=== PATIENT | male | born 1940 | race Caucasian/White ===

== ENCOUNTER → 2016-11-27 | Outpatient (CLI) | payer BC ==
[~2016-11-27] MED LIST: ALBU1AER9 INH; BECL0.3A INH; BRVIN INH; BUPR200T2 PO; CLON1TAB3 PO; DUTA0.5C PO; FINA5TAB4 PO; GATI0.5S OPL; KETO0.5S33 OPL; LOVA20TA63 PO; OMEP40CA41 PO; PRED1SUS3 OPL; PRVIN525X INH; ROFL1TAB5 PO; TAMS0.4C38 PO; TIOT1AER INH; TRAZ-119 PO
== END | disposition home or self-care (01) ==
LOC: C.LABMFLN 08:25
PROVIDERS: ATTEND Urology
DX: N40.1 Benign prostatic hyperplasia with lower urinary tract symptoms (principal)

== ENCOUNTER → 2016-12-07 | Outpatient (CLI) | payer BC | END | disposition home or self-care (01) | LOC: C.PATHSPEC 17:01 | PROVIDERS: ATTEND Urology | DX: C67.9 Malignant neoplasm of bladder, unspecified (principal); N30.21 Other chronic cystitis with hematuria; R82.8 Abnormal findings on cytological and histological examination of urine ==

== ENCOUNTER → 2017-01-02 | Outpatient (CLI) | payer BC ==
[2017-01-01 14:00] LABS: ESTIMATED AVERAGE GLUCOSE 166 mg/dl; HA1C FLAG Normal (Normal)
[2017-01-01 15:39] LABS: ALB/GLOB RATIO 1.2 (0.9-2); ALKALINE PHOSPHATASE 81 U/L (45-117); ALT/SGPT 19 U/L (12-78); AST/SGOT 8 U/L (15-37); BLOOD UREA NITROGEN 11 mg/dl (7-18); BUN/CREATININE RATIO 11.3 (10-20); CALCIUM 9.1 mg/dl (8.5-10.1); CARBON DIOXIDE 31 mmol/L (21-32); CHLORIDE 106 mmol/L (98-107); CHOLESTEROL 181 mg/dl (0-200); CHOLESTEROL/HDL RATIO 3.1; CREATININE 0.94 mg/dl (0.60-1.40); GLUCOSE 133 mg/dl (70-99); HDL CHOLESTEROL 59 mg/dl; POTASSIUM 4.3 mmol/L (3.5-5.1); SODIUM 142 mmol/L (136-145)
[2017-01-01 15:48] LABS: LDL CHOLESTEROL CALCULATED 102 mg/dl; TRIGLYCERIDES 101 mg/dl (0-150); VERY LOW DENSITY LIPOPROT CALC 20 mg/dl
== END | disposition home or self-care (01) ==
LOC: C.LABMFLN 10:49
PROVIDERS: ATTEND Family Medicine
DX: E11.9 Type 2 diabetes mellitus without complications (principal); I10 Essential (primary) hypertension; E78.00 Pure hypercholesterolemia, unspecified; E05.90 Thyrotoxicosis, unspecified without thyrotoxic crisis or storm; J44.1 Chronic obstructive pulmonary disease with (acute) exacerbation

== ENCOUNTER → 2017-03-02 | Outpatient (CLI) | payer BC ==
[~2017-03-02] MED LIST changes: -TRAZ-119 PO; +TRAZ1TAB16 PO
--- NOTE | 2017-03-02 12:36 | DIAGNOSTIC IMAGING REPORT ---
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 COMPARISON STUDY: 08/17/2015 CT DOSE: 91.58 mGy.cm TECHNIQUE: Low-dose helical CT was acquired without intravenous contrast from lung apices to bases and reconstructed at 2.5 mm every 2 mm. CAD was utilized for this study. FINDINGS: Thyroid: Imaged portions of the thyroid gland are normal in appearance. Thoracic aorta: The thoracic aorta is normal in course and caliber, noting standard 3 vessel arch anatomy. Heart: There are mild coronary artery calcifications Lungs and pleural spaces: There are no pleural effusions. There is dependent atelectasis. There is a 12 mm right middle lobe pulmonary nodule containing dense central calcification. This is consistent with a postinflammatory granuloma. There is pulmonary emphysema. There is lower lobe bronchial wall thickening with areas of mucous plugging. Mediastinum: There is no mediastinal lymphadenopathy. Garima: There is no evidence of pathologic hilar adenopathy given the limitations of a noncontrast study Axilla: Clear. Upper abdomen: Partially visualized upper abdominal viscera is within normal limits. Skeletal structures: There are no lytic or blastic osseous lesions. IMPRESSION: 1. Benign 12 mm right middle lobe pulmonary nodule 2. Moderate emphysema 3. Lower lobe bronchial wall thickening with areas of mucous plugging CAD FINDINGS: Overall Lung RADS Category: 2 Lung RADS Management Recommendation: Lung-RADS 2: Continue annual screening in 12 months. Lung RADS Follow Up Date: 2018-03-02 Lung RADS Nodule ID: Electronically signed by: Zaid Edge M.D. 03/02/2017 12:36 PM Dictated Date/Time: 03/02/2017 12:29 PM
== END | disposition home or self-care (01) ==
LOC: C.CTS 10:41
PROVIDERS: ATTEND Family Medicine
DX: F17.210 Nicotine dependence, cigarettes, uncomplicated (principal); R91.1 Solitary pulmonary nodule; J43.9 Emphysema, unspecified

== ENCOUNTER → 2017-04-12 | Outpatient (CLI) | payer BC | END | disposition home or self-care (01) | LOC: C.PATHSPEC 10:53 | PROVIDERS: ATTEND Urology | DX: C67.9 Malignant neoplasm of bladder, unspecified (principal) ==

== ENCOUNTER → 2017-05-01 | Outpatient (CLI) | payer BC ==
[2017-05-01 13:25] LABS: ESTIMATED AVERAGE GLUCOSE 166 mg/dl; HA1C FLAG Normal (Normal)
[2017-05-01 14:06] LABS: ALT/SGPT 22 U/L (12-78); BLOOD UREA NITROGEN 12 mg/dl (7-18); BUN/CREATININE RATIO 13.5 (10-20); CALCIUM 8.6 mg/dl (8.5-10.1); CARBON DIOXIDE 31 mmol/L (21-32); CHLORIDE 103 mmol/L (98-107); CHOLESTEROL 164 mg/dl (0-200); CREATININE 0.86 mg/dl (0.60-1.40); GLUCOSE 112 mg/dl (70-99); SODIUM 139 mmol/L (136-145); TRIGLYCERIDES 111 mg/dl (0-150); VERY LOW DENSITY LIPOPROT CALC 22 mg/dl
[2017-05-01 14:15] LABS: ALB/GLOB RATIO 1.2 (0.9-2); ALKALINE PHOSPHATASE 77 U/L (45-117); AST/SGOT 11 U/L (15-37); CHOLESTEROL/HDL RATIO 2.6; HDL CHOLESTEROL 62 mg/dl; LDL CHOLESTEROL CALCULATED 80 mg/dl
[2017-05-01 14:55] LABS: RATIO 9.9 mcg/mg (0-30.0)
== END | disposition home or self-care (01) ==
LOC: C.LABMFLN 09:05
PROVIDERS: ATTEND Family Medicine
DX: E11.9 Type 2 diabetes mellitus without complications (principal); I10 Essential (primary) hypertension; E78.00 Pure hypercholesterolemia, unspecified; E05.90 Thyrotoxicosis, unspecified without thyrotoxic crisis or storm

== ENCOUNTER → 2017-05-18 | Outpatient (CLI) | payer BC ==
[2017-05-18 13:20] LABS: BASO % 0.2 %; BASO ABS # 0.05 K/uL (0-0.2); COMPLETE YES; EOS % 0.5 %; HEMATOCRIT 40.8 % (42-52); IG% 2.2 %; LYMPH % 13.7 %; LYMPH ABS # 3.24 K/uL (1.2-3.4); MEAN CELL VOLUME 90.3 fL (80-100); MEAN CORPUSCULAR HEMOGLOBIN 29.9 pg (25-34); MEAN CORPUSCULAR HGB CONC 33.1 g/dl (32-36); MONO % 8.2 %; NEUT % 75.2 %; PLATELET COUNT 354 K/uL (130-400); RED BLOOD COUNT 4.52 M/uL (4.7-6.1); WHITE BLOOD COUNT 23.68 K/uL (4.8-10.8)
== END | disposition home or self-care (01) ==
LOC: C.LABMFLN 11:04
PROVIDERS: ATTEND Family Medicine
DX: R06.00 Dyspnea, unspecified (principal)

== ENCOUNTER → 2017-07-05 | Outpatient (CLI) | payer BC ==
[~2017-07-05] MED LIST changes: +TRAZ-119 PO; -TRAZ1TAB16 PO
== END | disposition home or self-care (01) ==
LOC: C.PATHSPEC 17:12
PROVIDERS: ATTEND Urology
DX: C67.9 Malignant neoplasm of bladder, unspecified (principal)

== ENCOUNTER → 2017-08-03 | Outpatient (CLI) | payer BC | END | disposition home or self-care (01) | LOC: C.LABMFLN 08:16 | PROVIDERS: ATTEND Family Medicine | DX: M25.572 Pain in left ankle and joints of left foot (principal) ==

== ENCOUNTER 2017-08-23 10:51 | Inpatient (IN) | payer BC, OTHER ==
[~2017-08-23] VITALS: Ht 172.7 cm; Wt 80.9 kg
[2017-08-23] MEDS ORDERED: SODIUM CHLORIDE 0.9% 1000ML 1,000 ML IV STA ×2 (11:07→12:16)
[2017-08-23] MEDS ORDERED: MAGNESIUM SULFATE 1GM / D5W 1 GM BAG IV STA (11:07)
[2017-08-23] MEDS ORDERED: METHYLPREDNISOLONE 125 MG VIAL IV STA (11:07)
--- NOTE | 2017-08-23 11:12 | EMERGENCY ROOM VISIT NOTE ---
History Report prepared by Kelly: Eduardo Stubbs Under the Supervision of: Dr. Yonathan Uribe M.D. First contact with patient: 11:05 Chief Complaint: RESPIRATORY PROBLEMS Stated Complaint: WEAKNESS,NOT EATING Nursing Triage Summary: pt to the ED with c/o SOB for a wk and a cough pt states "i think I have pneumonia History of Present Illness The patient is a 77 year old male who presents to the Emergency Room with complaints of a nonproductive cough that began 1 week ago. The patient reports congestion, diarrhea, nausea, vomiting, shortness of breath, and body aches. The patient denies any chest pain or dysuria. He denies the use of any blood thinners. The patient does report sick contacts. The patient has a history of COPD and uses a CPAP machine at night. Pt denies LOC, headache, fevers, chills, diaphoresis, visual changes, neck pain , chest pain, abdominal pain, back pain, diarrhea, urinary symptoms, numbness, weakness, rash, or other complaints. Source of History: patient Onset: 1 week ago Position: other (global) Timing: constant Associated Symptoms: + cough, + SOB, + nausea, + vomiting, + diarrhea, No chest pain, No urinary symptoms Note: Pt reports body aches Review of Systems See HPI for pertinent positives and negatives. A total of ten systems were reviewed and were otherwise negative. Past Medical & Surgical Medical Problems: (1) Bladder cancer (2) COPD (chronic obstructive pulmonary disease) (3) GI bleed Family History Kidney disease Social History Smoking Status: Current Every Day Smoker Marital Status: Housing Status: lives alone Occupation Status: retired Current/Historical Medications Scheduled Atorvastatin (Lipitor), 10 MG PO PM Budesonide/Formoterol Fumarate (Symbicort 160/4.5 Inhaler ), 2 PUFFS INH BID Clonazepam (Klonopin), 1 MG PO HS Finasteride (Proscar), 5 MG PO QAM Metformin HCl (Metformin HCl), 500 MG PO DAILY Omeprazole (Prilosec), 40 MG PO QAM Ranitidine HCl (Ranitidine HCl), 150 MG PO DAILY Tamsulosin Hcl (Flomax), 0.4 MG PO AFTERNOON Scheduled PRN Albuterol Sulf (Albuterol Sulfate), 1 DOSE INH QID PRN for Shortness of Breath Albuterol Sulfate (Proair Hfa), 2 PUFFS INH Q4 PRN for Shortness of Breath Tiotropium Dexter-Olodaterol (Stiolto Respimat 2.5-2.5 Mcg/Act), 1 PUFF INH BID PRN for Shortness of Breath Trazodone Hcl (Desyrel), 1-2 TAB PO HS PRN for Sleep Allergies Coded Allergies: Levofloxacin (Verified Allergy, Unknown, pt doesnt remember, 08/23/17) Pravastatin (Verified Adverse Reaction, Unknown, muscle aches, 08/23/17) Physical Exam Vital Signs Date Time Temp Pulse Resp B/P (MAP) Pulse Ox O2 Delivery O2 Flow Rate FiO2 08/23/17 13:37 117 08/23/17 12:47 121 20 142/97 98 Nebulizer 08/23/17 11:42 115 18 93 Room Air 08/23/17 11:23 Room Air 95 08/23/17 11:10 94 Room Air 08/23/17 11:10 94 Room Air 08/23/17 11:07 114 08/23/17 10:54 36.8 127 36 163/82 92 Room Air Physical Exam GENERAL: Awake, alert, dyspneic appearing, in no distress HENT: Normocephalic, atraumatic. dry cracked mucous membranes. EYES: Normal conjunctiva. Sclera non-icteric. NECK: Supple. No nuchal rigidity. FROM. No JVD. RESPIRATORY: Diffuse wheezes throughout, diminished lung sounds at bases. CARDIAC: Regular rate, normal rhythm. Extremities warm and well perfused. Pulses equal. ABDOMEN: Soft, non-distended. No tenderness to palpation. No rebound or guarding. No masses. RECTAL: Deferred. MUSCULOSKELETAL: Chest examination reveals no tenderness. The back is symmetrical on inspection without obvious abnormality. There is no CVA tenderness to palpation. No joint edema. LOWER EXTREMITIES: Calves are equal size bilaterally and non-tender. No edema. No discoloration. NEURO: Normal sensorium. No sensory or motor deficits noted. SKIN: No rash or jaundice noted. Medical Decision & Procedures ER Provider Diagnostic Interpretation: Radiology results as stated below per my review and radiologist interpretation: CHEST ONE VIEW PORTABLE CLINICAL HISTORY: CHEST PAIN dyspnea COMPARISON STUDY: 08/17/2015 FINDINGS: Slight basilar interstitial prominence which is chronic. No well-defined focal infiltrative change. Mid and upper lungs are clear. No significant cardiac enlargement. IMPRESSION: Mild basilar bronchitis. The above report was generated using voice recognition software. It may contain grammatical, syntax or spelling errors. Electronically signed by: Sam Sexton M.D. 08/23/2017 11:35 AM Dictated Date/Time: 08/23/2017 11:34 AM Laboratory Results 08/23/17 11:30 Red Blood Count 4.20, Mean Corpuscular Volume 91.0, Mean Corpuscular Hemoglobin 31.0, Mean Corpuscular Hemoglobin Concent 34.0, Mean Platelet Volume 10.7, Neutrophils (%) (Auto) 91.0, Lymphocytes (%) (Auto) 3.4, Monocytes (%) (Auto) 5.0, Eosinophils (%) (Auto) 0.0, Basophils (%) (Auto) 0.1, Neutrophils # (Auto) 32.41, Lymphocytes # (Auto) 1.22, Monocytes # (Auto) 1.77, Eosinophils # (Auto) 0.00, Basophils # (Auto) 0.03 08/23/17 11:30 Test 08/23/17 11:30 08/23/17 11:50 08/23/17 12:00 White Blood Count 35.60 K/uL (4.8-10.8) Red Blood Count 4.20 M/uL (4.7-6.1) Hemoglobin 13.0 g/dL (14.0-18.0) Hematocrit 38.2 % (42-52) Mean Corpuscular Volume 91.0 fL (80-100) Mean Corpuscular Hemoglobin 31.0 pg (25-34) Mean Corpuscular Hemoglobin Concent 34.0 g/dl (32-36) Platelet Count 364 K/uL (130-400) Mean Platelet Volume 10.7 fL (7.4-10.4) Neutrophils (%) (Auto) 91.0 % Lymphocytes (%) (Auto) 3.4 % Monocytes (%) (Auto) 5.0 % Eosinophils (%) (Auto) 0.0 % Basophils (%) (Auto) 0.1 % Neutrophils # (Auto) 32.41 K/uL (1.4-6.5) Lymphocytes # (Auto) 1.22 K/uL (1.2-3.4) Monocytes # (Auto) 1.77 K/uL (0.11-0.59) Eosinophils # (Auto) 0.00 K/uL (0-0.5) Basophils # (Auto) 0.03 K/uL (0-0.2) RDW Standard Deviation 45.6 fL (36.4-46.3) RDW Coefficient of Variation 13.8 % (11.5-14.5) Immature Granulocyte % (Auto) 0.5 % Immature Granulocyte # (Auto) 0.17 K/uL (0.00-0.02) Giant Platelets 1+ Prothrombin Time 10.5 SECONDS (9.0-12.0) Prothromb Time International Ratio 1.0 (0.9-1.1) Anion Gap 6.0 mmol/L (3-11) Est Creatinine Clear Calc Drug Dose 71.8 ml/min Estimated GFR () 98.3 Estimated GFR (Non- 84.8 BUN/Creatinine Ratio 23.9 (10-20) Lactic Acid Level 2.0 mmol/L (0.4-2.0) Calcium Level 8.4 mg/dl (8.5-10.1) Total Bilirubin 0.7 mg/dl (0.2-1) Direct Bilirubin 0.2 mg/dl (0-0.2) Aspartate Amino Transf (AST/SGOT) 16 U/L (15-37) Alanine Aminotransferase (ALT/SGPT) 31 U/L (12-78) Alkaline Phosphatase 93 U/L (45-117) Troponin I < 0.015 ng/ml (0-0.045) Total Protein 7.1 gm/dl (6.4-8.2) Albumin 2.8 gm/dl (3.4-5.0) Lipase 59 U/L (73-393) Venous Blood pH 7.42 (7.36-7.41) Venous Blood Partial Pressure CO2 40 mmHg (38.0-50.0) Venous Blood Partial Pressure O2 42 mmHg Venous Blood HCO3 26 mmol/L Venous Blood Oxygen Saturation 75.6 % Venous Blood Base Excess 1.2 mEq/L Influenza Type A (RT-PCR) Neg for Influ A (NEG) Influenza Type A Antigen Neg for Influ A (NEG) Influenza Type B Antigen Neg for Influ B (NEG) Influenza Type B (RT-PCR) Neg for Influ B (NEG) Laboratory results reviewed by me Medications Administered Medications (Trade) Dose Ordered Sig/Khurram Route Start Time Stop Time Status Last Admin Dose Admin Albuterol/ Ipratropium (Duoneb) 12 ml ONE ONCE INH 08/23/17 11:15 08/23/17 11:16 DC 08/23/17 11:40 12 ML Methylprednisolone Sodium Succinate (Solu-Medrol IV) 125 mg NOW STAT IV 08/23/17 11:07 08/23/17 11:11 DC 08/23/17 11:57 125 MG Magnesium Sulfate (Magnesium Sulfate) 2 gm NOW STAT IV 08/23/17 11:07 08/23/17 11:11 DC 08/23/17 11:57 2 GM Sodium Chloride 1,000 ml @ 999 mls/hr Q1H1M STAT IV 08/23/17 11:07 08/23/17 12:07 DC 08/23/17 11:57 999 MLS/HR Vancomycin HCl 1600 mg/Sodium Chloride 532 ml @ 200 mls/hr ONE STAT IV 08/23/17 12:13 08/23/17 14:52 DC 08/23/17 14:07 200 MLS/HR Cefepime HCl 1000 mg/Dextrose 111 ml @ 200 mls/hr NOW STAT IV 08/23/17 12:13 08/23/17 12:46 DC 08/23/17 12:38 200 MLS/HR Azithromycin 500 mg/Dextrose 255 ml @ 125 mls/hr ONE ONCE IV 08/23/17 12:15 08/23/17 14:17 DC 08/23/17 12:42 125 MLS/HR Sodium Chloride 1,000 ml @ 999 mls/hr Q1H1M STAT IV 08/23/17 12:16 08/23/17 13:16 DC 08/23/17 12:00 999 MLS/HR ECG Indication: weakness Rate (beats per minute): 126 Rhythm: sinus tachycardia (with frequent PVC) Findings: no acute ischemic change, other (normal axis) ED Course 1105: The patient was evaluated in room C3. A complete history and physical exam was performed. 1242: I discussed the patient with Dr. Dutch ROBBINS who will evaluate the patient for further treatment. 1330: Upon reexamination, the patient was doing well. I discussed the test results and treatment plan with the patient. The patient will be evaluated for further management. Medical Decision I reviewed the patient's past medical history, medications, and the nursing notes as described above. Differential Diagnoses: Pneumonia, bronchitis, UTI, ACS, flu, and electrolyte imbalance. The patient is 77 y/o gentlemen with a pmhx of COPD who presents to the emergency department with with cough, congestion, sob per HPI. On arrival the patient is dyspneic but in NAD. AF. Tachycardic to 110s. Otherwise, VSS. Labs notable for WBC 35. CXR read as bronchitis. Blood cx drawn and pending. UA pending. Given profound leukocytosis will treat empirically for sepsis with Vanc /Cefepime and will add azithro for atypical coverage. Additionally treated with nebs, steroids, and mag for COPD. Case d/w Dr. Judd, [facility] hospitalist, who will admit the patient for further management. Medication Reconcilliation Current Medication List: was personally reviewed by me Blood Pressure Screening Patient's blood pressure: Elevated blood pressure Blood pressure disposition: Elevated BP felt to be situational Consults Time Called: 1239 Consulting Physician: Dr. Dutch PIERRE Returned Call: 1242 I discussed the patient with Dr. Dutch PIERRE will evaluate the patient for further treatment. Impression Primary Impression: Sepsis Additional Impression: Bronchitis Critical Care I have personally spent greater than 35 minutes of critical care time in the direct management of this patient. This includes bedside care, interpretation of diagnostic studies, and testing, discussion with consultants, patient, and family members, and other required patient management activities. This 35 minutes is in excess of all separately billable procedures. Scribe Attestation The scribe's documentation has been prepared under my direction and personally reviewed by me in its entirety. I confirm that the note above accurately reflects all work, treatment, procedures, and medical decision making performed by me. Departure Information Dispostion Being Evaluated By Hospitalist Referrals Harrison Vicente M.D. (PCP) Patient Instructions My [facility] Problem Qualifiers
[2017-08-23] MEDS ORDERED: ALBUT/IPRATROP 3MG/0.5MG NEB 3 ML VIAL INH ONE (11:15)
--- NOTE | 2017-08-23 11:36 | DIAGNOSTIC IMAGING REPORT ---
CHEST ONE VIEW PORTABLE CLINICAL HISTORY: CHEST PAIN dyspnea COMPARISON STUDY: 08/17/2015 FINDINGS: Slight basilar interstitial prominence which is chronic. No well-defined focal infiltrative change. Mid and upper lungs are clear. No significant cardiac enlargement. IMPRESSION: Mild basilar bronchitis. The above report was generated using voice recognition software. It may contain grammatical, syntax or spelling errors. Electronically signed by: Sam Sexton M.D. 08/23/2017 11:35 AM Dictated Date/Time: 08/23/2017 11:34 AM
[2017-08-23 11:42] VITALS: PULSE 115; O2SAT 93
[2017-08-23 11:59] LABS: HEMATOCRIT 38.2 % (42-52); MEAN PLATELET VOLUME 10.7 fL (7.4-10.4); PLATELET COUNT 364 K/uL (130-400); RED CELL DISTRIBUTION WIDTH CV 13.8 % (11.5-14.5); RED CELL DISTRIBUTION WIDTH SD 45.6 fL (36.4-46.3)
[2017-08-23] MEDS ORDERED: GLC500 PO (12:06)
[2017-08-23] MEDS ORDERED: ATOR10TA82 PO (12:06)
[2017-08-23] MEDS ORDERED: RANI150T2 PO (12:06)
[2017-08-23] MEDS ORDERED: SYMIN160 INH (12:07)
[2017-08-23] MEDS ORDERED: VANCOMYCIN INJ 1,600 MG in SODIUM CHLORIDE 0.9% 500ML 500 ML IV STA (12:13)
[2017-08-23] MEDS ORDERED: CEFEPIME IV 1,000 MG in DEXTROSE 5% 100ML 100 ML IV STA (12:13)
[2017-08-23] MEDS ORDERED: AZITHROMYCIN IV 500 MG in DEXTROSE 5% 250ML 250 ML IV ONE (12:15)
[2017-08-23 12:16] LABS: ALBUMIN 2.8 gm/dl (3.4-5.0); ALT/SGPT 31 U/L (12-78); AST/SGOT 16 U/L (15-37); BLOOD UREA NITROGEN 20 mg/dl (7-18); CALCIUM 8.4 mg/dl (8.5-10.1); CARBON DIOXIDE 28 mmol/L (21-32); CREATININE 0.86 mg/dl (0.60-1.40); GLUCOSE 155 mg/dl (70-99); LIPASE 59 U/L (73-393); POTASSIUM 3.6 mmol/L (3.5-5.1); SODIUM 132 mmol/L (136-145)
[2017-08-23 12:21] LABS: ALKALINE PHOSPHATASE 93 U/L (45-117); BASO % 0.1 %; BASO ABS # 0.03 K/uL (0-0.2); IG# 0.17 K/uL (0.00-0.02); LYMPH % 3.4 %; LYMPH ABS # 1.22 K/uL (1.2-3.4); MONO ABS # 1.77 K/uL (0.11-0.59); NEUT ABS # 32.41 K/uL (1.4-6.5); TOTAL PROTEIN 7.1 gm/dl (6.4-8.2)
[2017-08-23 13:03] LABS: INFLUENZA B ANTIGEN Neg for Influ B (NEG)
[2017-08-23] MEDS ORDERED: ACETAMINOPHEN 325 MG TAB PO PRN (13:30)
[2017-08-23] MEDS ORDERED: ONDANSETRON INJ 2 MG/ML 2 ML VIAL IV PRN (13:30)
[2017-08-23] MEDS ORDERED: ALUMINUM/MAGNESIUM/SIMETH (MAALOX MAX) 30 ML UDC PO PRN (13:30)
[2017-08-23] MEDS ORDERED: POLYETHYLENE (MIRALAX) 17 GM PACK PO PRN (13:30)
[2017-08-23] MEDS ORDERED: MAGNESIUM HYDROXIDE SUSP 30 ML UDC PO PRN (13:30)
[2017-08-23 13:37] LABS: INFLUENZA A PCR Neg for Influ A (NEG); INFLUENZA B PCR Neg for Influ B (NEG)
[2017-08-23] MEDS ORDERED: TRAZODONE HCL 50 MG TAB PO PRN (14:15)
[2017-08-23] MEDS ORDERED: GLUCOSE 10 TABS/TUBE PO PRN (14:30)
[2017-08-23] MEDS ORDERED: DEXTROSE 50% 50 ML SYR IV PRN (14:30)
[2017-08-23] MEDS ORDERED: GLUCOSE 40% GEL 15 GM TUBE PO PRN (14:30)
[2017-08-23] MEDS ORDERED: GLUCAGON FOR INJ 1 MG VIAL SQ PRN (14:30)
--- NOTE | 2017-08-23 14:37 | History and Physical ---
History & Physical Date & Time of Service: Aug 23, 2017 at 14:20 Chief Complaint: Weakness,Not Eating Primary Care Physician: Harrison Vicente M.D. History of Present Illness Mr. Melendez is a 77 y/o male with PMHx of COPD, [place] on CPAP, HTN, H/O PE/DVT, Myeloproliferative D/O, T2DM, HLD, and Tobacco User who presents to the ED c/o generalized illness x 1 week. Patient reports prior to his illness, his grandchildren were visiting who are also sick with URI and GI symptoms. He states he started off with nausea/vomiting, congestion, diarrhea, and body aches. He reports the nausea/vomiting/diarrhea have completely resolved but continues to have a poor appetite. On Sunday he states he developed shortness of breath. He continues to have a nonproductive cough. He denies nasal congestion or sore throat. He states he has been utilizing his nebulizers and inhalers as prescribed and reports some relief. Earlier in July he was treated with steroids for mild COPD exacerbation but denies recent steroid use. He reports he did have his flu vaccine and pneumonia vaccine. He reports associated orthopnea but states there is an element of chronicity to this. Upon examination, patient is on room air with mild audible wheezing and is in tripod position but is able to hold a normal conversation. He denies fever/ chills, chest pain, nausea/vomiting, abdominal pain, constipation/diarrhea, melena/hematochezia. He is afebrile and with significant leukocytosis. Upon further review, patient is normally in a state a leukocytosis and in the past it was believed this was a myeloproliferative disorder. While in the ED, patient remained tachycardic which is likely due to steroids and nebulizer treatment. The majority of the time he is on room air but did have mild hypoxia at 87% and was placed on supplemental oxygen. 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 Past Medical/Surgical History 1. COPD 2. [place] on CPAP 3. HTN 4. BPH 5. Bladder CA 6. HLD 7. T2DM 8. Myeloproliferative D/O 9. AV Sclerosis/Mass/Vegetation? 10. Tobacco User Family History Brain Mass Kidney disease Lung Disease Stroke Social History Smoking Status: Current Every Day Smoker Alcohol Use: none Drug Use: none Marital Status: Housing status: lives alone Occupational Status: retired Allergies Coded Allergies: Levofloxacin (Verified Allergy, Unknown, pt doesnt remember, 08/23/17) Pravastatin (Verified Adverse Reaction, Unknown, muscle aches, 08/23/17) Home Medications Scheduled Atorvastatin (Lipitor), 10 MG PO PM Budesonide/Formoterol Fumarate (Symbicort 160/4.5 Inhaler ), 2 PUFFS INH BID Clonazepam (Klonopin), 1 MG PO HS Finasteride (Proscar), 5 MG PO QAM Metformin HCl (Metformin HCl), 500 MG PO DAILY Omeprazole (Prilosec), 40 MG PO QAM Ranitidine HCl (Ranitidine HCl), 150 MG PO DAILY Tamsulosin Hcl (Flomax), 0.4 MG PO AFTERNOON Scheduled PRN Albuterol Sulf (Albuterol Sulfate), 1 DOSE INH QID PRN for Shortness of Breath Albuterol Sulfate (Proair Hfa), 2 PUFFS INH Q4 PRN for Shortness of Breath Tiotropium [place]-Olodaterol (Stiolto Respimat 2.5-2.5 Mcg/Act), 1 PUFF INH BID PRN for Shortness of Breath Trazodone Hcl (Desyrel), 1-2 TAB PO HS PRN for Sleep Review of Systems Constitutional: No fever, No chills ENT: No nasal symptoms, No sore throat Respiratory: + cough, + shortness of breath, No sputum Cardiovascular: + orthopnea, No chest pain, No palpitations Abdomen: No pain, No nausea, No vomiting, No diarrhea, No GI bleeding Musculoskeletal: No swelling, No calf pain Genitourinary - Male: No dysuria, No urinary frequency Hematologic / Lymphatic: No abnormal bleeding/bruising Integumentary: No rash Physical Exam Vital Signs Date Time Temp Pulse Resp B/P (MAP) Pulse Ox O2 Delivery O2 Flow Rate FiO2 08/23/17 14:14 91 Nasal Cannula 3.0 08/23/17 14:11 120 20 140/76 89 Room Air 08/23/17 13:37 117 08/23/17 12:47 121 20 142/97 98 Nebulizer 08/23/17 11:42 115 18 93 Room Air 08/23/17 11:23 Room Air 95 08/23/17 11:10 94 Room Air 08/23/17 11:10 94 Room Air 08/23/17 11:07 114 08/23/17 10:54 36.8 127 36 163/82 92 Room Air General Appearance: WD/WN, + mild distress (tripod position) Head: normocephalic, atraumatic Eyes: sclerae normal ENT: hearing grossly normal Neck: supple, no JVD, trachea midline Respiratory/Chest: + wheezing (diffusely throughout; has a wet-wheeze sound) Cardiovascular: + tachycardia, + systolic murmur Abdomen/GI: normal bowel sounds, non tender, soft Extremities/Musculoskelatal: no calf tenderness, no pedal edema Neurologic/Psych: alert, oriented x 3 Skin: normal color, warm/dry Diagnostics Laboratory Results Results Past 24 Hours Test 08/23/17 11:30 08/23/17 11:50 08/23/17 12:00 Range/Units White Blood Count 35.60 4.8-10.8 K/uL Red Blood Count 4.20 4.7-6.1 M/uL Hemoglobin 13.0 14.0-18.0 g/dL Hematocrit 38.2 42-52 % Mean Corpuscular Volume 91.0 80-100 fL Mean Corpuscular Hemoglobin 31.0 25-34 pg Mean Corpuscular Hemoglobin Concent 34.0 32-36 g/dl Platelet Count 364 130-400 K/uL Mean Platelet Volume 10.7 7.4-10.4 fL Neutrophils (%) (Auto) 91.0 % Lymphocytes (%) (Auto) 3.4 % Monocytes (%) (Auto) 5.0 % Eosinophils (%) (Auto) 0.0 % Basophils (%) (Auto) 0.1 % Neutrophils # (Auto) 32.41 1.4-6.5 K/uL Lymphocytes # (Auto) 1.22 1.2-3.4 K/uL Monocytes # (Auto) 1.77 0.11-0.59 K/uL Eosinophils # (Auto) 0.00 0-0.5 K/uL Basophils # (Auto) 0.03 0-0.2 K/uL RDW Standard Deviation 45.6 36.4-46.3 fL RDW Coefficient of Variation 13.8 11.5-14.5 % Immature Granulocyte % (Auto) 0.5 % Immature Granulocyte # (Auto) 0.17 0.00-0.02 K/uL Giant Platelets 1+ Sodium Level 132 136-145 mmol/L Potassium Level 3.6 3.5-5.1 mmol/L Chloride Level 98 98-107 mmol/L Carbon Dioxide Level 28 21-32 mmol/L Anion Gap 6.0 3-11 mmol/L Blood Urea Nitrogen 20 7-18 mg/dl Creatinine 0.86 0.60-1.40 mg/dl Est Creatinine Clear Calc Drug Dose 71.8 ml/min Estimated GFR () 98.3 Estimated GFR (Non- 84.8 BUN/Creatinine Ratio 23.9 10-20 Random Glucose 155 70-99 mg/dl Lactic Acid Level 2.0 0.4-2.0 mmol/L Calcium Level 8.4 8.5-10.1 mg/dl Total Bilirubin 0.7 0.2-1 mg/dl Direct Bilirubin 0.2 0-0.2 mg/dl Aspartate Amino Transf (AST/SGOT) 16 15-37 U/L Alanine Aminotransferase (ALT/SGPT) 31 12-78 U/L Alkaline Phosphatase 93 45-117 U/L Troponin I < 0.015 0-0.045 ng/ml Total Protein 7.1 6.4-8.2 gm/dl Albumin 2.8 3.4-5.0 gm/dl Lipase 59 73-393 U/L Venous Blood pH 7.42 7.36-7.41 Venous Blood Partial Pressure CO2 40 38.0-50.0 mmHg Venous Blood Partial Pressure O2 42 mmHg Venous Blood HCO3 26 mmol/L Venous Blood Oxygen Saturation 75.6 % Venous Blood Base Excess 1.2 mEq/L Influenza Type A (RT-PCR) Neg for Influ A NEG Influenza Type A Antigen Neg for Influ A NEG Influenza Type B Antigen Neg for Influ B NEG Influenza Type B (RT-PCR) Neg for Influ B NEG Microbiology Results 08/23/17 Blood Culture, Received Pending 08/23/17 Blood Culture, Received Pending Diagnostic Radiology CHEST ONE VIEW PORTABLE CLINICAL HISTORY: CHEST PAIN dyspnea COMPARISON STUDY: 08/17/2015 FINDINGS: Slight basilar interstitial prominence which is chronic. No well-defined focal infiltrative change. Mid and upper lungs are clear. No significant cardiac enlargement. IMPRESSION: Mild basilar bronchitis. EKG Sinus tachycardia with frequent Premature ventricular complexes Left axis deviation Inferior infarct (cited on or before 17-AUG-2015) Abnormal ECG When compared with ECG of 17-AUG-2015 12:44, Premature ventricular complexes are now Present Impression Assessment and Plan Mr. Melendez is a 77 y/o male with PMHx of COPD, [place] on CPAP, HTN, H/O PE/DVT, Myeloproliferative D/O, T2DM, HLD, and Tobacco User who presents to the ED c/o generalized illness x 1 week. Acute Hypoxic Respiratory Failure 2/2 COPD Exacerbation vs PNA: - Initial CXR is unremarkable and will repeat tomorrow as he was hydrated in the ED; he does have a history of PE but clinically appears this is more from COPD but pending clinical course could consider CT to rule out PE (was previously on Coumadin for this but sustained a GI bleed) - Ceftriaxone 1 g IV daily and Zithromax 250 mg daily - Methylprednisolone 60 mg IV Q6H - Mucinex 600 mg BID - Symbicort 2 puffs BID - Obtain echo - further evaluate for diastolic/systolic dysfunction and to evaluate aortic valve mass; patient is complaining of orthopnea and does sound wet on exam - denies known CHF history - Will hold further fluids as the patient sounds wet but overall looks euvolemic T2DM: - Hold metformin and cover with SSI given lack of appetite and steroid administration [place] on CPAP at Night: - Set up CPAP while inpatient Myeloproliferative D/O: - Continue to trend WBC - will further rule out other sources of infection including UA and blood cultures HLD: - Atorvastatin 10 mg daily BPH: - Proscar 5 mg daily and Flomax 0.4 mg daily DVT Prophylaxis: Heparin 5000 units BID Code Status: FULL RESUSCITATION Disposition: Once heart rate improves can likely go to medical floor; anticipate length of stay 2-3 days I personally interviewed and examined the patient. I agree with history of present illness and physical exam mentioned above, I also performed my own history taking and examination. Past medical history and review of system has been obtained by myself I reviewed all pertinent labs and studies Reviewed current medications I discussed and formulated of the assessment and plan mentioned above. Please refer to the Summary mentioned below. 77 y/o male with myeloproliferative disorder with white blood cell count between 19 and 20 in the past, COPD, obstructive sleep apnea on CPAP, hypertension, diabetes, dyslipidemia, tobacco abuse, history of PE/DVT. Presented to the ED with severe shortness of breath/wheezing 1 week, also had diarrhea daily in the beginning of the week which spontaneously resolved Plan Admit patient to telemetry Oxygen supplement as per protocol Bronchodilators/steroids Blood culture/sputum culture Influenza virus screen and PCR were both negative Urine legionella antigen Group a strep screen Initiate broad-spectrum antibiotics covering typical and atypical microorganisms Start patient on lactobacillus to prevent C. difficile Continue home medications IV fluid hydration as needed Monitor labs in a.m. Monitor oxygen saturation DVT prophylaxis/heparin subcutaneous General Appearance: The [id number] acute distress Eyes: normal Sclerae, extraocular muscle intact ENT: hearing grossly normal Neck: supple Respiratory/Chest: Decreased air entry bilateral with scattered rhonchi/ wheezing, using accessory muscles of respiration, [id number] respiratory distress Cardiovascular: regular rate, rhythm, tachycardia with + systolic murmur Abdomen: non tender, soft, no masses Extremities: no edema Neurologic/Psychiatric: Awake alert oriented times place and person moves all extremities sensation intact cranial nerves II-12 appear to be intact Skin: normal color, warm/dry, no rash Pedrito Rothman MD, [facility] Level of Care Telemetry Resuscitation Status FULL RESUSCITATION VTE Prophylaxis VTE Risk Assessment Done? Y/N: Yes Risk Level: Moderate Given or contraindicated: Unfractionated heparin SQ
[2017-08-23 16:54] VITALS: BP 146/61; PULSE 114; TEMP 36.8; O2SAT 95; Ht 172.7 cm; Wt 80.9 kg
[2017-08-23] MEDS: INSULIN ASPART 100 UNITS/ML 3 ML PEN SC SCH ×2 (17:25→21:00)
--- NOTE | 2017-08-23 18:34 | DIAGNOSTIC IMAGING REPORT ---
CHEST 2 VIEWS ROUTINE CLINICAL HISTORY: 77 years-old Male presenting with PA/lateral - sob leukocytosis. TECHNIQUE: PA and lateral views of the chest were obtained. COMPARISON: 08/23/2017. FINDINGS: Atherosclerosis of aortic arch. Cardiac silhouette mildly enlarged. Heterogeneity of lung markings with relative lucency in the upper lobes. Mild hyperinflation. No focal infiltrate. No pleural effusion or pneumothorax. Osseous structures normal. Multiple external leads to grade evaluation of the lower thorax. IMPRESSION: 1. Emphysema. No focal infiltrate to suggest pneumonia. 2. Mild cardiomegaly. Electronically signed by: Nabeel Wright M.D. 08/23/2017 6:33 PM Dictated Date/Time: 08/23/2017 6:31 PM
[2017-08-23] MEDS: LEVALBUTEROL 0.63MG/3 ML NEB INH SCH (18:51)
[2017-08-23] MEDS: IPRATROPIUM BROMIDE NEB SOLN 0.02% 2.5 ML VIAL INH SCH (18:51)
[2017-08-23 18:55] VITALS: PULSE 85; O2SAT 96
[2017-08-23] MEDS: METHYLPREDNISOLONE IV 60 MG in SYRINGE 0 ML IV SCH ×2 (19:15→23:39)
[2017-08-23] MEDS: CEFTRIAXONE SOD INJ 1 GM in DEXTROSE 5% ADD-VANTAGE 50ML 50 ML IV SCH (19:15)
[2017-08-23] MEDS: GUAIFENESIN 600 MG TABCR PO SCH (19:16)
[2017-08-23] MEDS: LACTOBACILLUS ACIDOPHILUS (FLORANEX) TAB PO SCH (19:18)
[2017-08-23 19:49] VITALS: BP 154/70; PULSE 107; TEMP 36.6; O2SAT 92
[2017-08-23 20:00] VITALS: O2SAT 95
[2017-08-23] MEDS: BUDESONIDE/FORMOTEROL FUMARATE 160/4.5 60 PUFFS/INHALER INH SCH (20:48)
[2017-08-23] MEDS: TAMSULOSIN HCL 0.4 MG CAP PO SCH (20:49)
[2017-08-23] MEDS: ATORVASTATIN 10 MG TAB PO SCH (20:49)
[2017-08-23] MEDS: CLONAZEPAM 1 MG TAB PO SCH (20:55)
[2017-08-23] MEDS ORDERED: LEVALBUTEROL/IPRATROPIUM NEB INH SCH (21:00)
[2017-08-23] MEDS: HEPARIN SOD 5000 UNIT/0.5 ML CARP SQ SCH (21:01)
[2017-08-23 23:24] VITALS: BP 130/66; PULSE 107; TEMP 36.7; O2SAT 93
[2017-08-24] VITALS (16 sets, daily range): BP systolic 117–146; BP diastolic 62–77; PULSE 89–112; TEMP 36.3–36.6; O2SAT 91–97
[2017-08-24] MEDS: IPRATROPIUM BROMIDE NEB SOLN 0.02% 2.5 ML VIAL INH SCH ×4 (01:59→20:10)
[2017-08-24] MEDS: LEVALBUTEROL 0.63MG/3 ML NEB INH SCH ×4 (02:00→20:10)
[2017-08-24] MEDS: METHYLPREDNISOLONE IV 60 MG in SYRINGE 0 ML IV SCH ×3 (05:44→17:47)
[2017-08-24 07:41] LABS: HEMOGLOBIN 12.5 g/dL (14.0-18.0); MEAN CELL VOLUME 90.9 fL (80-100); MEAN CORPUSCULAR HEMOGLOBIN 30.7 pg (25-34); MEAN CORPUSCULAR HGB CONC 33.8 g/dl (32-36); MEAN PLATELET VOLUME 10.8 fL (7.4-10.4); PLATELET COUNT 419 K/uL (130-400); RED CELL DISTRIBUTION WIDTH CV 13.7 % (11.5-14.5); RED CELL DISTRIBUTION WIDTH SD 45.4 fL (36.4-46.3); WHITE BLOOD COUNT 24.27 K/uL (4.8-10.8)
[2017-08-24] MEDS: RANITIDINE HCL 150 MG TAB PO SCH (08:26)
[2017-08-24] MEDS: GUAIFENESIN 600 MG TABCR PO SCH ×2 (08:26→21:20)
[2017-08-24] MEDS: LACTOBACILLUS ACIDOPHILUS (FLORANEX) TAB PO SCH ×3 (08:26→17:46)
[2017-08-24] MEDS: FINASTERIDE 5 MG TAB PO SCH (08:26)
[2017-08-24] MEDS: AZITHROMYCIN 250 MG TAB PO SCH (08:27)
[2017-08-24] MEDS: PANTOprazole SOD 40 MG TAB PO SCH (08:27)
[2017-08-24] MEDS: BUDESONIDE/FORMOTEROL FUMARATE 160/4.5 60 PUFFS/INHALER INH SCH ×2 (08:28→21:20)
[2017-08-24] MEDS: INSULIN ASPART 100 UNITS/ML 3 ML PEN SC SCH ×4 (08:32→21:25)
--- NOTE | 2017-08-24 08:41 | Progress Note ---
Subjective Date of Service: Aug 24, 2017. Subjective pt feels much improved, his brother is at beside, he also confirms has improved , his exam however shows he still have significant wheezing and recommendation to stay another day Problem List Medical Problems: (1) Bronchitis Status: Acute (2) COPD exacerbation Status: Acute (3) Sepsis Status: Acute Review of Systems Constitutional: + weakness, + fatigue, No fever, No chills Respiratory: + cough, + shortness of breath, + dyspnea on exertion Cardiac: No chest pain, No edema Abdomen: No pain, No nausea, No vomiting, No diarrhea Musculoskeletal: No joint pain, No muscle pain Neurologic: No memory loss, No paralysis Psychiatric: No depression symptoms, No anhedonism Objective Vital Signs Date Time Temp Pulse Resp B/P (MAP) Pulse Ox O2 Delivery O2 Flow Rate FiO2 08/24/17 07:44 95 Nasal Cannula 3.0 08/24/17 07:44 36.4 103 16 117/62 (80) 93 2.0 08/24/17 07:38 112 20 96 Nasal Cannula 3.0 08/24/17 04:42 36.6 105 18 133/62 (85) 91 Nasal Cannula 3.0 08/24/17 04:00 95 Nasal Cannula 3.0 08/24/17 02:00 100 18 95 Nasal Cannula 3.0 08/24/17 00:00 95 Nasal Cannula 3.0 08/23/17 23:24 36.7 107 18 130/66 (87) 93 Nasal Cannula 3.0 08/23/17 20:00 95 Nasal Cannula 3.0 08/23/17 19:49 36.6 107 20 154/70 (98) 92 Nasal Cannula 2.0 08/23/17 18:55 85 18 96 Nasal Cannula 3.0 08/23/17 16:54 36.8 114 23 146/61 95 Nasal Cannula 3.0 08/23/17 16:08 36.8 120 20 140/76 91 08/23/17 14:14 91 Nasal Cannula 3.0 08/23/17 14:11 120 20 140/76 89 Room Air 08/23/17 13:37 117 08/23/17 12:47 121 20 142/97 98 Nebulizer 08/23/17 11:42 115 18 93 Room Air 08/23/17 11:23 Room Air 95 08/23/17 11:10 94 Room Air 08/23/17 11:10 94 Room Air 08/23/17 11:07 114 08/23/17 10:54 36.8 127 36 163/82 92 Room Air Physical Exam General Appearance: WD/WN, + mild distress Eyes: normal inspection, sclerae normal Respiratory/Chest: chest non-tender, + decreased breath sounds, + accessory muscle use, + wheezing Cardiovascular: regular rate, rhythm, + systolic murmur Abdomen: normal bowel sounds, non tender, soft Extremities: no pedal edema, no calf tenderness Neurologic/Psychiatric: alert, oriented x 3 Laboratory Results Last 24 Hours Test 08/23/17 11:30 08/23/17 11:50 08/23/17 12:00 08/23/17 19:27 White Blood Count 35.60 K/uL Red Blood Count 4.20 M/uL Hemoglobin 13.0 g/dL Hematocrit 38.2 % Mean Corpuscular Volume 91.0 fL Mean Corpuscular Hemoglobin 31.0 pg Mean Corpuscular Hemoglobin Concent 34.0 g/dl Platelet Count 364 K/uL Mean Platelet Volume 10.7 fL Neutrophils (%) (Auto) 91.0 % Lymphocytes (%) (Auto) 3.4 % Monocytes (%) (Auto) 5.0 % Eosinophils (%) (Auto) 0.0 % Basophils (%) (Auto) 0.1 % Neutrophils # (Auto) 32.41 K/uL Lymphocytes # (Auto) 1.22 K/uL Monocytes # (Auto) 1.77 K/uL Eosinophils # (Auto) 0.00 K/uL Basophils # (Auto) 0.03 K/uL RDW Standard Deviation 45.6 fL RDW Coefficient of Variation 13.8 % Immature Granulocyte % (Auto) 0.5 % Immature Granulocyte # (Auto) 0.17 K/uL Giant Platelets 1+ Prothrombin Time 10.5 SECONDS Prothromb Time International Ratio 1.0 Sodium Level 132 mmol/L Potassium Level 3.6 mmol/L Chloride Level 98 mmol/L Carbon Dioxide Level 28 mmol/L Anion Gap 6.0 mmol/L Blood Urea Nitrogen 20 mg/dl Creatinine 0.86 mg/dl Est Creatinine Clear Calc Drug Dose 71.8 ml/min Estimated GFR () 98.3 Estimated GFR (Non- 84.8 BUN/Creatinine Ratio 23.9 Random Glucose 155 mg/dl Lactic Acid Level 2.0 mmol/L Calcium Level 8.4 mg/dl Total Bilirubin 0.7 mg/dl Direct Bilirubin 0.2 mg/dl Aspartate Amino Transf (AST/SGOT) 16 U/L Alanine Aminotransferase (ALT/SGPT) 31 U/L Alkaline Phosphatase 93 U/L Troponin I < 0.015 ng/ml Total Protein 7.1 gm/dl Albumin 2.8 gm/dl Lipase 59 U/L Venous Blood pH 7.42 Venous Blood Partial Pressure CO2 40 mmHg Venous Blood Partial Pressure O2 42 mmHg Venous Blood HCO3 26 mmol/L Venous Blood Oxygen Saturation 75.6 % Venous Blood Base Excess 1.2 mEq/L Influenza Type A (RT-PCR) Neg for Influ A Influenza Type A Antigen Neg for Influ A Influenza Type B Antigen Neg for Influ B Influenza Type B (RT-PCR) Neg for Influ B Bedside Glucose 224 mg/dl Test 08/24/17 00:40 08/24/17 07:22 08/24/17 07:36 Urine Color YELLOW Urine Appearance CLEAR Urine pH 6.0 Urine Specific [place] 1.026 Urine Protein TRACE Urine Glucose (UA) 3+ Urine Ketones NEG Urine Occult Blood NEG Urine Nitrite NEG Urine Bilirubin NEG Urine Urobilinogen NEG Urine Leukocyte Esterase NEG Urine WBC (Auto) 1-5 /hpf Urine RBC (Auto) 0-4 /hpf Urine Hyaline Casts (Auto) 1-5 /lpf Urine Epithelial Cells (Auto) 20-30 /lpf Urine Bacteria (Auto) NEG White Blood Count 24.27 K/uL Red Blood Count 4.07 M/uL Hemoglobin 12.5 g/dL Hematocrit 37.0 % Mean Corpuscular Volume 90.9 fL Mean Corpuscular Hemoglobin 30.7 pg Mean Corpuscular Hemoglobin Concent 33.8 g/dl RDW Standard Deviation 45.4 fL RDW Coefficient of Variation 13.7 % Platelet Count 419 K/uL Mean Platelet Volume 10.8 fL Bedside Glucose 214 mg/dl Assessment and Plan 77 M presents with acute hypoxic respiratory failure with COPD exacerbation and bronchitis, with PMHx of COPD, [place] on CPAP, HTN, H/O PE/DVT, Myeloproliferative D/O, T2DM, HLD, BPH and h/o bladder ca, and current Tobacco User Acute Hypoxic Respiratory Failure 2/2 COPD Exacerbation plus bronchitis - Ceftriaxone 1 g IV daily and Zithromax 250 mg daily, Mucinex 600 mg BID - Methylprednisolone taper as able - Symbicort 2 puffs BID, consider nebs if clinically not improved Pending echo T2DM:- Hold metformin, SSI check a1c [place] on CPAP at Night: Myeloproliferative D/O:markedly elevated wbc HLD:- Atorvastatin 10 mg daily BPH:- Proscar 5 mg daily and Flomax 0.4 mg daily DVT Prophylaxis: Heparin 5000 units BID Code Status: FULL RESUSCITATION
[2017-08-24 09:03] LABS: CALCIUM 8.3 mg/dl (8.5-10.1); CREATININE 0.86 mg/dl (0.60-1.40); POTASSIUM 4.3 mmol/L (3.5-5.1)
--- NOTE | 2017-08-24 09:34 | DIAGNOSTIC IMAGING REPORT ---
CHEST 2 VIEWS ROUTINE CLINICAL HISTORY: F/U CXR for PNA - SOB and Congestion dyspnea COMPARISON STUDY: 08/23/2017 FINDINGS: Minimal parenchymal infiltrate left base. Slight interstitial prominence both lung bases possibly on the basis of mild basilar interstitial pneumonitis. Upper lungs are clear. No significant cardiac enlargement. IMPRESSION: Developing bibasilar interstitial infiltrates. No focal regions of consolidative change. The above report was generated using voice recognition software. It may contain grammatical, syntax or spelling errors. Electronically signed by: Sam Sexton M.D. 08/24/2017 9:32 AM Dictated Date/Time: 08/24/2017 9:31 AM
--- NOTE | 2017-08-24 10:48 | Clinical Documentation Query ---
CLINICAL DOCUMENTATION QUERY Daily progress note on 08/24/17 has acute sepsis documented in problem list, however it is not addressed in assessment and plan part of note. Because of the often erroneous nature of the problem list coders at [facility] do not use it for coding purposes. In your clinical opinion is this patient being managed for: ( ) Sepsis treated and resolved in setting of acute bronchitis & COPD evidenced by tachycardia, tachypnea, and leukocytosis ( ) Not Agree Please clarify and document your clinical opinion in the progress notes and discharge summary. Terms such as "probable", "suspected", "likely", "questionable", "possible", or "still to be ruled out" are acceptable. IF IN AGREEMENT, YOU MUST DOCUMENT ABOVE DIAGNOSTIC STATEMENT IN DAILY PROGRESS NOTES AND DISCHARGE SUMMARY. This document is not part of the patient's record. Thank You, Prashanth Conti, RN [phone]
[2017-08-24] MEDS: HEPARIN SOD 5000 UNIT/0.5 ML CARP SQ SCH ×2 (12:42→21:26)
--- NOTE | 2017-08-24 16:36 | ECHOCARDIOGRAM REPORT ---
*NOTICE TO RECEIVING [employer] This information is strictly Confidential and protected under [place] law. [place] law prohibits you from making any further disclosure of this information unless further disclosure is expressly permitted by the written consent of the person to whom it pertains or is authorized by law. A general authorization for the release of medical or other information is not sufficient for this purpose. Hospital accepts no responsibility if the information is made available to any other person, INCLUDING THE PATIENT. Interpretation Summary * Name: KEERTHI BOYD Study Date: 08/24/2017 08:40 AM BP: 117/62 mmHg * Patient Location: [facility]\S\N285\S\2 HR: 100 * : 1940 (M/d/yyyy) Gender: Male Height: 68 in * Age: 77 yrs Ethnicity: CA Weight: 174 lb * Ordering Physician: Ruth Conti * Referring Physician: Self, Referred * Performed By: Kajal See RCS * * Reason For Study: R/O CHF / EVIDENCE OF MASS VS VEG ON AORTIC VALVE 2014 * BSA: 1.9 m2 * -- Conclusions -- * There is mild concentric left ventricular hypertrophy. * Left ventricular systolic function is normal. * Grade I diastolic dysfunction, (abnormal relaxation pattern). * Borderline left atrial enlargement. * There is some thickening of the non coronary cusp. The mobile mass seen in 2014 is no longer present. * There is mild mitral regurgitation. Procedure Details * A complete two-dimensional transthoracic echocardiogram was performed (2D, M-mode, Doppler and color flow Doppler). Left Ventricle * The left ventricle is normal in size. * There is mild concentric left ventricular hypertrophy. * Left ventricular systolic function is normal. * Grade I diastolic dysfunction, (abnormal relaxation pattern). * Ejection Fraction = 55-60%. * The left ventricular wall motion is normal. Right Ventricle * The right ventricle is normal in size and function. Atria * Borderline left atrial enlargement. * Right atrial size is normal. Mitral Valve * The mitral valve leaflets appear normal. There is no evidence of stenosis, fluttering, or prolapse. * There is mild mitral regurgitation. Tricuspid Valve * The tricuspid valve is not well visualized, but is grossly normal. * Significant tricuspid regurgitation is absent. Aortic Valve * The aortic valve is trileaflet. * There is some thickening of the non coronary cusp. The mobile mass seen in 2015 is no longer present. * No hemodynamically significant valvular aortic stenosis. * There is no significant aortic regurgitation. Great Vessels * The aortic root is normal size. Pericardium/Pleural * There is no pericardial effusion. MMode 2D Measurements and Calculations IVSd 1.3 cm IVSs 1.6 cm LVIDd 4.8 cm LVIDs 3.7 cm LVPWd 1.3 cm LVPWs 1.5 cm IVS/LVPW 0.94 FS 22.2 % EDV(Teich) 106.3 ml ESV(Teich) 58.8 ml EF(Teich) 44.7 % EDV(cubed) 109.0 ml ESV(cubed) 51.4 ml EF(cubed) 52.8 % % IVS thick 25.6 % % LVPW thick 7.9 % LV mass(C)d 246.9 grams LV mass(C)dI 128.2 grams/m\S\2 LV mass(C)s 216.3 grams LV mass(C)sI 112.3 grams/m\S\2 SV(Teich) 47.5 ml SI(Teich) 24.6 ml/m\S\2 SV(cubed) 57.6 ml SI(cubed) 29.9 ml/m\S\2 Ao root diam 3.1 cm Ao root area 7.6 cm\S\2 LA dimension 4.0 cm LA/Ao 1.3 LVOT diam 2.0 cm LVOT area 3.3 cm\S\2 LVAd ap4 29.9 cm\S\2 LVLd ap4 7.0 cm EDV(MOD-sp4) 105.0 ml EDV(sp4-el) 108.3 ml LVAs ap4 17.7 cm\S\2 LVLs ap4 5.9 cm ESV(MOD-sp4) 43.8 ml ESV(sp4-el) 45.6 ml EF(MOD-sp4) 58.2 % EF(sp4-el) 57.9 % LVAd ap2 39.1 cm\S\2 LVLd ap2 8.5 cm EDV(MOD-sp2) 149.6 ml EDV(sp2-el) 152.0 ml LVAs ap2 23.8 cm\S\2 LVLs ap2 6.5 cm ESV(MOD-sp2) 72.1 ml ESV(sp2-el) 74.5 ml EF(MOD-sp2) 51.8 % EF(sp2-el) 51.0 % LVLd %diff 18.2 % EDV(MOD-bp) 135.6 ml LVLs %diff 9.5 % ESV(MOD-bp) 56.4 ml EF(MOD-bp) 58.4 % SV(MOD-sp4) 61.1 ml SI(MOD-sp4) 31.7 ml/m\S\2 SV(MOD-sp2) 77.5 ml SI(MOD-sp2) 40.2 ml/m\S\2 SV(MOD-bp) 79.2 ml SI(MOD-bp) 41.1 ml/m\S\2 SV(sp4-el) 62.7 ml SI(sp4-el) 32.6 ml/m\S\2 SV(sp2-el) 77.6 ml SI(sp2-el) 40.3 ml/m\S\2 Doppler Measurements and Calculations MV E max davy 94.9 cm/sec MV A max davy 145.6 cm/sec MV E/A 0.65 MV P1/2t max davy 113.0 cm/sec MV P1/2t 30.3 msec MVA(P1/2t) 7.3 cm\S\2 MV dec slope 1092.7 cm/sec\S\2 MV dec time 0.10 sec Ao V2 max 169.5 cm/sec Ao max PG 11.5 mmHg Ao max PG (full) 7.1 mmHg CARMELITA(V,A) 2.0 cm\S\2 CARMELITA(V,D) 2.0 cm\S\2 LV V1 max PG 4.4 mmHg LV V1 max 104.7 cm/sec MR max davy 474.8 cm/sec MR max PG 90.2 mmHg
[2017-08-24] MEDS: CEFTRIAXONE SOD INJ 1 GM in DEXTROSE 5% ADD-VANTAGE 50ML 50 ML IV SCH (17:47)
[2017-08-24] MEDS: ATORVASTATIN 10 MG TAB PO SCH (21:20)
[2017-08-24] MEDS: TAMSULOSIN HCL 0.4 MG CAP PO SCH (21:21)
[2017-08-24] MEDS: CLONAZEPAM 1 MG TAB PO SCH (21:26)
[2017-08-25] VITALS (10 sets, daily range): BP systolic 104–146; BP diastolic 57–73; PULSE 77–103; TEMP 36.4–36.8; O2SAT 89–98
[2017-08-25] MEDS: IPRATROPIUM BROMIDE NEB SOLN 0.02% 2.5 ML VIAL INH SCH ×4 (02:12→20:32)
[2017-08-25] MEDS: LEVALBUTEROL 0.63MG/3 ML NEB INH SCH ×4 (02:12→20:32)
[2017-08-25] MEDS: METHYLPREDNISOLONE IV 40 MG in SYRINGE 0 ML IV SCH ×2 (05:37→17:49)
[2017-08-25 07:15] LABS: HEMOGLOBIN 11.5 g/dL (14.0-18.0); MEAN CELL VOLUME 90.7 fL (80-100); MEAN CORPUSCULAR HEMOGLOBIN 30.7 pg (25-34); MEAN CORPUSCULAR HGB CONC 33.8 g/dl (32-36); MEAN PLATELET VOLUME 10.6 fL (7.4-10.4); PLATELET COUNT 427 K/uL (130-400); RED CELL DISTRIBUTION WIDTH CV 13.5 % (11.5-14.5); RED CELL DISTRIBUTION WIDTH SD 45.1 fL (36.4-46.3); WHITE BLOOD COUNT 26.81 K/uL (4.8-10.8)
[2017-08-25 07:48] LABS: CALCIUM 8.1 mg/dl (8.5-10.1); CREATININE 0.8 mg/dl (0.60-1.40); POTASSIUM 4.5 mmol/L (3.5-5.1)
[2017-08-25] MEDS: FINASTERIDE 5 MG TAB PO SCH (07:58)
[2017-08-25] MEDS: PANTOprazole SOD 40 MG TAB PO SCH (07:58)
[2017-08-25] MEDS: AZITHROMYCIN 250 MG TAB PO SCH (07:58)
[2017-08-25] MEDS: RANITIDINE HCL 150 MG TAB PO SCH (07:58)
[2017-08-25] MEDS: GUAIFENESIN 600 MG TABCR PO SCH ×2 (07:58→20:53)
[2017-08-25] MEDS: BUDESONIDE/FORMOTEROL FUMARATE 160/4.5 60 PUFFS/INHALER INH SCH ×2 (07:59→20:52)
[2017-08-25] MEDS: NICOTINE 14 MG/24 HR TDSY TD SCH (07:59)
[2017-08-25] MEDS: LACTOBACILLUS ACIDOPHILUS (FLORANEX) TAB PO SCH ×3 (07:59→17:49)
[2017-08-25] MEDS: INSULIN ASPART 100 UNITS/ML 3 ML PEN SC SCH ×4 (08:02→21:04)
[2017-08-25] MEDS: HEPARIN SOD 5000 UNIT/0.5 ML CARP SQ SCH ×2 (08:03→21:04)
--- NOTE | 2017-08-25 15:40 | Progress Note ---
Subjective Date of Service: Aug 25, 2017. Subjective this pt states his breathing is better but overall he does not feel well, overall weak and [place], no other acute complaints Problem List Medical Problems: (1) Bronchitis Status: Acute (2) COPD exacerbation Status: Acute (3) Sepsis Status: Acute Review of Systems Constitutional: + weakness, No fever, No chills Respiratory: + cough, + shortness of breath, + dyspnea on exertion Cardiac: No chest pain, No orthopnea, No PND Abdomen: No pain, No nausea, No vomiting Musculoskeletal: No joint pain, No muscle pain Neurologic: No memory loss, No paralysis, No weakness, No numbness/tingling Psychiatric: No depression symptoms, No anhedonism, No anxiety Objective Vital Signs Date Time Temp Pulse Resp B/P (MAP) Pulse Ox O2 Delivery O2 Flow Rate FiO2 08/25/17 15:17 36.4 103 16 129/69 (89) 91 Room Air 08/25/17 14:30 77 20 93 Room Air 08/25/17 12:15 Room Air 08/25/17 11:31 36.5 94 16 135/73 (93) 92 Room Air 08/25/17 08:10 Room Air 08/25/17 07:13 103 19 90 Room Air 08/25/17 07:05 90 16 104/69 (81) 89 Nasal Cannula 5.0 08/25/17 05:19 36.8 92 21 120/57 (78) 95 Nasal Cannula 5.0 08/25/17 04:00 Room Air 08/25/17 02:12 89 18 98 Nasal Cannula 2.0 08/25/17 00:00 Room Air 08/24/17 23:51 36.3 89 18 121/69 (86) 96 Nasal Cannula 5.0 08/24/17 20:10 103 20 97 Room Air 08/24/17 20:00 95 Room Air 08/24/17 19:54 36.4 97 22 118/77 (91) 96 Room Air 08/24/17 16:00 95 Room Air 08/24/17 15:35 36.4 98 20 133/74 (93) 92 Room Air Physical Exam General Appearance: WD/WN, + mild distress Eyes: PERRL, EOMI Neck: supple, no JVD Respiratory/Chest: chest non-tender, + respiratory distress, + decreased breath sounds, + accessory muscle use Cardiovascular: regular rate, rhythm, + systolic murmur Abdomen: normal bowel sounds, non tender, soft Extremities: no pedal edema, no calf tenderness Neurologic/Psychiatric: alert, oriented x 3 Laboratory Results Last 24 Hours Test 08/24/17 16:42 08/24/17 20:33 08/25/17 07:00 08/25/17 07:30 Bedside Glucose 213 mg/dl 196 mg/dl 208 mg/dl White Blood Count 26.81 K/uL Red Blood Count 3.75 M/uL Hemoglobin 11.5 g/dL Hematocrit 34.0 % Mean Corpuscular Volume 90.7 fL Mean Corpuscular Hemoglobin 30.7 pg Mean Corpuscular Hemoglobin Concent 33.8 g/dl RDW Standard Deviation 45.1 fL RDW Coefficient of Variation 13.5 % Platelet Count 427 K/uL Mean Platelet Volume 10.6 fL Sodium Level 133 mmol/L Potassium Level 4.5 mmol/L Chloride Level 100 mmol/L Carbon Dioxide Level 29 mmol/L Anion Gap 4.0 mmol/L Blood Urea Nitrogen 22 mg/dl Creatinine 0.80 mg/dl Est Creatinine Clear Calc Drug Dose 77.2 ml/min Estimated GFR () 101.3 Estimated GFR (Non- 87.4 BUN/Creatinine Ratio 27.7 Random Glucose 213 mg/dl Calcium Level 8.1 mg/dl Test 08/25/17 11:48 Bedside Glucose 253 mg/dl Assessment and Plan 77 M presents with acute hypoxic respiratory failure with COPD exacerbation and bronchitis, with PMHx of COPD, [place] on CPAP, HTN, H/O PE/DVT, Myeloproliferative D/O, T2DM, HLD, BPH and h/o bladder ca, and current Tobacco User Acute Hypoxic Respiratory Failure 2/2 COPD Exacerbation plus bronchitis - Ceftriaxone 1 g IV daily and Zithromax 250 mg daily, Mucinex 600 mg BID - Methylprednisolone taper to po prednisone - Symbicort 2 puffs BID, not markedly abnormal echo only mild Diastolic dysfunction T2DM:-continue to Hold metformin, SSI a1c 08/26 [place] on CPAP at Night: Myeloproliferative D/O:markedly elevated wbc HLD:- Atorvastatin 10 mg daily BPH:- Proscar 5 mg daily and Flomax 0.4 mg daily DVT Prophylaxis: Heparin 5000 units BID Code Status: FULL RESUSCITATION
[2017-08-25] MEDS: CEFTRIAXONE SOD INJ 1 GM in DEXTROSE 5% ADD-VANTAGE 50ML 50 ML IV SCH (17:49)
[2017-08-25] MEDS: ATORVASTATIN 10 MG TAB PO SCH (20:53)
[2017-08-25] MEDS: TAMSULOSIN HCL 0.4 MG CAP PO SCH (20:53)
[2017-08-25] MEDS: CLONAZEPAM 1 MG TAB PO SCH (20:56)
[2017-08-25] MEDS ORDERED: NURSING VERBAL MED ORDER ONE (21:00)
[2017-08-26] VITALS (8 sets, daily range): BP systolic 135–156; BP diastolic 71–80; PULSE 85–130; TEMP 36.4–36.7; O2SAT 90–97
[2017-08-26] MEDS: LEVALBUTEROL 0.63MG/3 ML NEB INH SCH ×2 (02:09→07:15)
[2017-08-26] MEDS: IPRATROPIUM BROMIDE NEB SOLN 0.02% 2.5 ML VIAL INH SCH ×2 (02:09→07:15)
[2017-08-26 06:17] LABS: HEMATOCRIT 35.9 % (42-52); HEMOGLOBIN 11.8 g/dL (14.0-18.0); MEAN CELL VOLUME 91.6 fL (80-100); MEAN CORPUSCULAR HEMOGLOBIN 30.1 pg (25-34); MEAN CORPUSCULAR HGB CONC 32.9 g/dl (32-36); MEAN PLATELET VOLUME 10.7 fL (7.4-10.4); PLATELET COUNT 462 K/uL (130-400); RED CELL DISTRIBUTION WIDTH CV 13.8 % (11.5-14.5); RED CELL DISTRIBUTION WIDTH SD 45.9 fL (36.4-46.3); WHITE BLOOD COUNT 24.49 K/uL (4.8-10.8)
[2017-08-26 06:55] LABS: CALCIUM 7.9 mg/dl (8.5-10.1); CREATININE 0.73 mg/dl (0.60-1.40); POTASSIUM 4.7 mmol/L (3.5-5.1)
[2017-08-26] MEDS: LACTOBACILLUS ACIDOPHILUS (FLORANEX) TAB PO SCH (07:59)
[2017-08-26] MEDS: BUDESONIDE/FORMOTEROL FUMARATE 160/4.5 60 PUFFS/INHALER INH SCH (07:59)
[2017-08-26] MEDS: AZITHROMYCIN 250 MG TAB PO SCH (07:59)
[2017-08-26] MEDS: NICOTINE 14 MG/24 HR TDSY TD SCH (08:00)
[2017-08-26] MEDS: RANITIDINE HCL 150 MG TAB PO SCH (08:00)
[2017-08-26] MEDS: FINASTERIDE 5 MG TAB PO SCH (08:01)
[2017-08-26] MEDS: GUAIFENESIN 600 MG TABCR PO SCH (08:01)
[2017-08-26] MEDS: INSULIN ASPART 100 UNITS/ML 3 ML PEN SC SCH (08:07)
[2017-08-26] MEDS: HEPARIN SOD 5000 UNIT/0.5 ML CARP SQ SCH (08:08)
[2017-08-26] MEDS: PANTOprazole SOD 40 MG TAB PO SCH (08:10)
[2017-08-26] MEDS ORDERED: PRVIN525X INH (10:53)
[2017-08-26] MEDS ORDERED: DXY100 PO (10:53)
[2017-08-26] MEDS ORDERED: IPRA1AER2 INH (10:53)
[2017-08-26] MEDS ORDERED: PRED10TA PO (10:53)
--- NOTE | 2017-08-26 10:54 | Discharge Instructions ---
Discharge Instructions Date of Service Aug 26, 2017. Admission Reason for Admission: Copd Exacerbation Discharge Discharge Diagnosis / Problem: copd exacerbation and pneumonitis Discharge Goals Goal(s): Diagnostic testing, Therapeutic intervention Activity Recommendations Activity Limitations: as noted below Lifting Limitations: gradually increase as tolerated . Current Hospital Diet Patient's current hospital diet: Diabetes Type 2 Diet Discharge Diet Recommended Diet: Regular Diet Pending Studies Studies pending at discharge: no Laboratory Results Hemoglobin A1c Test 08/26/17 05:57 Range/Units Medical Emergencies . Who to Call and When: Medical Emergencies: If at any time you feel your situation is an emergency, please call 911 immediately. . Non-Emergent Contact Non-Emergency issues call your: Primary Care Provider Call Non-Emergent contact if: temperature is above 101, your pain is unusual for you . . "Provider Documentation" section prepared by Gray Contreras. . VTE Core Measure Inpt VTE Proph given/why not?: Unfractionated heparin SQ
[2017-08-26] MEDS ORDERED: DOXYCYCLINE HYCLATE 100 MG CAP PO STA (10:55)
--- NOTE | 2017-08-26 14:59 | Progress Note ---
Subjective Date of Service: Aug 26, 2017. Subjective pt states he feels better than yesterday but still not 100%, is anxious to go home and I gave his brown warning about avoiding the cold and resting at home Problem List Medical Problems: (1) Bronchitis Status: Acute (2) COPD exacerbation Status: Acute (3) Sepsis Status: Acute Review of Systems Constitutional: No fever, No chills Respiratory: + cough, + shortness of breath, + dyspnea on exertion, No sputum Abdomen: No pain, No nausea, No vomiting, No diarrhea Musculoskeletal: No joint pain, No muscle pain Male : No dysuria, No urinary frequency, No incontinence Psychiatric: No depression symptoms, No anhedonism Objective Vital Signs Date Time Temp Pulse Resp B/P (MAP) Pulse Ox O2 Delivery O2 Flow Rate FiO2 08/26/17 12:00 91 Room Air 5.0 08/26/17 11:39 36.5 115 16 135/79 (97) 91 Room Air 08/26/17 11:13 36.4 130 16 95 Room Air 08/26/17 08:00 95 Room Air 5.0 08/26/17 07:16 36.4 130 16 156/80 (105) 90 Room Air 08/26/17 07:15 120 18 93 Room Air 08/26/17 04:54 36.7 92 18 143/71 (95) 90 Room Air 08/26/17 04:00 Nasal Cannula 5.0 08/26/17 02:09 85 18 97 Nasal Cannula 2.0 08/25/17 23:55 Nasal Cannula 5.0 08/25/17 23:45 36.4 84 20 116/64 (81) 97 Nasal Cannula 5.0 08/25/17 20:32 95 20 96 Room Air 08/25/17 20:00 Room Air 08/25/17 19:45 36.4 97 20 146/69 (94) 92 Room Air 08/25/17 16:00 Room Air 08/25/17 15:17 36.4 103 16 129/69 (89) 91 Room Air Physical Exam General Appearance: WD/WN, + mild distress Respiratory/Chest: chest non-tender, no respiratory distress, + decreased breath sounds, + rhonchi Cardiovascular: regular rate, rhythm, no murmur Abdomen: normal bowel sounds, non tender, soft Laboratory Results Last 24 Hours Test 08/25/17 16:43 08/25/17 19:04 08/26/17 05:57 08/26/17 07:30 Bedside Glucose 261 mg/dl 253 mg/dl 190 mg/dl White Blood Count 24.49 K/uL Red Blood Count 3.92 M/uL Hemoglobin 11.8 g/dL Hematocrit 35.9 % Mean Corpuscular Volume 91.6 fL Mean Corpuscular Hemoglobin 30.1 pg Mean Corpuscular Hemoglobin Concent 32.9 g/dl RDW Standard Deviation 45.9 fL RDW Coefficient of Variation 13.8 % Platelet Count 462 K/uL Mean Platelet Volume 10.7 fL Sodium Level 134 mmol/L Potassium Level 4.7 mmol/L Chloride Level 101 mmol/L Carbon Dioxide Level 29 mmol/L Anion Gap 4.0 mmol/L Blood Urea Nitrogen 23 mg/dl Creatinine 0.73 mg/dl Est Creatinine Clear Calc Drug Dose 84.6 ml/min Estimated GFR () 105.2 Estimated GFR (Non- 90.7 BUN/Creatinine Ratio 31.0 Random Glucose 190 mg/dl Calcium Level 7.9 mg/dl Test 08/26/17 11:28 Bedside Glucose 140 mg/dl Assessment and Plan 77 M presents with acute hypoxic respiratory failure with COPD exacerbation and bronchitis, with PMHx of COPD, [place] on CPAP, HTN, H/O PE/DVT, Myeloproliferative D/O, T2DM, HLD, BPH and h/o bladder ca, and current Tobacco User Acute Hypoxic Respiratory Failure 2/2 COPD Exacerbation plus bronchitis will be home on po prednisone taper, doxyxycline, and combivent still using home albuterol nebs and Symbicort 2 puffs BID, not markedly abnormal echo only mild Diastolic dysfunction T2DM:-resume metformin [place] on CPAP at Night: Myeloproliferative D/O:markedly elevated wbc recommend continued follow up HLD:- Atorvastatin 10 mg daily BPH:- Proscar 5 mg daily and Flomax 0.4 mg daily Code Status: FULL RESUSCITATION
[2017-08-27 08:27] LABS: HEMOGLOBIN A1C 7.3 % (4.5-5.6)
--- NOTE | 2017-09-03 14:10 | Discharge Summary ---
Discharge Summary Date of Service Sep 03, 2017. Discharge Summary Admission Date: Aug 23, 2017 at 14:03 Discharge Date: Aug 26, 2017 Discharge Disposition: Home Principal Diagnosis: copd exacerbation Medication Reconciliation New Medications: Doxycycline Hyclate (Doxycycline Hyclate) 100 Mg Cap 100 MG PO BID, #14 DOSE Ipratropium-Albuterol (Combivent Respimat) 1 Aer Aer 1 PUFFS INH QID, #1 INH Prednisone Tab (Prednisone) 10 Mg Tab 10 MG PO UD, #42 TAB 4 pills a day for 4 days then 3 pills a day for 4 days then 2 pills a day for 4 days then 1 pill a day Continued Medications: Albuterol Sulf (Albuterol Sulfate) 2.5 Mg/0.5 Ml Nebu 1 DOSE INH QID PRN for Shortness of Breath, #1 BOX (This prescription has been renewed) Atorvastatin (Lipitor) 10 Mg Tab 10 MG PO PM Budesonide/Formoterol Fumarate (Symbicort 160/4.5 Inhaler ) Aero 2 PUFFS INH BID, INHALER Clonazepam (Klonopin) 1 Mg Tab 1 MG PO HS, TAB Finasteride (Proscar) 5 Mg Tab 5 MG PO QAM, TAB Metformin HCl (Metformin HCl) 500 Mg Tab 500 MG PO DAILY Omeprazole (Prilosec) 40 Mg Cap 40 MG PO QAM, CAP Ranitidine HCl (Ranitidine HCl) 150 Mg Tab 150 MG PO DAILY Tamsulosin Hcl (Flomax) 0.4 Mg Cap 0.4 MG PO AFTERNOON, CAP Tiotropium [place]-Olodaterol (Stiolto Respimat 2.5-2.5 Mcg/Act) 1 Aer Aer 1 PUFF INH BID PRN for Shortness of Breath Trazodone Hcl (Desyrel) 50 Mg Tab 1-2 TAB PO HS PRN for Sleep, TAB Discontinued Medications: Albuterol Sulfate (Proair Hfa) 108 Mcg/ Aer 2 PUFFS INH Q4 PRN for Shortness of Breath Discharge Exam please see todays progress note Hospital Course 77 M presents with acute hypoxic respiratory failure with COPD exacerbation and bronchitis, with PMHx of COPD, [place] on CPAP, HTN, H/O PE/DVT, Myeloproliferative D/O, T2DM, HLD, BPH and h/o bladder ca, and current Tobacco User Acute Hypoxic Respiratory Failure 2/2 COPD Exacerbation plus bronchitis will be home on po prednisone taper, doxyxycline, and combivent still using home albuterol nebs and Symbicort 2 puffs BID, not markedly abnormal echo only mild Diastolic dysfunction T2DM:-resume metformin [place] on CPAP at Night: Myeloproliferative D/O:markedly elevated wbc recommend continued follow up HLD:- Atorvastatin 10 mg daily BPH:- Proscar 5 mg daily and Flomax 0.4 mg daily Code Status: FULL RESUSCITATION Total Time Spent: Greater than 30 minutes This includes examination of the patient, discharge planning, medication reconciliation, and communication with other providers. Discharge Instructions Please refer to the electronic Patient Visit Report (Discharge Instructions) for additional information.
--- NOTE | 2017-09-04 06:02 | EDITING REQUIRED CODING QUERY ---
SEPSIS To promote full compliance with coding requirements relating to patient care, physician participation is requested in all cases of blueprint reproducer uncertainty. Please assist us with the question(s) below: In responding to this query, please exercise your independent professional judgement. The fact that a question is asked does not imply that any particular answer is desired or expected. We appreciate your clarification on this issue. Throughout the medical record, you have clearly documented a localized infection and your patient has clinical evidence of a generalized sepsis or severe sepsis. The term urosepsis is a nonspecific entity and is coded as an UTI. If the patient has sepsis, severe sepsis, from an urinary source or some other source, please clarify in your response below. The medical record reflects the following clinical findings: patient admitted with acute respiratory failure in the setting of COPD exacerbation. *Progress notes document Sepsis. Please check below the diagnosis you were treating if applicable. Thanks for your help! JACQUELYN Jolley [facility] ( )Bacteremia (Nonspecific laboratory finding of bacteria in the blood) Specify Organism ( ) Present on Admission ( ) Not present on admission ( ) Unable to clinically determine ( ) Septicemia (Systemic disease associated with the presence of pathogenic microorganisms in the blood): Specify Organism ( ) Present on Admission ( ) Not present on admission ( ) Unable to clinically determine ( ) Sepsis Specify Organism Specify Associated Condition/Diagnosis ( ) Present on Admission ( ) Not present on admission ( ) Unable to clinically determine ( ) Severe Sepsis (Sepsis associated with acute organ dysfunction) Specify Organism Specify Associated Condition/Diagnosis ( ) Present on Admission ( ) Not present on admission ( ) Unable to clinically determine ( ) Septic Shock (Severe sepsis with acute circulatory failure, unexplained by other causes) ( ) Present on Admission ( ) Not present on admission ( ) Unable to clinically determine ( ) Other, patient has: This pt simply had copd exacerbation and bronchitis as stated in the record
== END 2017-08-26 12:30 | disposition home or self-care (01) | DRG 189 ==
LOC: C.EDB 10:52 → C.MED 14:03 → EDBEDREQ 14:31 → ENRESERV 15:20
PROVIDERS: ADMIT Internal Medicine; ATTEND Internal Medicine
DX: J96.01 Acute respiratory failure with hypoxia (principal); C94.6 Myelodysplastic disease, not elsewhere classified; J44.0 Chronic obstructive pulmonary disease with (acute) lower respiratory infection; J44.1 Chronic obstructive pulmonary disease with (acute) exacerbation; J20.9 Acute bronchitis, unspecified; E11.9 Type 2 diabetes mellitus without complications; F17.210 Nicotine dependence, cigarettes, uncomplicated; G47.33 Obstructive sleep apnea (adult) (pediatric); N40.0 Benign prostatic hyperplasia without lower urinary tract symptoms; I10 Essential (primary) hypertension; Z86.718 Personal history of other venous thrombosis and embolism; Z86.711 Personal history of pulmonary embolism; Z82.49 Family history of ischemic heart disease and other diseases of the circulatory system; Z85.51 Personal history of malignant neoplasm of bladder; Z79.84 Long term (current) use of oral hypoglycemic drugs; E78.5 Hyperlipidemia, unspecified

== ENCOUNTER 2017-09-28 12:17 | Inpatient (IN) | payer BC, OTHER ==
[~2017-09-28] VITALS: Ht 167.6 cm; Wt 82.6 kg
[~2017-09-28 12:17] MED LIST changes: -ALBU1AER9 INH; +ATOR10TA82 PO; -BECL0.3A INH; -BRVIN INH; -BUPR200T2 PO; -DUTA0.5C PO; +DXY100 PO; -GATI0.5S OPL; +GLC500 PO; +IPRA1AER2 INH; -KETO0.5S33 OPL; -LOVA20TA63 PO; +PRED10TA PO; -PRED1SUS3 OPL; +RANI150T2 PO; -ROFL1TAB5 PO; +SYMIN160 INH
[2017-09-28] MEDS ORDERED: ALBUT/IPRATROP 3MG/0.5MG NEB 3 ML VIAL INH ONE (12:30)
[2017-09-28 13:01] VITALS: PULSE 114; O2SAT 99
[2017-09-28 13:01] LABS: BASO % 0.2 %; BASO ABS # 0.03 K/uL (0-0.2); EOS % 0.1 %; EOS ABS # 0.01 K/uL (0-0.5); HEMATOCRIT 41.6 % (42-52); HEMOGLOBIN 13.5 g/dL (14.0-18.0); IG# 0.43 K/uL (0.00-0.02); LYMPH % 3.8 %; LYMPH ABS # 0.71 K/uL (1.2-3.4); MEAN CELL VOLUME 92.4 fL (80-100); MEAN CORPUSCULAR HGB CONC 32.5 g/dl (32-36); MEAN PLATELET VOLUME 10.6 fL (7.4-10.4); MONO % 2.8 %; MONO ABS # 0.52 K/uL (0.11-0.59); NEUT % 90.8 %; NEUT ABS # 16.94 K/uL (1.4-6.5); PLATELET COUNT 429 K/uL (130-400); RED CELL DISTRIBUTION WIDTH CV 15.1 % (11.5-14.5); RED CELL DISTRIBUTION WIDTH SD 51.3 fL (36.4-46.3); WHITE BLOOD COUNT 18.64 K/uL (4.8-10.8)
[2017-09-28 13:13] LABS: PTT PATIENT 25.9 SECONDS (21.0-31.0)
[2017-09-28 13:17] LABS: ALBUMIN 3.7 gm/dl (3.4-5.0); CALCIUM 8.6 mg/dl (8.5-10.1); CREATININE 0.85 mg/dl (0.60-1.40); POTASSIUM 4.4 mmol/L (3.5-5.1)
--- NOTE | 2017-09-28 13:21 | DIAGNOSTIC IMAGING REPORT ---
SINGLE VIEW CHEST CLINICAL HISTORY: Dyspnea. FINDINGS: An AP, portable, upright chest radiograph is compared to study dated 08/24/2017. Correlation is made with chest CT dated 06/17/2015. The examination is degraded by portable technique, apical lordotic positioning, and patient rotation. The heart is enlarged and there is atherosclerotic calcification of the thoracic aorta. The pulmonary vasculature is noncongested. Emphysema and chronic interstitial thickening are similar to previous. No airspace consolidation or pleural effusion is identified. A 1.4 cm calcification containing pulmonary nodule at the right lung base is unchanged from previous. No pneumothorax is seen. The skeletal structures are osteopenic. The bony thorax is grossly intact. IMPRESSION: Cardiomegaly and emphysema with no acute cardiopulmonary abnormality. Electronically signed by: Harrison Salazar M.D. 09/28/2017 1:20 PM Dictated Date/Time: 09/28/2017 1:18 PM
[2017-09-28 13:22] LABS: CKMB 5.4 ng/ml (0.5-3.6); TOTAL PROTEIN 7.2 gm/dl (6.4-8.2)
[2017-09-28] MEDS ORDERED: METHYLPREDNISOLONE 125 MG VIAL IV STA (13:30)
[2017-09-28] MEDS ORDERED: CEFTRIAXONE SOD INJ 1 GM ADDVIAL IV STA (13:32)
[2017-09-28] MEDS ORDERED: AZITHROMYCIN IV 500 MG in DEXTROSE 5% 250ML 250 ML IV ONE (13:45)
[2017-09-28 13:48] LABS: INFLUENZA B ANTIGEN Neg for Influ B (NEG)
[2017-09-28] MEDS ORDERED: IPRASOL4 INH (13:57)
[2017-09-28] MEDS ORDERED: TRAM-10 PO (13:57)
[2017-09-28] MEDS ORDERED: ALBINS/ INH (13:57)
[2017-09-28] MEDS ORDERED: TIOT1SPR INH (13:57)
[2017-09-28] MEDS ORDERED: PROAIR HFA INH (13:57)
[2017-09-28] MEDS ORDERED: PRED10TA PO (13:57)
[2017-09-28] MEDS ORDERED: POLYETHYLENE (MIRALAX) 17 GM PACK PO PRN (14:45)
[2017-09-28] MEDS ORDERED: DEXTROSE 50% 50 ML SYR IV PRN (14:45)
[2017-09-28] MEDS ORDERED: GLUCOSE 40% GEL 15 GM TUBE PO PRN (14:45)
[2017-09-28] MEDS ORDERED: TRAMADOL HCL 50 MG TAB PO PRN (14:45)
[2017-09-28] MEDS ORDERED: ACETAMINOPHEN 325 MG TAB PO PRN (14:45)
[2017-09-28] MEDS ORDERED: GLUCOSE 10 TABS/TUBE PO PRN (14:45)
[2017-09-28] MEDS ORDERED: MAGNESIUM HYDROXIDE SUSP 30 ML UDC PO PRN (14:45)
[2017-09-28] MEDS ORDERED: TRAZODONE HCL 50 MG TAB PO PRN (14:45)
[2017-09-28] MEDS ORDERED: ONDANSETRON INJ 2 MG/ML 2 ML VIAL IV PRN (14:45)
[2017-09-28] MEDS ORDERED: ALUMINUM/MAGNESIUM/SIMETH (MAALOX MAX) 30 ML UDC PO PRN (14:45)
[2017-09-28] MEDS ORDERED: GLUCAGON FOR INJ 1 MG VIAL SQ PRN (14:45)
--- NOTE | 2017-09-28 15:03 | EMERGENCY ROOM VISIT NOTE ---
History Report prepared by Kelly: Mae Mac Under the Supervision of: Dr. Kirby Bob D.O. First contact with patient: 12:24 Chief Complaint: SHORTNESS OF BREATH Stated Complaint: SOB History of Present Illness The patient is a 77 year old male who presents to the Emergency Room with complaints of persistent shortness of breath that worsened this morning. The patient was sent to this Emergency Department from [place] for COPD exacerbation secondary to some chest tightness he has been experiencing, noting that he was admitted here about 2 months ago for similar symptoms. The patient states that he used his nebulizer twice today. He reports that he only wears oxygen at night time. The patient denies any fevers, chills, nausea, vomiting, diarrhea, abdominal pain, swelling or pain in the legs, or taking any blood thinners. The patient states that he smokes about 6-7 cigarettes per day, noting it less than what he used to smoke. Source of History: patient Onset: this morning Position: chest Quality: other (chest pain) Timing: worsening Associated Symptoms: No fevers, No chills, No nausea, No vomiting, No abdominal pain, No diarrhea Note: Associated symptoms include: COPD exacerbation and some chest tightness. The patient denies any swelling or pain in the legs. Review of Systems See HPI for pertinent positives & negatives. A total of 10 systems reviewed and were otherwise negative. Past Medical & Surgical Medical Problems: (1) Bladder cancer (2) COPD (chronic obstructive pulmonary disease) (3) COPD Exacerbation (4) GI bleed Family History Brain Mass Kidney disease Lung Disease Stroke Social History Smoking Status: Current Every Day Smoker Drug Use: none Marital Status: Housing Status: lives alone Occupation Status: retired Current/Historical Medications Scheduled Albuterol Sulf (Proventil 0.083% 2.5MG/3ML), 2.5 MG INH QID Atorvastatin (Lipitor), 10 MG PO PM Budesonide/Formoterol Fumarate (Symbicort 160/4.5 Inhaler ), 2 PUFFS INH BID Clonazepam (Klonopin), 1 MG PO HS Finasteride (Proscar), 5 MG PO QAM Ipratropium-Albuterol (Duoneb), 1 TREATMENT INH QID Metformin HCl (Metformin HCl), 500 MG PO BID Omeprazole (Prilosec), 40 MG PO QAM Prednisone (Prednisone), 20 MG PO DAILY Ranitidine HCl (Ranitidine HCl), 150 MG PO DAILY Tamsulosin Hcl (Flomax), 0.4 MG PO AFTERNOON Tiotropium [place] (Spiriva Respimat), 2 PUFF INH DAILY Scheduled PRN Tramadol (Ultram), 50-100 MG PO QID PRN for Pain Trazodone Hcl (Desyrel), 50-100 MG PO HS PRN for Sleep [Proair Hfa], 2 PUFFS INH Q4H PRN for COPD EXACERBATION Allergies Coded Allergies: Levofloxacin (Verified Allergy, Unknown, pt doesnt remember, 08/23/17) Pravastatin (Verified Adverse Reaction, Unknown, muscle aches, 08/23/17) Physical Exam Vital Signs Date Time Temp Pulse Resp B/P (MAP) Pulse Ox O2 Delivery O2 Flow Rate FiO2 09/28/17 14:25 118 26 175/90 96 Room Air 09/28/17 13:31 117 30 149/85 97 Nasal Cannula 4.0 09/28/17 13:01 114 20 99 Nasal Cannula 2.0 09/28/17 12:57 96 Nasal Cannula 4.0 09/28/17 12:57 97 Nasal Cannula 4.0 09/28/17 12:37 119 09/28/17 12:35 96 Nasal Cannula 4.0 09/28/17 12:20 36.8 124 32 161/79 89 Room Air Physical Exam GENERAL: Patient is awake, alert, very anxious, and in moderate distress. Patient is resting comfortably EYES: The conjunctivae are clear. The pupils are round and reactive. EARS, NOSE, MOUTH AND THROAT: The nose is without any evidence of any deformity. Mucous membranes are moist tongue is midline NECK: The neck is nontender and supple. RESPIRATORY: Lung sounds diminished throughout, shallow respiratory noted, conversational dyspnea and expiatory wheezing in all denis. CARDIOVASCULAR: Tachycardic rate and regular rhythm noted there no murmurs rubs or gallops normal S1 normal S2 GASTROINTESTINAL: The abdomen is soft. Bowel sounds are present in all quadrants. Abdomen is nontender PELVIS: The Pelvis is stable. No tenderness to palpation is noted. BACK: No midline tenderness or or step-off noted range of motion in flexion extension as well as rotation no signs of muscle spasm noted MUSCULOSKELETAL/EXTREMITIES: There is no evidence of gross deformity full range of motion is noted in the hips and shoulders SKIN: There is no obvious evidence of any rash. There are no petechiae, pallor or cyanosis noted. NEUROLOGIC: Patient is awake alert and oriented x3 strength is symmetric patellar reflexes are 2+ bilaterally Medical Decision & Procedures ER Provider Diagnostic Interpretation: Chest x-ray results as stated below per interpretation by me and the radiologist. SINGLE VIEW CHEST CLINICAL HISTORY: Dyspnea. FINDINGS: An AP, portable, upright chest radiograph is compared to study dated 08/24/2017. Correlation is made with chest CT dated 06/17/2015. The examination is degraded by portable technique, apical lordotic positioning, and patient rotation. The heart is enlarged and there is atherosclerotic calcification of the thoracic aorta. The pulmonary vasculature is noncongested. Emphysema and chronic interstitial thickening are similar to previous. No airspace consolidation or pleural effusion is identified. A 1.4 cm calcification containing pulmonary nodule at the right lung base is unchanged from previous. No pneumothorax is seen. The skeletal structures are osteopenic. The bony thorax is grossly intact. IMPRESSION: Cardiomegaly and emphysema with no acute cardiopulmonary abnormality. Electronically signed by: Harrison Salazar M.D. 09/28/2017 1:20 PM Dictated Date/Time: 09/28/2017 1:18 PM Laboratory Results 09/28/17 12:40 Red Blood Count 4.50, Mean Corpuscular Volume 92.4, Mean Corpuscular Hemoglobin 30.0, Mean Corpuscular Hemoglobin Concent 32.5, Mean Platelet Volume 10.6, Neutrophils (%) (Auto) 90.8, Lymphocytes (%) (Auto) 3.8, Monocytes (%) (Auto) 2.8, Eosinophils (%) (Auto) 0.1, Basophils (%) (Auto) 0.2, Neutrophils # (Auto) 16.94, Lymphocytes # (Auto) 0.71, Monocytes # (Auto) 0.52, Eosinophils # (Auto) 0.01, Basophils # (Auto) 0.03 09/28/17 12:40 Test 09/28/17 12:40 09/28/17 13:08 09/28/17 14:30 White Blood Count 18.64 K/uL (4.8-10.8) Red Blood Count 4.50 M/uL (4.7-6.1) Hemoglobin 13.5 g/dL (14.0-18.0) Hematocrit 41.6 % (42-52) Mean Corpuscular Volume 92.4 fL (80-100) Mean Corpuscular Hemoglobin 30.0 pg (25-34) Mean Corpuscular Hemoglobin Concent 32.5 g/dl (32-36) Platelet Count 429 K/uL (130-400) Mean Platelet Volume 10.6 fL (7.4-10.4) Neutrophils (%) (Auto) 90.8 % Lymphocytes (%) (Auto) 3.8 % Monocytes (%) (Auto) 2.8 % Eosinophils (%) (Auto) 0.1 % Basophils (%) (Auto) 0.2 % Neutrophils # (Auto) 16.94 K/uL (1.4-6.5) Lymphocytes # (Auto) 0.71 K/uL (1.2-3.4) Monocytes # (Auto) 0.52 K/uL (0.11-0.59) Eosinophils # (Auto) 0.01 K/uL (0-0.5) Basophils # (Auto) 0.03 K/uL (0-0.2) RDW Standard Deviation 51.3 fL (36.4-46.3) RDW Coefficient of Variation 15.1 % (11.5-14.5) Immature Granulocyte % (Auto) 2.3 % Immature Granulocyte # (Auto) 0.43 K/uL (0.00-0.02) Prothrombin Time 10.3 SECONDS (9.0-12.0) Prothromb Time International Ratio 1.0 (0.9-1.1) Activated Partial Thromboplast Time 25.9 SECONDS (21.0-31.0) Partial Thromboplastin Ratio 1.0 Anion Gap 7.0 mmol/L (3-11) Est Creatinine Clear Calc Drug Dose 75.8 ml/min Estimated GFR () 98.8 Estimated GFR (Non- 85.2 BUN/Creatinine Ratio 20.8 (10-20) Calcium Level 8.6 mg/dl (8.5-10.1) Total Bilirubin 0.6 mg/dl (0.2-1) Aspartate Amino Transf (AST/SGOT) 13 U/L (15-37) Alanine Aminotransferase (ALT/SGPT) 27 U/L (12-78) Alkaline Phosphatase 74 U/L (45-117) Total Creatine Kinase 103 U/L (39-308) Creatine Kinase MB 5.4 ng/ml (0.5-3.6) Creatine Kinase MB Ratio 5.2 (0-3.0) Pro-B-Type Natriuretic Peptide 1058 pg/ml (0-900) Total Protein 7.2 gm/dl (6.4-8.2) Albumin 3.7 gm/dl (3.4-5.0) Globulin 3.5 gm/dl (2.5-4.0) Albumin/Globulin Ratio 1.1 (0.9-2) Influenza Type A Antigen Neg for Influ A (NEG) Influenza Type B Antigen Neg for Influ B (NEG) Urine Color YELLOW Urine Appearance CLEAR (CLEAR) Urine pH 5.0 (4.5-7.5) Urine Specific [place] 1.014 (1.000-1.030) Urine Protein NEG (NEG) Urine Glucose (UA) 2+ (NEG) Urine Ketones NEG (NEG) Urine Occult Blood TRACE (NEG) Urine Nitrite NEG (NEG) Urine Bilirubin NEG (NEG) Urine Urobilinogen NEG (NEG) Urine Leukocyte Esterase NEG (NEG) Urine WBC (Auto) 1-5 /hpf (0-5) Urine RBC (Auto) 0-4 /hpf (0-4) Urine Hyaline Casts (Auto) 1-5 /lpf (0-5) Urine Epithelial Cells (Auto) 5-10 /lpf (0-5) Urine Bacteria (Auto) NEG (NEG) Medications Administered Medications (Trade) Dose Ordered Sig/Khurram Route Start Time Stop Time Status Last Admin Dose Admin Albuterol/ Ipratropium (Duoneb) 12 ml ONE ONCE INH 09/28/17 12:30 09/28/17 12:31 DC 09/28/17 13:00 12 ML Methylprednisolone Sodium Succinate (Solu-Medrol IV) 125 mg NOW STAT IV 09/28/17 13:30 09/28/17 13:32 DC 09/28/17 13:44 125 MG Ceftriaxone Sodium (Rocephin Inj) 1 gm NOW STAT IV 09/28/17 13:32 09/28/17 13:33 DC 09/28/17 13:44 1 GM Azithromycin 500 mg/Dextrose 255 ml @ 125 mls/hr ONE ONCE IV 09/28/17 13:45 09/28/17 15:47 DC 09/28/17 14:23 125 MLS/HR ECG Indication: chest pain Rate (beats per minute): 116 Rhythm: sinus tachycardia Findings: no ectopy, other (no acute ST segments, poor baseline noted) Change: no significant change (08/25/17) ED Course 1229: The patient was evaluated in room C1. A complete history and physical examination were performed. 1230: Ordered Duoneb 12ml INH. 1330: Ordered Solu-Medrol IV 125mg IV. 1332: Ordered Rocephin Inj 1gm IV. 1345: Ordered Azithromycin 500 mg/Dextrose 255ml@ 125mls/hr IV. 1350: I discussed the patient's case with GABBY Juarez. The patient will be evaluated for further management. Medical Decision The patient's history was concerning for chest pain. Differential diagnosis: Etiologies such as cardiac ischemia, aortic dissection, pulmonary embolism, pneumonia, pneumothorax, musculoskeletal, infections, pericarditis, myocarditis , esophageal rupture, gastrointestinal, as well as others were entertained. The patient is a 77-year-old male who presented to the emergency department for evaluation of shortness of breath. The patient has a history of COPD and appears to have a very significant COPD exacerbation at this time. He was treated with bronchodilator therapy as well as IV antibiotics and IV steroids. He was reevaluated multiple times. I discussed this case with the on-call amount of the hospitalist group. They have agreed to evaluate the patient in the emergency department for further management and disposition. I discussed the patient's laboratory and radiographic studies with him. Medication Reconcilliation Current Medication List: was personally reviewed by me Blood Pressure Screening Patient's blood pressure: Elevated blood pressure Blood pressure disposition: Elevated BP felt to be situational Consults Time Called: 1350 Consulting Physician: GABBY Juarez Returned Call: 1350 I discussed the patient's case with GABBY Juarez. The patient will be evaluated for further management. Impression Primary Impression: COPD exacerbation Additional Impressions: Hypoxia Respiratory acidosis Scribe Attestation The scribe's documentation has been prepared under my direction and personally reviewed by me in its entirety. I confirm that the note above accurately reflects all work, treatment, procedures, and medical decision making performed by me. Departure Information Dispostion Being Evaluated By Hospitalist Referrals Harrison Vicente M.D. (PCP) Forms HOME CARE DOCUMENTATION FORM, IMPORTANT VISIT INFORMATION Patient Instructions [facility] Problem Qualifiers
--- NOTE | 2017-09-28 15:14 | History and Physical ---
History & Physical Date & Time of Service: Sep 28, 2017 at 15:01 Chief Complaint: SOB Primary Care Physician: Harrison Vicente M.D. History of Present Illness Source: patient, family Mr. Melendez is a 77 y/o male with PMHx of COPD, [place] on Night 2L, HTN, H/O PE/DVT , Myeloproliferative D/O, T2DM, HLD, and Tobacco User who presents to the ED c/ o progressive SOB that started on 09/24. He states that he has been utilizing his home nebs and inhalers but he continued to develop worsening SOB. He states last night it acutely worsened which caused him to see his PCP today. He states his O2 saturations were around 81-83% and was treated with Prednisone and Albuterol at the office. Per Dr. Brown note, he did not move the peak flow even after treatment and referred him to the ED. He reports a minimal cough and no sputum. Significant wheezing and SOB. He continues to smoke with 6-7 cigarettes a day. He states he has generalized chest pain that is achy in nature and rather constant since this started. He denies fever/chills, N/V, abdominal pain, diarrhea/constipation, melena/hematochezia. Past Medical/Surgical History 1. COPD 2. [place] on 2 L NC at Night 3. HTN 4. H/O PE/DVT 5. Myeloproliferative D/O 6. T2DM 7. HLD 8. Current Tobacco User Family History Brain Mass Kidney disease Lung Disease Stroke Social History Smoking Status: Current Every Day Smoker Alcohol Use: none Drug Use: none Marital Status: Housing status: lives alone Occupational Status: retired Allergies Coded Allergies: Levofloxacin (Verified Allergy, Unknown, pt doesnt remember, 08/23/17) Pravastatin (Verified Adverse Reaction, Unknown, muscle aches, 08/23/17) Home Medications Scheduled Albuterol Sulf (Proventil 0.083% 2.5MG/3ML), 2.5 MG INH QID Atorvastatin (Lipitor), 10 MG PO PM Budesonide/Formoterol Fumarate (Symbicort 160/4.5 Inhaler ), 2 PUFFS INH BID Clonazepam (Klonopin), 1 MG PO HS Finasteride (Proscar), 5 MG PO QAM Ipratropium-Albuterol (Duoneb), 1 TREATMENT INH QID Metformin HCl (Metformin HCl), 500 MG PO BID Omeprazole (Prilosec), 40 MG PO QAM Prednisone (Prednisone), 20 MG PO DAILY Ranitidine HCl (Ranitidine HCl), 150 MG PO DAILY Tamsulosin Hcl (Flomax), 0.4 MG PO AFTERNOON Tiotropium [place] (Spiriva Respimat), 2 PUFF INH DAILY Scheduled PRN Tramadol (Ultram), 50-100 MG PO QID PRN for Pain Trazodone Hcl (Desyrel), 50-100 MG PO HS PRN for Sleep [Proair Hfa], 2 PUFFS INH Q4H PRN for COPD EXACERBATION Review of Systems General/Constitutional: Denies fever/chills, fatigue, weakness ENT: Denies visual changes, nasal drainage, hearing loss, sore throat, trouble swallowing Cardiovascular: + diffuse constant CP; Denies palpitations, edema Respiratory: + minimal cough, + SOB, + wheezing; Denies sputum, orthopnea GI: Denies nausea, vomiting, abdominal pain, constipation, diarrhea, melena/ hematochezia : Denies dysuria Musculoskeletal: Denies joint/muscle aches, swelling Neurologic: Denies dizziness/lightheadedness Hematologic/Lymphatic: Denies bleeding/clotting abnormalities Skin: Denies rash Physical Exam Vital Signs Date Time Temp Pulse Resp B/P (MAP) Pulse Ox O2 Delivery O2 Flow Rate FiO2 09/28/17 13:31 117 30 149/85 97 Nasal Cannula 4.0 09/28/17 13:01 114 20 99 Nasal Cannula 2.0 09/28/17 12:57 96 Nasal Cannula 4.0 09/28/17 12:57 97 Nasal Cannula 4.0 09/28/17 12:37 119 09/28/17 12:35 96 Nasal Cannula 4.0 09/28/17 12:20 36.8 124 32 161/79 89 Room Air General Appearance: WDWN in mild distress who is A&O x 3 HEENT: Head is normocephalic/atraumatic; EOMI; PERRLA; Hearing grossly intact; Mucous membranes dry; Pharynx negative for exudate/lesions Neck: Supple; Trachea midline; Neg JVD; Neg lymphadenopathy Heart: Tachycardia with regular rhythm with no M/G/R Lungs: Diffusely poor airflow with expiratory wheeze; tripod position; abdominal breathing; can say several words before stopping for a breath Abdomen: Soft, non-tender, mildly distended; Positive BS x 4 quadrants Extremities: Neg cyanosis or edema Neurological: Speech clear; Neg focal neurologic deficits Psychiatric: Appropriate mood/affect Skin: Normal Color; Warm/Dry Diagnostics Laboratory Results Results Past 24 Hours Test 09/28/17 12:40 09/28/17 13:08 09/28/17 13:10 09/28/17 14:30 Range/Units White Blood Count 18.64 4.8-10.8 K/uL Red Blood Count 4.50 4.7-6.1 M/uL Hemoglobin 13.5 14.0-18.0 g/dL Hematocrit 41.6 42-52 % Mean Corpuscular Volume 92.4 80-100 fL Mean Corpuscular Hemoglobin 30.0 25-34 pg Mean Corpuscular Hemoglobin Concent 32.5 32-36 g/dl Platelet Count 429 130-400 K/uL Mean Platelet Volume 10.6 7.4-10.4 fL Neutrophils (%) (Auto) 90.8 % Lymphocytes (%) (Auto) 3.8 % Monocytes (%) (Auto) 2.8 % Eosinophils (%) (Auto) 0.1 % Basophils (%) (Auto) 0.2 % Neutrophils # (Auto) 16.94 1.4-6.5 K/uL Lymphocytes # (Auto) 0.71 1.2-3.4 K/uL Monocytes # (Auto) 0.52 0.11-0.59 K/uL Eosinophils # (Auto) 0.01 0-0.5 K/uL Basophils # (Auto) 0.03 0-0.2 K/uL RDW Standard Deviation 51.3 36.4-46.3 fL RDW Coefficient of Variation 15.1 11.5-14.5 % Immature Granulocyte % (Auto) 2.3 % Immature Granulocyte # (Auto) 0.43 0.00-0.02 K/uL Prothrombin Time 10.3 9.0-12.0 SECONDS Prothromb Time International Ratio 1.0 0.9-1.1 Activated Partial Thromboplast Time 25.9 21.0-31.0 SECONDS Partial Thromboplastin Ratio 1.0 Sodium Level 133 136-145 mmol/L Potassium Level 4.4 3.5-5.1 mmol/L Chloride Level 95 98-107 mmol/L Carbon Dioxide Level 31 21-32 mmol/L Anion Gap 7.0 3-11 mmol/L Blood Urea Nitrogen 18 7-18 mg/dl Creatinine 0.85 0.60-1.40 mg/dl Est Creatinine Clear Calc Drug Dose 75.8 ml/min Estimated GFR () 98.8 Estimated GFR (Non- 85.2 BUN/Creatinine Ratio 20.8 10-20 Random Glucose 214 70-99 mg/dl Calcium Level 8.6 8.5-10.1 mg/dl Total Bilirubin 0.6 0.2-1 mg/dl Aspartate Amino Transf (AST/SGOT) 13 15-37 U/L Alanine Aminotransferase (ALT/SGPT) 27 12-78 U/L Alkaline Phosphatase 74 45-117 U/L Total Creatine Kinase 103 39-308 U/L Creatine Kinase MB 5.4 0.5-3.6 ng/ml Creatine Kinase MB Ratio 5.2 0-3.0 Troponin I 0.023 0-0.045 ng/ml Pro-B-Type Natriuretic Peptide 1058 0-900 pg/ml Total Protein 7.2 6.4-8.2 gm/dl Albumin 3.7 3.4-5.0 gm/dl Globulin 3.5 2.5-4.0 gm/dl Albumin/Globulin Ratio 1.1 0.9-2 Influenza Type A Antigen Neg for Influ A NEG Influenza Type B Antigen Neg for Influ B NEG Venous Blood pH 7.29 7.36-7.41 Venous Blood Partial Pressure CO2 68 38.0-50.0 mmHg Venous Blood Partial Pressure O2 48 mmHg Venous Blood HCO3 32 mmol/L Venous Blood Oxygen Saturation 79.0 % Venous Blood Base Excess 3.8 mEq/L Urine Color YELLOW Urine Appearance CLEAR CLEAR Urine pH 5.0 4.5-7.5 Urine Specific [place] 1.014 1.000-1.030 Urine Protein NEG NEG Urine Glucose (UA) 2+ NEG Urine Ketones NEG NEG Urine Occult Blood TRACE NEG Urine Nitrite NEG NEG Urine Bilirubin NEG NEG Urine Urobilinogen NEG NEG Urine Leukocyte Esterase NEG NEG Urine WBC (Auto) 1-5 0-5 /hpf Urine RBC (Auto) 0-4 0-4 /hpf Urine Hyaline Casts (Auto) 1-5 0-5 /lpf Urine Epithelial Cells (Auto) 5-10 0-5 /lpf Urine Bacteria (Auto) NEG NEG Microbiology Results 09/28/17 Blood Culture, Received Pending 09/28/17 Blood Culture, Received Pending Diagnostic Radiology SINGLE VIEW CHEST CLINICAL HISTORY: Dyspnea. FINDINGS: An AP, portable, upright chest radiograph is compared to study dated 08/24/2017. Correlation is made with chest CT dated 06/17/2015. The examination is degraded by portable technique, apical lordotic positioning, and patient rotation. The heart is enlarged and there is atherosclerotic calcification of the thoracic aorta. The pulmonary vasculature is noncongested. Emphysema and chronic interstitial thickening are similar to previous. No airspace consolidation or pleural effusion is identified. A 1.4 cm calcification containing pulmonary nodule at the right lung base is unchanged from previous. No pneumothorax is seen. The skeletal structures are osteopenic. The bony thorax is grossly intact. IMPRESSION: Cardiomegaly and emphysema with no acute cardiopulmonary abnormality. EKG Poor data quality, interpretation may be adversely affected Sinus tachycardia with occasional Premature ventricular complexes Left axis deviation Inferior infarct , age undetermined Abnormal ECG When compared with ECG of 25-AUG-2017 09:19, Premature ventricular complexes are now Present Questionable change in QRS duration Inferior infarct is now Present Impression Assessment and Plan Mr. Melendez is a 77 y/o male with PMHx of COPD, [place] on 2L Night O2, HTN, H/O PE/ DVT, Myeloproliferative D/O, T2DM, HLD, and Tobacco User who presents to the ED c/o progressive SOB that started on 09/24 and is here for COPD exacerbation. Acute Hypoxic Respiratory Failure 2/2 COPD Exacerbation: - Found to be in 81-83% at PCP office - did not move peak flow after Prednisone 60 mg and neb treatment - Zithromax 250 mg po daily x 4 more days - Methylprednisolone 60 mg IV TID - Mucinex 1200 mg BID - Xopenex/Atrovent nebs; Symbicort 2 puffs BID - Initial VBG with mild respiratory acidosis - patient reports having intolerance to BiPAP/CPAP. Will repeat VBG to assess for improvement and continue NC at this time; Is holding is own airway but may need to consider NIPPV T2DM: - Hold metformin and cover with SSI given steroid administration [place] on Night O2 of 2L: - O2 protocol Myeloproliferative D/O: - Continue to trend WBC HLD: - Atorvastatin 10 mg daily BPH: - Proscar 5 mg daily and Flomax 0.4 mg daily DVT Prophylaxis: Heparin 5000 units BID Code Status: FULL RESUSCITATION Disposition: Once heart rate improves can likely go to medical floor Resident Physician Supervision Note: Pt evaluated independently. I discussed the case with the P and agree with the findings and plan as documented in the note. Any exceptions or clarifications are listed here: 77 y/o M - advanced COPD, [place], DM II, BPH - continues to smoke Presenting with SOB/wheezing - mod resp distress on arrival the ER OE AAO x 3 S1,2 R tachy Poor air movement and wheezing in all denis NT, ND No CCE P: Pt placed on telemetry - COPD protocol applied - , steroids, Abx, nebs Placed on SS owing to steroid use Does not tolerate CPAP - wears NC HS Cont Proscar and Statin Documented By: Carlos Richardson Level of Care Telemetry Resuscitation Status FULL RESUSCITATION VTE Prophylaxis VTE Risk Assessment Done? Y/N: Yes Risk Level: Moderate Given or contraindicated: Unfractionated heparin SQ
[2017-09-28 18:38] VITALS: BP 165/93; PULSE 103; TEMP 36.5; O2SAT 96
[2017-09-28 18:45] VITALS: BP 172/90; PULSE 108; TEMP 36.5; Ht 167.6 cm; Wt 82.6 kg
[2017-09-28 20:21] VITALS: PULSE 70; O2SAT 98
[2017-09-28] MEDS: IPRATROPIUM BROMIDE NEB SOLN 0.02% 2.5 ML VIAL INH SCH ×2 (20:21→23:03)
[2017-09-28] MEDS: LEVALBUTEROL 1.25MG/0.5ML NEB INH SCH ×2 (20:21→23:03)
[2017-09-28] MEDS ORDERED: HEPARIN SOD 5000 UNIT/0.5 ML CARP SQ SCH (21:00)
[2017-09-28] MEDS: CLONAZEPAM 1 MG TAB PO SCH (21:53)
[2017-09-28] MEDS: BUDESONIDE/FORMOTEROL FUMARATE 160/4.5 60 PUFFS/INHALER INH SCH (21:54)
[2017-09-28] MEDS: GUAIFENESIN 600 MG TABCR PO SCH (21:54)
[2017-09-28] MEDS: TAMSULOSIN HCL 0.4 MG CAP PO SCH (21:55)
[2017-09-28] MEDS: ATORVASTATIN 10 MG TAB PO SCH (21:55)
[2017-09-28] MEDS: METHYLPREDNISOLONE IV 60 MG in SYRINGE 0 ML IV SCH (21:56)
[2017-09-28] MEDS: INSULIN ASPART 100 UNITS/ML 3 ML PEN SC SCH (22:04)
[2017-09-28] MEDS: SODIUM CHLORIDE 0.9% 1000ML 1,000 ML IV SCH (22:06)
[2017-09-28 23:05] VITALS: PULSE 82; O2SAT 91
[2017-09-28 23:35] VITALS: BP 144/78; PULSE 113; TEMP 36.6; O2SAT 97
[2017-09-29] VITALS (18 sets, daily range): BP systolic 115–172; BP diastolic 56–92; PULSE 97–120; TEMP 36.3–36.9; O2SAT 91–99
[2017-09-29] MEDS ORDERED: ALBUT/IPRATROP 3MG/0.5MG NEB 3 ML VIAL INH ONE (02:00)
[2017-09-29] MEDS: IPRATROPIUM BROMIDE NEB SOLN 0.02% 2.5 ML VIAL INH SCH ×6 (03:38→23:14)
[2017-09-29] MEDS: LEVALBUTEROL 1.25MG/0.5ML NEB INH SCH ×6 (03:38→23:14)
[2017-09-29] MEDS: METHYLPREDNISOLONE IV 60 MG in SYRINGE 0 ML IV SCH ×3 (06:04→21:30)
[2017-09-29 07:49] LABS: HEMATOCRIT 38.8 % (42-52); HEMOGLOBIN 12.7 g/dL (14.0-18.0); MEAN CELL VOLUME 91.3 fL (80-100); MEAN CORPUSCULAR HEMOGLOBIN 29.9 pg (25-34); MEAN CORPUSCULAR HGB CONC 32.7 g/dl (32-36); MEAN PLATELET VOLUME 10.6 fL (7.4-10.4); PLATELET COUNT 410 K/uL (130-400); RED CELL DISTRIBUTION WIDTH CV 14.7 % (11.5-14.5); RED CELL DISTRIBUTION WIDTH SD 49.3 fL (36.4-46.3); WHITE BLOOD COUNT 11.96 K/uL (4.8-10.8)
[2017-09-29] MEDS: AZITHROMYCIN 250 MG TAB PO SCH (07:54)
[2017-09-29] MEDS: RANITIDINE HCL 150 MG TAB PO SCH (07:54)
[2017-09-29] MEDS: GUAIFENESIN 600 MG TABCR PO SCH ×2 (07:54→21:31)
[2017-09-29] MEDS: BUDESONIDE/FORMOTEROL FUMARATE 160/4.5 60 PUFFS/INHALER INH SCH ×2 (07:54→21:31)
[2017-09-29] MEDS: PANTOprazole SOD 40 MG TAB PO SCH (07:54)
[2017-09-29] MEDS: FINASTERIDE 5 MG TAB PO SCH (07:54)
[2017-09-29] MEDS: SODIUM CHLORIDE 0.9% 1000ML 1,000 ML IV SCH (07:58)
[2017-09-29 08:23] LABS: CALCIUM 8.7 mg/dl (8.5-10.1); CREATININE 0.73 mg/dl (0.60-1.40); POTASSIUM 4.3 mmol/L (3.5-5.1)
[2017-09-29] MEDS: INSULIN ASPART 100 UNITS/ML 3 ML PEN SC SCH ×4 (08:53→21:31)
[2017-09-29] MEDS ORDERED: TIOTROPIUM BROMIDE 5 PUFF/90 MCG INH INH SCH (09:00)
[2017-09-29] MEDS ORDERED: INSULIN GLARGINE SOLOSTAR 100 UNITS/ML 3 ML PEN SC ONE (10:00)
[2017-09-29] MEDS ORDERED: OXYMETAZOLINE HCL 0.05% NA SPR 15 ML BTL PRN (10:15)
[2017-09-29] MEDS ORDERED: SODIUM CHLORIDE 0.65% NA SOLN 45 ML (OCEAN) PRN (10:15)
[2017-09-29] MEDS ORDERED: FUROSEMIDE INJ 20 MG in SYRINGE 0 ML IV STA (12:09)
--- NOTE | 2017-09-29 12:19 | Hospitalist Progress Note ---
Hospitalist Progress Note Date of Service Sep 29, 2017. Subjective Pt evaluation today including: conversation w/ patient, chart review ( Outpatient records), lab review Voiding: no voiding problems Patient reports feeling a little bit better than yesterday. Still quite short of breath and has a lot of nasal congestion. He has the nasal cannula in between his lips because he cannot breathe through his nose. He has noticed some leg swelling in the last few months. An echocardiogram performed last month shows grade 1 diastolic dysfunction. The patient denies chest pain. He is tolerating p.o. and moving his bowels, making urine. Telemetry reveals sinus tachycardia consistently but is lower today in the 100s , was up to the 120s All Other Systems: Reviewed and Negative Objective Vital Signs Date Time Temp Pulse Resp B/P (MAP) Pulse Ox O2 Delivery O2 Flow Rate FiO2 09/29/17 11:11 119 20 94 Nasal Cannula 2.0 09/29/17 07:45 Nasal Cannula 2.0 09/29/17 07:21 36.3 111 24 165/81 (109) 95 Nasal Cannula 3.0 09/29/17 07:03 103 20 98 Nasal Cannula 3.0 09/29/17 04:00 94 Nasal Cannula 4.0 09/29/17 03:38 117 20 98 Nasal Cannula 3.0 09/29/17 03:17 36.5 118 20 131/72 (91) 95 Nasal Cannula 3.0 09/29/17 02:08 107 22 98 Nasal Cannula 3.0 09/29/17 00:00 94 Nasal Cannula 4.0 09/28/17 23:35 36.6 113 20 144/78 (100) 97 Nasal Cannula 3.0 09/28/17 23:05 82 18 91 Nasal Cannula 3.0 09/28/17 20:21 70 22 98 Nasal Cannula 3.5 09/28/17 20:00 Nasal Cannula 4.0 09/28/17 18:45 36.5 108 24 172/90 Nasal Cannula 4.0 09/28/17 18:38 36.5 103 18 165/93 (117) 96 Nasal Cannula 3.0 09/28/17 17:28 108 26 161/94 96 Nasal Cannula 4.0 09/28/17 15:42 117 26 139/100 96 Room Air 09/28/17 14:25 118 26 175/90 96 Room Air 09/28/17 13:31 117 30 149/85 97 Nasal Cannula 4.0 09/28/17 13:01 114 20 99 Nasal Cannula 2.0 09/28/17 12:57 96 Nasal Cannula 4.0 09/28/17 12:57 97 Nasal Cannula 4.0 09/28/17 12:37 119 09/28/17 12:35 96 Nasal Cannula 4.0 09/28/17 12:20 36.8 124 32 161/79 89 Room Air Physical Exam General Appearance: WD/WN, + mild distress (Using accessory muscles and is mildly tachypneic with fluent sentences) Eyes: normal inspection, sclerae normal ENT: hearing grossly normal, pharynx normal Neck: trachea midline Respiratory/Chest: + decreased breath sounds (Throughout), + accessory muscle use, + wheezing (Diffuse) Cardiovascular: no murmur (But difficult to auscultate over diffuse wheezing), + tachycardia (With regular rhythm) Abdomen: normal bowel sounds, non tender, soft Extremities: non-tender, + swelling (1+ pitting edema of legs to the knees bilaterally) Neurologic/Psychiatric: alert, normal mood/affect, oriented x 3 Skin: normal color, warm/dry, no rash Laboratory Results Last 24 Hours Test 09/28/17 12:40 09/28/17 13:08 09/28/17 13:10 09/28/17 14:30 White Blood Count 18.64 K/uL Red Blood Count 4.50 M/uL Hemoglobin 13.5 g/dL Hematocrit 41.6 % Mean Corpuscular Volume 92.4 fL Mean Corpuscular Hemoglobin 30.0 pg Mean Corpuscular Hemoglobin Concent 32.5 g/dl Platelet Count 429 K/uL Mean Platelet Volume 10.6 fL Neutrophils (%) (Auto) 90.8 % Lymphocytes (%) (Auto) 3.8 % Monocytes (%) (Auto) 2.8 % Eosinophils (%) (Auto) 0.1 % Basophils (%) (Auto) 0.2 % Neutrophils # (Auto) 16.94 K/uL Lymphocytes # (Auto) 0.71 K/uL Monocytes # (Auto) 0.52 K/uL Eosinophils # (Auto) 0.01 K/uL Basophils # (Auto) 0.03 K/uL RDW Standard Deviation 51.3 fL RDW Coefficient of Variation 15.1 % Immature Granulocyte % (Auto) 2.3 % Immature Granulocyte # (Auto) 0.43 K/uL Prothrombin Time 10.3 SECONDS Prothromb Time International Ratio 1.0 Activated Partial Thromboplast Time 25.9 SECONDS Partial Thromboplastin Ratio 1.0 Sodium Level 133 mmol/L Potassium Level 4.4 mmol/L Chloride Level 95 mmol/L Carbon Dioxide Level 31 mmol/L Anion Gap 7.0 mmol/L Blood Urea Nitrogen 18 mg/dl Creatinine 0.85 mg/dl Est Creatinine Clear Calc Drug Dose 75.8 ml/min Estimated GFR () 98.8 Estimated GFR (Non- 85.2 BUN/Creatinine Ratio 20.8 Random Glucose 214 mg/dl Calcium Level 8.6 mg/dl Total Bilirubin 0.6 mg/dl Aspartate Amino Transf (AST/SGOT) 13 U/L Alanine Aminotransferase (ALT/SGPT) 27 U/L Alkaline Phosphatase 74 U/L Total Creatine Kinase 103 U/L Creatine Kinase MB 5.4 ng/ml Creatine Kinase MB Ratio 5.2 Troponin I 0.023 ng/ml Pro-B-Type Natriuretic Peptide 1058 pg/ml Total Protein 7.2 gm/dl Albumin 3.7 gm/dl Globulin 3.5 gm/dl Albumin/Globulin Ratio 1.1 Influenza Type A Antigen Neg for Influ A Influenza Type B Antigen Neg for Influ B Venous Blood pH 7.29 Venous Blood Partial Pressure CO2 68 mmHg Venous Blood Partial Pressure O2 48 mmHg Venous Blood HCO3 32 mmol/L Venous Blood Oxygen Saturation 79.0 % Venous Blood Base Excess 3.8 mEq/L Urine Color YELLOW Urine Appearance CLEAR Urine pH 5.0 Urine Specific [place] 1.014 Urine Protein NEG Urine Glucose (UA) 2+ Urine Ketones NEG Urine Occult Blood TRACE Urine Nitrite NEG Urine Bilirubin NEG Urine Urobilinogen NEG Urine Leukocyte Esterase NEG Urine WBC (Auto) 1-5 /hpf Urine RBC (Auto) 0-4 /hpf Urine Hyaline Casts (Auto) 1-5 /lpf Urine Epithelial Cells (Auto) 5-10 /lpf Urine Bacteria (Auto) NEG Test 09/28/17 17:05 09/28/17 18:55 09/28/17 20:17 09/29/17 07:07 Venous Blood pH 7.34 Venous Blood Partial Pressure CO2 62 mmHg Venous Blood Partial Pressure O2 33 mmHg Venous Blood HCO3 33 mmol/L Venous Blood Oxygen Saturation < 60.0 % Venous Blood Base Excess 4.8 mEq/L Troponin I 0.025 ng/ml Bedside Glucose 240 mg/dl 289 mg/dl White Blood Count 11.96 K/uL Red Blood Count 4.25 M/uL Hemoglobin 12.7 g/dL Hematocrit 38.8 % Mean Corpuscular Volume 91.3 fL Mean Corpuscular Hemoglobin 29.9 pg Mean Corpuscular Hemoglobin Concent 32.7 g/dl RDW Standard Deviation 49.3 fL RDW Coefficient of Variation 14.7 % Platelet Count 410 K/uL Mean Platelet Volume 10.6 fL Sodium Level 135 mmol/L Potassium Level 4.3 mmol/L Chloride Level 98 mmol/L Carbon Dioxide Level 32 mmol/L Anion Gap 5.0 mmol/L Blood Urea Nitrogen 17 mg/dl Creatinine 0.73 mg/dl Est Creatinine Clear Calc Drug Dose 92.0 ml/min Estimated GFR () 105.2 Estimated GFR (Non- 90.7 BUN/Creatinine Ratio 23.6 Random Glucose 231 mg/dl Calcium Level 8.7 mg/dl Magnesium Level 2.5 mg/dl Test 09/29/17 07:31 Bedside Glucose 287 mg/dl Assessment and Plan Mr. Melendez is a 77 y/o male with PMHx of COPD, [place] on 2L Night O2, HTN (not on medication), H/O PE/DVT, Myeloproliferative D/O, chronic diastolic CHF, T2DM, HLD, and current smoker who presents to the ED c/o progressive SOB that started on 09/24 and is here for COPD exacerbation and acute hypoxemic respiratory failure. Acute Hypoxic Respiratory Failure/COPD Exacerbation: Last PFTs in the record are 2012 which shows severe COPD with an FEV1/FVC ratio 35%. Still with significant wheezing and dyspnea, nasal congestion and unable to tolerate nasal cannula. - Found to be in 81-83% at PCP office - did not move peak flow after Prednisone 60 mg and neb treatment Initial VBG with mild respiratory acidosis - patient reports having intolerance to BiPAP/CPAP.Repeat VBG improved Leukocytosis secondary to outpatient p.o. prednisone and is now improving -Switch to oxymask from nasal cannula and titrate to keep pulse ox greater than 92% -Continue Zithromax 250 mg po daily for total 5 day course-today #2/5 -Continue methylprednisolone 60 mg IV TID -Continue Mucinex 1200 mg BID -Continue Xopenex/Atrovent nebs; Symbicort 2 puffs BID, holding home Spiriva while on Atrovent [id number] -Consider pulmonology consult if not improving [id number] well controlled, with hyperglycemia here secondary to corticosteroids. Hemoglobin A1c 7.3% in 08/2017 -Continue to hold metformin and cover with SSI given steroid administration -Add Lantus 10 units daily for now and titrate up as needed Sinus tachycardia/elevated blood pressures-likely related to steroid use and respiratory distress-review of office records shows he is not normally tachycardic or hypertensive -Switching to oxymask -Consider adding on metoprolol for rate and BP control but caution with severe pulmonary disease Acute on chronic diastolic CHF-grade 1 on echocardiogram in August 2017, mild mitral regurgitation. With mildly elevated proBNP on admission. With lower extremity edema. This may be contributing somewhat to his hypoxia and shortness of breath. -Give Lasix 20 mg IV 1 now -Discontinue IV fluids that were started on admission -Follow I's and O's and daily weights, and low-sodium diet -Add ANDREW lopez [place] on Night O2 of 2L: -Continue O2 Myeloproliferative D/O: No acute issues -Follow-up with PCP HLD: No acute issues -Continue atorvastatin 10 mg daily BPH: No acute issues -Continue Proscar 5 mg daily and Flomax 0.4 mg daily DVT Prophylaxis: Heparin subcu, ANDREW lopez Code Status: FULL RESUSCITATION Disposition: Remain on telemetry today
[2017-09-29] MEDS: HEPARIN SOD 5000 UNIT/0.5 ML CARP SQ SCH ×2 (13:57→21:34)
[2017-09-29] MEDS ORDERED: FUROSEMIDE INJ 20 MG in SYRINGE 0 ML IV ONE (14:00)
[2017-09-29] MEDS ORDERED: METOPROLOL TARTRATE 25 MG TAB PO ONE (17:37)
[2017-09-29] MEDS ORDERED: LEVALBUTEROL 0.63MG/3 ML NEB INH PRN (18:00)
[2017-09-29] MEDS: CLONAZEPAM 1 MG TAB PO SCH (21:30)
[2017-09-29] MEDS: TAMSULOSIN HCL 0.4 MG CAP PO SCH (21:30)
[2017-09-29] MEDS: ATORVASTATIN 10 MG TAB PO SCH (21:31)
[2017-09-30] VITALS (12 sets, daily range): BP systolic 123–168; BP diastolic 61–89; PULSE 79–121; TEMP 36.3–36.6; O2SAT 91–98
[2017-09-30] MEDS: IPRATROPIUM BROMIDE NEB SOLN 0.02% 2.5 ML VIAL INH SCH ×6 (03:23→23:22)
[2017-09-30] MEDS: LEVALBUTEROL 1.25MG/0.5ML NEB INH SCH ×6 (03:23→23:22)
[2017-09-30] MEDS: METHYLPREDNISOLONE IV 60 MG in SYRINGE 0 ML IV SCH ×3 (05:47→20:54)
[2017-09-30] MEDS: HEPARIN SOD 5000 UNIT/0.5 ML CARP SQ SCH ×3 (05:48→20:54)
[2017-09-30 07:03] LABS: HEMOGLOBIN 11.7 g/dL (14.0-18.0); MEAN CELL VOLUME 91.4 fL (80-100); MEAN CORPUSCULAR HEMOGLOBIN 28.9 pg (25-34); MEAN CORPUSCULAR HGB CONC 31.6 g/dl (32-36); MEAN PLATELET VOLUME 10.7 fL (7.4-10.4); PLATELET COUNT 410 K/uL (130-400); RED CELL DISTRIBUTION WIDTH CV 14.6 % (11.5-14.5); RED CELL DISTRIBUTION WIDTH SD 49.2 fL (36.4-46.3); WHITE BLOOD COUNT 19.32 K/uL (4.8-10.8)
[2017-09-30 07:33] LABS: CREATININE 0.85 mg/dl (0.60-1.40); POTASSIUM 4.4 mmol/L (3.5-5.1)
[2017-09-30] MEDS: BUDESONIDE/FORMOTEROL FUMARATE 160/4.5 60 PUFFS/INHALER INH SCH ×2 (09:33→20:42)
[2017-09-30] MEDS: FINASTERIDE 5 MG TAB PO SCH (09:34)
[2017-09-30] MEDS: RANITIDINE HCL 150 MG TAB PO SCH (09:34)
[2017-09-30] MEDS: AZITHROMYCIN 250 MG TAB PO SCH (09:34)
[2017-09-30] MEDS: PANTOprazole SOD 40 MG TAB PO SCH (09:34)
[2017-09-30] MEDS: GUAIFENESIN 600 MG TABCR PO SCH ×2 (09:34→20:43)
[2017-09-30] MEDS: METOPROLOL TARTRATE 25 MG TAB PO SCH ×2 (09:34→20:43)
[2017-09-30] MEDS: INSULIN GLARGINE SOLOSTAR 100 UNITS/ML 3 ML PEN SC SCH (09:38)
[2017-09-30] MEDS: INSULIN ASPART 100 UNITS/ML 3 ML PEN SC SCH ×5 (09:38→20:52)
--- NOTE | 2017-09-30 13:58 | DIAGNOSTIC IMAGING REPORT ---
CHEST 2 VIEWS ROUTINE CLINICAL HISTORY: copd, bibasilar rales; eval for pulm edema, pneumonia dyspnea COMPARISON STUDY: 09/28/2017 FINDINGS: Mild bibasilar atelectatic change. Mild emphysematous change. No significant cardiac enlargement. No significant basilar pulmonary nodularity. IMPRESSION: Minimal/mild bibasilar atelectasis. Mild emphysematous change. Lungs otherwise appear clear. The above report was generated using voice recognition software. It may contain grammatical, syntax or spelling errors. Electronically signed by: Sam Sexton M.D. 09/30/2017 1:57 PM Dictated Date/Time: 09/30/2017 1:56 PM
[2017-09-30] MEDS ORDERED: FUROSEMIDE INJ 20 MG in SYRINGE 0 ML IV ONE (14:45)
[2017-09-30] MEDS: NYSTATIN SUSP 500,000 U/5 ML UDC PO SCH ×2 (17:02→20:44)
--- NOTE | 2017-09-30 20:20 | Progress Note ---
Subjective Date of Service: Sep 30, 2017. Subjective Pt evaluation today including: conversation w/ patient, physical exam, chart review, lab review, review of studies (cxr), review of inpatient medication list Pain: denies any chest pain PO Intake: normal Voiding: voiding difficulty (PVR >500 this afternoon ) pt states his breathing is unchanged from yesterday no cough, just significant dyspnea on exertion and sometimes at rest as well staff reported that he was quite somnolent this AM but during my early afternoon rounds he was wide awake/alert he specifically mentioned that he couldn't void very well today after voiding <200cc he had a PVR of >500 per staff I/O cath subsequently done Problem List Medical Problems: (1) Bronchitis Status: Acute (2) COPD exacerbation Status: Acute (3) COPD exacerbation Status: Acute (4) Hypoxia Status: Acute (5) Respiratory acidosis Status: Acute (6) Sepsis Status: Acute Review of Systems Constitutional: No fever, No chills Respiratory: + cough, + wheezing, + shortness of breath, + dyspnea on exertion , No sputum Cardiac: + edema, No chest pain, No orthopnea, No PND Abdomen: No pain Objective Vital Signs Date Time Temp Pulse Resp B/P (MAP) Pulse Ox O2 Delivery O2 Flow Rate FiO2 09/30/17 20:00 Room Air 09/30/17 16:00 Room Air 09/30/17 15:18 36.4 108 24 136/72 (93) 92 2.0 09/30/17 15:07 92 20 96 Nasal Cannula 3.0 09/30/17 11:40 Room Air 09/30/17 11:10 36.6 103 24 138/68 (91) 95 Nasal Cannula 2.0 09/30/17 11:04 90 18 96 Nasal Cannula 2.0 09/30/17 07:45 Nasal Cannula 2.0 09/30/17 07:44 36.4 101 22 123/62 (82) 92 2.0 09/30/17 07:10 93 18 91 Nasal Cannula 2.0 09/30/17 04:00 Nasal Cannula 2.0 Oxymask 09/30/17 03:26 92 18 96 Nasal Cannula 2.0 09/30/17 03:19 36.3 92 16 125/62 (83) 92 Nasal Cannula 2.0 09/30/17 00:00 Nasal Cannula 2.0 Oxymask 09/29/17 23:59 36.4 100 18 115/56 (75) 93 Nasal Cannula 2.0 09/29/17 23:17 97 18 95 Nasal Cannula 2.0 Physical Exam General Appearance: + mild distress (audible wheezing and tachypnea noted) ENT: pharynx normal Neck: + JVD (very mild) Respiratory/Chest: + respiratory distress (tachypnea), + crackles (both bases) , + rhonchi (occasional ), + wheezing Cardiovascular: no gallop, no murmur, + tachycardia Abdomen: normal bowel sounds, non tender, no organomegaly, + distended ( bladder region) Extremities: + pedal edema, + swelling (1+ b/l ) Neurologic/Psychiatric: alert, oriented x 3 Laboratory Results Last 24 Hours Test 09/30/17 06:25 09/30/17 07:16 09/30/17 09:33 09/30/17 11:21 White Blood Count 19.32 K/uL Red Blood Count 4.05 M/uL Hemoglobin 11.7 g/dL Hematocrit 37.0 % Mean Corpuscular Volume 91.4 fL Mean Corpuscular Hemoglobin 28.9 pg Mean Corpuscular Hemoglobin Concent 31.6 g/dl RDW Standard Deviation 49.2 fL RDW Coefficient of Variation 14.6 % Platelet Count 410 K/uL Mean Platelet Volume 10.7 fL Sodium Level 140 mmol/L Potassium Level 4.4 mmol/L Chloride Level 100 mmol/L Carbon Dioxide Level 35 mmol/L Anion Gap 5.0 mmol/L Blood Urea Nitrogen 22 mg/dl Creatinine 0.85 mg/dl Est Creatinine Clear Calc Drug Dose 75.8 ml/min Estimated GFR () 98.8 Estimated GFR (Non- 85.2 BUN/Creatinine Ratio 25.9 Random Glucose 243 mg/dl Calcium Level 8.0 mg/dl Magnesium Level 2.5 mg/dl Bedside Glucose 243 mg/dl 328 mg/dl Venous Blood pH 7.36 Venous Blood Partial Pressure CO2 66 mmHg Venous Blood Partial Pressure O2 53 mmHg Venous Blood HCO3 37 mmol/L Venous Blood Oxygen Saturation 85.1 % Venous Blood Base Excess 9.1 mEq/L Test 09/30/17 13:00 09/30/17 16:23 Urine Color YELLOW Urine Appearance CLEAR Urine pH 6.5 Urine Specific [place] 1.018 Urine Protein NEG Urine Glucose (UA) 3+ Urine Ketones NEG Urine Occult Blood NEG Urine Nitrite NEG Urine Bilirubin NEG Urine Urobilinogen NEG Urine Leukocyte Esterase NEG Bedside Glucose 121 mg/dl Assessment and Plan Mr. Rojas a 77 y/o male with - 1. acute hypoxic/hypercarbic Respiratory Failure 2nd to COPD Exacerbation +/- acute/chronic diastolic CHF - no significant improvement overnight despite IV lasix and IV steroids/supportive care. Cont steroids (60mg q8h) - no wean today. Cont nebs and inhalers. Mucinex. Incentive spirometry. Maintain o2 sats 90-92%. Finish course of zithromax - day #2 of such. VBG today with compensated respiratory acidosis. Repeat cxr today w/o obvious pulmonary edema or pneumonia. 2. urinary retention - 2nd to BPH - I/O cath now; send u/a. If he continues to have urinary retention (PVRs over 200-250) then simply place dietz. 3. T2DM - uncontrolled - cont lantus, adjust novolog. 4. question of acute/chronic diastolic CHF - give another small dose of lasix today due to bibasilar rales and LE edema on exam. Creatinine is stable today on BMP. 5. [place] on Night O2 - cont 2 liters HS. 6. Myeloproliferative D/O: Noted, cbc is stable. 7. BPH - cont flomax and proscar; see discussion above re: urinary retention. 8. DVT Prophylaxis: Heparin SC. may need PT, OT leave on tele for now BMP in am Continued [facility] stay due to: multiple IV medications needed Discharge planning: uncertain
[2017-09-30] MEDS: CLONAZEPAM 1 MG TAB PO SCH (20:42)
[2017-09-30] MEDS: ATORVASTATIN 10 MG TAB PO SCH (20:42)
[2017-09-30] MEDS: TAMSULOSIN HCL 0.4 MG CAP PO SCH (20:46)
[2017-10-01] VITALS (13 sets, daily range): BP systolic 116–164; BP diastolic 49–81; PULSE 88–114; TEMP 36.4–36.6; O2SAT 2–98
[2017-10-01] MEDS: IPRATROPIUM BROMIDE NEB SOLN 0.02% 2.5 ML VIAL INH SCH ×6 (03:34→23:04)
[2017-10-01] MEDS: LEVALBUTEROL 1.25MG/0.5ML NEB INH SCH ×6 (03:34→23:04)
[2017-10-01] MEDS: HEPARIN SOD 5000 UNIT/0.5 ML CARP SQ SCH ×3 (06:08→21:30)
[2017-10-01] MEDS: METHYLPREDNISOLONE IV 60 MG in SYRINGE 0 ML IV SCH ×3 (06:08→21:21)
[2017-10-01] MEDS: FINASTERIDE 5 MG TAB PO SCH (07:47)
[2017-10-01] MEDS: BUDESONIDE/FORMOTEROL FUMARATE 160/4.5 60 PUFFS/INHALER INH SCH ×2 (07:47→21:20)
[2017-10-01] MEDS: NYSTATIN SUSP 500,000 U/5 ML UDC PO SCH ×4 (07:47→21:21)
[2017-10-01] MEDS: GUAIFENESIN 600 MG TABCR PO SCH ×2 (07:47→21:22)
[2017-10-01] MEDS: PANTOprazole SOD 40 MG TAB PO SCH (07:47)
[2017-10-01] MEDS: METOPROLOL TARTRATE 25 MG TAB PO SCH ×2 (07:47→21:25)
[2017-10-01] MEDS: RANITIDINE HCL 150 MG TAB PO SCH (07:48)
[2017-10-01] MEDS: INSULIN ASPART 100 UNITS/ML 3 ML PEN SC SCH ×4 (08:07→22:08)
[2017-10-01] MEDS: INSULIN GLARGINE SOLOSTAR 100 UNITS/ML 3 ML PEN SC SCH (08:07)
[2017-10-01] MEDS: AZITHROMYCIN 250 MG TAB PO SCH (08:08)
[2017-10-01 08:31] LABS: CALCIUM 8.5 mg/dl (8.5-10.1); CREATININE 0.85 mg/dl (0.60-1.40); POTASSIUM 4.4 mmol/L (3.5-5.1)
--- NOTE | 2017-10-01 08:48 | Hospitalist Progress Note ---
Hospitalist Progress Note Date of Service Oct 01, 2017. (Ruth Conti PA-C) Subjective Pt evaluation today including: conversation w/ patient, physical exam, chart review, lab review, review of studies, review of inpatient medication list Patient seen and evaluated. Reporting feeling a lot better compared to admission but still with SOB. Patient is leaning against bedside try with mildly labored breathing. Expiratory wheeze noted with diffuse airflow reduction. Continues to have b/l rhonchi minimal crackles and will give another dose of IV Lasix. Currently at negative balance with Cr stable Additional Comments: General/Constitutional: Denies fever/chills Cardiovascular: Denies chest pain Respiratory: + cough, + SOB, + [place], + Wheezing GI: Denies nausea, vomiting, abdominal pain : Denies dysuria Musculoskeletal: Denies joint/muscle aches Hematologic/Lymphatic: Denies bleeding/clotting abnormalities Skin: Denies rash (Ruth Conti, LAURENCEC) Medications Current Inpatient Medications Medications (Trade) Dose Ordered Sig/Khurram Route Start Time Stop Time Status Last Admin Dose Admin Acetaminophen (Tylenol Tab) 650 mg Q4H PRN PO 09/28/17 14:45 10/28/17 14:44 Al Hydrox/Mg Hydrox/Simethicone (Maalox Max Susp) 15 ml Q4H PRN PO 09/28/17 14:45 10/28/17 14:44 09/29/17 17:55 15 ML Magnesium Hydroxide (Milk Of Magnesia Susp) 30 ml Q12H PRN PO 09/28/17 14:45 10/28/17 14:44 Ondansetron HCl (Zofran Inj) 4 mg Q6H PRN IV 09/28/17 14:45 10/28/17 14:44 Polyethylene (Miralax Powder Packet) 17 gm DAILY PRN PO 09/28/17 14:45 10/28/17 14:44 Insulin Aspart (novoLOG ASPART) SLIDING SCALE If C... ACHS SC 09/28/17 21:00 10/28/17 20:59 10/01/17 08:07 6 UNITS Glucose (Glucose 40% Gel) 15-30 GRAMS 15 GRAMS... UD PRN PO 09/28/17 14:45 10/28/17 14:44 Glucose (Glucose Chew Tab) 4-8 Tablets 4 Tabl... UD PRN PO 09/28/17 14:45 10/28/17 14:44 Dextrose (Dextrose 50% 50ML Syringe) 25-50ML OF 50% DW IV FOR... UD PRN IV 09/28/17 14:45 10/28/17 14:44 Glucagon (Glucagon Inj) 1 mg UD PRN SQ 09/28/17 14:45 10/28/17 14:44 Levalbuterol (Xopenex 1.25MG/ 0.5ML Neb) 1.25 mg Q4R INH 09/28/17 16:00 10/28/17 15:59 10/01/17 07:43 1.25 MG Ipratropium [place] (Atrovent 0.02% 0.5MG/2.5ML Neb) 0.5 mg Q4R INH 09/28/17 16:00 10/28/17 15:59 10/01/17 07:43 0.5 MG Atorvastatin Calcium (Lipitor Tab) 10 mg PM PO 09/28/17 21:00 10/28/17 20:59 09/30/17 20:42 10 MG Budesonide/ Formoterol Fumarate (Symbicort 160/ 4.5 Inh) 2 puffs BID INH 09/28/17 21:00 10/28/17 20:59 10/01/17 07:47 2 PUFFS Clonazepam (Klonopin Tab) 1 mg HS PO 09/28/17 21:00 10/28/17 20:59 09/30/17 20:42 1 MG Finasteride (Proscar Tab) 5 mg QAM PO 09/29/17 09:00 10/29/17 08:59 10/01/17 07:47 5 MG Ranitidine HCl (zANTac TAB) 150 mg DAILY PO 09/29/17 09:00 10/29/17 08:59 10/01/17 07:48 150 MG Tamsulosin HCl (Flomax Cap) 0.4 mg HS PO 09/28/17 21:00 10/28/17 20:59 09/30/17 20:46 0.4 MG Tramadol HCl (Ultram Tab) 1 tab for mild-mod pain an... QID PRN PO 09/28/17 14:45 10/28/17 14:44 Trazodone HCl (Desyrel Tab) 50 mg HS PRN PO 09/28/17 14:45 10/28/17 14:44 09/29/17 23:06 50 MG Pantoprazole Sodium (Protonix Tab) 40 mg QAM PO 09/29/17 09:00 10/29/17 08:59 10/01/17 07:47 40 MG Azithromycin (Zithromax Tab) 250 mg QAM PO 09/29/17 09:00 10/02/17 12:00 10/01/17 08:08 250 MG Methylprednisolone Sodium Succinate 60 mg/Syringe 0.96 ml @ 1.5 mls/min Q8H IV 09/28/17 22:00 10/28/17 21:59 10/01/17 06:08 1.5 MLS/MIN Guaifenesin (Mucinex Contr Rel Tab) 1,200 mg Q12 PO 09/28/17 21:00 10/28/17 20:59 10/01/17 07:47 1,200 MG Heparin Sodium (Porcine) (Heparin Sq 5000 Unit/0.5ml) 5,000 unit Q8 SQ 09/29/17 14:00 10/29/17 13:59 10/01/17 06:08 5,000 UNIT Insulin Glargine (Lantus Solostar Pen) 10 units DAILY SC 09/30/17 09:00 10/30/17 08:59 10/01/17 08:07 10 UNITS Oxymetazoline HCl (Afrin 0.05% Nasal [place]) 1 sprays Q12H PRN NA 09/29/17 10:15 10/02/17 10:14 09/29/17 10:46 1 SPRAYS Sodium Chloride ([place]orter Nasal [place]) 2 sprays Q2H PRN NA 09/29/17 10:15 10/29/17 10:14 Levalbuterol (Xopenex 0.63 Mg/ 3 Ml Neb) 0.63 mg Q2R PRN INH 09/29/17 18:00 10/29/17 17:59 Metoprolol Tartrate (Lopressor Tab) 12.5 mg BID PO 09/30/17 09:00 10/30/17 08:59 10/01/17 07:47 12.5 MG Nystatin (Mycostatin Susp) 5 ml QID PO 09/30/17 17:00 10/10/17 16:59 10/01/17 07:47 5 ML (Ruth Conti PA-C) Objective Vital Signs Date Time Temp Pulse Resp B/P (MAP) Pulse Ox O2 Delivery O2 Flow Rate FiO2 10/01/17 07:43 95 18 97 Nasal Cannula 3.0 10/01/17 07:30 36.4 114 24 155/77 (103) 90 Room Air 10/01/17 04:00 Nasal Cannula 2.0 Oxymask 10/01/17 03:43 36.5 95 16 116/55 (75) 95 Nasal Cannula 2.0 10/01/17 03:34 88 20 93 Nasal Cannula 3.0 10/01/17 00:00 Nasal Cannula 2.0 Oxymask 09/30/17 23:23 91 20 95 Nasal Cannula 3.0 09/30/17 22:59 36.4 79 16 168/89 (115) 98 Nasal Cannula 2.0 09/30/17 20:00 Room Air 09/30/17 19:55 103 20 92 Nasal Cannula 3.0 09/30/17 19:10 36.5 121 20 156/61 (92) 91 Nasal Cannula 2.0 09/30/17 16:00 Room Air 09/30/17 15:18 36.4 108 24 136/72 (93) 92 2.0 09/30/17 15:07 92 20 96 Nasal Cannula 3.0 09/30/17 11:40 Room Air 09/30/17 11:10 36.6 103 24 138/68 (91) 95 Nasal Cannula 2.0 09/30/17 11:04 90 18 96 Nasal Cannula 2.0 (Ruth Conti, MURALI-C) Physical Exam Notes: General Appearance: WDWN in mild resp. distress who is A&O x 3 HEENT: Head is normocephalic/atraumatic; Hearing grossly intact Neck: Supple; Trachea midline; Neg JVD Heart: RRR with no M/G/R Lungs: Diffuse b/l expiratory wheeze with reduced airflow; rhonchi and crackles at bases b/l; Respirations mildly labored in tripod position; Some abdominal assistance with breathing Abdomen: Soft, non-tender, non-distended; Positive BS x 4 quadrants Extremities: 1+ pitting edema b/l lower extremities Neurological: Speech clear Psychiatric: Appropriate mood/affect Skin: Normal Color (Ruth Conti, PA-C) Laboratory Results Last 24 Hours Test 09/30/17 09:33 09/30/17 11:21 09/30/17 13:00 09/30/17 16:23 Venous Blood pH 7.36 Venous Blood Partial Pressure CO2 66 mmHg Venous Blood Partial Pressure O2 53 mmHg Venous Blood HCO3 37 mmol/L Venous Blood Oxygen Saturation 85.1 % Venous Blood Base Excess 9.1 mEq/L Bedside Glucose 328 mg/dl 121 mg/dl Urine Color YELLOW Urine Appearance CLEAR Urine pH 6.5 Urine Specific [place] 1.018 Urine Protein NEG Urine Glucose (UA) 3+ Urine Ketones NEG Urine Occult Blood NEG Urine Nitrite NEG Urine Bilirubin NEG Urine Urobilinogen NEG Urine Leukocyte Esterase NEG Test 09/30/17 20:23 10/01/17 07:05 10/01/17 07:27 Bedside Glucose 285 mg/dl 239 mg/dl Sodium Level 135 mmol/L Potassium Level 4.4 mmol/L Chloride Level 94 mmol/L Carbon Dioxide Level 37 mmol/L Anion Gap 4.0 mmol/L Blood Urea Nitrogen 24 mg/dl Creatinine 0.85 mg/dl Est Creatinine Clear Calc Drug Dose 75.1 ml/min Estimated GFR () 98.8 Estimated GFR (Non- 85.2 BUN/Creatinine Ratio 28.5 Random Glucose 263 mg/dl Calcium Level 8.5 mg/dl (Ruth Conti, PA-C) Assessment and Plan Mr. Melendez is a 77 y/o male with PMHx of COPD, [place] on 2L Night O2, HTN, H/O PE/ DVT, Myeloproliferative D/O, T2DM, HLD, and Tobacco User who presents to the ED c/o progressive SOB that started on 09/24 and is here for COPD exacerbation. Acute Hypoxic/Hypercarbic Respiratory Failure 2/2 COPD Exacerbation and Acute on Chronic Diastolic CHF: - VBG on 09/30 reveals compensated respiratory acidosis - Zithromax 250 mg po daily until 10/02 - Methylprednisolone 60 mg IV Q8H - Mucinex 1200 mg BID - Xopenex/Atrovent nebs; Symbicort 2 puffs BID; Incentive Spirometry Urinary Retention 2/ BPH: - Proscar 5 mg daily and Flomax 0.4 mg daily Sinus Tachycardia: - Likely multifactorial given COPD/CHF exacerbation, steroids, and nebs - Metoprolol 12.5 mg BID T2DM: - Hold metformin and cover with Lantus 15 units daily and SSI given steroid administration [place] on Night O2 of 2L: - Continue night O2 Myeloproliferative D/O: - Continue to trend WBC HLD: - Atorvastatin 10 mg daily DVT Prophylaxis: Heparin 5000 units Q8H Code Status: FULL RESUSCITATION Disposition: Possible D/C in 1-2 days Continued [facility] stay due to: multiple IV medications needed Discharge planning: home (Ruth Conti, PA-C) Attending Note & Attestation: Pt seen/examined, chart reviewed, care plan d/w PA Ruth Conti. I agree w/ the lorenzo components of her documentation. Pt feels "a little better" today. Less dyspnea Appetite is fine tele stable overnight (sinus tach only) VSS no fever gen - mild tachypnea but otherwise NAD neck - no JVD at 90 degrees heart - tones distant, sinus tach, no murmur lungs - still w/ diffuse wheezing, rales in the bases as well abd - soft, NT ext - 1+ edema b/l BMP wnl A/P: 1. COPD w/ exacerbation - agree with Ms. Conti - no wean on steroids today. Cont nebs, inhalers, etc. 2. acute/chronic diastolic CHF - another dose of IV lasix today 3. uncontrolled T2DM - due to steroids - increase lantus to 20 units daily; increase carb ratio/correction factor of novolog; tighten goal range as well PT, OT evals to help w/ disposition Eulalio Rose MD (Stuart Rose MD)
[2017-10-01] MEDS ORDERED: FUROSEMIDE INJ 20 MG in SYRINGE 0 ML IV ONE (10:30)
[2017-10-01] MEDS: TAMSULOSIN HCL 0.4 MG CAP PO SCH (21:22)
[2017-10-01] MEDS: ATORVASTATIN 10 MG TAB PO SCH (21:22)
[2017-10-01] MEDS: CLONAZEPAM 1 MG TAB PO SCH (21:26)
[2017-10-02] VITALS (10 sets, daily range): BP systolic 147–174; BP diastolic 63–93; PULSE 80–119; TEMP 36.4–36.8; O2SAT 92–98
[2017-10-02] MEDS ORDERED: LORAZEPAM INJ 0.5 MG in SYRINGE 0.75 ML IV ONE (02:15)
[2017-10-02] MEDS ORDERED: NURSING DECISION MEDICATION ORDER SCH (02:15)
[2017-10-02] MEDS: IPRATROPIUM BROMIDE NEB SOLN 0.02% 2.5 ML VIAL INH SCH ×6 (03:19→23:05)
[2017-10-02] MEDS: LEVALBUTEROL 1.25MG/0.5ML NEB INH SCH ×6 (03:19→23:05)
[2017-10-02] MEDS: METHYLPREDNISOLONE IV 60 MG in SYRINGE 0 ML IV SCH ×2 (05:56→14:12)
[2017-10-02] MEDS: HEPARIN SOD 5000 UNIT/0.5 ML CARP SQ SCH ×3 (05:58→21:26)
[2017-10-02] MEDS: BUDESONIDE/FORMOTEROL FUMARATE 160/4.5 60 PUFFS/INHALER INH SCH ×2 (07:36→21:17)
[2017-10-02] MEDS: PANTOprazole SOD 40 MG TAB PO SCH (07:37)
[2017-10-02] MEDS: METOPROLOL TARTRATE 25 MG TAB PO SCH ×2 (07:37→21:18)
[2017-10-02] MEDS: RANITIDINE HCL 150 MG TAB PO SCH (07:37)
[2017-10-02] MEDS: NYSTATIN SUSP 500,000 U/5 ML UDC PO SCH ×4 (07:37→21:18)
[2017-10-02] MEDS: GUAIFENESIN 600 MG TABCR PO SCH ×2 (07:38→21:17)
[2017-10-02] MEDS: AZITHROMYCIN 250 MG TAB PO SCH (07:38)
[2017-10-02] MEDS: FINASTERIDE 5 MG TAB PO SCH (07:41)
[2017-10-02] MEDS: INSULIN ASPART 100 UNITS/ML 3 ML PEN SC SCH ×4 (08:35→21:00)
[2017-10-02] MEDS: INSULIN GLARGINE SOLOSTAR 100 UNITS/ML 3 ML PEN SC SCH (08:36)
[2017-10-02] MEDS ORDERED: INSULIN GLARGINE SOLOSTAR 100 UNITS/ML 3 ML PEN SC SCH (09:00)
--- NOTE | 2017-10-02 09:00 | Hospitalist Progress Note ---
Hospitalist Progress Note Date of Service Oct 02, 2017. (Ruth Conti PA-C) Subjective Pt evaluation today including: conversation w/ patient, physical exam, chart review, lab review, review of inpatient medication list Patient seen and evaluated. No acute events. Sundowns at night but alert and oriented and cooperative during the day. Would like to go home however is in tripod position and audibly wheezing. Patient understands the importance of staying. Will taper steroids and monitor. Will add Mucomyst Constitutional: No fever, No chills Respiratory: + cough, + wheezing, + dyspnea on exertion, No sputum Cardiovascular: No chest pain Abdomen: No pain, No nausea, No vomiting, No diarrhea, No constipation Musculoskeletal: + swelling (b/l lower extremities), No calf pain Male : No dysuria Heme: No abnormal bleeding/bruising (Ruth Conti, LAURENCEC) Medications Current Inpatient Medications Medications (Trade) Dose Ordered Sig/Khurram Route Start Time Stop Time Status Last Admin Dose Admin Acetaminophen (Tylenol Tab) 650 mg Q4H PRN PO 09/28/17 14:45 10/28/17 14:44 Al Hydrox/Mg Hydrox/Simethicone (Maalox Max Susp) 15 ml Q4H PRN PO 09/28/17 14:45 10/28/17 14:44 09/29/17 17:55 15 ML Magnesium Hydroxide (Milk Of Magnesia Susp) 30 ml Q12H PRN PO 09/28/17 14:45 10/28/17 14:44 Ondansetron HCl (Zofran Inj) 4 mg Q6H PRN IV 09/28/17 14:45 10/28/17 14:44 Polyethylene (Miralax Powder Packet) 17 gm DAILY PRN PO 09/28/17 14:45 10/28/17 14:44 Insulin Aspart (novoLOG ASPART) SLIDING SCALE If C... ACHS SC 09/28/17 21:00 10/28/17 20:59 10/02/17 08:35 14 UNITS Glucose (Glucose 40% Gel) 15-30 GRAMS 15 GRAMS... UD PRN PO 09/28/17 14:45 10/28/17 14:44 Glucose (Glucose Chew Tab) 4-8 Tablets 4 Tabl... UD PRN PO 09/28/17 14:45 10/28/17 14:44 Dextrose (Dextrose 50% 50ML Syringe) 25-50ML OF 50% DW IV FOR... UD PRN IV 09/28/17 14:45 10/28/17 14:44 Glucagon (Glucagon Inj) 1 mg UD PRN SQ 09/28/17 14:45 10/28/17 14:44 Levalbuterol (Xopenex 1.25MG/ 0.5ML Neb) 1.25 mg Q4R INH 09/28/17 16:00 10/28/17 15:59 10/02/17 07:34 1.25 MG Ipratropium [place] (Atrovent 0.02% 0.5MG/2.5ML Neb) 0.5 mg Q4R INH 09/28/17 16:00 10/28/17 15:59 10/02/17 07:34 0.5 MG Atorvastatin Calcium (Lipitor Tab) 10 mg PM PO 09/28/17 21:00 10/28/17 20:59 10/01/17 21:22 10 MG Budesonide/ Formoterol Fumarate (Symbicort 160/ 4.5 Inh) 2 puffs BID INH 09/28/17 21:00 10/28/17 20:59 10/02/17 07:36 2 PUFFS Clonazepam (Klonopin Tab) 1 mg HS PO 09/28/17 21:00 10/28/17 20:59 10/01/17 21:26 1 MG Finasteride (Proscar Tab) 5 mg QAM PO 09/29/17 09:00 10/29/17 08:59 10/02/17 07:41 5 MG Ranitidine HCl (zANTac TAB) 150 mg DAILY PO 09/29/17 09:00 10/29/17 08:59 10/02/17 07:37 150 MG Tamsulosin HCl (Flomax Cap) 0.4 mg HS PO 09/28/17 21:00 10/28/17 20:59 10/01/17 21:22 0.4 MG Tramadol HCl (Ultram Tab) 1 tab for mild-mod pain an... QID PRN PO 09/28/17 14:45 10/28/17 14:44 Trazodone HCl (Desyrel Tab) 50 mg HS PRN PO 09/28/17 14:45 10/28/17 14:44 09/29/17 23:06 50 MG Pantoprazole Sodium (Protonix Tab) 40 mg QAM PO 09/29/17 09:00 10/29/17 08:59 10/02/17 07:37 40 MG Azithromycin (Zithromax Tab) 250 mg QAM PO 09/29/17 09:00 10/02/17 12:00 10/02/17 07:38 250 MG Methylprednisolone Sodium Succinate 60 mg/Syringe 0.96 ml @ 1.5 mls/min Q8H IV 09/28/17 22:00 10/28/17 21:59 10/02/17 05:56 1.5 MLS/MIN Guaifenesin (Mucinex Contr Rel Tab) 1,200 mg Q12 PO 09/28/17 21:00 10/28/17 20:59 10/02/17 07:38 1,200 MG Heparin Sodium (Porcine) (Heparin Sq 5000 Unit/0.5ml) 5,000 unit Q8 SQ 09/29/17 14:00 10/29/17 13:59 10/02/17 05:58 5,000 UNIT Oxymetazoline HCl (Afrin 0.05% Nasal [place]) 1 sprays Q12H PRN NA 09/29/17 10:15 10/02/17 10:14 09/29/17 10:46 1 SPRAYS Sodium Chloride ([place] Nasal [place]) 2 sprays Q2H PRN NA 09/29/17 10:15 10/29/17 10:14 Levalbuterol (Xopenex 0.63 Mg/ 3 Ml Neb) 0.63 mg Q2R PRN INH 09/29/17 18:00 10/29/17 17:59 Metoprolol Tartrate (Lopressor Tab) 12.5 mg BID PO 09/30/17 09:00 10/30/17 08:59 10/02/17 07:37 12.5 MG Nystatin (Mycostatin Susp) 5 ml QID PO 09/30/17 17:00 10/10/17 16:59 10/02/17 07:37 5 ML Insulin Glargine (Lantus Solostar Pen) 20 units DAILY SC 10/02/17 09:00 10/30/17 08:59 10/02/17 08:36 20 UNITS (Ruth Conti PA-C) Objective Vital Signs Date Time Temp Pulse Resp B/P (MAP) Pulse Ox O2 Delivery O2 Flow Rate FiO2 10/02/17 08:00 Nasal Cannula 2.0 10/02/17 08:00 36.8 105 22 174/71 (105) 92 Nasal Cannula 2.0 10/02/17 07:34 92 18 92 Room Air 10/02/17 03:52 36.4 96 24 149/93 (111) 96 Nasal Cannula 2.0 10/02/17 03:19 94 18 96 Nasal Cannula 2.0 10/02/17 00:00 Nasal Cannula 2.0 Oxymask 10/01/17 23:40 36.4 98 20 153/49 (83) 96 2.0 10/01/17 23:04 96 18 98 Nasal Cannula 2.0 10/01/17 21:24 111 161/81 (107) 10/01/17 20:00 Nasal Cannula 2.0 10/01/17 19:55 36.5 107 18 164/73 (103) 2 Nasal Cannula 10/01/17 19:45 103 18 97 Nasal Cannula 2.0 10/01/17 16:06 105 18 95 Nasal Cannula 2.0 10/01/17 15:35 Nasal Cannula 2.0 10/01/17 14:47 36.6 101 24 132/75 (94) 95 Room Air 10/01/17 11:45 Room Air 10/01/17 11:40 36.5 93 24 147/75 (99) 90 Room Air 10/01/17 11:18 92 18 97 Room Air (Ruth Conti PA-C) Physical Exam General Appearance: + mild distress ENT: hearing grossly normal Neck: supple, no JVD, trachea midline Respiratory/Chest: + respiratory distress, + decreased breath sounds (diffuse) , + wheezing Cardiovascular: regular rate, rhythm, no gallop, no murmur Abdomen: normal bowel sounds, non tender, soft Extremities: no calf tenderness Neurologic/Psychiatric: alert Skin: normal color, warm/dry (Ruth Conti, MURALI-C) Laboratory Results Last 24 Hours Test 10/01/17 10:54 10/01/17 16:37 10/01/17 20:51 10/02/17 07:15 Bedside Glucose 316 mg/dl 244 mg/dl 392 mg/dl 240 mg/dl Test 10/02/17 07:51 (Ruth Conti, PA-C) Assessment and Plan Mr. Melendez is a 77 y/o male with PMHx of COPD, [place] on 2L Night O2, HTN, H/O PE/ DVT, Myeloproliferative D/O, T2DM, HLD, and Tobacco User who presents to the ED c/o progressive SOB that started on 09/24 and is here for COPD exacerbation. Acute Hypoxic/Hypercarbic Respiratory Failure / COPD Exacerbation and Acute on Chronic Diastolic CHF: IMPROVING - VBG on 09/30 reveals compensated respiratory acidosis; Currently at - 3.2 L negative balance - Zithromax 250 mg po daily until 10/02 - Methylprednisolone 40 mg IV Q12H - Mucinex 1200 mg BID - Xopenex/Atrovent nebs; Mucomyst BID; Symbicort 2 puffs BID; Incentive Spirometry Urinary Retention 09/21 BPH: - Proscar 5 mg daily and Flomax 0.4 mg daily - Continue to monitor and bladder scan and straight cath if necessary Sinus Tachycardia: - Likely multifactorial given COPD/CHF exacerbation, steroids, and nebs - Metoprolol 12.5 mg BID T2DM with Hyperglycemia: - Hold metformin and cover with Lantus 20 units daily and SSI given steroid administration - hopeful for better control pending decreasing steroids [place] on Night O2 of 2L: - Continue night O2 Myeloproliferative D/O: - Continue to trend WBC HLD: - Atorvastatin 10 mg daily DVT Prophylaxis: Heparin 5000 units Q8H Code Status: FULL RESUSCITATION Disposition: - PT/OT evaluations Continued [facility] stay due to: multiple IV medications needed (Ruth Conti, PA-C) Attending Note & Attestation: Pt seen/examined, chart reviewed, care plan d/w MURALI Conti. I agree w/ the lorenzo components of her documentation. Again feels better, asks when he will go home still with [place] VSS no fever gen - NAD neck - no JVD at 90 degrees heart - sinus tach, s1, s2 lungs - diffuse wheezing b/l but no rales today abd - soft, NT ext - 1+ edema b/l - maybe slightly better today A/P: 1. COPD w/ exacerbation - slowly improving. Cut steroids to q12h today. Cont nebs, inhalers, etc. 2. acute/chronic diastolic CHF - acute component likely resolved. Would use oral lasix for another few days for any residual LE edema 3. uncontrolled T2DM - due to steroids - improving with change in lantus/ novolog. BMP am progressing albeit slowly Eulalio Rose MD (Stuart Rose MD)
[2017-10-02 09:07] LABS: CALCIUM 8.4 mg/dl (8.5-10.1); CREATININE 0.86 mg/dl (0.60-1.40); POTASSIUM 4.5 mmol/L (3.5-5.1)
[2017-10-02] MEDS ORDERED: FUROSEMIDE 20 MG TAB PO ONE (14:32)
[2017-10-02] MEDS: ACETYLCYSTEINE 20% INHAL SOLN ***DISPENSED BY RESP. INH SCH (19:09)
[2017-10-02] MEDS: METHYLPREDNISOLONE IV 40 MG in SYRINGE 0 ML IV SCH (21:16)
[2017-10-02] MEDS: ATORVASTATIN 10 MG TAB PO SCH (21:17)
[2017-10-02] MEDS: TAMSULOSIN HCL 0.4 MG CAP PO SCH (21:18)
[2017-10-02] MEDS: CLONAZEPAM 1 MG TAB PO SCH (21:26)
[2017-10-03] VITALS (11 sets, daily range): BP systolic 128–159; BP diastolic 70–78; PULSE 63–110; TEMP 36.3–36.8; O2SAT 88–99
[2017-10-03] MEDS ORDERED: LORAZEPAM INJ 0.5 MG in SYRINGE 0.75 ML IV ONE
[2017-10-03] MEDS: LEVALBUTEROL 1.25MG/0.5ML NEB INH SCH ×6 (03:10→23:16)
[2017-10-03] MEDS: IPRATROPIUM BROMIDE NEB SOLN 0.02% 2.5 ML VIAL INH SCH ×6 (03:10→23:16)
[2017-10-03] MEDS: HEPARIN SOD 5000 UNIT/0.5 ML CARP SQ SCH ×3 (06:41→21:15)
[2017-10-03] MEDS: ACETYLCYSTEINE 20% INHAL SOLN ***DISPENSED BY RESP. INH SCH ×2 (07:10→18:57)
[2017-10-03 07:37] LABS: HEMATOCRIT 41.5 % (42-52); HEMOGLOBIN 13.3 g/dL (14.0-18.0); MEAN CELL VOLUME 91.8 fL (80-100); MEAN CORPUSCULAR HEMOGLOBIN 29.4 pg (25-34); MEAN PLATELET VOLUME 10.5 fL (7.4-10.4); PLATELET COUNT 450 K/uL (130-400); RED CELL DISTRIBUTION WIDTH CV 14.7 % (11.5-14.5); RED CELL DISTRIBUTION WIDTH SD 49.4 fL (36.4-46.3); WHITE BLOOD COUNT 22.26 K/uL (4.8-10.8)
[2017-10-03] MEDS: GUAIFENESIN 600 MG TABCR PO SCH ×2 (07:53→21:11)
[2017-10-03] MEDS: PANTOprazole SOD 40 MG TAB PO SCH (07:53)
[2017-10-03] MEDS: FINASTERIDE 5 MG TAB PO SCH (07:53)
[2017-10-03] MEDS: RANITIDINE HCL 150 MG TAB PO SCH (07:53)
[2017-10-03] MEDS: BUDESONIDE/FORMOTEROL FUMARATE 160/4.5 60 PUFFS/INHALER INH SCH ×2 (07:54→21:08)
[2017-10-03] MEDS: FUROSEMIDE 20 MG TAB PO SCH (07:54)
[2017-10-03] MEDS: METHYLPREDNISOLONE IV 40 MG in SYRINGE 0 ML IV SCH (07:54)
[2017-10-03] MEDS: NYSTATIN SUSP 500,000 U/5 ML UDC PO SCH ×4 (07:54→21:09)
[2017-10-03] MEDS: METOPROLOL TARTRATE 25 MG TAB PO SCH ×2 (07:55→21:12)
[2017-10-03] MEDS: INSULIN GLARGINE SOLOSTAR 100 UNITS/ML 3 ML PEN SC SCH (08:01)
[2017-10-03] MEDS: INSULIN ASPART 100 UNITS/ML 3 ML PEN SC SCH ×4 (08:09→21:15)
[2017-10-03 08:14] LABS: CALCIUM 8.2 mg/dl (8.5-10.1); CREATININE 0.87 mg/dl (0.60-1.40); POTASSIUM 4.8 mmol/L (3.5-5.1)
--- NOTE | 2017-10-03 16:29 | Hospitalist Progress Note ---
Hospitalist Progress Note Date of Service Oct 03, 2017. (Ruth Conti PA-C) Subjective Pt evaluation today including: conversation w/ patient, physical exam, chart review, lab review, review of studies, review of inpatient medication list Patient seen and evaluated. No acute events. Does sundown at night. Will start low dose Seroquel and PRN po Haldol. Recommend avoiding PRN benzos. Is on room air during my exam. Respirations are less labored and air movement improved. Still with exp. wheeze. Constitutional: No fever, No chills Respiratory: + cough, + wheezing, + dyspnea on exertion, No sputum, No shortness of breath Cardiovascular: No chest pain Abdomen: No pain, No nausea, No vomiting, No diarrhea, No constipation Musculoskeletal: No swelling, No calf pain Male : No dysuria Heme: No abnormal bleeding/bruising Skin: No rash (Ruth Conti, LAURENCEC) Medications Current Inpatient Medications Medications (Trade) Dose Ordered Sig/Khurram Route Start Time Stop Time Status Last Admin Dose Admin Acetaminophen (Tylenol Tab) 650 mg Q4H PRN PO 09/28/17 14:45 10/28/17 14:44 Al Hydrox/Mg Hydrox/Simethicone (Maalox Max Susp) 15 ml Q4H PRN PO 09/28/17 14:45 10/28/17 14:44 09/29/17 17:55 15 ML Magnesium Hydroxide (Milk Of Magnesia Susp) 30 ml Q12H PRN PO 09/28/17 14:45 10/28/17 14:44 Ondansetron HCl (Zofran Inj) 4 mg Q6H PRN IV 09/28/17 14:45 10/28/17 14:44 Polyethylene (Miralax Powder Packet) 17 gm DAILY PRN PO 09/28/17 14:45 10/28/17 14:44 Insulin Aspart (novoLOG ASPART) SLIDING SCALE If C... ACHS SC 09/28/17 21:00 10/28/17 20:59 10/03/17 12:28 10 UNITS Glucose (Glucose 40% Gel) 15-30 GRAMS 15 GRAMS... UD PRN PO 09/28/17 14:45 10/28/17 14:44 Glucose (Glucose Chew Tab) 4-8 Tablets 4 Tabl... UD PRN PO 09/28/17 14:45 10/28/17 14:44 Dextrose (Dextrose 50% 50ML Syringe) 25-50ML OF 50% DW IV FOR... UD PRN IV 09/28/17 14:45 10/28/17 14:44 Glucagon (Glucagon Inj) 1 mg UD PRN SQ 09/28/17 14:45 10/28/17 14:44 Levalbuterol (Xopenex 1.25MG/ 0.5ML Neb) 1.25 mg Q4R INH 09/28/17 16:00 10/28/17 15:59 10/03/17 15:01 1.25 MG Ipratropium [place] (Atrovent 0.02% 0.5MG/2.5ML Neb) 0.5 mg Q4R INH 09/28/17 16:00 10/28/17 15:59 10/03/17 15:01 0.5 MG Atorvastatin Calcium (Lipitor Tab) 10 mg PM PO 09/28/17 21:00 10/28/17 20:59 10/02/17 21:17 10 MG Budesonide/ Formoterol Fumarate (Symbicort 160/ 4.5 Inh) 2 puffs BID INH 09/28/17 21:00 10/28/17 20:59 10/03/17 07:54 2 PUFFS Clonazepam (Klonopin Tab) 1 mg HS PO 09/28/17 21:00 10/28/17 20:59 10/02/17 21:26 1 MG Finasteride (Proscar Tab) 5 mg QAM PO 09/29/17 09:00 10/29/17 08:59 10/03/17 07:53 5 MG Ranitidine HCl (zANTac TAB) 150 mg DAILY PO 09/29/17 09:00 10/29/17 08:59 10/03/17 07:53 150 MG Tamsulosin HCl (Flomax Cap) 0.4 mg HS PO 09/28/17 21:00 10/28/17 20:59 10/02/17 21:18 0.4 MG Tramadol HCl (Ultram Tab) 1 tab for mild-mod pain an... QID PRN PO 09/28/17 14:45 10/28/17 14:44 Trazodone HCl (Desyrel Tab) 50 mg HS PRN PO 09/28/17 14:45 10/28/17 14:44 09/29/17 23:06 50 MG Pantoprazole Sodium (Protonix Tab) 40 mg QAM PO 09/29/17 09:00 10/29/17 08:59 10/03/17 07:53 40 MG Guaifenesin (Mucinex Contr Rel Tab) 1,200 mg Q12 PO 09/28/17 21:00 10/28/17 20:59 10/03/17 07:53 1,200 MG Heparin Sodium (Porcine) (Heparin Sq 5000 Unit/0.5ml) 5,000 unit Q8 SQ 09/29/17 14:00 10/29/17 13:59 10/03/17 14:11 5,000 UNIT Sodium Chloride ([place] Nasal [place]) 2 sprays Q2H PRN NA 09/29/17 10:15 10/29/17 10:14 Levalbuterol (Xopenex 0.63 Mg/ 3 Ml Neb) 0.63 mg Q2R PRN INH 09/29/17 18:00 10/29/17 17:59 Metoprolol Tartrate (Lopressor Tab) 12.5 mg BID PO 09/30/17 09:00 10/30/17 08:59 10/03/17 07:55 12.5 MG Nystatin (Mycostatin Susp) 5 ml QID PO 09/30/17 17:00 10/10/17 16:59 10/03/17 12:11 5 ML Insulin Glargine (Lantus Solostar Pen) 20 units DAILY SC 10/02/17 09:00 10/30/17 08:59 10/03/17 08:01 20 UNITS Furosemide (Lasix Tab) 20 mg QAM PO 10/03/17 09:00 11/02/17 08:59 10/03/17 07:54 20 MG Acetylcysteine (Mucomyst 20% Inh Soln) 3 ml BIDR INH 10/02/17 20:00 11/01/17 19:59 10/03/17 07:10 3 ML Quetiapine Fumarate (seroQUEL TAB) 12.5 mg HS PO 10/03/17 21:00 11/02/17 20:59 Prednisone (PredniSONE TAB) 40 mg DAILY PO 10/04/17 09:00 11/03/17 08:59 Haloperidol (Haldol Tab) 1 mg HS PRN PO 10/03/17 16:15 11/02/17 16:14 UNV (Ruth Conti PA-C) Objective Vital Signs Date Time Temp Pulse Resp B/P (MAP) Pulse Ox O2 Delivery O2 Flow Rate FiO2 10/03/17 15:01 91 16 94 Room Air 10/03/17 11:07 88 16 93 Nasal Cannula 2.0 10/03/17 08:00 91 Nasal Cannula 2.0 10/03/17 08:00 128/70 (89) 10/03/17 07:10 88 16 91 Nasal Cannula 2.0 10/03/17 06:55 36.4 110 18 131/73 (92) 96 Nasal Cannula 2.0 10/03/17 03:10 84 16 91 Room Air 10/03/17 00:15 36.3 101 18 134/75 (94) 99 Nasal Cannula 2.0 10/03/17 00:00 Nasal Cannula 2.0 Oxymask 10/02/17 23:06 80 18 96 Nasal Cannula 2.0 10/02/17 19:09 119 18 98 Nasal Cannula 2.0 (Ruth Conti PA-C) Physical Exam General Appearance: WD/WN, no apparent distress ENT: hearing grossly normal Neck: supple, no JVD, trachea midline Respiratory/Chest: no respiratory distress, no accessory muscle use, + decreased breath sounds (bases b/l), + wheezing (expiratory), + pertinent finding (improving aeration in mid to upper lung denis b/l compared to previous exams) Cardiovascular: regular rate, rhythm, no gallop, no murmur Abdomen: normal bowel sounds, non tender, soft Extremities: no calf tenderness Neurologic/Psychiatric: alert Skin: normal color (Ruth Conti PA-C) Laboratory Results Last 24 Hours Test 10/02/17 16:36 10/02/17 20:11 10/03/17 07:17 10/03/17 07:34 Bedside Glucose 112 mg/dl 96 mg/dl 253 mg/dl White Blood Count 22.26 K/uL Red Blood Count 4.52 M/uL Hemoglobin 13.3 g/dL Hematocrit 41.5 % Mean Corpuscular Volume 91.8 fL Mean Corpuscular Hemoglobin 29.4 pg Mean Corpuscular Hemoglobin Concent 32.0 g/dl RDW Standard Deviation 49.4 fL RDW Coefficient of Variation 14.7 % Platelet Count 450 K/uL Mean Platelet Volume 10.5 fL Sodium Level 136 mmol/L Potassium Level 4.8 mmol/L Chloride Level 94 mmol/L Carbon Dioxide Level 39 mmol/L Anion Gap 3.0 mmol/L Blood Urea Nitrogen 27 mg/dl Creatinine 0.87 mg/dl Est Creatinine Clear Calc Drug Dose 74.0 ml/min Estimated GFR () 97.8 Estimated GFR (Non- 84.4 BUN/Creatinine Ratio 31.0 Random Glucose 216 mg/dl Calcium Level 8.2 mg/dl Magnesium Level 2.6 mg/dl Test 10/03/17 11:21 Bedside Glucose 159 mg/dl (Ruth Conti, PA-C) Assessment and Plan Mr. Melendez is a 77 y/o male with PMHx of COPD, [place] on 2L Night O2, HTN, H/O PE/ DVT, Myeloproliferative D/O, T2DM, HLD, and Tobacco User who presents to the ED c/o progressive SOB that started on 09/24 and is here for COPD exacerbation. Acute Hypoxic/Hypercarbic Respiratory Failure 2/2 COPD Exacerbation and Acute on Chronic Diastolic CHF: IMPROVING - Currently at - 2.6 L negative balance - Zithromax 250 mg po daily course completed - Prednisone 40 mg daily - Mucinex 1200 mg BID - Xopenex/Atrovent nebs; Mucomyst BID; Symbicort 2 puffs BID; Incentive Spirometry Urinary Retention 2/2 BPH: - Proscar 5 mg daily and Flomax 0.4 mg daily - Continue to monitor and bladder scan and straight cath if necessary Sinus Tachycardia: IMPROVING - Likely multifactorial given COPD/CHF exacerbation, steroids, and nebs - Metoprolol 12.5 mg BID T2DM with Hyperglycemia: - Hold metformin and cover with Lantus 20 units daily and SSI given steroid administration - hopeful for better control pending decreasing steroids [place] on Night O2 of 2L: - Continue night O2 Myeloproliferative D/O: - Continue to trend WBC HLD: - Atorvastatin 10 mg daily DVT Prophylaxis: Heparin 5000 units Q8H Code Status: FULL RESUSCITATION Disposition: - Obtain 2-step prior to D/C - possible D/C next 1-2 days if clinical course continues to progress as is Continued [facility] [place] stay due to: multiple IV medications needed Discharge planning: home (Ruth Conti, PA-C) Attending Note & Attestation: Pt seen/examined, chart reviewed, care plan d/w MURALI Conti. I agree w/ the lorenzo components of her documentation. Pt asks if he can go home today. He feels less dyspneic w/ activity. Staff report sundowning overnight but is back to baseline this am. Denies cough or chest pain. VSS no fever o2 sats borderline low in room air gen - NAD neck - no JVD sitting at 90 degrees heart - sinus tach, s1, s2 lungs - rales resolved; mild wheezes b/l - improved; airation - good abd - soft, NT ext - <1+ edema b/l bmp acceptable A/P: 1. COPD w/ exacerbation - improved; agree with d/c of IV steroids; transition to po prednisone in AM. Cont nebs, inhalers, etc. 2. acute/chronic diastolic CHF - acute component resolved. PO lasix for 1-2 more days. 3. uncontrolled T2DM - due to steroids - improved with basal-bolus regimen. 4. encephalopathy, likely metabolic, cannot rule out toxic from steroid use - seroquel 12.5mg HS. hopefully just 1 more day in the hospital then d/c home son updated at bedside Eulalio Rose MD (Stuart Rose MD)
[2017-10-03] MEDS: CLONAZEPAM 1 MG TAB PO SCH (21:00)
[2017-10-03] MEDS: TAMSULOSIN HCL 0.4 MG CAP PO SCH (21:10)
[2017-10-03] MEDS: QUETIAPINE FUMARATE 25 MG TAB PO SCH (21:10)
[2017-10-03] MEDS: ATORVASTATIN 10 MG TAB PO SCH (21:10)
[2017-10-03] MEDS ORDERED: NURSING DECISION MEDICATION ORDER SCH (23:55)
[2017-10-04] VITALS (15 sets, daily range): BP systolic 136–151; BP diastolic 63–82; PULSE 79–117; TEMP 36.4–36.9; O2SAT 82–97
[2017-10-04] MEDS: HALOPERIDOL 1 MG TAB PO PRN (01:36)
[2017-10-04] MEDS: IPRATROPIUM BROMIDE NEB SOLN 0.02% 2.5 ML VIAL INH SCH ×6 (03:30→23:04)
[2017-10-04] MEDS: LEVALBUTEROL 1.25MG/0.5ML NEB INH SCH ×6 (03:30→23:04)
[2017-10-04] MEDS: HEPARIN SOD 5000 UNIT/0.5 ML CARP SQ SCH ×3 (05:42→21:22)
[2017-10-04 05:53] LABS: HEMATOCRIT 38.5 % (42-52); HEMOGLOBIN 12.6 g/dL (14.0-18.0); MEAN CELL VOLUME 90.4 fL (80-100); MEAN CORPUSCULAR HEMOGLOBIN 29.6 pg (25-34); MEAN CORPUSCULAR HGB CONC 32.7 g/dl (32-36); NUCLEATED RED BLOOD CELL ABS 0.05 K/uL (0-0); PLATELET COUNT 401 K/uL (130-400); RED CELL DISTRIBUTION WIDTH CV 14.8 % (11.5-14.5); RED CELL DISTRIBUTION WIDTH SD 48.4 fL (36.4-46.3); WHITE BLOOD COUNT 20.19 K/uL (4.8-10.8)
[2017-10-04 06:31] LABS: CALCIUM 7.9 mg/dl (8.5-10.1); CREATININE 0.74 mg/dl (0.60-1.40); POTASSIUM 3.7 mmol/L (3.5-5.1)
[2017-10-04] MEDS: ACETYLCYSTEINE 20% INHAL SOLN ***DISPENSED BY RESP. INH SCH ×2 (07:30→18:58)
[2017-10-04] MEDS: BUDESONIDE/FORMOTEROL FUMARATE 160/4.5 60 PUFFS/INHALER INH SCH ×2 (07:50→21:25)
[2017-10-04] MEDS: PANTOprazole SOD 40 MG TAB PO SCH (07:51)
[2017-10-04] MEDS: NYSTATIN SUSP 500,000 U/5 ML UDC PO SCH ×4 (07:51→21:28)
[2017-10-04] MEDS: FUROSEMIDE 20 MG TAB PO SCH (07:51)
[2017-10-04] MEDS: RANITIDINE HCL 150 MG TAB PO SCH (07:52)
[2017-10-04] MEDS: FINASTERIDE 5 MG TAB PO SCH (07:52)
[2017-10-04] MEDS: GUAIFENESIN 600 MG TABCR PO SCH ×2 (07:52→21:26)
[2017-10-04] MEDS: INSULIN ASPART 100 UNITS/ML 3 ML PEN SC SCH ×4 (08:00→21:22)
[2017-10-04] MEDS: INSULIN GLARGINE SOLOSTAR 100 UNITS/ML 3 ML PEN SC SCH (08:01)
[2017-10-04] MEDS: METOPROLOL TARTRATE 25 MG TAB PO SCH ×2 (08:19→21:28)
[2017-10-04] MEDS ORDERED: OPTIRAY 320 IV PRN (12:45)
--- NOTE | 2017-10-04 13:23 | DIAGNOSTIC IMAGING REPORT ---
CT OF THE CHEST WITH IV CONTRAST CLINICAL HISTORY: SOB/COPD Exacerbation; Mucus plugging? COMPARISON STUDY: Chest CT August 17, 2015, lung screening CT March 02, 2017 and chest radiograph September 30, 2017. TECHNIQUE: Following IV administration of 93 mL of [id number]-[id number], helical axial images of the chest were obtained. Sagittal and coronal reconstructions were viewed as well as maximal intensity projections on an independent 3-D workstation. A dose lowering technique was utilized adhering to the principles of ALARA. CT DOSE: 374.91 mGy.cm FINDINGS: No enlarged axillary, mediastinal or hilar lymph nodes are present. Size of the heart is within normal limits. There is moderate coronary artery calcification. There is no pericardial effusion. The chest is suboptimally assessed due to respiratory motion. There are layering secretions within both mainstem bronchi as well as the bilateral lower lobe segmental bronchi. There is bilateral lower lobe bronchial wall thickening with multifocal secretions throughout the lower lobe bronchi. Severe upper lobe predominant emphysema is noted. There is no pneumothorax or pleural effusion. No consolidation to suggest pneumonia is present. A 1.2 cm centrally calcified right middle lobe nodule is unchanged since initial CT of December 03, 2014. This is benign. There are no suspicious pulmonary nodules. Bony thorax is unremarkable. An 8 mm left hepatic lobe cyst is noted. Upper abdomen is unremarkable. IMPRESSION: 1. No consolidation to suggest pneumonia. 2. Extensive secretions within the bilateral mainstem bronchi as well as the bilateral lower lobe segmental and subsegmental bronchi with bronchial wall thickening. No central obstructing mass. 3. Severe upper lobe predominant emphysema. Electronically signed by: Darius Eubanks M.D. 10/04/2017 1:21 PM Dictated Date/Time: 10/04/2017 1:13 PM
--- NOTE | 2017-10-04 14:31 | Hospitalist Progress Note ---
Hospitalist Progress Note Date of Service Oct 04, 2017. (Ruth Conti PA-C) Subjective Pt evaluation today including: conversation w/ patient, physical exam, chart review, lab review, review of studies, review of inpatient medication list Patient seen and evaluated. No acute events overnight. This AM patient was on RA with no respiratory distress. Has very poor airflow but with exp. wheezing but was much better compared to previous days. Participated in two step and stated he felt horrible after returning to his room. Surprisingly only dropped to 89% temporarily and wouldn't qualify for supplemental O2. Was tachycardic with ambulation. Was tachypneic and tachy - EKG with sinus tach. Airways sound more congested. CT obtained that shows extensive secretions in the b/l mainstem bronchi and b/l segmental/subsegmental bronchi with bronchial wall thickening. Continues to report a non-productive cough Constitutional: No fever, No chills Respiratory: + cough, + dyspnea on exertion, No sputum, No dyspnea at rest Cardiovascular: No chest pain Abdomen: No pain, No nausea, No vomiting Musculoskeletal: No swelling, No calf pain Heme: No abnormal bleeding/bruising Skin: No rash (Ruth Conti, LAURENCEC) Medications Current Inpatient Medications Medications (Trade) Dose Ordered Sig/Khurram Route Start Time Stop Time Status Last Admin Dose Admin Acetaminophen (Tylenol Tab) 650 mg Q4H PRN PO 09/28/17 14:45 10/28/17 14:44 Al Hydrox/Mg Hydrox/Simethicone (Maalox Max Susp) 15 ml Q4H PRN PO 09/28/17 14:45 10/28/17 14:44 09/29/17 17:55 15 ML Magnesium Hydroxide (Milk Of Magnesia Susp) 30 ml Q12H PRN PO 09/28/17 14:45 10/28/17 14:44 Ondansetron HCl (Zofran Inj) 4 mg Q6H PRN IV 09/28/17 14:45 10/28/17 14:44 Polyethylene (Miralax Powder Packet) 17 gm DAILY PRN PO 09/28/17 14:45 10/28/17 14:44 Insulin Aspart (novoLOG ASPART) SLIDING SCALE If C... ACHS SC 2/9/18 21:00 10/28/17 20:59 10/04/17 12:13 9 UNITS Glucose (Glucose 40% Gel) 15-30 GRAMS 15 GRAMS... UD PRN PO 09/28/17 14:45 10/28/17 14:44 Glucose (Glucose Chew Tab) 4-8 Tablets 4 Tabl... UD PRN PO 09/28/17 14:45 10/28/17 14:44 Dextrose (Dextrose 50% 50ML Syringe) 25-50ML OF 50% DW IV FOR... UD PRN IV 09/28/17 14:45 10/28/17 14:44 Glucagon (Glucagon Inj) 1 mg UD PRN SQ 09/28/17 14:45 10/28/17 14:44 Levalbuterol (Xopenex 1.25MG/ 0.5ML Neb) 1.25 mg Q4R INH 09/28/17 16:00 10/28/17 15:59 10/04/17 11:28 1.25 MG Ipratropium [place] (Atrovent 0.02% 0.5MG/2.5ML Neb) 0.5 mg Q4R INH 09/28/17 16:00 10/28/17 15:59 10/04/17 11:28 0.5 MG Atorvastatin Calcium (Lipitor Tab) 10 mg PM PO 09/28/17 21:00 10/28/17 20:59 10/03/17 21:10 10 MG Budesonide/ Formoterol Fumarate (Symbicort 160/ 4.5 Inh) 2 puffs BID INH 09/28/17 21:00 10/28/17 20:59 10/04/17 07:50 2 PUFFS Clonazepam (Klonopin Tab) 1 mg HS PO 09/28/17 21:00 10/28/17 20:59 10/02/17 21:26 1 MG Finasteride (Proscar Tab) 5 mg QAM PO 09/29/17 09:00 10/29/17 08:59 10/04/17 07:52 5 MG Ranitidine HCl (zANTac TAB) 150 mg DAILY PO 09/29/17 09:00 10/29/17 08:59 10/04/17 07:52 150 MG Tamsulosin HCl (Flomax Cap) 0.4 mg HS PO 09/28/17 21:00 10/28/17 20:59 10/03/17 21:10 0.4 MG Tramadol HCl (Ultram Tab) 1 tab for mild-mod pain an... QID PRN PO 09/28/17 14:45 10/28/17 14:44 Trazodone HCl (Desyrel Tab) 50 mg HS PRN PO 09/28/17 14:45 10/28/17 14:44 09/29/17 23:06 50 MG Pantoprazole Sodium (Protonix Tab) 40 mg QAM PO 09/29/17 09:00 10/29/17 08:59 10/04/17 07:51 40 MG Guaifenesin (Mucinex Contr Rel Tab) 1,200 mg Q12 PO 09/28/17 21:00 10/28/17 20:59 10/04/17 07:52 1,200 MG Heparin Sodium (Porcine) (Heparin Sq 5000 Unit/0.5ml) 5,000 unit Q8 SQ 09/29/17 14:00 10/29/17 13:59 10/04/17 14:06 5,000 UNIT Sodium Chloride ([place] Nasal [place]) 2 sprays Q2H PRN NA 09/29/17 10:15 10/29/17 10:14 Levalbuterol (Xopenex 0.63 Mg/ 3 Ml Neb) 0.63 mg Q2R PRN INH 09/29/17 18:00 10/29/17 17:59 Metoprolol Tartrate (Lopressor Tab) 12.5 mg BID PO 09/30/17 09:00 10/30/17 08:59 10/04/17 08:19 12.5 MG Nystatin (Mycostatin Susp) 5 ml QID PO 09/30/17 17:00 10/10/17 16:59 10/04/17 12:14 5 ML Insulin Glargine (Lantus Solostar Pen) 20 units DAILY SC 10/02/17 09:00 10/30/17 08:59 10/04/17 08:01 20 UNITS Furosemide (Lasix Tab) 20 mg QAM PO 10/03/17 09:00 11/02/17 08:59 10/04/17 07:51 20 MG Acetylcysteine (Mucomyst 20% Inh Soln) 3 ml BIDR INH 10/02/17 20:00 11/01/17 19:59 10/04/17 07:30 3 ML Quetiapine Fumarate (seroQUEL TAB) 12.5 mg HS PO 10/03/17 21:00 11/02/17 20:59 10/03/17 21:10 12.5 MG Prednisone (PredniSONE TAB) 40 mg DAILY PO 10/04/17 09:00 11/03/17 08:59 10/04/17 07:52 40 MG Haloperidol (Haldol Tab) 1 mg HS PRN PO 10/03/17 16:15 11/02/17 16:14 10/04/17 01:36 1 MG Ioversol (Optiray 320) 100 ml UD PRN IV 10/04/17 12:45 10/08/17 12:44 (Ruth Conti PA-C) Objective Vital Signs Date Time Temp Pulse Resp B/P (MAP) Pulse Ox O2 Delivery O2 Flow Rate FiO2 10/04/17 11:32 117 16 93 Nasal Cannula 2.0 10/04/17 11:31 36.9 117 24 144/81 (102) 93 Nasal Cannula 2.0 10/04/17 09:01 92 10/04/17 08:39 90 Room Air 10/04/17 08:00 Room Air 2.0 10/04/17 07:44 36.6 117 24 138/76 (96) 90 Room Air 10/04/17 07:30 79 16 87 Room Air 10/04/17 03:30 96 16 82 Room Air 10/04/17 00:12 36.4 90 16 136/63 (87) 90 Room Air 10/04/17 00:00 Nasal Cannula 2.0 Oxymask 10/03/17 23:15 98 16 92 Room Air 10/03/17 19:00 36.5 104 20 153/76 (101) 92 Room Air 10/03/17 18:55 110 16 88 Room Air 10/03/17 16:00 Room Air 10/03/17 15:01 91 16 94 Room Air (Ruth Conti PA-C) Physical Exam General Appearance: WD/WN, no apparent distress Eyes: sclerae normal ENT: hearing grossly normal Neck: supple, no JVD, trachea midline Respiratory/Chest: no respiratory distress, no accessory muscle use, + decreased breath sounds (poor airflow diffusely; takes small short breaths), + rhonchi, + wheezing Cardiovascular: regular rate, rhythm Abdomen: normal bowel sounds, non tender, soft Extremities: no pedal edema Neurologic/Psychiatric: alert, oriented x 3 Skin: normal color, warm/dry (Ruth Conti, PA-C) Laboratory Results Last 24 Hours Test 10/03/17 16:24 10/03/17 20:35 10/04/17 05:38 10/04/17 07:23 Bedside Glucose 163 mg/dl 256 mg/dl 102 mg/dl White Blood Count 20.19 K/uL Red Blood Count 4.26 M/uL Hemoglobin 12.6 g/dL Hematocrit 38.5 % Mean Corpuscular Volume 90.4 fL Mean Corpuscular Hemoglobin 29.6 pg Mean Corpuscular Hemoglobin Concent 32.7 g/dl RDW Standard Deviation 48.4 fL RDW Coefficient of Variation 14.8 % Platelet Count 401 K/uL Mean Platelet Volume 10.0 fL Nucleated RBC Absolute Count (auto) 0.05 K/uL Nucleated Red Blood Cells % 0.3 % Sodium Level 140 mmol/L Potassium Level 3.7 mmol/L Chloride Level 98 mmol/L Carbon Dioxide Level 37 mmol/L Anion Gap 5.0 mmol/L Blood Urea Nitrogen 24 mg/dl Creatinine 0.74 mg/dl Est Creatinine Clear Calc Drug Dose 87.0 ml/min Estimated GFR () 104.6 Estimated GFR (Non- 90.2 BUN/Creatinine Ratio 31.6 Random Glucose 100 mg/dl Calcium Level 7.9 mg/dl Test 10/04/17 11:24 Bedside Glucose 212 mg/dl (Ruth Conti, PA-C) Assessment and Plan Mr. Melendez is a 77 y/o male with PMHx of COPD, [place] on 2L Night O2, HTN, H/O PE/ DVT, Myeloproliferative D/O, T2DM, HLD, and Tobacco User who presents to the ED c/o progressive SOB that started on 09/24 and is here for COPD exacerbation. Acute Hypoxic/Hypercarbic Respiratory Failure 2/2 COPD Exacerbation and Acute on Chronic Diastolic CHF: IMPROVING - Zithromax 250 mg po daily course completed - Prednisone 40 mg IV daily - Mucinex 1200 mg BID - Xopenex/Atrovent nebs; Mucomyst BID; Symbicort 2 puffs BID; Incentive Spirometry;Vibration Vest - CT - showing extensive secretions in the bronchi - Will consult pulmonary - appreciate assistance on further optimizing his respiratory status Urinary Retention 2/2 BPH: - Proscar 5 mg daily and Flomax 0.4 mg daily - Continue to monitor and bladder scan and straight cath if necessary Sinus Tachycardia: IMPROVING - Likely multifactorial given COPD/CHF exacerbation, steroids, and nebs - Metoprolol 12.5 mg BID T2DM with Hyperglycemia: - Hold metformin and cover with Lantus 20 units daily and SSI given steroid administration - hopeful for better control pending decreasing steroids [place] on Night O2 of 2L: - Continue night O2 Myeloproliferative D/O: - Continue to trend WBC HLD: - Atorvastatin 10 mg daily DVT Prophylaxis: Heparin 5000 units Q8H Code Status: FULL RESUSCITATION Disposition: - Did not qualify to supplemental O2 per two-step but had worsening of respiratory status when ambulating for this - Will keep today and try to further optimize his respiratory status Continued [facility] stay due to: multiple IV medications needed Discharge planning: home (Ruth Conti, PA-C) Attending Note & Attestation: Pt seen/examined, chart reviewed, care plan d/w MURALI Conti. I agree w/ the lorenzo components of her documentation. During my visit the patient had just completed his two-step O2 test with the respiratory team. Upon return he sat on the edge of his bed and was quite dizzy. He states "I felt terrible" (after walking with respiratory). He continues with [place] and cough. VSS, tachy no fever o2 sats borderline low in room air intermittently gen - tachypneic, but can speak in full sentences neck - no JVD sitting at 90 degrees heart - sinus tach, s1, s2 lungs - continued extensive wheezing b/l, no rales abd - soft, NT ext - <1+ edema b/l bmp acceptable A/P: 1. COPD w/ exacerbation - he is now day #7 of his hospitalization. He was on high-dose IV steroids and attempts at tapering them have not been successful. He is still quite dyspneic and weak. Plan to go back to IV steroids. Chest CT ordered, r/o atypical infection, other process. Consult pulmonary given his protracted symptoms despite optimal medical therapy. Vibration vest/chest PT. He has completed his antibiotic course. 2. acute/chronic diastolic CHF - acute component resolved. PO lasix at this time as long as BUN & Cr remain stable. 3. uncontrolled T2DM - due to steroids - increase correction factor to 15. 4. encephalopathy, likely metabolic, cannot rule out toxic from steroid use - seroquel 12.5mg HS. Seems better today. patient willing to stay another day Eulalio Rose MD (Stuart Rose MD)
[2017-10-04] MEDS ORDERED: NICOTINE 14 MG/24 HR TDSY TD ONE (15:42)
[2017-10-04] MEDS: CLONAZEPAM 1 MG TAB PO SCH (21:25)
[2017-10-04] MEDS: ATORVASTATIN 10 MG TAB PO SCH (21:26)
[2017-10-04] MEDS: TAMSULOSIN HCL 0.4 MG CAP PO SCH (21:26)
[2017-10-04] MEDS: QUETIAPINE FUMARATE 25 MG TAB PO SCH (21:27)
[2017-10-05] VITALS (8 sets, daily range): BP systolic 132–154; BP diastolic 73–76; PULSE 77–114; TEMP 36.6–36.8; O2SAT 90–96
[2017-10-05] MEDS: HALOPERIDOL 1 MG TAB PO PRN (01:26)
[2017-10-05] MEDS: LEVALBUTEROL 1.25MG/0.5ML NEB INH SCH ×4 (03:46→14:48)
[2017-10-05] MEDS: IPRATROPIUM BROMIDE NEB SOLN 0.02% 2.5 ML VIAL INH SCH ×4 (03:46→14:48)
[2017-10-05] MEDS: HEPARIN SOD 5000 UNIT/0.5 ML CARP SQ SCH ×2 (06:15→14:00)
[2017-10-05] MEDS: ACETYLCYSTEINE 20% INHAL SOLN ***DISPENSED BY RESP. INH SCH (07:05)
[2017-10-05] MEDS: PANTOprazole SOD 40 MG TAB PO SCH (07:47)
[2017-10-05] MEDS: METOPROLOL TARTRATE 25 MG TAB PO SCH (07:47)
[2017-10-05] MEDS: FINASTERIDE 5 MG TAB PO SCH (07:47)
[2017-10-05] MEDS: NYSTATIN SUSP 500,000 U/5 ML UDC PO SCH ×3 (07:47→17:36)
[2017-10-05] MEDS: GUAIFENESIN 600 MG TABCR PO SCH (07:47)
[2017-10-05] MEDS: FUROSEMIDE 20 MG TAB PO SCH (07:47)
[2017-10-05] MEDS: BUDESONIDE/FORMOTEROL FUMARATE 160/4.5 60 PUFFS/INHALER INH SCH (07:48)
[2017-10-05] MEDS: RANITIDINE HCL 150 MG TAB PO SCH (07:48)
[2017-10-05] MEDS: INSULIN ASPART 100 UNITS/ML 3 ML PEN SC SCH ×3 (07:57→17:35)
[2017-10-05] MEDS: INSULIN GLARGINE SOLOSTAR 100 UNITS/ML 3 ML PEN SC SCH (07:58)
[2017-10-05] MEDS ORDERED: METHYLPREDNISOLONE IV 40 MG in SYRINGE 0 ML IV SCH (09:00)
[2017-10-05] MEDS ORDERED: NICOTINE 14 MG/24 HR TDSY TD SCH (09:00)
[2017-10-05] MEDS ORDERED: PRED10TA PO (13:51)
[2017-10-05] MEDS ORDERED: LPR25 PO (13:51)
[2017-10-05] MEDS ORDERED: LSX20 PO (13:51)
[2017-10-05] MEDS ORDERED: MCRK20 PO (13:52)
--- NOTE | 2017-10-05 13:59 | Discharge Instructions ---
Discharge Instructions Date of Service Oct 05, 2017. Admission Reason for Admission: Copd Exacerbation Discharge Discharge Diagnosis / Problem: COPD Exacerbation Discharge Goals Goal(s): Decrease discomfort, Improve function, Increase independence Activity Recommendations Activity Limitations: resume your previous activity . Instructions / Follow-Up Instructions / Follow-Up COPD Exacerbation: - Please continue your nebulizers, inhalers, and other respiratory medications as previously prescribed - You will be placed on a steroid taper. You had steroids today so start tomorrow on 10/06. -- Prednisone 40 mg daily x 3 days on the , , and then take 30 mg on , , then 20 mg on , , , and then 10 mg on the , , and - Continue flutter valve this is the blue handheld machine to help move secretions - there is a lot of sputum in your airways and this will help move them - Would recommend to continue to try and stop smoking. Any reduced amounts will give benefits. - Recommend a low carbohydrate diet especially when on steroids. Water Retention and Fast Heart Rate: - You will be started on Lasix (this is a water pill) this will be daily to help with fluid retention. You will also take a potassium supplement daily. Please discuss this with your family doctor on your follow-up appointment - Also started Metoprolol twice a day to help with blood pressure and your fast heart rates. Please discuss this with your family doctor too Follow-Up Appointment: Please follow up with Nikole Pablo PA-C in Dr. Vicente's office on Sunday at 1:15pm. *If you need to reschedule this appointment please call the office at [phone]. Call [phone] and go to the Emergency Room if: * You have tightness or pain in your chest that does not go away with rest or Nitroglycerin * You are very short of breath even with rest Call your doctor if any of the following symptoms or problems start or get worse: * Shortness of breath or difficulty breathing * Wake up at night short of breath * Chest pain * Cough * Swelling of your hands, fee, or legs * More fatigued or tired with your normal activity * Palpitations - sudden fast heart beats WEIGHT * Weigh yourself every morning after using the bathroom. * Use the same scale. * Wear the same amount of clothing. * Write your weight down on your chart. * Call your doctor if you gain more than 2-3 pounds in 1-2 days. MEDICATIONS * Use this discharge instruction sheet for instructions. * Take your medications at the time your doctor ordered. * Do not skip a dose of your medicines. * If you miss a dose of medicine, take as soon as possible, but DO NOT DOUBLE A DOSE. * Read your medicine information when you get home. * Know all of the side effects of your medicine. * Call your doctor's office if you have any side effects. * Be sure all of your doctors know what medicine and herbs you take (including cold, flu, and herbal medicine). * Pain Medicine: If you do not get relief from your pain, please call your doctor for help. Take the following with you to your follow-up doctor appointments: * Weight Chart * Medication List * List of questions Do not drink excessive alcohol, beer or wine. Current Hospital Diet Patient's current hospital diet: Diabetes Type 2 Diet, Low Sodium Diet (2gm Na) Discharge Diet Recommended Diet: Low Sodium Diet (2gm Na), Diabetes Type 2 Diet Procedures Procedures Performed: Chest xray CT Chest Pending Studies Studies pending at discharge: no Laboratory Results Hemoglobin A1c Test 08/26/17 05:57 Range/Units Estimated Average Glucose 163 mg/dl Hemoglobin A1c 7.3 H 4.5-5.6 % Medical Emergencies . Who to Call and When: Medical Emergencies: If at any time you feel your situation is an emergency, please call 911 immediately. . Non-Emergent Contact Non-Emergency issues call your: Primary Care Provider Call Non-Emergent contact if: you have a fever, your pain is concerning you, you have any medication questions . . "Provider Documentation" section prepared by Ruth Conti. . VTE Core Measure Inpt VTE Proph given/why not?: Unfractionated heparin SQ
[2017-10-05] MEDS ORDERED: NICO14DI5 TD (14:05)
--- NOTE | 2017-10-05 14:16 | CONSULTATION REPORT ---
DATE OF CONSULTATION: 10/05/2017 TIME OF DICTATION: 12:57 p.m. REASON FOR CONSULTATION: Exacerbation of known COPD with persistent symptoms. HISTORY OF PRESENT ILLNESS: The patient is a 77-year-old male with longstanding history of COPD, tobacco abuse and sleep apnea for which he uses oxygen at 2 liters per minute at nighttime. The patient's last hospitalization at [facility] was 08/23/2017 through 08/26/2017 for sepsis, COPD exacerbation and possible pneumonia. The patient did seem to show some slow improvement following last hospitalization; however, the patient started with symptoms about a week prior to current admission. The patient was admitted on 09/29/2017, started with symptoms around 09/24/2017 and they progressively worsened. On 09/29/2017, the patient was noticeably more dyspneic and had increased cough, so he presented to his PCP. His PCP did do pulse ox, his oxygen saturation was running between 81-83% on room air, and the patient was directed to the Emergency Department. The patient presented to [facility] Emergency Department, he was found to have wheezing and short of breath. He did have minimal cough, was not really able to expectorate much of the cough, had not been having any fever or chills, no nausea or vomiting, no diarrhea or constipation, no melena or hematochezia. The patient did have chest x-ray upon admission which was essentially unremarkable. He did have influenza which was negative. He was started on antibiotic in the form of azithromycin. He was also given Solu-Medrol 60 mg t.i.d. IV. He was started on Mucinex 1200 mg b.i.d. He had his nebulizer continued q. 4 hours while awake and he was started on Symbicort twice daily. The patient was making some progression and improvement; however, the day prior to seeing him, the patient was up to do a 6-minute walk to evaluate for potential oxygen need at home and he became very short of breath and actually dizzy. Despite this, saturations did just drop to the upper 88, 89-90% range. Because of this, the patient was kept one more day and pulmonary was consulted. Hospitalist service did initiate incentive spirometry, flutter valve, and did order a vibration vest. Unfortunately, all vibration vests were in use, so the patient did not receive this. The patient has also been on Mucomyst. When I saw the patient today, he reports that he is feeling much better even than yesterday, states that some of the mucus has moved, states that he is less congested. He feels that his breathing is almost back to his baseline level. Does still have some cough, although it is minimal. He is not really expectorating much. Does have a wheeze but he reports that he has a wheeze at baseline and feels that what he has now is pretty consistent with that. He did have some chest discomfort initially when he was admitted, this has resolved as well. He has been up walking around his room, has not had any difficulties, has not had any dizziness or increased shortness of breath. When I saw him, he denied any other problems. No headache. No lightheadedness or dizziness. No fever or chills. No chest discomfort. No angina. No palpitations. No GI disturbances. No nausea or vomiting. His appetite is normal. He states his bowels moved today. He has not had any difficulty voiding. He has not had any swelling in his extremities. In reviewing his chart, the patient did have a history of an Acinetobacter infection in 2014, susceptible to Levaquin and Bactrim. He also has a pulmonary nodule that has been stable dating back to 2013, I believe. He did follow up for a short period of time with Dr. Seun Elkins in [place]; however, he does not currently follow with him. Currently, his PCP Dr. Harriosn Vicente manages his breathing and he has been stable. The patient did have a CT examination yesterday which did show some mucus in the upper airways. PAST MEDICAL HISTORY: Includes COPD, obstructive sleep apnea with oxygen use at nighttime, he does not use any PAP therapy, hypertension, history of PE and DVT, myeloproliferative disorder, diabetes mellitus type 2, hyperlipidemia and tobacco use. FAMILY HISTORY: Includes a brain mass, kidney problems, lung disease and stroke. SOCIAL HISTORY: The patient has a positive tobacco history of several years, currently he is just smoking 6-7 cigarettes per day. No alcohol use. HOME MEDICATIONS: As per hospitalist's H&P. ALLERGIES: TO LEVOFLOXACIN AND PRAVASTATIN. REVIEW OF SYSTEMS: As above, otherwise unremarkable. PHYSICAL EXAMINATION: GENERAL: The patient is a 77-year-old male, actually walking around the room when I entered. Did not appear in any respiratory distress, was able to carry on a conversation without difficulty, did not become dyspneic with conversation. Did have very infrequent cough which sounded loose but the patient was not able to expectorate any mucus. He is alert and oriented x3. Mood is good. Affect is good. VITAL SIGNS: Temp 36.5, pulse 115, respirations 16, blood pressure 135/79, pulse ox is 91% on room air. HEENT: Normocephalic, atraumatic. Pupils equal, round and react to light and accommodation. Extraocular movements are intact. [place] moist gingival and buccal mucosa. NECK: Supple. No mass. No adenopathy. No bruit. CHEST: The patient has coarse wheezes throughout. Decreased breath sounds bilaterally. No appreciated rales, although difficult to auscultate because of diminished breath sounds. CARDIOVASCULAR: Regular rate and rhythm. No murmurs, gallops or rubs noted. ABDOMEN: Bowel sounds are present. Abdomen soft and nontender. No guarding, rigidity or organomegaly. EXTREMITIES: No erythema, no edema. NEUROLOGIC: Cranial nerves II-XII grossly intact. No focal deficit noted. LABORATORY DATA: Shows white count of 20,000, H&H 12.6 and 38.5, platelet count 401,000. Blood cultures, no growth. CT of the chest shows secretions bilateral mainstem, this was done on 10/04/2017, predominant emphysematous changes, no evidence of pneumonia. The patient does have a 1.2 cm calcified right middle lobe nodule which was present dating back to 2014 and unchanged. IMPRESSION: This is a 77-year-old male with known history of chronic obstructive pulmonary disease, who presented with exacerbation and respiratory failure secondary to his chronic obstructive pulmonary disease. I think that the patient is doing well today. At this point, it does sound like the patient may have had some mobilization of secretions yesterday which left him a little bit short of breath. He actually may have even had a little bit of mucus plugging but that seems to have resolved today. At this point, my suspicion is that the patient is pretty close to being back to his baseline. Would recommend that he continue slow prednisone taper down to his normal dose of 10 mg daily, would probably recommend starting at 40 mg and tapering by 5 mg every 3 days. I would recommend that he continue on Mucinex to help with these secretions. Would recommend to continue nebulization as well. I did have a discussion with him about the importance of using the incentive spirometer and flutter valve at home as well to help mobilize his secretions to hopefully help decrease the risk of having a repeat infection. The patient voiced understanding. Also recommended the patient to potentially follow up with Dr. Elkins, or if he would prefer our group, we would be more than happy to see him as well. The patient voiced understanding with that as well. Otherwise, recommend he continue his routine pulmonary toilet medications. With how the patient is doing today, I see no reason why he potentially could not be discharged home today. Will need followup with his PCP as per hospitalist's recommendation. The patient is able to contact us as an outpatient if he would so choose. Patient and plan reviewed and agree with plan above. CHARLA
[2017-10-05] MEDS ORDERED: GFNSR600 PO (15:52)
--- NOTE | 2017-10-05 21:01 | Discharge Summary ---
Discharge Summary Date of Service Oct 05, 2017. Discharge Summary Admission Date: Sep 28, 2017 at 14:52 Discharge Date: Oct 05, 2017 Discharge Disposition: Home Principal Diagnosis: Acute Hypoxic Respiratory Failure 2/2 COPD Exacerbation Problems/Secondary Diagnoses: 1. COPD 2. AUSTIN on 2 L NC at Night 3. HTN 4. H/O PE/DVT 5. Myeloproliferative D/O 6. T2DM 7. HLD 8. Current Tobacco User Procedures: CT OF THE CHEST WITH IV CONTRAST FINDINGS: No enlarged axillary, mediastinal or hilar lymph nodes are present. Size of the heart is within normal limits. There is moderate coronary artery calcification. There is no pericardial effusion. The chest is suboptimally assessed due to respiratory motion. There are layering secretions within both mainstem bronchi as well as the bilateral lower lobe segmental bronchi. There is bilateral lower lobe bronchial wall thickening with multifocal secretions throughout the lower lobe bronchi. Severe upper lobe predominant emphysema is noted. There is no pneumothorax or pleural effusion. No consolidation to suggest pneumonia is present. A 1.2 cm centrally calcified right middle lobe nodule is unchanged since initial CT of December 03, 2014. This is benign. There are no suspicious pulmonary nodules. Bony thorax is unremarkable. An 8 mm left hepatic lobe cyst is noted. Upper abdomen is unremarkable. IMPRESSION: 1. No consolidation to suggest pneumonia. 2. Extensive secretions within the bilateral mainstem bronchi as well as the bilateral lower lobe segmental and subsegmental bronchi with bronchial wall thickening. No central obstructing mass. 3. Severe upper lobe predominant emphysema. Consultations: 1. Pulmonary 2. PT/OT Medication Reconciliation New Medications: Potassium Chloride (Klor-Con M20) 20 Meq Tabcr 1 TAB PO DAILY for 14 Days, #14 TABS Furosemide (Furosemide) 20 Mg Tab 20 MG PO QAM for 14 Days, #14 TAB Guaifenesin Ext Rel (Mucinex Ext Rel) 600 Mg Tabcr 1200 MG PO Q12 for 7 Days, #28 TABS Metoprolol Tartrate (Lopressor) 25 Mg Tab 12.5 MG PO BID for 30 Days, #30 TAB Nicotine (Nicoderm Cq 14MG Patch) 14 Mg/24 Hr Dis 1 PATCH TD QAM for 14 Days, #14 PATCH Changed Medications: Prednisone (Prednisone) 10 Mg Tab 10 MG PO UD, #30 TAB (Changed from: 20 MG; DAILY) take 40 mg x 3 days then 30 mg x 3 days then 20 mg x 3 days then 10 mg x 3 days Continued Medications: Albuterol Sulf (Proventil 0.083% 2.5MG/3ML) 2.5 Mg/3 Ml Nebu 2.5 MG INH QID, EA Atorvastatin (Lipitor) 10 Mg Tab 10 MG PO PM Budesonide/Formoterol Fumarate (Symbicort 160/4.5 Inhaler ) Aero 2 PUFFS INH BID, INHALER Clonazepam (Klonopin) 1 Mg Tab 1 MG PO HS, TAB Finasteride (Proscar) 5 Mg Tab 5 MG PO QAM, TAB Ipratropium-Albuterol (Duoneb) 3 Ml Nebu 1 TREATMENT INH QID, INHA Metformin HCl (Metformin HCl) 500 Mg Tab 500 MG PO BID Omeprazole (Prilosec) 40 Mg Cap 40 MG PO QAM, CAP Ranitidine HCl (Ranitidine HCl) 150 Mg Tab 150 MG PO DAILY Tamsulosin Hcl (Flomax) 0.4 Mg Cap 0.4 MG PO AFTERNOON, CAP Tiotropium [place] (Spiriva Respimat) 2.5 Mcg/Act Spr 2 PUFF INH DAILY, INHALER Tramadol (Ultram) 50 Mg Tab 50-100 MG PO QID PRN for Pain, TAB Trazodone Hcl (Desyrel) 50 Mg Tab 50-100 MG PO HS PRN for Sleep, TAB [Proair Hfa] () 2 PUFFS INH Q4H PRN for COPD EXACERBATION Discharge Exam Review of Systems: Constitutional: No fever, No chills ENT: No nasal symptoms, No sore throat, No trouble swallowing Respiratory: + cough, No sputum, No dyspnea on exertion, No dyspnea at rest Cardiovascular: No chest pain, No palpitations Abdomen: No pain, No nausea, No vomiting, No diarrhea, No constipation Musculoskeletal: No swelling, No calf pain Genitourinary - Male: No dysuria Hematologic / Lymphatic: No abnormal bleeding/bruising Integumentary: No rash Physical Exam: General Appearance: WD/WN, no apparent distress Eyes: sclerae normal ENT: hearing grossly normal Neck: supple, no JVD, trachea midline Respiratory/Chest: no accessory muscle use, + respiratory distress (mild after ambulation but quickly resolves with rest), + wheezing (diffuse expiratory ), + pertinent finding (improving air flow but still generally diminished diffusely) Cardiovascular: regular rate, rhythm, no gallop, no murmur Abdomen / GI: normal bowel sounds, non tender, soft Extremities: no pedal edema, + swelling (trace b/l edema of lower extremities) Neurologic/Psychiatric: alert Skin: normal color, warm/dry Hospital Course ADMISSION: Mr. Melendez is a 77 y/o male with PMHx of COPD, A[place]IN on Night 2L, HTN, H/O PE/DVT, Myeloproliferative D/O, T2DM, HLD, and Tobacco User who presents to the ED c/o progressive SOB that started on 09/24. He states that he has been utilizing his home nebs and inhalers but he continued to develop worsening SOB. He states last night it acutely worsened which caused him to see his PCP today. He states his O2 saturations were around 81-83% and was treated with Prednisone and Albuterol at the office. Per Dr. Brown note, he did not move the peak flow even after treatment and referred him to the ED. He reports a minimal cough and no sputum. Significant wheezing and SOB. He continues to smoke with 6- 7 cigarettes a day. He states he has generalized chest pain that is achy in nature and rather constant since this started. He denies fever/chills, N/V, abdominal pain, diarrhea/constipation, melena/hematochezia. HOSPITAL COURSE: Mr. Melendez was admitted for Acute Hypoxic/Hypercarbic Respiratory Failure 2/2 COPD Exacerbation and Acute on Chronic Diastolic CHF. Acute Hypoxic/Hypercarbic Respiratory Failure 2/2 COPD Exacerbation and Acute on Chronic Diastolic CHF: IMPROVING - Completed a course of Zithromax - no evidence of pneumonia on CT - Continued Prednisone taper of 40 mg x 3 days, 30 mg x 3 days, then 20 mg x 3 days, then 10 mg x 3 days - Continued Mucinex 1200 mg BID and home nebs/inhalers - Educated on importance of flutter valve and incentive spirometry - CT with significant mucus in bronchi but not having a very productive cough - Completed two-step but did not qualify for supplemental O2 surprisingly - had dyspnea after this walk and appears that he may have dislodged some secretions but this has resolved - Have continued him on Lasix 20 mg daily and K supplementation - this can be monitored for further continuation or adjustment - lower extremity edema improved - Encouraged smoking cessation - patient requested Nicoderm patch and Rx provided Sinus Tachycardia: IMPROVING - Likely multifactorial given COPD/CHF exacerbation, steroids, and nebs - Metoprolol 12.5 mg BID was initiated and also improving blood pressures without creating hypotension. Can consider further implementation or adjustment T2DM with Hyperglycemia: - Continue Metformin and encouraged low carbohydrate diet while using steroids Disposition: - F/U appointment with PCP on 10/08 - Recommend F/U with pulmonology Total Time Spent: Greater than 30 minutes This includes examination of the patient, discharge planning, medication reconciliation, and communication with other providers. Discharge Instructions Please refer to the electronic Patient Visit Report (Discharge Instructions) for additional information. Additional Copies To Harrison Vicente M.D.; Nikole Pablo
== END 2017-10-05 18:11 | disposition home or self-care (01) | DRG 291 ==
LOC: C.EDB 12:18 → C.MED 14:52 → ENRESERV 16:50
PROVIDERS: ADMIT Internal Medicine; ATTEND Family Medicine
DX: I11.0 Hypertensive heart disease with heart failure (principal); J96.01 Acute respiratory failure with hypoxia; J96.02 Acute respiratory failure with hypercapnia; G93.41 Metabolic encephalopathy; G92 Toxic encephalopathy; J44.1 Chronic obstructive pulmonary disease with (acute) exacerbation; D47.1 Chronic myeloproliferative disease; F05 Delirium due to known physiological condition; I50.33 Acute on chronic diastolic (congestive) heart failure; E11.65 Type 2 diabetes mellitus with hyperglycemia; T38.0X5A Adverse effect of glucocorticoids and synthetic analogues, initial encounter; G47.33 Obstructive sleep apnea (adult) (pediatric); Z99.81 Dependence on supplemental oxygen; E78.5 Hyperlipidemia, unspecified; N40.0 Benign prostatic hyperplasia without lower urinary tract symptoms; F17.210 Nicotine dependence, cigarettes, uncomplicated; Z86.711 Personal history of pulmonary embolism; Z86.718 Personal history of other venous thrombosis and embolism; Z79.52 Long term (current) use of systemic steroids; Z79.84 Long term (current) use of oral hypoglycemic drugs; Z79.899 Other long term (current) drug therapy; Z88.1 Allergy status to other antibiotic agents; Z88.8 Allergy status to other drugs, medicaments and biological substances; Z83.6 Family history of other diseases of the respiratory system; Z82.3 Family history of stroke; Z82.0 Family history of epilepsy and other diseases of the nervous system; Z84.1 Family history of disorders of kidney and ureter

== ENCOUNTER → 2017-10-15 | Outpatient (CLI) | payer BC ==
[~2017-10-15] MED LIST changes: +ALBINS/ INH; -DXY100 PO; +GFNSR600 PO; -IPRA1AER2 INH; +IPRASOL4 INH; +LPR25 PO; +LSX20 PO; +MCRK20 PO; +NICO14DI5 TD; +PROAIR HFA INH; -PRVIN525X INH; -TIOT1AER INH; +TIOT1SPR INH; +TRAM-10 PO
[2017-10-15 13:13] LABS: HEMOGLOBIN A1C 8.5 % (4.5-5.6)
[2017-10-15 13:38] LABS: ALBUMIN 3.1 gm/dl (3.4-5.0); ALT/SGPT 23 U/L (12-78); AST/SGOT 6 U/L (15-37); BLOOD UREA NITROGEN 24 mg/dl (7-18); CALCIUM 8.3 mg/dl (8.5-10.1); CARBON DIOXIDE 33 mmol/L (21-32); CREATININE 0.82 mg/dl (0.60-1.40); GLUCOSE 167 mg/dl (70-99); POTASSIUM 4.3 mmol/L (3.5-5.1); SODIUM 139 mmol/L (136-145)
[2017-10-15 13:39] LABS: ALKALINE PHOSPHATASE 69 U/L (45-117); CHOLESTEROL 190 mg/dl (0-200); LDL CHOLESTEROL CALCULATED 92 mg/dl; TOTAL PROTEIN 6.1 gm/dl (6.4-8.2)
== END | disposition home or self-care (01) ==
LOC: C.LABMFLN 07:45
PROVIDERS: ATTEND Family Medicine
DX: E11.9 Type 2 diabetes mellitus without complications (principal); I10 Essential (primary) hypertension; E78.00 Pure hypercholesterolemia, unspecified

== ENCOUNTER → 2017-11-12 | Outpatient (CLI) | payer BC ==
[~2017-11-12] MED LIST changes: +ALBU18002 INH; +FURO-85 PO; +LVQ500 PO; +METO25TA56 PO; +NICO14DI31 TD; +POTA20TA16 PO
[2017-11-12 13:17] LABS: BLOOD UREA NITROGEN 18 mg/dl (7-18); CALCIUM 8.7 mg/dl (8.5-10.1); CARBON DIOXIDE 32 mmol/L (21-32); CREATININE 0.95 mg/dl (0.60-1.40); GLUCOSE 152 mg/dl (70-99); SODIUM 137 mmol/L (136-145)
== END | disposition home or self-care (01) ==
LOC: C.LABMFLN 08:59
PROVIDERS: ATTEND Family Medicine
DX: R07.89 Other chest pain (principal); I50.30 Unspecified diastolic (congestive) heart failure

== ENCOUNTER 2017-11-15 10:05 | Inpatient (IN) | payer BC, OTHER ==
[~2017-11-15] VITALS: Ht 167.6 cm; Wt 81.4 kg
[~2017-11-15 10:05] MED LIST changes: -ALBU18002 INH; -FURO-85 PO; -LVQ500 PO; -METO25TA56 PO; -NICO14DI31 TD; -POTA20TA16 PO
[2017-11-15] MEDS ORDERED: GLUCOSE 10 TABS/TUBE PO PRN (11:30)
[2017-11-15] MEDS ORDERED: GLUCOSE 40% GEL 15 GM TUBE PO PRN (11:30)
[2017-11-15] MEDS ORDERED: GLUCAGON FOR INJ 1 MG VIAL SQ PRN (11:30)
[2017-11-15] MEDS ORDERED: ACETAMINOPHEN 325 MG TAB PO PRN (11:30)
[2017-11-15] MEDS ORDERED: DEXTROSE 50% 50 ML SYR IV PRN (11:30)
[2017-11-15] MEDS ORDERED: ONDANSETRON INJ 2 MG/ML 2 ML VIAL IV PRN (11:30)
[2017-11-15 11:49] VITALS: BP_SYST 163; BP_SYST 174; BP_DIAS 80; BP_DIAS 84; PULSE 114; TEMP 36.7; O2SAT 95; BMI 29.0
[2017-11-15] MEDS ORDERED: METHYLPREDNISOLONE IV 125 MG in SYRINGE 0 ML IV ONE (12:15)
[2017-11-15] MEDS: ALBUT/IPRATROP 3MG/0.5MG NEB 3 ML VIAL INH SCH ×4 (14:53→23:16)
[2017-11-15 14:56] VITALS: PULSE 104; O2SAT 91
[2017-11-15] MEDS: HEPARIN SOD 5000 UNIT/0.5 ML CARP SQ SCH ×2 (15:09→22:00)
[2017-11-15] MEDS ORDERED: LEVALBUTEROL 0.63MG/3 ML NEB INH PRN (15:30)
[2017-11-15 15:48] VITALS: BP 165/81; PULSE 107; TEMP 36.5; O2SAT 96
--- NOTE | 2017-11-15 16:07 | PULMONARY CONSULTATION ---
DATE OF CONSULTATION: 11/15/2017 TIME: 03:15 p.m. REPORT OF CONSULTATION: The patient was seen in room #407, bed 1. He is a 77-year-old male with a history of COPD. The patient thought his symptoms began 4 or 5 years ago. He has had numerous admissions in the past for this. This winter, he was hospitalized from August 23 through August 26 and again from September 28 through October 05. He had been hospitalized with an exacerbation from 08/17/2015 until 08/20/2015. Prior to that, he was hospitalized from 03/14/2015 until 03/19/2015. Prior to that, he was hospitalized from 12/03/2014 until 12/08/2014. The patient states that when he gets cleared out from the hospital, he usually is good for a while. However, this winter, he has not been staying well. He has been on prednisone most of the time. The patient at present is very short of breath. He is having a hard time even talking. His son was present as well. He has been waiting for a nebulizer treatment. He was seen initially today over in the pulmonary office by Clarice Ford PA-C and was referred in for admission. The patient states he seldom coughs and he does not have sputum. He only complains of wheezing and shortness of breath. He has not had any recent colds. He does not have chills, fevers or sweats. He has not coughed up any blood. The patient carries a history of sleep apnea. He had a sleep study done in [place]. He does not know if the apnea was mild, moderate or severe. He has had a CPAP machine for years, but he does not use it hardly at all. He admits to being claustrophobic. I do not believe, however, he has had a new mask in years. He says he tries it regularly, but he can only wear it for a short period of time. He also carries a history of a lung nodule in the past. This appears to be a calcified lesion in the right lung, which is clearly benign: The patient denies chest pains. PAST MEDICAL HISTORY: 1. COPD. 2. Sleep apnea. 3. Pulmonary nodule. 4. Hypertension. 5. Hyperlipidemia. 6. Deep venous thrombosis, but the patient denies prior PE. 7. Myeloproliferative disorder. 8. Diabetes type 2, which the patient states is marginal and related to steroids. SOCIAL HISTORY: The patient has been a smoker for 60 years. Most of his life, he smoked 1 pack per day. He states he is down to 6 or 7 cigarettes per day. Alcohol use is none. ALLERGIES: LISTED ALLERGIES TO LEVOFLOXACIN AND PRAVASTATIN. 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 FAMILY HISTORY: Pertinent family history is that his father had severe chronic lung disease. Other family history was positive for kidney disease and strokes. MEDICATIONS AT HOME: 1. Nebs with albuterol. 2. Atorvastatin 10 mg daily. 3. Symbicort 160/4.5 two puffs b.i.d. 4. Clonazepam 1 mg at bedtime. 5. Finasteride 5 mg daily. 6. Furosemide 20 mg daily. 7. Mucinex q. 12 hours. 8. Ipratropium/albuterol by nebulizer. 9. Metformin 500 mg b.i.d. - the patient states he only takes when his sugars are elevated. 10. Lopressor 12.5 mg b.i.d. 11. Nicotine patch. 12. Omeprazole 40 mg daily. 13. Potassium 20 mEq daily. 14. Prednisone, which he states he is currently on 30 mg daily. 15. Ranitidine 150 mg daily. 16. Tamsulosin 0.4 mg daily. 17. Spiriva listed as a medicine, but the patient emphatically denied to me he has ever taken Spiriva. 18. Tramadol 50-100 mg p.r.n. 19. Trazodone 50-100 mg p.r.n. 20. ProAir p.r.n. REVIEW OF SYSTEMS: Difficult to obtain as the patient is quite breathless. Essentially negative except as noted above. PHYSICAL EXAMINATION: GENERAL: The patient is a 77-year-old male who was cooperative, alert and oriented. He was overtly dyspneic at rest. Wheezing could be heard across the room. HEENT: Pupils were reactive to light. Nares were clear. Mouth exam showed no erythema or exudate. NECK: Palpation of the neck reveals no lymph nodes. HEART: Rate is 104 per minute. The rhythm was regular. Blood pressure 174/80. LUNGS: Lung denis reveal diffuse wheezes bilaterally, both inspiration and expiration. Respiratory rate was 24. Oxygen saturation was 95% on room air done by myself. ABDOMEN: Soft. It was nontender. No masses were palpable. EXTREMITIES: Showed no cyanosis, clubbing or edema. I have not seen any chest x-ray on this patient. LABORATORY DATA: The only lab I have seen so far is a glucose of 231 and procalcitonin of less than 0.05. IMPRESSIONS: 1. Chronic obstructive pulmonary disease with exacerbation. 2. Emphysema. 3. Granuloma, right lung. COMMENTS AND RECOMMENDATIONS: Review of history and physical from his prior hospital stay in September suggested AN ALLERGY TO LEVOFLOXACIN. This needs to be clarified before he is given levofloxacin, which was ordered for him. He is ordered methylprednisolone 60 mg IV q. 8 hours. In light of the fact he is diabetic, we will need close observation of his sugars. Hopefully, this can be weaned readily. He has breathing treatments ordered q.i.d. I believe he also needs p.r.n. treatments. It seems that the patient has not had a significant response to treatment despite this is now the third hospital stay. Perhaps, underlying pulmonary embolism should be excluded. He did have a CT of the chest done in September, but it was not with contrast. We need to await his renal function test. I am going to order a D-dimer. If it is normal, it will exclude the possibility of pulmonary emboli for the most part. If it is abnormal, we will need to decide about doing a CTA. Significant percentage of COPD patients that have exacerbations that do not resolve may have pulmonary emboli. We also need to clarify if the patient indeed was on Spiriva or not. We will follow the patient with you. Thank you for asking me to assist in his care.
[2017-11-15 18:58] VITALS: PULSE 88; O2SAT 98
[2017-11-15] MEDS: METHYLPREDNISOLONE IV 60 MG in SYRINGE 0 ML IV SCH (19:34)
--- NOTE | 2017-11-15 20:48 | History and Physical ---
History & Physical Date & Time of Service: Nov 15, 2017 at 20:37 Chief Complaint: Copd Exacerbation Primary Care Physician: Harrison Vicente M.D. History of Present Illness Source: patient Mr. Grover Melendez is a 77 year old gentleman who presents to [facility] and a direct admit from outpatient pulmonary office for COPD exacerbation. He as diagnosed approximately 5 years ago and has had numerous hospital admission for exacerbations. This winter patient was hospitalized Aug 23 and Sep 282017. For the last several weeks he's been chronically on oral steroids. In the office, he was found to be in respiratory distress and speaking in short sentences. Denies fever, chills, rigors. His rarely cough and it is usually nonproductive. No sick contacts or recent travel. Other pulmonary dx include AUSTIN but is noncompliant with CPAP at home. Pt is currently in [facility]. He remains on supplemental oxygen. Pulmonary service already has been consulted and evaluated patient. Of note, he is a ppd smoker for 60 years. He continues to smokes but is down to 6-7 cigarettes a day. Past Medical/Surgical History Medical Problems: (1) Abnormal EKG (2) Bladder cancer (3) Bronchitis (4) COPD (chronic obstructive pulmonary disease) (5) COPD exacerbation (6) COPD Exacerbation (7) COPD exacerbation (8) GI bleed (9) Hypoxia (10) Hypoxia (11) Leukocytosis (12) Leukocytosis (13) Respiratory acidosis (14) Respiratory distress (15) Respiratory distress (16) Sepsis (17) SOB (shortness of breath) (18) Upper GI bleed Family History Brain Mass Kidney disease Lung Disease Stroke Social History Smoking Status: Current Every Day Smoker Drug Use: none Marital Status: Housing status: lives alone Occupational Status: retired Allergies Coded Allergies: Pravastatin (Verified Adverse Reaction, Unknown, muscle aches, 08/23/17) Home Medications Scheduled Albuterol Sulf (Proventil 0.083% 2.5MG/3ML), 2.5 MG INH QID Atorvastatin (Lipitor), 10 MG PO PM Budesonide/Formoterol Fumarate (Symbicort 160/4.5 Inhaler ), 2 PUFFS INH BID Clonazepam (Klonopin), 1 MG PO HS Finasteride (Proscar), 5 MG PO QAM Furosemide (Furosemide), 20 MG PO QAM Guaifenesin Ext Rel (Mucinex Ext Rel), 1,200 MG PO Q12 Ipratropium-Albuterol (Duoneb), 1 TREATMENT INH QID Metformin HCl (Metformin HCl), 500 MG PO BID Metoprolol Tartrate (Lopressor), 12.5 MG PO BID Nicotine (Nicoderm Cq 14MG Patch), 1 PATCH TD QAM Omeprazole (Prilosec), 40 MG PO QAM Potassium Chloride (Klor-Con M20), 1 TAB PO DAILY Prednisone (Prednisone), 10 MG PO UD Ranitidine HCl (Ranitidine HCl), 150 MG PO DAILY Tamsulosin Hcl (Flomax), 0.4 MG PO AFTERNOON Tiotropium [place] (Spiriva Respimat), 2 PUFF INH DAILY Scheduled PRN Tramadol (Ultram), 50-100 MG PO QID PRN for Pain Trazodone Hcl (Desyrel), 50-100 MG PO HS PRN for Sleep [Proair Hfa], 2 PUFFS INH Q4H PRN for COPD EXACERBATION Review of Systems Constitutional: No fever, No chills, No sweats, No weight loss, No weakness, No fatigue, No problem reported Eyes: No worsening of vision, No eye pain, No redness, No discharge, No diplopia, No problem reported Respiratory: + cough, + wheezing, + shortness of breath, + dyspnea on exertion , + dyspnea at rest, No sputum, No hemoptysis, No problem reported Cardiovascular: No chest pain, No orthopnea, No PND, No edema, No claudication , No palpitations, No problem reported Abdomen: No pain, No nausea, No vomiting, No diarrhea, No constipation, No GI bleeding, No problem reported Musculoskeletal: No joint pain, No muscle pain, No swelling, No calf pain, No problem reported Neurologic: No memory loss, No paralysis, No weakness, No numbness/tingling, No vertigo, No balance problems, No problem reported Psychiatric: No depression symptoms, No anhedonism, No anxiety, No insomnia, No substance abuse, No problem reported Endocrine: No fatigue, No excessive thirst, No excessive urination, No problem reported Integumentary: No rash, No itch, No new/changing skin lesions, No color change , No bleeding, No problem reported Physical Exam Vital Signs Date Time Temp Pulse Resp B/P (MAP) Pulse Ox O2 Delivery O2 Flow Rate FiO2 11/15/17 20:09 Nasal Cannula 2.0 11/15/17 18:58 88 18 98 Nasal Cannula 2.0 11/15/17 18:15 Nasal Cannula 2.0 11/15/17 15:48 36.5 107 28 165/81 (109) 96 Nasal Cannula 2.0 11/15/17 14:56 104 18 91 Room Air 11/15/17 11:49 36.7 114 22 174/80 95 Room Air 163/84 Head: normocephalic, atraumatic Eyes: PERRL, EOMI ENT: normal ENT inspection Neck: supple, no adenopathy Respiratory/Chest: chest non-tender, + respiratory distress, + decreased breath sounds, + accessory muscle use, + wheezing Cardiovascular: regular rate, rhythm, no edema, no gallop, no JVD, no murmur, normal peripheral pulses Abdomen/GI: normal bowel sounds, non tender, soft, no organomegaly Back: no CVA tenderness Extremities/Musculoskelatal: normal inspection, no calf tenderness, no pedal edema Neurologic/Psych: siene maker II-XII nml as tested, no motor/sensory deficits, oriented x 3 Skin: normal color, warm/dry Lymphatic: no adenopathy Diagnostics Laboratory Results Results Past 24 Hours Test 11/15/17 11:53 11/15/17 12:18 11/15/17 15:43 11/15/17 20:20 Range/Units Procalcitonin < 0.05 0-0.5 ng/ml Bedside Glucose 231 312 70-99 mg/dl D-Dimer 220 0-500 ug/L FEU Diagnostic Radiology Chest CT IMPRESSION: 1. No consolidation to suggest pneumonia. 2. Extensive secretions within the bilateral mainstem bronchi as well as the bilateral lower lobe segmental and subsegmental bronchi with bronchial wall thickening. No central obstructing mass. 3. Severe upper lobe predominant emphysema. Impression Assessment and Plan C.E.D admitted for respiratory distress. He already has 2 hospital admission for 2018 and is requiring supplemental oxygen. 1) COPD - obtain Chest CT - c/w levofloxacin therapy - c/w intravenous steroids: methylprednisolone 60 mg IV q8H - c/w scheduled DuoNebs with PRN Tx - incentive spirometry - Pulmonary service on aboard; will appreciate further recommendations - f/u d-dimer ordered by Pulm Diet: Regular Activity: Up with assistance Precautions: Fall Code Status: FULL Advanced Directives Existing Living Will: No Existing Power of Elevator Runner: No Resuscitation Status VTE Prophylaxis Will order VTE Prophylaxis: Yes
[2017-11-15] MEDS ORDERED: ALBUTEROL HFA 8 GM INHALER INH PRN (21:00)
[2017-11-15] MEDS: TAMSULOSIN HCL 0.4 MG CAP PO SCH (21:59)
[2017-11-15] MEDS: GUAIFENESIN 600 MG TABCR PO SCH (21:59)
[2017-11-15] MEDS: CLONAZEPAM 1 MG TAB PO SCH (21:59)
[2017-11-15 23:16] VITALS: PULSE 86; O2SAT 98
[2017-11-15 23:45] VITALS: BP 141/84; PULSE 102; TEMP 36.4; O2SAT 92
[2017-11-16] VITALS (8 sets, daily range): BP systolic 129–150; BP diastolic 72–83; PULSE 95–107; TEMP 36.4–36.8; O2SAT 93–100; Ht 167.6 cm; Wt 81.4 kg
[2017-11-16] MEDS: METHYLPREDNISOLONE IV 60 MG in SYRINGE 0 ML IV SCH ×2 (05:13→11:00)
[2017-11-16] MEDS: HEPARIN SOD 5000 UNIT/0.5 ML CARP SQ SCH ×3 (05:22→21:42)
[2017-11-16 06:28] LABS: BASO % 0.1 %; BASO ABS # 0.02 K/uL (0-0.2); HEMATOCRIT 37.6 % (42-52); HEMOGLOBIN 12.6 g/dL (14.0-18.0); IG# 0.25 K/uL (0.00-0.02); LYMPH % 6.5 %; LYMPH ABS # 0.96 K/uL (1.2-3.4); MEAN CELL VOLUME 88.9 fL (80-100); MEAN CORPUSCULAR HEMOGLOBIN 29.8 pg (25-34); MEAN CORPUSCULAR HGB CONC 33.5 g/dl (32-36); MONO ABS # 0.88 K/uL (0.11-0.59); NEUT % 85.7 %; NEUT ABS # 12.57 K/uL (1.4-6.5); PLATELET COUNT 357 K/uL (130-400); RED CELL DISTRIBUTION WIDTH CV 15.8 % (11.5-14.5); RED CELL DISTRIBUTION WIDTH SD 51.5 fL (36.4-46.3); WHITE BLOOD COUNT 14.68 K/uL (4.8-10.8)
[2017-11-16] MEDS: ALBUT/IPRATROP 3MG/0.5MG NEB 3 ML VIAL INH SCH ×4 (06:58→19:42)
[2017-11-16 07:05] LABS: CALCIUM 8.3 mg/dl (8.5-10.1); CREATININE 0.78 mg/dl (0.60-1.40); POTASSIUM 4.3 mmol/L (3.5-5.1)
--- NOTE | 2017-11-16 07:06 | DIAGNOSTIC IMAGING REPORT ---
CHEST ONE VIEW PORTABLE CLINICAL HISTORY: COPD exacerbation; Hypoxia dyspnea COMPARISON STUDY: 09/30/2017 FINDINGS: Stable mild emphysematous change. Unchanging chronic pleural reactive change left base. Small parenchymal infiltrate right base. Mid and upper lungs are clear. IMPRESSION: Small parenchymal infiltrate right base. The above report was generated using voice recognition software. It may contain grammatical, syntax or spelling errors. Electronically signed by: Sam Sexton M.D. 11/16/2017 7:04 AM Dictated Date/Time: 11/16/2017 7:03 AM
[2017-11-16] MEDS: ALBUTEROL 0.083% NEBU SOLN 3 ML VIAL INH SCH ×4 (08:00→19:14)
[2017-11-16] MEDS: METFORMIN HCL 500 MG TAB PO SCH ×2 (08:06→17:29)
[2017-11-16] MEDS: PANTOprazole SOD 40 MG TAB PO SCH (08:06)
[2017-11-16] MEDS: POTASSIUM CHLORIDE 20 MEQ TABCR PO SCH (08:06)
[2017-11-16] MEDS: RANITIDINE HCL 150 MG TAB PO SCH (08:06)
[2017-11-16] MEDS: FUROSEMIDE 20 MG TAB PO SCH (08:06)
[2017-11-16] MEDS: GUAIFENESIN 600 MG TABCR PO SCH ×2 (08:06→20:22)
[2017-11-16] MEDS: METOPROLOL TARTRATE 25 MG TAB PO SCH ×2 (08:06→20:21)
[2017-11-16] MEDS: FINASTERIDE 5 MG TAB PO SCH (08:06)
[2017-11-16] MEDS: TIOTROPIUM BROMIDE 5 PUFF/90 MCG INH INH SCH (08:07)
[2017-11-16] MEDS: BUDESONIDE/FORMOTEROL FUMARATE 160/4.5 60 PUFFS/INHALER INH SCH ×2 (08:07→20:18)
[2017-11-16] MEDS: NICOTINE 14 MG/24 HR TDSY TD SCH (08:08)
[2017-11-16] MEDS: INSULIN ASPART 100 UNITS/ML 3 ML PEN SC SCH ×4 (08:56→20:24)
--- NOTE | 2017-11-16 09:52 | Clinical Documentation Query ---
OTIS Crow : CLINICAL DOCUMENTATION QUERIES QUERY 1 OF 2 Patient is a 77 year old male admitted from outpatient pulmonary office for "COPD". He is being treated with IV antibiotics, steroids, nebs, incentive spirometry, and pulmonary consultation. As appropriate, consider explicit documentation of the acuity of this diagnosis, thus necessitating admission. Thank you. In your clinical opinion is this patient being managed for: ( x) Chronic obstructive pulmonary disease exacerbation Acute respiratory failure ( ) Not Agree ( ) Other explanation of clinical findings (Please Explain) ( ) Unable to determine (Please Define) ( ) Need to Discuss The medical record reflects the following clinical findings, treatment, and risk factors. Clinical Indicators: As above Treatment:He is being treated with IV antibiotics, steroids, nebs, incentive spirometry, and pulmonary consultation Risk Factors: COPD/smoking history QUERY 2 OF 2 H&P documentation included: " he was found to be in respiratory distress and speaking in short sentences" and "+ respiratory distress, + decreased breath sounds, + accessory muscle use". These are approved clinical indicators for coding capture of acute respiratory failure. As appropriate, consider documentation as suggested below. Thank you. In your clinical opinion is this patient being managed for: ( x ) Acute respiratory failure ( ) Not Agree ( ) Other explanation of clinical findings (Please Explain) ( ) Unable to determine (Please Define) ( ) Need to Discuss The medical record reflects the following clinical findings, treatment, and risk factors. Clinical Indicators: As above Treatment: Treatment of underlying COPD exacerbation Risk Factors: COPD Please clarify and document your clinical opinion in the progress notes and discharge summary. Terms such as "probable", "suspected", "likely", "questionable", "possible", or "still to be ruled out" are acceptable. IF IN AGREEMENT, YOU MUST DOCUMENT ABOVE DIAGNOSTIC STATEMENT IN DAILY PROGRESS NOTES AND DISCHARGE SUMMARY. This document is not part of the patient's record. Thank You, Wally Flores, RN [phone]
[2017-11-16] MEDS: LEVOFLOXACIN 500 MG TAB PO SCH (11:00)
--- NOTE | 2017-11-16 14:40 | PULMONARY PROGRESS NOTE ---
DATE: 11/16/2017 PROBLEM LIST: Includes: 1. Chronic obstructive pulmonary disease with exacerbation which is severe. 2. Emphysema. 3. Right lung granuloma. SUBJECTIVE: The patient reports he is feeling much better today. States that his breathing is improved, he is less tight. He states that he is not having as much wheezing, he is not having any significant chest congestion. He reports that he is not having really any coughing at this time. When asked if he feels like he has any mucus in his chest to cough up, he does not really feel like he has any congestion or mucus in his chest. He denies any pleuritic chest pain. No cardiac symptoms. No chest pain, no palpitations, no angina. No GI difficulty. No nausea or vomiting. No indigestion or heartburn. Bowels are moving. He is voiding well. He has no swelling in his extremities. OBJECTIVE: GENERAL: The patient is a 77-year-old male sitting up in bed. He is alert and oriented x3. Mood is good. Affect is good. VITAL SIGNS: Temp 36.8, pulse 107, respirations 20, blood pressure is 137/72, pulse ox 97% on 2 liters. HEENT: Normocephalic, atraumatic. Pupils equal, round, react to light and accommodation. Extraocular movements are intact. [place] moist gingival and buccal mucosa. NECK: Supple. No mass, no adenopathy, no bruit. CHEST: The patient still has some mild diffuse wheezing throughout bilaterally on both inspiration and exhalation. Did have a conversation with Dr. Cota, and from the sounds of it, what I can gather from conversation with Dr. Mueller as well as note from Dr. Mueller, wheezing is improved. CARDIOVASCULAR: Regular rate and rhythm. No murmurs, gallops or rubs. ABDOMEN: Soft. Bowel sounds are present. Abdomen is nontender. No guarding, rigidity or organomegaly. EXTREMITIES: No erythema or edema. NEUROLOGIC: Cranial nerves II-XII intact. No focal deficit noted. LABORATORY DATA: Shows white count of 14,000, H&H 12.6 and 37.6, platelet count 357,000. D-dimer was 220. Procalcitonin was not elevated at a level of less than 0.05. Chest x-ray done this morning shows some flattening of the diaphragms, left basilar changes, questionable infiltrate right base. IMPRESSION: 1. Right basilar infiltrate. The patient is on appropriate antibiotic at this time. He is showing significant improvement compared to yesterday. At this point, continue antibiotic, continue aggressive pulmonary treatment, and we are going to work on decreasing his steroids due to his sugars going up. 2. Chronic obstructive pulmonary disease which is severe with exacerbation. See plan for #1. 3. Emphysema. 4. Granuloma which is stable. 5. Hypoxia. The patient is requiring 2 liters of oxygen by nasal cannula. He does not usually use during the day, he does use at nighttime at home. At this point, continue medications as they are. We are going to slowly decrease the steroids as he tolerates. Continue aggressive pulmonary toilet. The patient will be reevaluated in the morning.
--- NOTE | 2017-11-16 16:51 | Progress Note ---
Subjective Date of Service: Nov 16, 2017. Subjective Pt evaluation today including: conversation w/ patient, physical exam, chart review, lab review, review of studies, conversation w/ mergers and acquisitions consultant, review of inpatient medication list Feeling okay pleasant, sitting in a chair, currently is on room air, pulse ox 95 %, report breathing is better, but still has wheezing, Problem List Medical Problems: (1) Bronchitis Status: Acute (2) COPD exacerbation Status: Acute (3) Respiratory acidosis Status: Acute (4) Sepsis Status: Acute Review of Systems Constitutional: No fever, No chills, No sweats, No weight loss, No weakness, No fatigue, No problem reported Eyes: No worsening of vision, No eye pain, No redness, No discharge, No diplopia ENT: No hearing loss, No unusual epistaxis, No nasal symptoms, No sore throat, No tinnitus, No dental problems, No trouble swallowing Respiratory: + cough, + wheezing, + shortness of breath, No sputum, No dyspnea on exertion, No dyspnea at rest, No hemoptysis Cardiac: No chest pain, No orthopnea, No PND, No edema, No claudication, No palpitations Abdomen: No pain, No nausea, No vomiting, No diarrhea, No constipation Musculoskeletal: No joint pain, No muscle pain, No swelling, No calf pain Male : No dysuria, No urinary frequency, No incontinence, No nocturia more than once/night, No slowing stream, No hematuria Neurologic: No memory loss, No paralysis, No weakness, No numbness/tingling, No vertigo, No balance problems Psychiatric: No depression symptoms, No anhedonism, No anxiety, No insomnia, No substance abuse Heme: No abnormal bleeding/bruising, No clotting problems, No swollen lymph nodes, No night sweats Endo: No fatigue, No excessive thirst, No excessive urination Skin: No rash, No itch, No new/changing skin lesions, No color change, No bleeding Objective Vital Signs Date Time Temp Pulse Resp B/P (MAP) Pulse Ox O2 Delivery O2 Flow Rate FiO2 11/16/17 16:00 Room Air 11/16/17 15:43 95 20 96 Nasal Cannula 2.0 11/16/17 14:47 36.4 97 20 129/75 (93) 100 2.0 11/16/17 11:04 101 24 96 Nasal Cannula 2.0 11/16/17 08:00 97 Nasal Cannula 2.0 11/16/17 07:24 36.8 107 20 137/72 (93) 97 2.0 11/16/17 06:59 102 24 96 Nasal Cannula 2.0 11/16/17 01:00 Nasal Cannula 2.0 11/15/17 23:45 36.4 102 22 141/84 (103) 92 Nasal Cannula 2.0 11/15/17 23:16 86 18 98 Nasal Cannula 2.0 11/15/17 20:09 Nasal Cannula 2.0 11/15/17 18:58 88 18 98 Nasal Cannula 2.0 11/15/17 18:15 Nasal Cannula 2.0 Physical Exam General Appearance: WD/WN, no apparent distress Eyes: normal inspection, PERRL, EOMI, sclerae normal ENT: normal ENT inspection, hearing grossly normal, pharynx normal Neck: supple, no adenopathy, thyroid normal, no JVD, no carotid bruits, trachea midline Respiratory/Chest: chest non-tender, normal breath sounds, no respiratory distress, no accessory muscle use, + decreased breath sounds, + wheezing Cardiovascular: regular rate, rhythm, no edema, no gallop, no JVD, no murmur Abdomen: normal bowel sounds, non tender, soft, no organomegaly, no pulsatile mass Extremities: normal range of motion, non-tender, normal inspection, no pedal edema, no calf tenderness, normal capillary refill, pelvis stable Neurologic/Psychiatric: pyrometer temperature regulator II-XII nml as tested, no motor/sensory deficits, alert, normal mood/affect, oriented x 3 Skin: normal color, warm/dry, no rash Lymphatic: no adenopathy Laboratory Results Last 24 Hours Test 11/15/17 20:20 11/16/17 05:57 11/16/17 07:50 11/16/17 11:42 Bedside Glucose 312 mg/dl 332 mg/dl 89 mg/dl White Blood Count 14.68 K/uL Red Blood Count 4.23 M/uL Hemoglobin 12.6 g/dL Hematocrit 37.6 % Mean Corpuscular Volume 88.9 fL Mean Corpuscular Hemoglobin 29.8 pg Mean Corpuscular Hemoglobin Concent 33.5 g/dl Platelet Count 357 K/uL Mean Platelet Volume 11.0 fL Neutrophils (%) (Auto) 85.7 % Lymphocytes (%) (Auto) 6.5 % Monocytes (%) (Auto) 6.0 % Eosinophils (%) (Auto) 0.0 % Basophils (%) (Auto) 0.1 % Neutrophils # (Auto) 12.57 K/uL Lymphocytes # (Auto) 0.96 K/uL Monocytes # (Auto) 0.88 K/uL Eosinophils # (Auto) 0.00 K/uL Basophils # (Auto) 0.02 K/uL RDW Standard Deviation 51.5 fL RDW Coefficient of Variation 15.8 % Immature Granulocyte % (Auto) 1.7 % Immature Granulocyte # (Auto) 0.25 K/uL Sodium Level 134 mmol/L Potassium Level 4.3 mmol/L Chloride Level 99 mmol/L Carbon Dioxide Level 27 mmol/L Anion Gap 8.0 mmol/L Blood Urea Nitrogen 19 mg/dl Creatinine 0.78 mg/dl Est Creatinine Clear Calc Drug Dose 82.0 ml/min Estimated GFR () 102.3 Estimated GFR (Non- 88.3 BUN/Creatinine Ratio 24.5 Random Glucose 327 mg/dl Calcium Level 8.3 mg/dl Beta-Hydroxybutyric Acid 2.33 mg/dL Assessment and Plan 77-year-old white male admitted for respiratory distress on November 15, 2017, He already has 2 hospital admission for 2018 and is requiring supplemental oxygen. 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
[2017-11-16] MEDS: METHYLPREDNISOLONE IV 40 MG in SYRINGE 0 ML IV SCH (20:18)
[2017-11-16] MEDS: TAMSULOSIN HCL 0.4 MG CAP PO SCH (20:22)
[2017-11-16] MEDS: CLONAZEPAM 1 MG TAB PO SCH (21:39)
[2017-11-17] VITALS (8 sets, daily range): BP systolic 130–148; BP diastolic 75–92; PULSE 89–126; TEMP 36.3–36.4; O2SAT 90–96
[2017-11-17] MEDS: METHYLPREDNISOLONE IV 40 MG in SYRINGE 0 ML IV SCH (03:32)
[2017-11-17] MEDS: HEPARIN SOD 5000 UNIT/0.5 ML CARP SQ SCH ×3 (05:38→21:15)
[2017-11-17 05:55] LABS: BASO % 0.1 %; BASO ABS # 0.02 K/uL (0-0.2); HEMATOCRIT 37.4 % (42-52); HEMOGLOBIN 12.6 g/dL (14.0-18.0); IG# 0.45 K/uL (0.00-0.02); LYMPH % 3.8 %; LYMPH ABS # 0.79 K/uL (1.2-3.4); MEAN CELL VOLUME 89.5 fL (80-100); MEAN CORPUSCULAR HEMOGLOBIN 30.1 pg (25-34); MEAN CORPUSCULAR HGB CONC 33.7 g/dl (32-36); MONO ABS # 1.04 K/uL (0.11-0.59); NEUT % 88.9 %; NEUT ABS # 18.59 K/uL (1.4-6.5); PLATELET COUNT 380 K/uL (130-400); RED CELL DISTRIBUTION WIDTH CV 15.6 % (11.5-14.5); WHITE BLOOD COUNT 20.89 K/uL (4.8-10.8)
[2017-11-17 06:33] LABS: CALCIUM 8.2 mg/dl (8.5-10.1); CREATININE 0.99 mg/dl (0.60-1.40); POTASSIUM 4.5 mmol/L (3.5-5.1)
[2017-11-17] MEDS: ALBUT/IPRATROP 3MG/0.5MG NEB 3 ML VIAL INH SCH ×4 (07:07→18:50)
[2017-11-17] MEDS: ALBUTEROL 0.083% NEBU SOLN 3 ML VIAL INH SCH ×4 (07:08→20:00)
[2017-11-17 07:09] LABS: HEMOGLOBIN A1C 8.1 % (4.5-5.6)
[2017-11-17] MEDS: PANTOprazole SOD 40 MG TAB PO SCH (08:14)
[2017-11-17] MEDS: TIOTROPIUM BROMIDE 5 PUFF/90 MCG INH INH SCH (08:14)
[2017-11-17] MEDS: GUAIFENESIN 600 MG TABCR PO SCH ×2 (08:14→19:45)
[2017-11-17] MEDS: RANITIDINE HCL 150 MG TAB PO SCH (08:14)
[2017-11-17] MEDS: FUROSEMIDE 20 MG TAB PO SCH (08:14)
[2017-11-17] MEDS: FINASTERIDE 5 MG TAB PO SCH (08:15)
[2017-11-17] MEDS: METFORMIN HCL 500 MG TAB PO SCH ×2 (08:15→17:48)
[2017-11-17] MEDS: BUDESONIDE/FORMOTEROL FUMARATE 160/4.5 60 PUFFS/INHALER INH SCH ×2 (08:15→19:44)
[2017-11-17] MEDS: NICOTINE 14 MG/24 HR TDSY TD SCH (08:15)
[2017-11-17] MEDS: POTASSIUM CHLORIDE 20 MEQ TABCR PO SCH (08:16)
[2017-11-17] MEDS: METOPROLOL TARTRATE 25 MG TAB PO SCH ×2 (08:16→19:46)
[2017-11-17] MEDS: INSULIN ASPART 100 UNITS/ML 3 ML PEN SC SCH ×4 (08:23→21:14)
--- NOTE | 2017-11-17 08:29 | PULMONARY PROGRESS NOTE ---
DATE: 11/17/2017 TIME: 8:05 a.m. SUBJECTIVE: The patient insists that he is feeling much better. He states he has no cough. Still somewhat short of breath, but mild. He is very anxious for discharge with the Easter being tomorrow and he states he has a lot of visitors at his home from his family. OBJECTIVE: GENERAL: The patient appeared comfortable at rest, although I could hear wheezes without a stethoscope. VITAL SIGNS: Temperature is 36.4. ENT: Unremarkable. HEART: Heart rate was 95 per minute. The rhythm was regular. CHEST: Auscultation revealed wheezes heard better anteriorly than posteriorly. There was prolongation to the expiratory phase of respiration. His respiratory rate was 22 per minute. The oxygen saturation was 95%, but he did have 2 liter nasal cannula on at that time. EXTREMITIES: Showed no cyanosis, clubbing or edema. Electrolytes today show sodium 133, potassium 4.5, chloride 99, bicarbonate 28. BUN was 30 with a creatinine of 0.99. Blood sugar this morning 250. White count today is 20.89. Yesterday was 14.68. Hemoglobin is 12.6. Platelets 380,000. The elevated white count could be related to steroids. IMPRESSIONS: 1. Chronic obstructive pulmonary disease with exacerbation. 2. Small right base infiltrate reported on admission chest x-ray. 3. Emphysema. 4. Granuloma of the right lung. COMMENTS AND RECOMMENDATIONS: The patient is anxious for discharge. He has definitely improved though certainly far from clear. I do not know if he always wheezes some or not. I am going to order a PA and lateral chest x-ray for this morning to make sure that the infiltrate has not progressed. I would then suggest ambulating the patient on room air and seeing how he does. If he does very well without significant symptoms or desaturations, he may be able for discharge later today. I would change his steroids to oral and see how he does with that. I would continue with his neb treatments as present. The patient does have oxygen at home for overnight but does not have portable. A 2-step likely should be done prior to discharge.
--- NOTE | 2017-11-17 09:12 | DIAGNOSTIC IMAGING REPORT ---
TWO VIEW CHEST CLINICAL HISTORY: Hypoxia. COPD exacerbation. FINDINGS: PA and lateral chest radiographs are compared to study dated 11/16/2017 and correlated with chest CT dated 10/04/2018. The heart is top normal for projection and there is atherosclerotic calcification of the thoracic aorta. Emphysema and chronic interstitial thickening are similar to previous. No airspace consolidation or pleural effusion is identified. Mild bibasilar atelectasis is observed. There is no pneumothorax. The skeletal structures are osteopenic. The bony thorax appears intact. IMPRESSION: Emphysema with no acute cardiopulmonary abnormality. Consolidative change at the right lung base questioned yesterday is less apparent and likely represented atelectasis. Electronically signed by: Harrison Salazar M.D. 11/17/2017 9:11 AM Dictated Date/Time: 11/17/2017 9:09 AM
[2017-11-17] MEDS: LEVOFLOXACIN 500 MG TAB PO SCH (11:10)
--- NOTE | 2017-11-17 14:10 | Progress Note ---
Subjective Date of Service: Nov 17, 2017. Subjective Pt evaluation today including: conversation w/ patient, physical exam, chart review, lab review, review of inpatient medication list Generally feeling better, however still cough and wheezing, labored breathing when up and walk, denies fever and chills, sometimes has tachycardia, Problem List Medical Problems: (1) Bronchitis Status: Acute (2) COPD exacerbation Status: Acute (3) Respiratory acidosis Status: Acute (4) Sepsis Status: Acute Review of Systems Constitutional: + weakness, + fatigue, No fever, No chills, No sweats, No weight loss, No problem reported Eyes: No worsening of vision, No eye pain, No redness, No discharge, No diplopia ENT: No hearing loss, No unusual epistaxis, No nasal symptoms, No sore throat, No tinnitus, No dental problems, No trouble swallowing Respiratory: + cough, + wheezing, + shortness of breath, No sputum, No dyspnea on exertion, No dyspnea at rest, No hemoptysis Cardiac: No chest pain, No orthopnea, No PND, No edema, No claudication, No palpitations Abdomen: No pain, No nausea, No vomiting, No diarrhea, No constipation Musculoskeletal: No joint pain, No muscle pain, No swelling, No calf pain Male : No dysuria, No urinary frequency, No incontinence, No nocturia more than once/night, No slowing stream, No hematuria Neurologic: No memory loss, No paralysis, No weakness, No numbness/tingling, No vertigo, No balance problems Psychiatric: No depression symptoms, No anhedonism, No anxiety, No insomnia, No substance abuse Heme: No abnormal bleeding/bruising, No clotting problems, No swollen lymph nodes, No night sweats Endo: No fatigue, No excessive thirst, No excessive urination Skin: No rash, No itch, No new/changing skin lesions, No color change, No bleeding Objective Vital Signs Date Time Temp Pulse Resp B/P (MAP) Pulse Ox O2 Delivery O2 Flow Rate FiO2 11/17/17 11:21 89 18 96 Room Air 11/17/17 08:10 Room Air 11/17/17 07:58 36.3 126 22 130/75 (93) 91 Room Air 11/17/17 07:08 95 18 94 Room Air 11/17/17 00:10 36.4 96 20 148/76 (100) 90 Room Air 11/16/17 23:30 Room Air 2.0 Nasal Cannula 11/16/17 20:25 103 150/83 (105) 11/16/17 19:44 107 18 93 Room Air 11/16/17 16:00 Room Air 11/16/17 15:43 95 20 96 Nasal Cannula 2.0 11/16/17 14:47 36.4 97 20 129/75 (93) 100 2.0 Physical Exam General Appearance: WD/WN, no apparent distress Eyes: normal inspection, PERRL, EOMI, sclerae normal ENT: normal ENT inspection, hearing grossly normal, pharynx normal Neck: supple, no adenopathy, thyroid normal, no JVD, no carotid bruits, trachea midline Respiratory/Chest: chest non-tender, normal breath sounds, no respiratory distress, no accessory muscle use, + decreased breath sounds, + wheezing Cardiovascular: regular rate, rhythm, no edema, no gallop, no JVD, no murmur Abdomen: normal bowel sounds, non tender, soft, no organomegaly, no pulsatile mass Extremities: normal range of motion, non-tender, normal inspection, no pedal edema, no calf tenderness, normal capillary refill, pelvis stable Neurologic/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: 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 tested, no motor/sensory deficits, alert, normal mood/affect, oriented x 3 Skin: normal color, warm/dry, no rash Lymphatic: no adenopathy Laboratory Results Last 24 Hours Test 11/16/17 16:46 11/16/17 20:13 11/17/17 05:32 11/17/17 07:41 Bedside Glucose 250 mg/dl 232 mg/dl 250 mg/dl White Blood Count 20.89 K/uL Red Blood Count 4.18 M/uL Hemoglobin 12.6 g/dL Hematocrit 37.4 % Mean Corpuscular Volume 89.5 fL Mean Corpuscular Hemoglobin 30.1 pg Mean Corpuscular Hemoglobin Concent 33.7 g/dl Platelet Count 380 K/uL Mean Platelet Volume 11.0 fL Neutrophils (%) (Auto) 88.9 % Lymphocytes (%) (Auto) 3.8 % Monocytes (%) (Auto) 5.0 % Eosinophils (%) (Auto) 0.0 % Basophils (%) (Auto) 0.1 % Neutrophils # (Auto) 18.59 K/uL Lymphocytes # (Auto) 0.79 K/uL Monocytes # (Auto) 1.04 K/uL Eosinophils # (Auto) 0.00 K/uL Basophils # (Auto) 0.02 K/uL RDW Standard Deviation 51.0 fL RDW Coefficient of Variation 15.6 % Immature Granulocyte % (Auto) 2.2 % Immature Granulocyte # (Auto) 0.45 K/uL Sodium Level 133 mmol/L Potassium Level 4.5 mmol/L Chloride Level 99 mmol/L Carbon Dioxide Level 28 mmol/L Anion Gap 6.0 mmol/L Blood Urea Nitrogen 30 mg/dl Creatinine 0.99 mg/dl Est Creatinine Clear Calc Drug Dose 64.6 ml/min Estimated GFR () 86.0 Estimated GFR (Non- 74.2 BUN/Creatinine Ratio 29.7 Random Glucose 276 mg/dl Estimated Average Glucose 186 mg/dl Hemoglobin A1c 8.1 % Calcium Level 8.2 mg/dl Test 11/17/17 11:27 Bedside Glucose 226 mg/dl Assessment and Plan 77-year-old white male admitted for respiratory distress on November 15, 2017, He already has 2 hospital admission for 2018 and is requiring supplemental oxygen. 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
[2017-11-17] MEDS: TAMSULOSIN HCL 0.4 MG CAP PO SCH (19:45)
[2017-11-17] MEDS: CLONAZEPAM 1 MG TAB PO SCH (21:24)
[2017-11-18 00:09] VITALS: BP 158/75; PULSE 103; TEMP 36.4; O2SAT 92
[2017-11-18] MEDS: HEPARIN SOD 5000 UNIT/0.5 ML CARP SQ SCH (06:01)
[2017-11-18 06:29] LABS: BASO % 0.1 %; BASO ABS # 0.02 K/uL (0-0.2); HEMATOCRIT 37.1 % (42-52); HEMOGLOBIN 12.6 g/dL (14.0-18.0); IG# 0.35 K/uL (0.00-0.02); LYMPH % 4.2 %; LYMPH ABS # 0.87 K/uL (1.2-3.4); MEAN CELL VOLUME 88.5 fL (80-100); MEAN CORPUSCULAR HEMOGLOBIN 30.1 pg (25-34); MONO % 9.5 %; MONO ABS # 1.96 K/uL (0.11-0.59); NEUT % 84.5 %; NEUT ABS # 17.47 K/uL (1.4-6.5); PLATELET COUNT 388 K/uL (130-400); RED CELL DISTRIBUTION WIDTH CV 15.8 % (11.5-14.5); RED CELL DISTRIBUTION WIDTH SD 50.5 fL (36.4-46.3); WHITE BLOOD COUNT 20.67 K/uL (4.8-10.8)
[2017-11-18 07:01] VITALS: PULSE 86; O2SAT 97
[2017-11-18] MEDS: ALBUT/IPRATROP 3MG/0.5MG NEB 3 ML VIAL INH SCH (07:01)
[2017-11-18 07:10] VITALS: BP 156/82; PULSE 94; TEMP 36.5; O2SAT 92
[2017-11-18 07:10] LABS: CALCIUM 8.2 mg/dl (8.5-10.1); CREATININE 0.88 mg/dl (0.60-1.40); PHOSPHORUS 3.5 mg/dl (2.5-4.9); POTASSIUM 4.4 mmol/L (3.5-5.1)
[2017-11-18] MEDS: ALBUTEROL 0.083% NEBU SOLN 3 ML VIAL INH SCH (07:21)
[2017-11-18] MEDS: METOPROLOL TARTRATE 25 MG TAB PO SCH (08:01)
[2017-11-18] MEDS: PANTOprazole SOD 40 MG TAB PO SCH (08:01)
[2017-11-18] MEDS: POTASSIUM CHLORIDE 20 MEQ TABCR PO SCH (08:02)
[2017-11-18] MEDS: BUDESONIDE/FORMOTEROL FUMARATE 160/4.5 60 PUFFS/INHALER INH SCH (08:02)
[2017-11-18] MEDS: METFORMIN HCL 500 MG TAB PO SCH (08:02)
[2017-11-18] MEDS: TIOTROPIUM BROMIDE 5 PUFF/90 MCG INH INH SCH (08:02)
[2017-11-18] MEDS: FINASTERIDE 5 MG TAB PO SCH (08:03)
[2017-11-18] MEDS: FUROSEMIDE 20 MG TAB PO SCH (08:03)
[2017-11-18] MEDS: GUAIFENESIN 600 MG TABCR PO SCH (08:03)
[2017-11-18] MEDS: RANITIDINE HCL 150 MG TAB PO SCH (08:04)
[2017-11-18] MEDS: NICOTINE 14 MG/24 HR TDSY TD SCH (08:04)
[2017-11-18] MEDS ORDERED: LVQ500 PO ×2 (08:18)
--- NOTE | 2017-11-18 08:18 | Discharge Instructions ---
Discharge Instructions Date of Service Nov 18, 2017. Admission Reason for Admission: Copd Exacerbation Discharge Discharge Diagnosis / Problem: possible pneumonia with right lung base infiltration, Discharge Goals Goal(s): Decrease discomfort, Improve function, Increase independence, Improve disease control, Improve nutritional status, Learn about illness, Diagnostic testing, Therapeutic intervention, Prevent Disease Progression, Specific goals Activity Recommendations Activity Limitations: resume your previous activity . Instructions / Follow-Up Instructions / Follow-Up you have COPD, Chronic obstructive pulmonary disease exacerbation, Acute respiratory failure, and possible pneumonia with pneumonia will give you antibiotics Levaquin, and tapering dose of oral Prednisone you need to follow-up dentist attendant in 1-2 weeks - you need to follow up with your primary care physician in 1 week for all of your medical conditions - take medication as instructed, never overdose or any misuse, or take with alcohol, because misuse of medicine may cause organ damage or , call your primary care physician if have questions of medicaitons. - call your primary care physician OR go to local emergency room if has any fever/chill, chest pain, shortness of breathing, nausea/vomiting/abdominal pain , facial droop/slurry speech/local weakness, or if has any questions. - fall precaution - diet as instructed - you need to follow up with your subspecialist Current Hospital Diet Patient's current hospital diet: AHA Diet (Heart Healthy), Diabetes Type 2 Diet Discharge Diet Recommended Diet: Diabetes Type 2 Diet Pending Studies Studies pending at discharge: no Laboratory Results Hemoglobin A1c Test 11/17/17 05:32 Range/Units Estimated Average Glucose 186 mg/dl Hemoglobin A1c 8.1 H 4.5-5.6 % Lipid Panel Test 10/15/17 07:48 Range/Units Triglycerides Level 121 0-150 mg/dl Cholesterol Level 190 0-200 mg/dl HDL Cholesterol 74 mg/dl Cholesterol/HDL Ratio 2.6 LDL Cholesterol, Calculated 92 mg/dl Medical Emergencies . Who to Call and When: Medical Emergencies: If at any time you feel your situation is an emergency, please call 911 immediately. . Non-Emergent Contact Non-Emergency issues call your: Primary Care Provider, Client Architect . . "Provider Documentation" section prepared by Trevor Langford. .
[2017-11-18] MEDS ORDERED: PRED10TA PO ×2 (08:21)
[2017-11-18] MEDS: INSULIN ASPART 100 UNITS/ML 3 ML PEN SC SCH (08:37)
[2017-11-18 09:09] VITALS: PULSE 96; O2SAT 98
[2017-11-18 09:10] VITALS: BP 156/82; PULSE 96; TEMP 36.5; O2SAT 98
[2017-11-18] MEDS: LEVOFLOXACIN 500 MG TAB PO SCH (09:19)
--- NOTE | 2017-11-18 13:15 | Discharge Summary ---
Discharge Summary Date of Service Nov 18, 2017. 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 Medication Reconciliation New Medications: Levofloxacin (Levofloxacin) 500 Mg Tab 500 MG PO DAILY@11 for 4 Days, TAB Continued Medications: Albuterol Sulf (Proventil 0.083% 2.5MG/3ML) 2.5 Mg/3 Ml Nebu 2.5 MG INH QID, EA Atorvastatin (Lipitor) 10 Mg Tab 10 MG PO PM Budesonide/Formoterol Fumarate (Symbicort 160/4.5 Inhaler ) Aero 2 PUFFS INH BID, INHALER Clonazepam (Klonopin) 1 Mg Tab 1 MG PO HS, TAB Finasteride (Proscar) 5 Mg Tab 5 MG PO QAM, TAB Furosemide (Furosemide) 20 Mg Tab 20 MG PO QAM for 14 Days, #14 TAB Guaifenesin Ext Rel (Mucinex Ext Rel) 600 Mg Tabcr 1200 MG PO Q12 for 7 Days, #28 TABS Ipratropium-Albuterol (Duoneb) 3 Ml Nebu 1 TREATMENT INH QID, INHA Metformin HCl (Metformin HCl) 500 Mg Tab 500 MG PO BID Metoprolol Tartrate (Lopressor) 25 Mg Tab 12.5 MG PO BID for 30 Days, #30 TAB Nicotine (Nicoderm Cq 14MG Patch) 14 Mg/24 Hr Dis 1 PATCH TD QAM for 14 Days, #14 PATCH Omeprazole (Prilosec) 40 Mg Cap 40 MG PO QAM, CAP Potassium Chloride (Klor-Con M20) 20 Meq Tabcr 1 TAB PO DAILY for 14 Days, #14 TABS Prednisone (Prednisone) 10 Mg Tab 10 MG PO UD, #30 TAB (This prescription has been renewed) take 40 mg x 3 days then 30 mg x 3 days then 20 mg x 3 days then 10 mg x 3 days Ranitidine HCl (Ranitidine HCl) 150 Mg Tab 150 MG PO DAILY Tamsulosin Hcl (Flomax) 0.4 Mg Cap 0.4 MG PO AFTERNOON, CAP Tiotropium [place] (Spiriva Respimat) 2.5 Mcg/Act Spr 2 PUFF INH DAILY, INHALER Tramadol (Ultram) 50 Mg Tab 50-100 MG PO QID PRN for Pain, TAB Trazodone Hcl (Desyrel) 50 Mg Tab 50-100 MG PO HS PRN for Sleep, TAB [Proair Hfa] () 2 PUFFS INH Q4H PRN for COPD EXACERBATION Discharge Exam Obvious wheezing and respiratory distress when talked to me, he said he was getting dressed and ready to go home Review of Systems: Constitutional: No fever, No chills, No sweats, No weight loss, No weakness , No fatigue, No problem reported Eyes: No worsening of vision, No eye pain, No redness, No discharge, No diplopia, No problem reported ENT: No hearing loss, No unusual epistaxis, No nasal symptoms, No sore throat, No tinnitus, No dental problems, No trouble swallowing, No problem reported Respiratory: + cough, + wheezing, + shortness of breath Cardiovascular: No chest pain, No orthopnea, No PND, No edema, No claudication, No palpitations, No problem reported Abdomen: No pain, No nausea, No vomiting, No diarrhea, No constipation, No GI bleeding, No problem reported Musculoskeletal: No joint pain, No muscle pain, No swelling, No calf pain, No problem reported Genitourinary - Male: No hematuria, No dysuria, No urinary frequency, No urinary urgency, No urinary hesitancy, No urinary retention, No urinary incontinence, No penile discharge, No lesions, No impotence, No problem reported Neurologic: No memory loss, No paralysis, No weakness, No numbness/tingling , No vertigo, No balance problems, No problem reported Psychiatric: No depression symptoms, No anhedonism, No anxiety, No insomnia , No substance abuse, No problem reported Endocrine: No fatigue, No excessive thirst, No excessive urination, No problem reported Integumentary: No rash, No itch, No new/changing skin lesions, No color change, No bleeding, No problem reported Physical Exam: General Appearance: WD/WN, no apparent distress Eyes: normal inspection, PERRL ENT: normal ENT inspection, hearing grossly normal Neck: supple, no adenopathy Respiratory/Chest: chest non-tender, + decreased breath sounds, + wheezing, + pertinent finding (Mild labored breathing when talking) Cardiovascular: regular rate, rhythm, no edema, no gallop, no JVD, normal peripheral pulses Abdomen / GI: normal bowel sounds, non tender, soft, no organomegaly, no pulsatile mass Extremities: normal inspection, no calf tenderness, normal capillary refill , no pedal edema, normal range of motion Neurologic/Psychiatric: clinical research scientist II-XII nml as tested, no motor/sensory deficits , alert, normal mood/affect, normal reflexes, oriented x 3 Skin: normal color, warm/dry Hospital Course 77-year-old white male admitted for respiratory distress on November 15, 2017, He already has 2 hospital admission for 2018 and is requiring supplemental oxygen. COPD, Chronic obstructive pulmonary disease exacerbation, Acute respiratory failure, possible pneumonia with right lung base infiltration, Has been stable improving, however this morning when I seen him seems obvious wheezing and shortness of breath, Has been on continue Levaquin, IV Solu-Medrol, DuoNeb scheduled and as neded, incentive spirometry, follow-up bankruptcy attorney input SH to oral Levaquin, change Solu-Medrol to oral prednisone, continue nebulizer treatment, Uncontrolled diabetic with severe hyperglycemia with type II diabetic, continue insulin sliding scale, Mild tachycardia likely from nebulizer treatment side effect of albuterol, hx of Bladder cancer, GI bleed, stable we will continue current care GI DVT prophylaxis is ordered, has ordered PT OT I was called to see patient at 9 AM this morning stat because he want to be released and to go home, when I seen him he was obvious labored breathing, wheezing, shortness of breath when talking, I asked respiratory therapist to give nebulizer treatment right now, And I was talking to him, I told patient that his medical condition is not ready for me to discharge him home yet, per nurse, patient was talking want to leave AGAINST MEDICAL ADVICE before I coming up and if not discharged him right away. In bedside I discussed with patient again, I told him against medical advice may cause permanent organ damage or even , patient is awake, alert and orientated x3, I believe patient is competent to make decision by self. patient fully understands and wants to take all risks by self. I also told patient that your medical condition is not ready for your doctor to discharge you to home. you need to go back to emergency room or call your primary care physician if changed mind and wants to be treated. AMA document signed Instructions / Follow-Up you have COPD, Chronic obstructive pulmonary disease exacerbation, Acute respiratory failure, and possible pneumonia with pneumonia will give you antibiotics Levaquin, and tapering dose of oral Prednisone you need to follow-up bankruptcy attorney in 1-2 weeks - you need to follow up with your primary care physician in 1 week for all of your medical conditions - take medication as instructed, never overdose or any misuse, or take with alcohol, because misuse of medicine may cause organ damage or , call your primary care physician if have questions of medicaitons. - call your primary care physician OR go to local emergency room if has any fever/chill, chest pain, shortness of breathing, nausea/vomiting/abdominal pain , facial droop/slurry speech/local weakness, or if has any questions. - fall precaution - diet as instructed - you need to follow up with your subspecialist Total Time Spent: Greater than 30 minutes This includes examination of the patient, discharge planning, medication reconciliation, and communication with other providers. Discharge Instructions Please refer to the electronic Patient Visit Report (Discharge Instructions) for additional information. Additional Copies To Harrison Vicente M.D.
[2017-11-26] MEDS ORDERED: POTA20TA16 PO (23:36)
== END 2017-11-18 11:59 | disposition left against medical advice (07) | DRG 190 ==
LOC: C.4E 10:52
PROVIDERS: ADMIT Internal Medicine; ATTEND Hospitalist
DX: J44.1 Chronic obstructive pulmonary disease with (acute) exacerbation (principal); J18.9 Pneumonia, unspecified organism; J96.00 Acute respiratory failure, unspecified whether with hypoxia or hypercapnia; I50.30 Unspecified diastolic (congestive) heart failure; F17.200 Nicotine dependence, unspecified, uncomplicated; Z88.8 Allergy status to other drugs, medicaments and biological substances; Z82.3 Family history of stroke; R07.89 Other chest pain

== ENCOUNTER 2017-11-26 20:55 | Inpatient (IN) | payer BC, OTHER ==
[~2017-11-26] VITALS: Ht 167.6 cm; Wt 86.8 kg
[~2017-11-26 20:55] MED LIST changes: +LVQ500 PO
[2017-11-26] MEDS ORDERED: ALBUT/IPRATROP 3MG/0.5MG NEB 3 ML VIAL INH STA ×3 (21:34→22:54)
[2017-11-26] MEDS ORDERED: METHYLPREDNISOLONE 125 MG VIAL IV STA (21:34)
--- NOTE | 2017-11-26 21:34 | EMERGENCY ROOM VISIT NOTE ---
History Report prepared by Kelly: Vasyl Ferguson Under the Supervision of: Dr. Saroj Blandon M.D. First contact with patient: 21:30 Chief Complaint: CARDIAC ASSESSMENT Stated Complaint: SOB, PAIN IN CHEST- HX COPD Nursing Triage Summary: Patient c/o chest pain, chest congestion, and cold-like s/s x1 week. States he was signed out AMA last week. Hx: COPD. History of Present Illness The patient is a 77 year old male who presents to the Emergency Room with complaints of worsening shortness of breath beginning earlier today. The patient states he has a history of COPD and still smokes. He reports he wears oxygen at night when he sleeps. The patient notes he also used a nebulizer at home 6 hours ago, and it helped his shortness of breath normally. He denies a history of CHF and cardiac problems. He also denies chest pain, hemoptysis, fevers, nausea, vomiting, melena, hematuria, and blood in his stool. Source of History: patient Onset: earlier today Quality: other (SOB) Timing: worsening Modifying Factors (Relieving): other (nebulizer) Associated Symptoms: No nausea, No vomiting Note: Denies: blood in stool Review of Systems See HPI for pertinent positives and negatives. A total of ten systems were reviewed and were otherwise negative. Past Medical & Surgical Medical Problems: (1) Bladder cancer (2) COPD (chronic obstructive pulmonary disease) (3) COPD Exacerbation (4) GI bleed Family History Brain Mass Kidney disease Lung Disease Stroke Social History Smoking Status: Current Every Day Smoker Drug Use: none Marital Status: Housing Status: lives alone Occupation Status: retired Current/Historical Medications Scheduled Albuterol Sulf (Proventil 0.083% 2.5MG/3ML), 2.5 MG INH QID Atorvastatin (Lipitor), 10 MG PO PM Budesonide/Formoterol Fumarate (Symbicort 160/4.5 Inhaler ), 2 PUFFS INH BID Clonazepam (Klonopin), 1 MG PO HS Finasteride (Proscar), 5 MG PO QAM Furosemide (Lasix), 20 MG PO QAM Ipratropium-Albuterol (Duoneb), 1 TREATMENT INH QID Metformin HCl (Metformin HCl), 500 MG PO BID Metoprolol Tartrate (Lopressor) (Lopressor), 12.5 MG PO BID Nicotine (Nicoderm Cq 14MG Patch), 1 PATCH TD QAM Omeprazole (Prilosec), 40 MG PO QAM Potassium Ext Rel (Klor-Con), 20 MEQ PO DAILY Prednisone (Prednisone), MG PO QAM Ranitidine HCl (Ranitidine HCl), 150 MG PO DAILY Tamsulosin Hcl (Flomax), 0.4 MG PO AFTERNOON Tiotropium [place] (Spiriva Respimat), 2 PUFF INH DAILY Scheduled PRN Albuterol Sulfate (Proair Respiclick), 2 PUFFS INH Q4H PRN for COPD EXACERBATION Trazodone Hcl (Desyrel), 50-100 MG PO HS PRN for Sleep Allergies Coded Allergies: Pravastatin (Verified Adverse Reaction, Unknown, muscle aches, 11/26/17) Physical Exam Vital Signs Date Time Temp Pulse Resp B/P (MAP) Pulse Ox O2 Delivery O2 Flow Rate FiO2 11/27/17 01:05 115 18 130/83 92 Nasal Cannula 2.0 11/26/17 23:09 123 20 132/72 99 Nebulizer 11/26/17 22:21 109 133/87 97 Nebulizer 11/26/17 21:31 117 11/26/17 21:14 37.4 124 30 137/93 99 Nasal Cannula 2.0 11/26/17 21:11 Room Air 11/26/17 20:58 94 Room Air 11/26/17 20:58 36.7 122 22 136/72 94 Room Air Physical Exam Physical Exam GENERAL: He is oriented to person, place, and time. He appears well-developed and well-nourished. He does not appear distressed. ____ HENT: Exam performed. Head: Normocephalic and atraumatic. Right Ear: External ear normal. No mastoid tenderness. Left Ear: External ear normal. No mastoid tenderness. Mouth/Throat: The oropharynx is clear and moist. No trismus in the jaw. No dental abscesses or uvula swelling. No oropharyngeal exudate or tonsillar abscesses. ____ EYES: Conjunctivae and EOM are normal. Pupils are equal, round, and reactive to light. Right eye exhibits no discharge. Left eye exhibits no discharge. No scleral icterus. ____ NECK: Normal range of motion. Neck supple. No JVD present. No spinous process tenderness present. No carotid bruit present. No rigidity. No tracheal deviation and normal range of motion present. No Brudzinski's sign and no Kernig 's sign noted. ____ CV: Tachycardic rate, regular rhythm, normal heart sounds and intact distal pulses. There is no peripheral edema. Palpable radial pulses bue. ____ PULM/CHEST: He has bilateral wheezes. He has no rales. Chest Wall: He exhibits no tenderness. ____ ABD: The abdomen is soft. Bowel sounds are normal. He has no distension. No mass is present. There is no tenderness. There is no rebound, no guarding, no Anglin's sign and no tenderness at McBurney's point. Rovsig negative MUSC/SKEL: Normal range of motion. There is no peripheral edema, tenderness or deformity. LYMPH: No cervical adenopathy. ____ NEURO: He is alert and oriented to person, place, and time. He has normal strength. No cranial nerve deficit or sensory deficit. Coordination and gait normal. GCS eye subscore is 4. GCS verbal subscore is 5. GCS motor subscore is 6. Cerebellar tests wnl. ____ SKIN: Skin is warm and dry. He is not diaphoretic. ____ PSYCH: He has a normal mood and affect. His behavior is normal. Judgment and thought content normal. ____ Medical Decision & Procedures ER Provider Diagnostic Interpretation: X-ray: Per my interpretation, radiologist review. SINGLE VIEW CHEST CLINICAL HISTORY: COPD. Dyspnea and wheezing. FINDINGS: An AP, portable, upright chest radiograph is compared to study dated 11/17/2017 and correlated with chest CT dated 10/04/2017. The examination is degraded by portable technique and patient rotation. The heart is enlarged and there is atherosclerotic calcification of the thoracic aorta. The pulmonary vasculature is noncongested. Enlargement the central pulmonary arteries suggests pulmonary artery hypertension. Advanced emphysema and chronic interstitial thickening are similar to previous. No airspace consolidation or large pleural effusion is identified. No pneumothorax is seen. The skeletal structures are osteopenic. Chronic posttraumatic deformity is noted in the left clavicle. IMPRESSION: Cardiomegaly and emphysema with no acute cardiopulmonary abnormality. Electronically signed by: Harrison Salazar M.D. 11/26/2017 9:49 PM Dictated Date/Time: 11/26/2017 9:47 PM Laboratory Results 11/26/17 22:07 Red Blood Count 4.46, Mean Corpuscular Volume 90.4, Mean Corpuscular Hemoglobin 30.0, Mean Corpuscular Hemoglobin Concent 33.3, Mean Platelet Volume 10.3, Neutrophils (%) (Auto) 75.9, Lymphocytes (%) (Auto) 9.3, Monocytes (%) (Auto) 10.3, Eosinophils (%) (Auto) 0.5, Basophils (%) (Auto) 0.1, Neutrophils # (Auto ) 17.75, Lymphocytes # (Auto) 2.17, Monocytes # (Auto) 2.41, Eosinophils # (Auto ) 0.11, Basophils # (Auto) 0.03 11/26/17 22:07 Test 11/26/17 22:00 11/26/17 22:07 11/26/17 22:10 Lactic Acid Level 1.4 mmol/L (0.4-2.0) White Blood Count 23.38 K/uL (4.8-10.8) Red Blood Count 4.46 M/uL (4.7-6.1) Hemoglobin 13.4 g/dL (14.0-18.0) Hematocrit 40.3 % (42-52) Mean Corpuscular Volume 90.4 fL (80-100) Mean Corpuscular Hemoglobin 30.0 pg (25-34) Mean Corpuscular Hemoglobin Concent 33.3 g/dl (32-36) Platelet Count 365 K/uL (130-400) Mean Platelet Volume 10.3 fL (7.4-10.4) Neutrophils (%) (Auto) 75.9 % Lymphocytes (%) (Auto) 9.3 % Monocytes (%) (Auto) 10.3 % Eosinophils (%) (Auto) 0.5 % Basophils (%) (Auto) 0.1 % Neutrophils # (Auto) 17.75 K/uL (1.4-6.5) Lymphocytes # (Auto) 2.17 K/uL (1.2-3.4) Monocytes # (Auto) 2.41 K/uL (0.11-0.59) Eosinophils # (Auto) 0.11 K/uL (0-0.5) Basophils # (Auto) 0.03 K/uL (0-0.2) RDW Standard Deviation 51.6 fL (36.4-46.3) RDW Coefficient of Variation 15.7 % (11.5-14.5) Immature Granulocyte % (Auto) 3.9 % Immature Granulocyte # (Auto) 0.91 K/uL (0.00-0.02) Anion Gap 9.0 mmol/L (3-11) Est Creatinine Clear Calc Drug Dose 82.4 ml/min Estimated GFR () 101.3 Estimated GFR (Non- 87.4 BUN/Creatinine Ratio 15.9 (10-20) Calcium Level 8.3 mg/dl (8.5-10.1) Magnesium Level 2.1 mg/dl (1.8-2.4) Troponin I < 0.015 ng/ml (0-0.045) Pro-B-Type Natriuretic Peptide 504 pg/ml (0-900) Influenza Type A Antigen Neg for Influ A (NEG) Influenza Type B Antigen Neg for Influ B (NEG) Venous Blood pH 7.43 (7.36-7.41) Venous Blood Partial Pressure CO2 45 mmHg (38.0-50.0) Venous Blood Partial Pressure O2 31 mmHg Venous Blood HCO3 29 mmol/L Venous Blood Oxygen Saturation 60.1 % Venous Blood Base Excess 4.4 mEq/L Laboratory results reviewed by me Medications Administered Medications (Trade) Dose Ordered Sig/Khurram Route Start Time Stop Time Status Last Admin Dose Admin Albuterol/ Ipratropium (Duoneb) 3 ml NOW STAT INH 11/26/17 21:34 11/26/17 21:38 DC 11/26/17 21:47 3 ML Methylprednisolone Sodium Succinate (Solu-Medrol IV) 125 mg NOW STAT IV 11/26/17 21:34 11/26/17 21:38 DC 11/26/17 22:09 125 MG Albuterol/ Ipratropium (Duoneb) 3 ml NOW STAT INH 11/26/17 22:12 11/26/17 22:13 DC 11/26/17 22:20 3 ML Albuterol/ Ipratropium (Duoneb) 3 ml NOW STAT INH 11/26/17 22:54 11/26/17 22:55 DC 11/26/17 23:07 3 ML ECG Per My Interpretation Indication: SOB/dyspnea Rate (beats per minute): 112 Rhythm: sinus tachycardia Findings: PVC (Multiple present), other ([place], QTc, & QRS are wnl. No ST elevation or depression.) ED Course 2130: The patient was evaluated in room B11B. A complete history and physical exam was performed. 2133: Ordered Solu-Medrol IV 125mg IV, Duoneb 3ml INH 2211: Ordered Duoneb 3ml INH 4: Ordered Duoneb 3ml INH 2318: Status post three breathing treatments, the patient's peak flow was below 200. He feels he needs more breathing treatment and management. He agreed to be evaluated by the hospitalist. The patient agrees not to sign out AMA. I discussed the test results and treatment plan with him. The patient will be evaluated for further management. I discussed the patient's case with Dr. Richardson [facility] Hospitalist. The patient will be evaluated for further management and care. Medical Decision Status post three breathing treatments, the patient's peak flow was below 200. He feels he needs more breathing treatment and management. He agreed to be evaluated by the hospitalist. The patient agrees not to sign out AMA. I discussed the test results and treatment plan with him. The patient will be evaluated for further management. I discussed the patient's case with Dr. Richardson [facility] Hospitalist. The patient will be evaluated for further management and care. Medication Reconcilliation Current Medication List: was personally reviewed by me Blood Pressure Screening Patient's blood pressure: Normal blood pressure Blood pressure disposition: Did not require urgent referral Consults Time Called: 2313 Consulting Physician: Dr. Richardson [facility] Hospitalist Returned Call: [phone] I discussed the patient's case with Dr. Richardson [facility] Hospitalist. The patient will be evaluated for further management and care. Impression Primary Impression: COPD exacerbation Scribe Attestation The scribe's documentation has been prepared under my direction and personally reviewed by me in its entirety. I confirm that the note above accurately reflects all work, treatment, procedures, and medical decision making performed by me. The chart was completed utilizing [employer] voice recognition software. Grammatical errors, random word insertions, pronoun errors, and incomplete sentences are an occasional consequence of this system due to software limitations, ambient noise, and hardware issues. Any formal questions or concerns about the content, text, or information contained within the body of this dictation should be directly addressed to the physician for clarification. Departure Information Dispostion Being Evaluated By Hospitalist Referrals Harrison Vicente M.D. (PCP) Patient Instructions My [facility]
--- NOTE | 2017-11-26 21:50 | DIAGNOSTIC IMAGING REPORT ---
SINGLE VIEW CHEST CLINICAL HISTORY: COPD. Dyspnea and wheezing. FINDINGS: An AP, portable, upright chest radiograph is compared to study dated 11/17/2017 and correlated with chest CT dated 10/04/2017. The examination is degraded by portable technique and patient rotation. The heart is enlarged and there is atherosclerotic calcification of the thoracic aorta. The pulmonary vasculature is noncongested. Enlargement the central pulmonary arteries suggests pulmonary artery hypertension. Advanced emphysema and chronic interstitial thickening are similar to previous. No airspace consolidation or large pleural effusion is identified. No pneumothorax is seen. The skeletal structures are osteopenic. Chronic posttraumatic deformity is noted in the left clavicle. IMPRESSION: Cardiomegaly and emphysema with no acute cardiopulmonary abnormality. Electronically signed by: Harrison Salazar M.D. 11/26/2017 9:49 PM Dictated Date/Time: 11/26/2017 9:47 PM
[2017-11-26 22:20] LABS: HEMATOCRIT 40.3 % (42-52); HEMOGLOBIN 13.4 g/dL (14.0-18.0); MEAN CELL VOLUME 90.4 fL (80-100); MEAN CORPUSCULAR HGB CONC 33.3 g/dl (32-36); MEAN PLATELET VOLUME 10.3 fL (7.4-10.4); PLATELET COUNT 365 K/uL (130-400); RED CELL DISTRIBUTION WIDTH CV 15.7 % (11.5-14.5); RED CELL DISTRIBUTION WIDTH SD 51.6 fL (36.4-46.3); WHITE BLOOD COUNT 23.38 K/uL (4.8-10.8)
[2017-11-26 22:40] LABS: BASO % 0.1 %; BASO ABS # 0.03 K/uL (0-0.2); BLOOD UREA NITROGEN 13 mg/dl (7-18); CALCIUM 8.3 mg/dl (8.5-10.1); CARBON DIOXIDE 27 mmol/L (21-32); EOS % 0.5 %; EOS ABS # 0.11 K/uL (0-0.5); GLUCOSE 128 mg/dl (70-99); IG# 0.91 K/uL (0.00-0.02); LYMPH % 9.3 %; LYMPH ABS # 2.17 K/uL (1.2-3.4); MONO % 10.3 %; MONO ABS # 2.41 K/uL (0.11-0.59); NEUT % 75.9 %; NEUT ABS # 17.75 K/uL (1.4-6.5); SODIUM 137 mmol/L (136-145)
[2017-11-26 22:47] LABS: INFLUENZA B ANTIGEN Neg for Influ B (NEG)
[2017-11-26] MEDS ORDERED: POTA-639 PO (23:36)
[2017-11-26] MEDS ORDERED: FURO-85 PO (23:36)
[2017-11-26] MEDS ORDERED: ALBU18002 INH (23:36)
[2017-11-26] MEDS ORDERED: METO25TA56 PO (23:36)
[2017-11-26] MEDS ORDERED: NICO14DI31 TD (23:36)
[2017-11-26] MEDS ORDERED: PRED10TA PO (23:36)
[2017-11-27] VITALS (10 sets, daily range): BP systolic 132–170; BP diastolic 55–85; PULSE 88–116; TEMP 36.5–36.8; O2SAT 94–99; BMI 30.9
[2017-11-27] MEDS ORDERED: TRAZODONE HCL 100 MG TAB PO PRN (02:45)
[2017-11-27] MEDS ORDERED: ALBUTEROL 0.083% NEBU SOLN 3 ML VIAL INH PRN ×2 (02:45→12:15)
--- NOTE | 2017-11-27 02:52 | History and Physical ---
History & Physical Date & Time of Service: Nov 27, 2017 at 02:37 Chief Complaint: Sob, Pain In Chest- Hx Copd Primary Care Physician: Harrison Vicente M.D. History of Present Illness Source: patient 77 y/o M Hx COPD, [place], HTN, PE/DVT, myeloproliferative disorder with chronic leukocytosis, DM II, HLD, Tobacco User. The pt frequently presents to the hospital owing to COPD exacerbations. He was recently in the ER for an exacerbation and signed out AMA. It is also noted that his last full admission - also related to COPD - was at the beginning of the month. He presents with progressive SOB and wheezing. He denies a productive cough, fevers or CP. The pt has been on 2L 02 at home in addition to a low dose of Prednisone. Past Medical/Surgical History 1. COPD 2. AUSTIN on 2 L NC at Night 3. HTN 4. H/O PE/DVT 5. Myeloproliferative disease - chronic leukocytosis 6. T2DM 7. HLD 8. Current Tobacco User Family History Brain Mass Kidney disease Lung Disease Stroke Social History Smoking Status: Current Every Day Smoker Drug Use: none Marital Status: Housing status: lives alone Occupational Status: retired Allergies Coded Allergies: Pravastatin (Verified Adverse Reaction, Unknown, muscle aches, 11/26/17) Home Medications Scheduled Albuterol Sulf (Proventil 0.083% 2.5MG/3ML), 2.5 MG INH QID Atorvastatin (Lipitor), 10 MG PO PM Budesonide/Formoterol Fumarate (Symbicort 160/4.5 Inhaler ), 2 PUFFS INH BID Clonazepam (Klonopin), 1 MG PO HS Finasteride (Proscar), 5 MG PO QAM Furosemide (Lasix), 20 MG PO QAM Ipratropium-Albuterol (Duoneb), 1 TREATMENT INH QID Metformin HCl (Metformin HCl), 500 MG PO BID Metoprolol Tartrate (Lopressor) (Lopressor), 12.5 MG PO BID Nicotine (Nicoderm Cq 14MG Patch), 1 PATCH TD QAM Omeprazole (Prilosec), 40 MG PO QAM Potassium Ext Rel (Klor-Con), 20 MEQ PO DAILY Prednisone (Prednisone), MG PO QAM Ranitidine HCl (Ranitidine HCl), 150 MG PO DAILY Tamsulosin Hcl (Flomax), 0.4 MG PO AFTERNOON Tiotropium [place] (Spiriva Respimat), 2 PUFF INH DAILY Scheduled PRN Albuterol Sulfate (Proair Respiclick), 2 PUFFS INH Q4H PRN for COPD EXACERBATION Trazodone Hcl (Desyrel), 50-100 MG PO HS PRN for Sleep Review of Systems Constitutional: No fever, No chills, No sweats Eyes: No worsening of vision ENT: No hearing loss, No unusual epistaxis, No nasal symptoms Respiratory: + cough, + wheezing, + shortness of breath, + dyspnea on exertion , + dyspnea at rest Cardiovascular: No chest pain, No orthopnea, No PND Abdomen: No pain Musculoskeletal: No joint pain Genitourinary - Male: No hematuria Neurologic: No memory loss, No paralysis Psychiatric: No depression symptoms Endocrine: No fatigue Hematologic / Lymphatic: No abnormal bleeding/bruising Integumentary: No rash Allergic / Immunologic: No environmental allergies Physical Exam Vital Signs Date Time Temp Pulse Resp B/P (MAP) Pulse Ox O2 Delivery O2 Flow Rate FiO2 11/27/17 01:24 109 11/27/17 01:05 115 18 130/83 92 Nasal Cannula 2.0 11/26/17 23:09 123 20 132/72 99 Nebulizer 11/26/17 22:21 109 133/87 97 Nebulizer 11/26/17 21:31 117 11/26/17 21:14 37.4 124 30 137/93 99 Nasal Cannula 2.0 11/26/17 21:11 Room Air 11/26/17 20:58 94 Room Air 11/26/17 20:58 36.7 122 22 136/72 94 Room Air General Appearance: WD/WN Head: normocephalic Eyes: normal inspection ENT: normal ENT inspection, pharynx normal Neck: supple, no JVD Respiratory/Chest: + pertinent finding (Poor air movement without clear crackles or wheezing) Cardiovascular: regular rate, rhythm, no edema, no gallop Abdomen/GI: normal bowel sounds Back: normal inspection Extremities/Musculoskelatal: normal inspection, no calf tenderness, normal capillary refill Neurologic/Psych: plate cutter II-XII nml as tested, no motor/sensory deficits, alert, oriented x 3 Skin: normal color Diagnostics Laboratory Results Results Past 24 Hours Test 11/26/17 22:00 11/26/17 22:07 11/26/17 22:10 Range/Units Lactic Acid Level 1.4 0.4-2.0 mmol/L White Blood Count 23.38 4.8-10.8 K/uL Red Blood Count 4.46 4.7-6.1 M/uL Hemoglobin 13.4 14.0-18.0 g/dL Hematocrit 40.3 42-52 % Mean Corpuscular Volume 90.4 80-100 fL Mean Corpuscular Hemoglobin 30.0 25-34 pg Mean Corpuscular Hemoglobin Concent 33.3 32-36 g/dl Platelet Count 365 130-400 K/uL Mean Platelet Volume 10.3 7.4-10.4 fL Neutrophils (%) (Auto) 75.9 % Lymphocytes (%) (Auto) 9.3 % Monocytes (%) (Auto) 10.3 % Eosinophils (%) (Auto) 0.5 % Basophils (%) (Auto) 0.1 % Neutrophils # (Auto) 17.75 1.4-6.5 K/uL Lymphocytes # (Auto) 2.17 1.2-3.4 K/uL Monocytes # (Auto) 2.41 0.11-0.59 K/uL Eosinophils # (Auto) 0.11 0-0.5 K/uL Basophils # (Auto) 0.03 0-0.2 K/uL RDW Standard Deviation 51.6 36.4-46.3 fL RDW Coefficient of Variation 15.7 11.5-14.5 % Immature Granulocyte % (Auto) 3.9 % Immature Granulocyte # (Auto) 0.91 0.00-0.02 K/uL Sodium Level 137 136-145 mmol/L Potassium Level 4.0 3.5-5.1 mmol/L Chloride Level 101 98-107 mmol/L Carbon Dioxide Level 27 21-32 mmol/L Anion Gap 9.0 3-11 mmol/L Blood Urea Nitrogen 13 7-18 mg/dl Creatinine 0.80 0.60-1.40 mg/dl Est Creatinine Clear Calc Drug Dose 82.4 ml/min Estimated GFR () 101.3 Estimated GFR (Non- 87.4 BUN/Creatinine Ratio 15.9 10-20 Random Glucose 128 70-99 mg/dl Calcium Level 8.3 8.5-10.1 mg/dl Magnesium Level 2.1 1.8-2.4 mg/dl Troponin I < 0.015 0-0.045 ng/ml Pro-B-Type Natriuretic Peptide 504 0-900 pg/ml Influenza Type A Antigen Neg for Influ A NEG Influenza Type B Antigen Neg for Influ B NEG Venous Blood pH 7.43 7.36-7.41 Venous Blood Partial Pressure CO2 45 38.0-50.0 mmHg Venous Blood Partial Pressure O2 31 mmHg Venous Blood HCO3 29 mmol/L Venous Blood Oxygen Saturation 60.1 % Venous Blood Base Excess 4.4 mEq/L Diagnostic Radiology Cardiomegaly and emphysema with no acute cardiopulmonary abnormality. Impression Assessment and Plan 77 y/o M Hx COPD, [place], HTN, PE/DVT, myeloproliferative disorder with chronic leukocytosis, DM II, HLD, Tobacco User. The pt frequently presents to the hospital owing to COPD exacerbations. He was recently in the ER for an exacerbation and signed out AMA. It is also noted that his last full admission - also related to COPD - was at the beginning of the month. He presents with progressive SOB and wheezing. He denies a productive cough, fevers or CP. The pt has been on 2L 02 at home in addition to a low dose of Prednisone. 1) COPD exacerbation - placed on IV steroids, abx, nebs, 02 protocol. 2) HTN - cont Metoprolol 3) HPL - cont Lipitor 4) DM II - siding scale provided 5) Smoking cessation advised - Nicotine patch provided Full code - Heparin prophylaxis Total time for this admit including review of labs, meds, imaging, records - discussion with pt and ER attending - 34 min Resuscitation Status VTE Prophylaxis Will order VTE Prophylaxis: Yes
[2017-11-27] MEDS ORDERED: MAGNESIUM HYDROXIDE SUSP 30 ML UDC PO PRN (03:00)
[2017-11-27] MEDS ORDERED: ALUMINUM/MAGNESIUM/SIMETH (MAALOX MAX) 30 ML UDC PO PRN (03:00)
[2017-11-27] MEDS ORDERED: POLYETHYLENE (MIRALAX) 17 GM PACK PO PRN (03:00)
[2017-11-27] MEDS ORDERED: ONDANSETRON INJ 2 MG/ML 2 ML VIAL IV PRN (03:00)
[2017-11-27] MEDS ORDERED: ACETAMINOPHEN 325 MG TAB PO PRN (03:00)
[2017-11-27] MEDS ORDERED: IV FLUIDS COMPLETED PRN (05:45)
[2017-11-27] MEDS: NICOTINE 14 MG/24 HR TDSY TD SCH (07:49)
[2017-11-27] MEDS: FINASTERIDE 5 MG TAB PO SCH (07:49)
[2017-11-27] MEDS: POTASSIUM CHLORIDE 20 MEQ TABCR PO SCH (07:49)
[2017-11-27] MEDS: RANITIDINE HCL 150 MG TAB PO SCH (07:49)
[2017-11-27] MEDS: METOPROLOL TARTRATE 25 MG TAB PO SCH ×2 (07:49→20:59)
[2017-11-27] MEDS: TAMSULOSIN HCL 0.4 MG CAP PO SCH (07:49)
[2017-11-27] MEDS: PANTOprazole SOD 40 MG TAB PO SCH (07:49)
[2017-11-27] MEDS: FUROSEMIDE 20 MG TAB PO SCH (07:49)
[2017-11-27] MEDS: ALBUT/IPRATROP 3MG/0.5MG NEB 3 ML VIAL INH SCH ×4 (08:00→18:53)
[2017-11-27] MEDS ORDERED: INSULIN GLARGINE SOLOSTAR 100 UNITS/ML 3 ML PEN SC SCH (09:00)
[2017-11-27] MEDS: INSULIN ASPART 100 UNITS/ML 3 ML PEN SC SCH ×6 (10:01→23:45)
[2017-11-27] MEDS: HEPARIN SOD 5000 UNIT/0.5 ML CARP SQ SCH ×3 (10:03→21:31)
[2017-11-27] MEDS ORDERED: AZITHROMYCIN 250 MG TAB PO ONE (12:15)
--- NOTE | 2017-11-27 12:21 | Hospitalist Progress Note ---
Hospitalist Progress Note Date of Service Nov 27, 2017. (Dianna Sifuentes ., TARA) Subjective Pt evaluation today including: conversation w/ patient, physical exam, chart review, lab review, review of inpatient medication list Voiding: no voiding problems Mr. Melendez reports feeling better than last night but still very sob and wheezing. He is intermittently using 2L NC. ROS Constitutional: no chills, aches, sweats or fever Respiratory: no cough or sputum Cardiac: no chest pain, palpitations, edema, orthopnea or lightheadedness GI: no abdominal pain, nausea, vomiting, diarrhea or constipation : no dysuria or hesitancy Extremities: no joint pain or weakness Skin: no rash All other systems reviewed and negative (Dianna Sifuentes CRNP) Medications Medications Administered Medications (Trade) Dose Ordered Sig/Khurram Route Start Time Stop Time Status Last Admin Dose Admin Albuterol/ Ipratropium (Duoneb) 3 ml NOW STAT INH 11/26/17 21:34 11/26/17 21:38 DC 11/26/17 21:47 3 ML Methylprednisolone Sodium Succinate (Solu-Medrol IV) 125 mg NOW STAT IV 11/26/17 21:34 11/26/17 21:38 DC 11/26/17 22:09 125 MG Albuterol/ Ipratropium (Duoneb) 3 ml NOW STAT INH 11/26/17 22:12 11/26/17 22:13 DC 11/26/17 22:20 3 ML Albuterol/ Ipratropium (Duoneb) 3 ml NOW STAT INH 11/26/17 22:54 11/26/17 22:55 DC 11/26/17 23:07 3 ML Finasteride (Proscar Tab) 5 mg QAM PO 11/27/17 09:00 12/27/17 08:59 11/27/17 07:49 5 MG Furosemide (Lasix Tab) 20 mg QAM PO 11/27/17 09:00 12/27/17 08:59 11/27/17 07:49 20 MG Metoprolol Tartrate (Lopressor Tab) 12.5 mg BID PO 11/27/17 09:00 12/27/17 08:59 11/27/17 07:49 12.5 MG Nicotine (Nicoderm Cq 14MG Patch) 1 patch QAM TD 11/27/17 09:00 12/27/17 08:59 11/27/17 07:49 1 PATCH Potassium Chloride (Klor-Con Tab) 20 meq DAILY PO 11/27/17 09:00 12/27/17 08:59 11/27/17 07:49 20 MEQ Ranitidine HCl (zANTac TAB) 150 mg DAILY PO 11/27/17 09:00 12/27/17 08:59 11/27/17 07:49 150 MG Tamsulosin HCl (Flomax Cap) 0.4 mg DAILY PO 11/27/17 09:00 12/27/17 08:59 11/27/17 07:49 0.4 MG Pantoprazole Sodium (Protonix Tab) 40 mg QAM PO 11/27/17 09:00 12/27/17 08:59 11/27/17 07:49 40 MG Albuterol Sulfate (Ventolin 0.083% 2.5MG/3ML Neb) 2.5 mg Q4H PRN INH 11/27/17 02:45 12/27/17 02:44 11/27/17 10:05 2.5 MG Heparin Sodium (Porcine) (Heparin Sq 5000 Unit/0.5ml) 5,000 unit Q8 SQ 11/27/17 08:00 12/27/17 07:59 11/27/17 10:03 5,000 UNIT Insulin Glargine (Lantus Solostar Pen) 5 units BID SC 11/27/17 09:00 12/27/17 08:59 11/27/17 10:03 5 UNITS Insulin Aspart (novoLOG ASPART) SLIDING SCALE If C... ACHS SC 11/27/17 11:00 12/27/17 10:59 11/27/17 11:53 2 UNITS (Dianna Sifuentes, TARA) Objective Vital Signs Date Time Temp Pulse Resp B/P (MAP) Pulse Ox O2 Delivery O2 Flow Rate FiO2 11/27/17 10:06 99 20 99 Nasal Cannula 2.0 11/27/17 08:20 Nasal Cannula 2.0 11/27/17 07:14 36.7 116 20 132/55 (80) 96 Nasal Cannula 2.0 11/27/17 05:18 98 4.0 11/27/17 05:15 105 136/85 (102) 11/27/17 04:56 36.8 88 30 170/72 11/27/17 03:30 36.8 88 30 170/72 (104) 98 4.0 11/27/17 03:02 111 18 118/89 97 11/27/17 01:24 109 11/27/17 01:05 115 18 130/83 92 Nasal Cannula 2.0 11/26/17 23:09 123 20 132/72 99 Nebulizer 11/26/17 22:21 109 133/87 97 Nebulizer 11/26/17 21:31 117 11/26/17 21:14 37.4 124 30 137/93 99 Nasal Cannula 2.0 11/26/17 21:11 Room Air 11/26/17 20:58 94 Room Air 11/26/17 20:58 36.7 122 22 136/72 94 Room Air (Dianna Sifuentes CRNP) Physical Exam Notes: General: no distress Eyes: normal inspection, PERLL Respiratory: chest non tender, expiratory wheezing bilaterally, no respiratory distress, no accessory muscle use Cardiac: regular rate and rhythm, no rub or gallop, no murmur, no edema, no jvd GI/: active bowel sounds, no abd pain or tenderness, soft, non distended Extremities: normal range of motion, normal strength, non tender Neuro/Psych: alert and oriented x 3, normal mood and affect Skin: normal color, dry (Dianna Sifuentes CRNP) Laboratory Results Last 24 Hours Test 11/26/17 22:00 11/26/17 22:07 11/26/17 22:10 11/27/17 03:36 Lactic Acid Level 1.4 mmol/L White Blood Count 23.38 K/uL Red Blood Count 4.46 M/uL Hemoglobin 13.4 g/dL Hematocrit 40.3 % Mean Corpuscular Volume 90.4 fL Mean Corpuscular Hemoglobin 30.0 pg Mean Corpuscular Hemoglobin Concent 33.3 g/dl Platelet Count 365 K/uL Mean Platelet Volume 10.3 fL Neutrophils (%) (Auto) 75.9 % Lymphocytes (%) (Auto) 9.3 % Monocytes (%) (Auto) 10.3 % Eosinophils (%) (Auto) 0.5 % Basophils (%) (Auto) 0.1 % Neutrophils # (Auto) 17.75 K/uL Lymphocytes # (Auto) 2.17 K/uL Monocytes # (Auto) 2.41 K/uL Eosinophils # (Auto) 0.11 K/uL Basophils # (Auto) 0.03 K/uL RDW Standard Deviation 51.6 fL RDW Coefficient of Variation 15.7 % Immature Granulocyte % (Auto) 3.9 % Immature Granulocyte # (Auto) 0.91 K/uL Sodium Level 137 mmol/L Potassium Level 4.0 mmol/L Chloride Level 101 mmol/L Carbon Dioxide Level 27 mmol/L Anion Gap 9.0 mmol/L Blood Urea Nitrogen 13 mg/dl Creatinine 0.80 mg/dl Est Creatinine Clear Calc Drug Dose 82.4 ml/min Estimated GFR () 101.3 Estimated GFR (Non- 87.4 BUN/Creatinine Ratio 15.9 Random Glucose 128 mg/dl Calcium Level 8.3 mg/dl Magnesium Level 2.1 mg/dl Troponin I < 0.015 ng/ml Pro-B-Type Natriuretic Peptide 504 pg/ml Influenza Type A Antigen Neg for Influ A Influenza Type B Antigen Neg for Influ B Venous Blood pH 7.43 Venous Blood Partial Pressure CO2 45 mmHg Venous Blood Partial Pressure O2 31 mmHg Venous Blood HCO3 29 mmol/L Venous Blood Oxygen Saturation 60.1 % Venous Blood Base Excess 4.4 mEq/L Bedside Glucose 293 mg/dl Test 11/27/17 07:32 11/27/17 11:20 Bedside Glucose 280 mg/dl 177 mg/dl (Dianna Sifuentes, TARA) Assessment and Plan 77 y/o M Hx COPD, [place], HTN, PE/DVT, myeloproliferative disorder with chronic leukocytosis, DM II, HLD, Tobacco User. The pt frequently presents to the hospital owing to COPD exacerbations. He was recently in the ER for an exacerbation and signed out AMA. It is also noted that his last full admission - also related to COPD - was at the beginning of the month. The pt has been on 2L 02 at home at night in addition to a low dose of Prednisone. COPD exacerbation - will start azithromycin, solu-medrol 60 mg TID - Duonebs QID and prn - 02 protocol. HTN - cont Metoprolol, lasix HPL - cont Lipitor DM II - lantus, ss, bsgs ac &hs - A1c 8.1 11/17 Smoking cessation advised - Nicotine patch provided Full code - Heparin prophylaxis (Dianna Sifuentes ., TARA) Supervising Note Dr. Arriaza I performed a history and physical examination on the patient. I reviewed above note and agree with it. I discussed plan with APC and patient. During my face to face encounter with the patient, I answered all of the patient's questions. Patint continues to be wheezing. Placed on azithromycin. Given his multiple readmissions, may consider azithromycin 3 times a week for readmission prevention. (Dmitri Arriaza M.D.)
[2017-11-27] MEDS: METHYLPREDNISOLONE IV 60 MG in SYRINGE 0 ML IV SCH ×2 (13:41→21:29)
[2017-11-27] MEDS ORDERED: PHARMACY GLYCEMIC MGMT CONSULT PRN (18:17)
[2017-11-27] MEDS ORDERED: INSULIN GLARGINE SOLOSTAR 100 UNITS/ML 3 ML PEN SC ONE (18:30)
--- NOTE | 2017-11-27 20:51 | Pharmacy Progress Note ---
Glycemic Control Intl Consult Date of Service Nov 27, 2017. Scope Glycemic Pharmacist consulted by Dr Arriaza on 11/27/17 for glycemic control and to write orders per [facility] inpatient glycemic control protocol Objective Weight (Kilograms): 86.800 Accuchecks BSG (last 24hrs): Test 11/26/17 22:07 11/27/17 03:36 11/27/17 07:32 11/27/17 11:20 Random Glucose 128 mg/dl (70-99) Bedside Glucose 293 mg/dl (70-99) 280 mg/dl (70-99) 177 mg/dl (70-99) Test 11/27/17 16:19 11/27/17 20:02 Bedside Glucose 317 mg/dl (70-99) 178 mg/dl (70-99) Laboratory Data (last 24hrs) Test 11/26/17 22:07 Anion Gap 9.0 mmol/L BUN/Creatinine Ratio 15.9 Blood Urea Nitrogen 13 mg/dl Creatinine 0.80 mg/dl Potassium Level 4.0 mmol/L Sodium Level 137 mmol/L White Blood Count 23.38 K/uL Red Blood Count 4.46 M/uL Hemoglobin 13.4 g/dL Hematocrit 40.3 % Mean Corpuscular Volume 90.4 fL Mean Corpuscular Hemoglobin 30.0 pg Mean Corpuscular Hemoglobin Concent 33.3 g/dl Platelet Count 365 K/uL Mean Platelet Volume 10.3 fL Neutrophils (%) (Auto) 75.9 % Lymphocytes (%) (Auto) 9.3 % Monocytes (%) (Auto) 10.3 % Eosinophils (%) (Auto) 0.5 % Basophils (%) (Auto) 0.1 % Neutrophils # (Auto) 17.75 K/uL Lymphocytes # (Auto) 2.17 K/uL Monocytes # (Auto) 2.41 K/uL Eosinophils # (Auto) 0.11 K/uL Basophils # (Auto) 0.03 K/uL Recent Pertinent Medications Outpatient Anti-diabetic Regimen: * metformin 500 mg BID * (also on prednisone taper HEAT CURER) * A1c = 8.1 % 11/17/17 The patient is currently receiving: * Basal insulin: Lantus 5 units every 12 hours * Correctional Insulin: Novolog Correction per scale ACHS Goal Range: Low 100 mg/dL - High 140 mg/dL Correction Factor: 25 mg/dL/unit * Prandial insulin: Per carb ratio of 1 unit per -- grams CHO consumed * Oral Agents: None at this time Risk Factors for Insulin Resistance: * Steroids: Solu-medrol 60 mg IV q8h * Infection: Zithromax for COPD exacerbation * Diet: AHA/ type 2 diabetes Assessment & Plan ASSESSMENT: * 77 y/o male with somewhat well controlled diabetes as an outpatient, based on A1c * BSGs currently elevated from high-dose steroids * Will plan to adjust SQ insulin regimen based on insulin calculator estimates using patient's weight and stress level of 2 (3 for CF/CR since patient on steroids) PLAN FOR INPATIENT GLYCEMIC CONTROL: * Increase Lantus to 15 units SQ BID * Give 25 units x 1 now to total 30 units for today * Change correction factor to 20 mg/dl/unit * ADD carb ratio of 1 unit per 6 grams CHO consumed * Change goal range to Low 110 mg/dL - High 150 mg/dL (d/t advanced age) * ADD overnight accuchecks at 00,04 tonight to provide additional Novolog if needed * Please note that the plan above was derived based on current level of insulin resistance and hospital stress. These recommendations are appropriate for inpatient admission only. Plan of care upon discharge will need to be reassessed to avoid potential outpatient hypo/hyperglycemia. Thank you.
[2017-11-27] MEDS: ATORVASTATIN 10 MG TAB PO SCH (20:59)
[2017-11-27] MEDS: CLONAZEPAM 1 MG TAB PO SCH (21:07)
[2017-11-28] VITALS (9 sets, daily range): BP systolic 111–135; BP diastolic 58–83; PULSE 81–100; TEMP 36.4–36.7; O2SAT 94–98
[2017-11-28] MEDS: INSULIN ASPART 100 UNITS/ML 3 ML PEN SC SCH ×5 (04:44→20:58)
[2017-11-28] MEDS: METHYLPREDNISOLONE IV 60 MG in SYRINGE 0 ML IV SCH ×3 (05:37→20:59)
[2017-11-28] MEDS: HEPARIN SOD 5000 UNIT/0.5 ML CARP SQ SCH ×3 (05:43→20:59)
[2017-11-28] MEDS: ALBUT/IPRATROP 3MG/0.5MG NEB 3 ML VIAL INH SCH ×4 (07:07→19:33)
[2017-11-28] MEDS: FINASTERIDE 5 MG TAB PO SCH (07:59)
[2017-11-28] MEDS: PANTOprazole SOD 40 MG TAB PO SCH (07:59)
[2017-11-28] MEDS: POTASSIUM CHLORIDE 20 MEQ TABCR PO SCH (07:59)
[2017-11-28] MEDS: NICOTINE 14 MG/24 HR TDSY TD SCH (07:59)
[2017-11-28] MEDS: TAMSULOSIN HCL 0.4 MG CAP PO SCH (08:00)
[2017-11-28] MEDS: FUROSEMIDE 20 MG TAB PO SCH (08:00)
[2017-11-28] MEDS: RANITIDINE HCL 150 MG TAB PO SCH (08:00)
[2017-11-28] MEDS: METOPROLOL TARTRATE 25 MG TAB PO SCH ×2 (08:00→20:24)
[2017-11-28] MEDS: AZITHROMYCIN 250 MG TAB PO SCH (08:01)
[2017-11-28] MEDS: INSULIN GLARGINE SOLOSTAR 100 UNITS/ML 3 ML PEN SC SCH ×2 (08:07→20:58)
[2017-11-28] MEDS ORDERED: INSULIN GLARGINE SOLOSTAR 100 UNITS/ML 3 ML PEN SC SCH (09:00)
--- NOTE | 2017-11-28 09:34 | Pharmacy Progress Note ---
Pharmacy Glycemic Short Note 2 Date of Service Nov 28, 2017. OUTPATIENT ANTIDIABETIC REGIMEN: * Metformin 500mg PO BIDM Item Value Date Time Bedside Glucose 293 mg/dl H 11/27/17 0336 Bedside Glucose 280 mg/dl H 11/27/17 0732 Bedside Glucose 177 mg/dl H 11/27/17 1120 Bedside Glucose 317 mg/dl H 11/27/17 1619 Bedside Glucose 178 mg/dl H 11/27/172001 Bedside Glucose 233 mg/dl H 11/27/17 2342 Bedside Glucose 214 mg/dl H 11/28/17 0441 Bedside Glucose 149 mg/dl H 11/28/17 0716 ASSESSMENT: * Pt has received 56 units of insulin over the past 24hrs for steroid induced hyperglycemia. SQ basal bolus insulin regimen being utilized while outpatient oral agents on hold for admission * 30 units of basal insulin * 26 units of prandial/correctional insulin * AM fasting BSG improved this morning at 149 mg/dl since Lantus dose increased last evening. Patient did receive an additional 9 units of Novolog overnight as "correctional insulin" therefore, will add this into basal insulin dosing for today. * Typically, weight & stress of 3 SQ insulin dosing is required when Solumedrol dosing is greater than 80mg/day (this equates to 88 units/day) * Carb ratio added last evening and is consistent with weight & stress of 3 SQ insulin dosing. No change needed today. PLAN FOR INPATIENT GLYCEMIC CONTROL: * Hold outpatient oral diabetes medications * Basal insulin * Lantus 22 units SQ BID * Will give a reduced dose of 15 units if BSG <140 mg/dl * Bolus insulin * NovoLog per scale ACHS or Q6hrs while NPO * Goal Range: Low 110 mg/dL - High 150 mg/dL * Correction Factor: 20 mg/dL/unit * Nutritional / Prandial insulin per carb ratio of 1 unit per 6 grams CHO consumed PLAN FOR DISCHARGE: * 77yo T2DM male with near-adequate outpatient control per recent A1c. * A1c = 8.1% on 11/17/17; goal A1c 7.6-8% per ADA Elements of Diabetes Care Scoring Scale * Could consider maximizing metformin dosing at discharge for further A1c reduction. * Typically, Metformin XR is better tolerate (in terms of GI side effects) than immediate release metformin. No additional cost for the XR formulation as compared to the IR formulation * Continue to titrate metformin dosing upwards as recommended. Dosage increases should be made in increments of 500 mg weekly, up to 2,000 mg/day PO, given in divided doses. Doses above 2000 mg/day may be better tolerated if divided and given 3 times per day with meals.
[2017-11-28 09:55] LABS: HEMATOCRIT 36.1 % (42-52); MEAN CELL VOLUME 89.1 fL (80-100); MEAN CORPUSCULAR HEMOGLOBIN 29.6 pg (25-34); MEAN CORPUSCULAR HGB CONC 33.2 g/dl (32-36); PLATELET COUNT 365 K/uL (130-400); RED CELL DISTRIBUTION WIDTH CV 15.5 % (11.5-14.5); RED CELL DISTRIBUTION WIDTH SD 50.3 fL (36.4-46.3); WHITE BLOOD COUNT 23.87 K/uL (4.8-10.8)
[2017-11-28 10:30] LABS: CALCIUM 8.2 mg/dl (8.5-10.1); CREATININE 0.82 mg/dl (0.60-1.40); POTASSIUM 4.7 mmol/L (3.5-5.1)
--- NOTE | 2017-11-28 12:34 | Hospitalist Progress Note ---
Hospitalist Progress Note Date of Service Nov 28, 2017. (Dianna Sifuentes CRNP) Subjective Pt evaluation today including: conversation w/ patient, physical exam, chart review, lab review, review of inpatient medication list Voiding: no voiding problems Mr. Melendez is feeling better today and feels that his breathing has improved. He has no other complaints ROS Constitutional: no chills, aches, sweats or fever Respiratory: no sob, sputum, or wheezing Cardiac: no chest pain, palpitations, edema, orthopnea or lightheadedness GI: no abdominal pain, nausea, vomiting, diarrhea or constipation : no dysuria or hesitancy Extremities: no joint pain or weakness Skin: no rash All other systems reviewed and negative (Dianna Sifuentes CRNP) Medications Medications Administered Medications (Trade) Dose Ordered Sig/Khurram Route Start Time Stop Time Status Last Admin Dose Admin Albuterol/ Ipratropium (Duoneb) 3 ml NOW STAT INH 11/26/17 21:34 11/26/17 21:38 DC 11/26/17 21:47 3 ML Methylprednisolone Sodium Succinate (Solu-Medrol IV) 125 mg NOW STAT IV 11/26/17 21:34 11/26/17 21:38 DC 11/26/17 22:09 125 MG Albuterol/ Ipratropium (Duoneb) 3 ml NOW STAT INH 11/26/17 22:12 11/26/17 22:13 DC 11/26/17 22:20 3 ML Albuterol/ Ipratropium (Duoneb) 3 ml NOW STAT INH 11/26/17 22:54 11/26/17 22:55 DC 11/26/17 23:07 3 ML Atorvastatin Calcium (Lipitor Tab) 10 mg PM PO 11/27/17 21:00 12/27/17 20:59 11/27/17 20:59 10 MG Clonazepam (Klonopin Tab) 1 mg HS PO 11/27/17 21:00 12/27/17 20:59 11/27/17 21:07 1 MG Finasteride (Proscar Tab) 5 mg QAM PO 11/27/17 09:00 12/27/17 08:59 11/28/17 07:59 5 MG Furosemide (Lasix Tab) 20 mg QAM PO 11/27/17 09:00 12/27/17 08:59 11/28/17 08:00 20 MG Albuterol/ Ipratropium (Duoneb) 3 ml QIDR INH 11/27/17 08:00 12/27/17 07:59 11/28/17 11:15 3 ML Metoprolol Tartrate (Lopressor Tab) 12.5 mg BID PO 11/27/17 09:00 12/27/17 08:59 11/28/17 08:00 12.5 MG Nicotine (Nicoderm Cq 14MG Patch) 1 patch QAM TD 11/27/17 09:00 12/27/17 08:59 11/28/17 07:59 1 PATCH Potassium Chloride (Klor-Con Tab) 20 meq DAILY PO 11/27/17 09:00 12/27/17 08:59 11/28/17 07:59 20 MEQ Ranitidine HCl (zANTac TAB) 150 mg DAILY PO 11/27/17 09:00 12/27/17 08:59 11/28/17 08:00 150 MG Tamsulosin HCl (Flomax Cap) 0.4 mg DAILY PO 11/27/17 09:00 12/27/17 08:59 11/28/17 08:00 0.4 MG Pantoprazole Sodium (Protonix Tab) 40 mg QAM PO 11/27/17 09:00 12/27/17 08:59 11/28/17 07:59 40 MG Miscellaneous (Remove Nicoderm Patch) 1 ea HS N/A 11/27/17 21:00 12/27/17 20:59 11/27/17 20:58 1 EA Albuterol Sulfate (Ventolin 0.083% 2.5MG/3ML Neb) 2.5 mg Q4H PRN INH 11/27/17 02:45 11/27/17 12:12 DC 11/27/17 10:05 2.5 MG Heparin Sodium (Porcine) (Heparin Sq 5000 Unit/0.5ml) 5,000 unit Q8 SQ 11/27/17 08:00 12/27/17 07:59 11/28/17 05:43 5,000 UNIT Insulin Glargine (Lantus Solostar Pen) 5 units BID SC 11/27/17 09:00 11/27/17 18:27 DC 11/27/17 10:03 5 UNITS Insulin Aspart (novoLOG ASPART) SLIDING SCALE If C... ACHS SC 11/27/17 11:00 12/27/17 10:59 11/28/17 08:08 8 UNITS Albuterol Sulfate (Ventolin 0.083% 2.5MG/3ML Neb) 2.5 mg Q2H PRN INH 11/27/17 12:15 12/27/17 02:44 11/27/17 12:44 2.5 MG Methylprednisolone Sodium Succinate 60 mg/Syringe 0.96 ml @ 1.5 mls/min Q8H IV 11/27/17 14:00 12/27/17 13:59 11/28/17 05:37 1.5 MLS/MIN Azithromycin (Zithromax Tab) 500 mg NOW ONCE PO 11/27/17 12:15 11/27/17 12:34 DC 11/27/17 13:41 500 MG Azithromycin (Zithromax Tab) 250 mg QAM PO 11/28/17 09:00 12/04/17 08:59 11/28/17 08:01 250 MG Insulin Aspart (novoLOG ASPART) SLIDING SCALE If C... 0000,0400 SC 11/28/17 00:00 11/28/17 04:01 DC 11/28/17 04:44 4 UNITS Insulin Glargine (Lantus Solostar Pen) 25 units ONE ONCE SC 11/27/17 18:30 11/27/17 18:31 DC 11/27/17 18:55 25 UNITS Insulin Glargine (Lantus Solostar Pen) SEE PROTOCOL TEXT BID SC 11/28/17 09:00 12/28/17 08:59 11/28/17 08:07 22 UNITS (Dianna Sifuentes CRNP) Objective Vital Signs Date Time Temp Pulse Resp B/P (MAP) Pulse Ox O2 Delivery O2 Flow Rate FiO2 11/28/17 11:15 90 18 98 Nasal Cannula 2.0 11/28/17 07:23 Room Air 11/28/17 07:11 36.4 92 17 135/83 (100) 94 Room Air 11/28/17 07:07 81 18 97 Nasal Cannula 2.0 11/28/17 00:18 36.4 91 18 111/58 (75) 97 2.0 11/28/17 00:00 98 Nasal Cannula 2.0 11/27/17 18:53 100 18 98 Room Air 11/27/17 16:00 Nasal Cannula 2.0 11/27/17 15:17 36.5 108 20 138/65 (89) 94 2.0 11/27/17 15:06 108 21 98 Nasal Cannula 2.0 11/27/17 12:45 106 21 96 Nasal Cannula 2.0 (Dianna Sifuentes CRNP) Physical Exam Notes: General: no distress Eyes: normal inspection, PERLL Respiratory: chest non tender, expiratory wheezes bilaterally, no respiratory distress, no accessory muscle use Cardiac: regular rate and rhythm, no rub or gallop, no murmur, no edema, no jvd GI/: active bowel sounds, no abd pain or tenderness, soft, non distended Extremities: normal range of motion, normal strength, non tender Neuro/Psych: alert and oriented x 3, normal mood and affect Skin: normal color, dry (Dianna Sifuentes CRNP) Laboratory Results Last 24 Hours Test 11/27/17 16:19 11/27/17 20:02 11/27/17 23:42 11/28/17 04:41 Bedside Glucose 317 mg/dl 178 mg/dl 233 mg/dl 214 mg/dl Test 11/28/17 07:16 11/28/17 09:45 11/28/17 11:22 Bedside Glucose 149 mg/dl 163 mg/dl White Blood Count 23.87 K/uL Red Blood Count 4.05 M/uL Hemoglobin 12.0 g/dL Hematocrit 36.1 % Mean Corpuscular Volume 89.1 fL Mean Corpuscular Hemoglobin 29.6 pg Mean Corpuscular Hemoglobin Concent 33.2 g/dl RDW Standard Deviation 50.3 fL RDW Coefficient of Variation 15.5 % Platelet Count 365 K/uL Mean Platelet Volume 10.0 fL Sodium Level 135 mmol/L Potassium Level 4.7 mmol/L Chloride Level 100 mmol/L Carbon Dioxide Level 29 mmol/L Anion Gap 6.0 mmol/L Blood Urea Nitrogen 19 mg/dl Creatinine 0.82 mg/dl Est Creatinine Clear Calc Drug Dose 80.3 ml/min Estimated GFR () 100.3 Estimated GFR (Non- 86.5 BUN/Creatinine Ratio 23.5 Random Glucose 211 mg/dl Calcium Level 8.2 mg/dl (Dianna Sifuentes CRNP) Assessment and Plan 77 y/o M Hx COPD, [place], HTN, PE/DVT, myeloproliferative disorder with chronic leukocytosis, DM II, HLD, Tobacco User. The pt frequently presents to the hospital owing to COPD exacerbations. He was recently in the ER for an exacerbation and signed out AMA. It is also noted that his last full admission - also related to COPD - was at the beginning of the month. The pt has been on 2L 02 at home at night in addition to a low dose of Prednisone. COPD exacerbation - continue azithromycin, solu-medrol 60 mg TID - Duonebs QID and prn - 02 protocol. HTN - cont Metoprolol, lasix HPL - cont Lipitor DM II - blood sugars have been elevated - pharmacy consulted to manage - lantus, ss, bsgs ac &hs - A1c 8.1 11/17 Smoking cessation advised - Nicotine patch provided Full code - Heparin prophylaxis (Dianna Sifuentes CRNP) Supervising Note Dr. Arriaza I performed a history and physical examination on the patient. I reviewed above note and agree with it. I discussed plan with APC and patient. During my face to face encounter with the patient, I answered all of the patient's questions. Patient continues to slowly improve. Will likely discharge patient tomorrow in AM. Will continue on steroids today and will recommend azithromycin chronically MWF at 250mg to help prevent readmissions. (Dmitri Arriaza M.D.)
[2017-11-28] MEDS: CLONAZEPAM 1 MG TAB PO SCH (20:23)
[2017-11-28] MEDS: ATORVASTATIN 10 MG TAB PO SCH (20:24)
[2017-11-29] VITALS (7 sets, daily range): BP systolic 119–130; BP diastolic 73–78; PULSE 74–102; TEMP 36.4–36.5; O2SAT 91–98
[2017-11-29] MEDS ORDERED: INSULIN ASPART 100 UNITS/ML 3 ML PEN SC SCH (02:00)
[2017-11-29] MEDS: HEPARIN SOD 5000 UNIT/0.5 ML CARP SQ SCH ×3 (06:09→20:57)
[2017-11-29] MEDS: METHYLPREDNISOLONE IV 60 MG in SYRINGE 0 ML IV SCH ×3 (06:09→20:59)
[2017-11-29] MEDS: PANTOprazole SOD 40 MG TAB PO SCH (07:25)
[2017-11-29] MEDS: METOPROLOL TARTRATE 25 MG TAB PO SCH ×2 (07:25→20:53)
[2017-11-29] MEDS: TAMSULOSIN HCL 0.4 MG CAP PO SCH (07:25)
[2017-11-29] MEDS: RANITIDINE HCL 150 MG TAB PO SCH (07:25)
[2017-11-29] MEDS: NICOTINE 14 MG/24 HR TDSY TD SCH (07:26)
[2017-11-29] MEDS: AZITHROMYCIN 250 MG TAB PO SCH (07:26)
[2017-11-29] MEDS: FINASTERIDE 5 MG TAB PO SCH (07:26)
[2017-11-29] MEDS: FUROSEMIDE 20 MG TAB PO SCH (07:26)
[2017-11-29] MEDS: POTASSIUM CHLORIDE 20 MEQ TABCR PO SCH (07:26)
[2017-11-29] MEDS: ALBUT/IPRATROP 3MG/0.5MG NEB 3 ML VIAL INH SCH ×4 (07:27→20:01)
[2017-11-29 07:57] LABS: HEMATOCRIT 37.2 % (42-52); HEMOGLOBIN 12.4 g/dL (14.0-18.0); MEAN CELL VOLUME 90.1 fL (80-100); MEAN CORPUSCULAR HGB CONC 33.3 g/dl (32-36); PLATELET COUNT 401 K/uL (130-400); RED CELL DISTRIBUTION WIDTH CV 15.5 % (11.5-14.5); RED CELL DISTRIBUTION WIDTH SD 50.6 fL (36.4-46.3); WHITE BLOOD COUNT 26.97 K/uL (4.8-10.8)
[2017-11-29] MEDS: INSULIN ASPART 100 UNITS/ML 3 ML PEN SC SCH ×4 (08:02→20:58)
[2017-11-29] MEDS: INSULIN GLARGINE SOLOSTAR 100 UNITS/ML 3 ML PEN SC SCH ×2 (08:03→20:58)
[2017-11-29 08:21] LABS: CALCIUM 8.3 mg/dl (8.5-10.1); CREATININE 0.7 mg/dl (0.60-1.40); POTASSIUM 4.2 mmol/L (3.5-5.1)
--- NOTE | 2017-11-29 10:06 | Pharmacy Progress Note ---
Pharmacy Glycemic Short Note 2 Date of Service Nov 29, 2017. OUTPATIENT ANTIDIABETIC REGIMEN: * Metformin 500mg PO BIDM Test 11/28/17 11:22 11/28/17 16:16 11/28/17 20:19 11/29/17 02:07 Bedside Glucose 163 mg/dl (70-99) 181 mg/dl (70-99) 276 mg/dl (70-99) 167 mg/dl (70-99) Test 11/29/17 07:16 11/29/17 07:39 Random Glucose 162 mg/dl (70-99) Bedside Glucose 183 mg/dl (70-99) ASSESSMENT: 11/29/17 * Patient received 91 units of insulin yesterday, BSGs as noted above * Remains on Solu-medrol 60 mg IV q8h * CF/CR tightened by glycemic pharmacist last evening for elevated BSG, will plan to continue with high-dose steroids on board * Will continue scale for Lantus in case steroids are tapered 11/28/17 * Pt has received 56 units of insulin over the past 24hrs for steroid induced hyperglycemia. SQ basal bolus insulin regimen being utilized while outpatient oral agents on hold for admission * 30 units of basal insulin * 26 units of prandial/correctional insulin * AM fasting BSG improved this morning at 149 mg/dl since Lantus dose increased last evening. Patient did receive an additional 9 units of Novolog overnight as "correctional insulin" therefore, will add this into basal insulin dosing for today. * Typically, weight & stress of 3 SQ insulin dosing is required when Solumedrol dosing is greater than 80mg/day (this equates to 88 units/day) * Carb ratio added last evening and is consistent with weight & stress of 3 SQ insulin dosing. No change needed today. PLAN FOR INPATIENT GLYCEMIC CONTROL: * Continue to hold outpatient oral diabetes medications * Basal insulin - no change * Lantus 22 units SQ BID * Will give a reduced dose of 15 units if BSG <140 mg/dl * Bolus insulin - no change, just tightened last evening * NovoLog per scale ACHS or Q6hrs while NPO * Goal Range: Low 110 mg/dL - High 150 mg/dL * Correction Factor: 15 mg/dL/unit * Nutritional / Prandial insulin per carb ratio of 1 unit per 5 grams CHO consumed PLAN FOR DISCHARGE: * 77yo T2DM male with near-adequate outpatient control per recent A1c. * A1c = 8.1% on 11/17/17; goal A1c 7.6-8% per ADA Elements of Diabetes Care Scoring Scale * Could consider maximizing metformin dosing at discharge for further A1c reduction. * Typically, Metformin XR is better tolerated (in terms of GI side effects) than immediate release metformin. No additional cost for the XR formulation as compared to the IR formulation * Continue to titrate metformin dosing upwards as recommended. Dosage increases should be made in increments of 500 mg weekly, up to 2,000 mg/day PO, given in divided doses. Doses above 2000 mg/day may be better tolerated if divided and given 3 times per day with meals.
--- NOTE | 2017-11-29 11:36 | Hospitalist Progress Note ---
Hospitalist Progress Note Date of Service Nov 29, 2017. Subjective Pt evaluation today including: conversation w/ patient, physical exam, chart review, lab review, review of inpatient medication list Voiding: no voiding problems Mr. Melendez continues to have quite a bit of wheezing though he is ambulating the dahl and maintained and oxygen saturation of 100% afterward. He Medications Medications Administered Medications (Trade) Dose Ordered Sig/Khurram Route Start Time Stop Time Status Last Admin Dose Admin Albuterol/ Ipratropium (Duoneb) 3 ml NOW STAT INH 11/26/17 21:34 11/26/17 21:38 DC 11/26/17 21:47 3 ML Methylprednisolone Sodium Succinate (Solu-Medrol IV) 125 mg NOW STAT IV 11/26/17 21:34 11/26/17 21:38 DC 11/26/17 22:09 125 MG Albuterol/ Ipratropium (Duoneb) 3 ml NOW STAT INH 11/26/17 22:12 11/26/17 22:13 DC 11/26/17 22:20 3 ML Albuterol/ Ipratropium (Duoneb) 3 ml NOW STAT INH 11/26/17 22:54 11/26/17 22:55 DC 11/26/17 23:07 3 ML Atorvastatin Calcium (Lipitor Tab) 10 mg PM PO 11/27/17 21:00 12/27/17 20:59 11/28/17 20:24 10 MG Clonazepam (Klonopin Tab) 1 mg HS PO 11/27/17 21:00 12/27/17 20:59 11/28/17 20:23 1 MG Finasteride (Proscar Tab) 5 mg QAM PO 11/27/17 09:00 12/27/17 08:59 11/29/17 07:26 5 MG Furosemide (Lasix Tab) 20 mg QAM PO 11/27/17 09:00 12/27/17 08:59 11/29/17 07:26 20 MG Albuterol/ Ipratropium (Duoneb) 3 ml QIDR INH 11/27/17 08:00 12/27/17 07:59 11/29/17 11:26 3 ML Metoprolol Tartrate (Lopressor Tab) 12.5 mg BID PO 11/27/17 09:00 12/27/17 08:59 11/29/17 07:25 12.5 MG Nicotine (Nicoderm Cq 14MG Patch) 1 patch QAM TD 11/27/17 09:00 12/27/17 08:59 11/29/17 07:26 1 PATCH Potassium Chloride (Klor-Con Tab) 20 meq DAILY PO 11/27/17 09:00 12/27/17 08:59 11/29/17 07:26 20 MEQ Ranitidine HCl (zANTac TAB) 150 mg DAILY PO 11/27/17 09:00 12/27/17 08:59 11/29/17 07:25 150 MG Tamsulosin HCl (Flomax Cap) 0.4 mg DAILY PO 11/27/17 09:00 12/27/17 08:59 11/29/17 07:25 0.4 MG Pantoprazole Sodium (Protonix Tab) 40 mg QAM PO 11/27/17 09:00 12/27/17 08:59 11/29/17 07:25 40 MG Miscellaneous (Remove Nicoderm Patch) 1 ea HS N/A 11/27/17 21:00 12/27/17 20:59 11/28/17 20:24 1 EA Albuterol Sulfate (Ventolin 0.083% 2.5MG/3ML Neb) 2.5 mg Q4H PRN INH 11/27/17 02:45 11/27/17 12:12 DC 11/27/17 10:05 2.5 MG Heparin Sodium (Porcine) (Heparin Sq 5000 Unit/0.5ml) 5,000 unit Q8 SQ 11/27/17 08:00 12/27/17 07:59 11/29/17 06:09 5,000 UNIT Insulin Glargine (Lantus Solostar Pen) 5 units BID SC 11/27/17 09:00 11/27/17 18:27 DC 11/27/17 10:03 5 UNITS Insulin Aspart (novoLOG ASPART) SLIDING SCALE If C... ACHS SC 11/27/17 11:00 12/27/17 10:59 11/29/17 08:02 13 UNITS Albuterol Sulfate (Ventolin 0.083% 2.5MG/3ML Neb) 2.5 mg Q2H PRN INH 11/27/17 12:15 12/27/17 02:44 11/27/17 12:44 2.5 MG Methylprednisolone Sodium Succinate 60 mg/Syringe 0.96 ml @ 1.5 mls/min Q8H IV 11/27/17 14:00 12/27/17 13:59 11/29/17 06:09 1.5 MLS/MIN Azithromycin (Zithromax Tab) 500 mg NOW ONCE PO 11/27/17 12:15 11/27/17 12:34 DC 11/27/17 13:41 500 MG Azithromycin (Zithromax Tab) 250 mg QAM PO 11/28/17 09:00 12/04/17 08:59 11/29/17 07:26 250 MG Insulin Aspart (novoLOG ASPART) SLIDING SCALE If C... 0000,0400 SC 11/28/17 00:00 11/28/17 04:01 DC 11/28/17 04:44 4 UNITS Insulin Glargine (Lantus Solostar Pen) 25 units ONE ONCE SC 11/27/17 18:30 11/27/17 18:31 DC 11/27/17 18:55 25 UNITS Insulin Glargine (Lantus Solostar Pen) SEE PROTOCOL TEXT BID SC 11/28/17 09:00 12/28/17 08:59 11/29/17 08:03 22 UNITS Insulin Aspart (novoLOG ASPART) SLIDING SCALE If C... TODAY@0200 HI 11/29/17 02:00 11/29/17 02:01 DC 11/29/17 02:14 2 UNITS Objective Vital Signs Date Time Temp Pulse Resp B/P (MAP) Pulse Ox O2 Delivery O2 Flow Rate FiO2 11/29/17 11:26 100 18 94 Room Air 11/29/17 08:00 Room Air 11/29/17 07:52 36.4 101 19 130/78 (95) 98 2.0 83 11/29/17 07:27 101 18 98 Nasal Cannula 2.0 11/29/17 00:00 Room Air 2.0 Nasal Cannula 11/28/17 23:23 36.7 89 22 116/60 (78) 97 Nasal Cannula 2.0 11/28/17 19:33 92 18 97 Room Air 11/28/17 16:00 Room Air 4/11/18 15:21 93 18 94 Room Air 11/28/17 15:05 36.4 100 16 118/66 (83) 95 Room Air Physical Exam Notes: General: no distress Eyes: normal inspection, PERLL Respiratory: chest non tender, bilateral expiratory wheezes throughout lung denis, labored breathing with exertion Cardiac: regular rate and rhythm, no rub or gallop, no murmur, no edema, no jvd GI/: active bowel sounds, no abd pain or tenderness, soft, non distended Extremities: normal range of motion, normal strength, non tender Neuro/Psych: alert and oriented x 3, normal mood and affect Skin: normal color, dry Laboratory Results Last 24 Hours Test 11/28/17 16:16 11/28/17 20:19 11/29/17 02:07 11/29/17 07:16 Bedside Glucose 181 mg/dl 276 mg/dl 167 mg/dl White Blood Count 26.97 K/uL Red Blood Count 4.13 M/uL Hemoglobin 12.4 g/dL Hematocrit 37.2 % Mean Corpuscular Volume 90.1 fL Mean Corpuscular Hemoglobin 30.0 pg Mean Corpuscular Hemoglobin Concent 33.3 g/dl RDW Standard Deviation 50.6 fL RDW Coefficient of Variation 15.5 % Platelet Count 401 K/uL Mean Platelet Volume 11.0 fL Sodium Level 137 mmol/L Potassium Level 4.2 mmol/L Chloride Level 103 mmol/L Carbon Dioxide Level 30 mmol/L Anion Gap 5.0 mmol/L Blood Urea Nitrogen 19 mg/dl Creatinine 0.70 mg/dl Est Creatinine Clear Calc Drug Dose 94.1 ml/min Estimated GFR () 107.0 Estimated GFR (Non- 92.3 BUN/Creatinine Ratio 27.4 Random Glucose 162 mg/dl Calcium Level 8.3 mg/dl Test 11/29/17 07:39 Bedside Glucose 183 mg/dl Assessment and Plan 77 y/o M Hx COPD, [place], HTN, PE/DVT, myeloproliferative disorder with chronic leukocytosis, DM II, HLD, Tobacco User. The pt frequently presents to the hospital owing to COPD exacerbations. He was recently in the ER for an exacerbation and signed out AMA. It is also noted that his last full admission - also related to COPD - was at the beginning of the month. The pt has been on 2L 02 at home at night in addition to a low dose of Prednisone. COPD exacerbation - continue azithromycin, solu-medrol 60 mg TID - will need to start titrating down tomorrow. - Duonebs QID and prn - 02 protocol. HTN - cont Metoprolol, lasix HPL - cont Lipitor DM II - blood sugars have improved - pharmacy consulted to manage - jannet, joan, bsgs ac &hs - A1c 8.1 11/17 Smoking cessation advised - Nicotine patch provided Full code - Heparin prophylaxis
[2017-11-29] MEDS: CLONAZEPAM 1 MG TAB PO SCH (20:52)
[2017-11-29] MEDS: ATORVASTATIN 10 MG TAB PO SCH (20:53)
[2017-11-30] VITALS: O2SAT 97
[2017-11-30] MEDS: METHYLPREDNISOLONE IV 60 MG in SYRINGE 0 ML IV SCH (05:54)
[2017-11-30] MEDS: HEPARIN SOD 5000 UNIT/0.5 ML CARP SQ SCH (05:55)
[2017-11-30 07:09] VITALS: PULSE 84; O2SAT 96
[2017-11-30] MEDS: ALBUT/IPRATROP 3MG/0.5MG NEB 3 ML VIAL INH SCH ×2 (07:09→11:15)
[2017-11-30 07:36] VITALS: BP 138/75; PULSE 82; TEMP 37; O2SAT 95
[2017-11-30] MEDS: NICOTINE 14 MG/24 HR TDSY TD SCH (07:48)
[2017-11-30] MEDS: TAMSULOSIN HCL 0.4 MG CAP PO SCH (07:49)
[2017-11-30] MEDS: RANITIDINE HCL 150 MG TAB PO SCH (07:49)
[2017-11-30] MEDS: POTASSIUM CHLORIDE 20 MEQ TABCR PO SCH (07:49)
[2017-11-30] MEDS: METOPROLOL TARTRATE 25 MG TAB PO SCH (07:49)
[2017-11-30] MEDS: PANTOprazole SOD 40 MG TAB PO SCH (07:49)
[2017-11-30] MEDS: AZITHROMYCIN 250 MG TAB PO SCH (07:49)
[2017-11-30] MEDS: FINASTERIDE 5 MG TAB PO SCH (07:49)
[2017-11-30] MEDS: FUROSEMIDE 20 MG TAB PO SCH (07:50)
[2017-11-30] MEDS: INSULIN ASPART 100 UNITS/ML 3 ML PEN SC SCH ×2 (07:52→11:37)
[2017-11-30] MEDS: INSULIN GLARGINE SOLOSTAR 100 UNITS/ML 3 ML PEN SC SCH (07:53)
[2017-11-30 08:41] LABS: HEMATOCRIT 41.6 % (42-52); HEMOGLOBIN 13.6 g/dL (14.0-18.0); MEAN CORPUSCULAR HEMOGLOBIN 29.4 pg (25-34); MEAN CORPUSCULAR HGB CONC 32.7 g/dl (32-36); MEAN PLATELET VOLUME 10.9 fL (7.4-10.4); PLATELET COUNT 420 K/uL (130-400); RED CELL DISTRIBUTION WIDTH CV 15.4 % (11.5-14.5); RED CELL DISTRIBUTION WIDTH SD 51.2 fL (36.4-46.3); WHITE BLOOD COUNT 26.67 K/uL (4.8-10.8)
[2017-11-30 09:06] LABS: CALCIUM 8.4 mg/dl (8.5-10.1); CREATININE 0.89 mg/dl (0.60-1.40); POTASSIUM 4.3 mmol/L (3.5-5.1)
--- NOTE | 2017-11-30 09:14 | Discharge Instructions ---
Discharge Instructions Date of Service Nov 30, 2017. Admission Reason for Admission: Copd Exacerbation Discharge Discharge Diagnosis / Problem: COPD exacerbation Discharge Goals Goal(s): Improve disease control Activity Recommendations Activity Limitations: resume your previous activity Exercise/Sports Limitations: gradually increase as tolerated . Instructions / Follow-Up Instructions / Follow-Up Please keep your follow up appointments. You will go home with a prednisone taper to start tomorrow: 60 mg po daily x 2 days 40 mg po daily x 2 days 20 mg po daily x 2 days 10 mg po daily x 2 days Please check your blood sugars before meals and before bed and keep a log. Your prednisone taper may cause your blood sugars to run a bit high. You should consult your primary care provider if your sugars are consistently over 180 while taking the prednisone You will be prescribed an NPH taper to accompany your prednisone taper to manage your blood sugars Recommend NPH subcutaneous injection once daily in the morning while on prednisone taper: * Prednisone 60 mg x 2 days - administer NPH 35 units SQ daily in the morning * Prednisone 40 mg x 2 days - administer NPH 35 units SQ daily in the morning * Prednisone 20 mg x 2 days - administer NPH 17 units SQ daily in the morning * Prednisone 10 mg x 2 days - administer NPH 9 units SQ daily in the morning * If prednisone dose is held, NPH should also be held Current Hospital Diet Patient's current hospital diet: AHA Diet (Heart Healthy), Diabetes Type 2 Diet Discharge Diet Recommended Diet: AHA Diet (Heart Healthy), Diabetes Type 2 Diet Procedures Procedures Performed: Chest Xray Pending Studies Studies pending at discharge: no Laboratory Results Hemoglobin A1c Test 11/17/17 05:32 Range/Units Estimated Average Glucose 186 mg/dl Hemoglobin A1c 8.1 H 4.5-5.6 % Lipid Panel Test 10/15/17 07:48 Range/Units Triglycerides Level 121 0-150 mg/dl Cholesterol Level 190 0-200 mg/dl HDL Cholesterol 74 mg/dl Cholesterol/HDL Ratio 2.6 LDL Cholesterol, Calculated 92 mg/dl Medical Emergencies . Who to Call and When: Medical Emergencies: If at any time you feel your situation is an emergency, please call 911 immediately. . Non-Emergent Contact Non-Emergency issues call your: Primary Care Provider . . "Provider Documentation" section prepared by Dianna Sifuentes. .
--- NOTE | 2017-11-30 09:17 | Clinical Documentation Query ---
CLINICAL DOCUMENTATION QUERY QUERY 1 OF 2 77 yo male with history COPD, current smoker, and wears O2 at night is admitted with exacerbation COPD. In your clinical opinion is this patient being managed for: ( x ) Chronic respiratory failure with hypoxia Chronic diastolic (congestive) heart failure ( ) Not Agree ( ) Other explanation of clinical findings (Please Explain) ( ) Unable to determine (Please Define) ( ) Need to Discuss The medical record reflects the following clinical findings, treatment, and risk factors. Clinical Indicators: As above Treatment: O2, nebulizer treatment, pulse oximetry Risk Factors: COPD, [place], CHF QUERY 2 OF 2 Echo 08/2017 shows grade I diastolic dysfunction, mild concentric left ventricular hypertrophy and EF = 55-60%. CXR shows cardiomegaly and patient takes Lasix 20mg PO daily. In your clinical opinion is this patient being managed for: (x ) Chronic diastolic (congestive) heart failure ( ) Not Agree ( ) Other explanation of clinical findings (Please Explain) ( ) Unable to determine (Please Define) ( ) Need to Discuss The medical record reflects the following clinical findings, treatment, and risk factors. Clinical Indicators: As above Treatment: Lasix 20mg PO Risk Factors: Age, COPD, HTN Please clarify and document your clinical opinion in the progress notes and discharge summary. Terms such as "probable", "suspected", "likely", "questionable", "possible", or "still to be ruled out" are acceptable. IF IN AGREEMENT, YOU MUST DOCUMENT ABOVE DIAGNOSTIC STATEMENT IN DAILY PROGRESS NOTES AND DISCHARGE SUMMARY. This document is not part of the patient's record. Thank You, Nahomy Jeffery RN [phone]
[2017-11-30] MEDS ORDERED: AZIT-57 PO (09:25)
[2017-11-30] MEDS ORDERED: PRED10TA PO (09:25)
--- NOTE | 2017-11-30 09:37 | Discharge Summary ---
Discharge Summary Date of Service Nov 30, 2017. Discharge Summary Admission Date: Nov 29, 2017 at 11:37 Discharge Date: Nov 30, 2017 Discharge Disposition: Home Principal Diagnosis: COPD exacerbation Problems/Secondary Diagnoses: HTN, HPL, DM II Procedures: SINGLE VIEW CHEST CLINICAL HISTORY: COPD. Dyspnea and wheezing. FINDINGS: An AP, portable, upright chest radiograph is compared to study dated 11/17/2017 and correlated with chest CT dated 10/04/2017. The examination is degraded by portable technique and patient rotation. The heart is enlarged and there is atherosclerotic calcification of the thoracic aorta. The pulmonary vasculature is noncongested. Enlargement the central pulmonary arteries suggests pulmonary artery hypertension. Advanced emphysema and chronic interstitial thickening are similar to previous. No airspace consolidation or large pleural effusion is identified. No pneumothorax is seen. The skeletal structures are osteopenic. Chronic posttraumatic deformity is noted in the left clavicle. IMPRESSION: Cardiomegaly and emphysema with no acute cardiopulmonary abnormality. Electronically signed by: Harrison Salazar M.D. 11/26/2017 9:49 PM Medication Reconciliation New Medications: Prednisone Tab (Prednisone) 10 Mg Tab 10 MG PO DAILY for 8 Days, #8 TAB Taper 60 mg po daily x 2 days 40 mg po daily x 2 days 20 mg po daily x 2 days 10 mg po daily x 2 days Azithromycin (Azithromycin) 250 Mg Tab 250 MG PO QAM for 1 Day, #1 TAB Continued Medications: Albuterol Sulf (Proventil 0.083% 2.5MG/3ML) 2.5 Mg/3 Ml Nebu 2.5 MG INH QID, EA Albuterol Sulfate (Proair Respiclick) 108 Mcg/Act Aer 2 PUFFS INH Q4H PRN for COPD EXACERBATION Atorvastatin (Lipitor) 10 Mg Tab 10 MG PO PM Budesonide/Formoterol Fumarate (Symbicort 160/4.5 Inhaler ) Aero 2 PUFFS INH BID, INHALER Clonazepam (Klonopin) 1 Mg Tab 1 MG PO HS, TAB Finasteride (Proscar) 5 Mg Tab 5 MG PO QAM, TAB Furosemide (Lasix) 20 Mg Tab 20 MG PO QAM, TAB Ipratropium-Albuterol (Duoneb) 3 Ml Nebu 1 TREATMENT INH QID, INHA Metformin HCl (Metformin HCl) 500 Mg Tab 500 MG PO BID Metoprolol Tartrate (Lopressor) (Lopressor) 25 Mg Tab 12.5 MG PO BID, TAB Nicotine (Nicoderm Cq 14MG Patch) 14 Mg/24 Hr Dis 1 PATCH TD QAM, PATCH Omeprazole (Prilosec) 40 Mg Cap 40 MG PO QAM, CAP Potassium Ext Rel (Klor-Con) 20 Meq Tabcr 20 MEQ PO DAILY, TAB Ranitidine HCl (Ranitidine HCl) 150 Mg Tab 150 MG PO DAILY Tamsulosin Hcl (Flomax) 0.4 Mg Cap 0.4 MG PO AFTERNOON, CAP Tiotropium [place] (Spiriva Respimat) 2.5 Mcg/Act Spr 2 PUFF INH DAILY, INHALER Trazodone Hcl (Desyrel) 50 Mg Tab 50-100 MG PO HS PRN for Sleep, TAB Discontinued Medications: Prednisone (Prednisone) 10 Mg Tab MG PO QAM, TAB TAPERED DOSE, 20 MG X 1 DAY, 10 MG X 3 DAYS THEN DONE WITH TAPERED DOSAGE. Discharge Exam ROS Constitutional: no chills, aches, sweats or fever Respiratory: no sob,cough, sputum; patient is wheezing Cardiac: no chest pain, palpitations, edema, orthopnea or lightheadedness GI: no abdominal pain, nausea, vomiting, diarrhea or constipation : no dysuria or hesitancy Extremities: no joint pain or weakness Skin: no rash All other systems reviewed and negative General: no distress Eyes: normal inspection, PERLL Respiratory: chest non tender, bilateral expiratory wheezes, no respiratory distress, no accessory muscle use Cardiac: regular rate and rhythm, no rub or gallop, no murmur, no edema, no jvd GI/: active bowel sounds, no abd pain or tenderness, soft, non distended Extremities: normal range of motion, normal strength, non tender Neuro/Psych: alert and oriented x 3, normal mood and affect Skin: normal color, dry Hospital Course 77 y/o M Hx COPD, [place], HTN, PE/DVT, myeloproliferative disorder with chronic leukocytosis, DM II, HLD, Tobacco User. The pt frequently presents to the hospital owing to COPD exacerbations. He was recently in the ER for an exacerbation and signed out AMA. It is also noted that his last full admission - also related to COPD - was at the beginning of the month. The pt has been on 2L 02 at home at night in addition to a low dose of Prednisone. COPD exacerbation - azithromycin x5 days - last dose 12/01, solu-medrol 60 mg - will send home with 8 day prednisone taper - Duonebs QID and prn - patient can return to home inhalers for home - protocol - return home with 2L NC at night HTN - cont Metoprolol, lasix HPL - cont Lipitor DM II - blood sugars were elevated with initiation of steroids but improved with insulin managed by pharmacy - will have pharmacy advise on insulin taper to accompany steroids for home. 77yo T2DM male with near-adequate outpatient control per recent A1c. * A1c = 8.1% on 11/17/17; goal A1c 7.6-8% per ADA Elements of Diabetes Care Scoring Scale * Could consider maximizing metformin dosing at discharge for further A1c reduction. * Typically, Metformin XR is better tolerated (in terms of GI side effects) than immediate release metformin. No additional cost for the XR formulation as compared to the IR formulation * Continue to titrate metformin dosing upwards as recommended. Dosage increases should be made in increments of 500 mg weekly, up to 2,000 mg/day PO, given in divided doses. Doses above 2000 mg/day may be better tolerated if divided and given 3 times per day with meals. * Recommend NPH SQ once daily in the morning while on prednisone taper: * Prednisone 60 mg x 2 days - administer NPH 35 units SQ daily in the morning * Prednisone 40 mg x 2 days - administer NPH 35 units SQ daily in the morning * Prednisone 20 mg x 2 days - administer NPH 17 units SQ daily in the morning * Prednisone 10 mg x 2 days - administer NPH 9 units SQ daily in the morning * If prednisone dose is held, NPH should also be held - bsgs ac & hs - patient should continue bsg checks at home - A1c 8.1 11/17 Smoking cessation advised - Nicotine patch provided Total Time Spent: Greater than 30 minutes This includes examination of the patient, discharge planning, medication reconciliation, and communication with other providers. Discharge Instructions Please refer to the electronic Patient Visit Report (Discharge Instructions) for additional information. Follow-Up Dr. Vicente on SundayDecember 04 at 11:30 am. [facility] Pulmonology Office with Clarice Ford PA-C on SundayDecember 11 at 1:00 pm.
--- NOTE | 2017-11-30 09:45 | Pharmacy Progress Note ---
Pharmacy Glycemic Short Note 2 Date of Service Nov 30, 2017. OUTPATIENT ANTIDIABETIC REGIMEN: * Metformin 500mg PO BIDM Item Value Date Time Bedside Glucose 183 mg/dl H 11/29/17 0739 Bedside Glucose 240 mg/dl H 11/29/17 1134 Bedside Glucose 262 mg/dl H 11/29/17 1658 Bedside Glucose 205 mg/dl H 11/29/172000 Bedside Glucose 112 mg/dl H 11/30/17 0715 ASSESSMENT: 11/30/17 * Patient is experiencing steroid induced hyperglycemia. Solu-medrol decreased from 60 mg IV q8 to q12 hours this am. * All post prandial BSGs were > 200 mg/dL yesterday; bolus insulin CF/CR was tightened yesterday starting with dinner. * Patient received a total of 107 units of insulin over the past 24 hours. * Fasting BSG of 112 mg/dL is at goal - basal insulin will be decreased due to decrease in steroids * Post-prandial BSGs remain above goal, however I will not further tighten CF/ CR since steroids are being decreased * Planning for discharge today - patient would benefit from once daily NPH injection to cover steroid effect while on prednisone taper (see below) PLAN FOR INPATIENT GLYCEMIC CONTROL: * Continue to hold outpatient oral diabetes medications * Basal insulin - decrease * Lantus 15-22 units SQ BID * 22 units if BSG > 140 mg/dl * Bolus insulin - no change * NovoLog per scale ACHS or Q6hrs while NPO * Goal Range: Low 110 mg/dL - High 150 mg/dL * Correction Factor: 12 mg/dL/unit * Nutritional / Prandial insulin per carb ratio of 1 unit per 4 grams CHO consumed PLAN FOR DISCHARGE: * 77yo T2DM male with near-adequate outpatient control per recent A1c. * A1c = 8.1% on 11/17/17; goal A1c 7.6-8% per ADA Elements of Diabetes Care Scoring Scale * Could consider maximizing metformin dosing at discharge for further A1c reduction. * Typically, Metformin XR is better tolerated (in terms of GI side effects) than immediate release metformin. No additional cost for the XR formulation as compared to the IR formulation * Continue to titrate metformin dosing upwards as recommended. Dosage increases should be made in increments of 500 mg weekly, up to 2,000 mg/day PO, given in divided doses. Doses above 2000 mg/day may be better tolerated if divided and given 3 times per day with meals. * Recommend NPH SQ once daily in the morning while on prednisone taper: * Prednisone 60 mg x 2 days - administer NPH 35 units SQ daily in the morning * Prednisone 40 mg x 2 days - administer NPH 35 units SQ daily in the morning * Prednisone 20 mg x 2 days - administer NPH 17 units SQ daily in the morning * Prednisone 10 mg x 2 days - administer NPH 9 units SQ daily in the morning * If prednisone dose is held, NPH should also be held Thank you.
[2017-11-30 09:53] VITALS: BP 138/75; PULSE 82; TEMP 37; O2SAT 95
[2017-11-30] MEDS ORDERED: NVLNI SC (10:07)
[2017-11-30] MEDS ORDERED: [UNRECOGNIZED DRUG - CODE] SQ (10:07)
[2017-11-30] MEDS ORDERED: SODIUM CHLORIDE 0.9% INJ 10 ML VIAL INJ PRN (10:45)
[2017-11-30 14:18] VITALS: Ht 167.6 cm; Wt 86.8 kg
[2017-11-30] MEDS ORDERED: METHYLPREDNISOLONE IV 60 MG in SYRINGE 0 ML IV SCH (21:00)
== END 2017-11-30 11:56 | disposition home or self-care (01) | DRG 191 ==
LOC: C.EDB 20:56 → C.MS2W 11-27 02:50 → ENRESERV 11-27 02:57 → OBSVTOIN 11-29 11:37
PROVIDERS: ADMIT Internal Medicine; ATTEND Hospitalist
DX: J44.1 Chronic obstructive pulmonary disease with (acute) exacerbation (principal); J96.11 Chronic respiratory failure with hypoxia; I11.0 Hypertensive heart disease with heart failure; I50.32 Chronic diastolic (congestive) heart failure; E11.65 Type 2 diabetes mellitus with hyperglycemia; E78.5 Hyperlipidemia, unspecified; G47.33 Obstructive sleep apnea (adult) (pediatric); T38.0X5A Adverse effect of glucocorticoids and synthetic analogues, initial encounter; F17.200 Nicotine dependence, unspecified, uncomplicated; Z79.52 Long term (current) use of systemic steroids; Z79.84 Long term (current) use of oral hypoglycemic drugs; Z79.899 Other long term (current) drug therapy; Z86.711 Personal history of pulmonary embolism; Z86.718 Personal history of other venous thrombosis and embolism; Z88.8 Allergy status to other drugs, medicaments and biological substances

== ENCOUNTER → 2017-12-11 | Outpatient (CLI) | payer BC ==
[~2017-12-11] MED LIST changes: +ALBU18002 INH; +AZIT-57 PO; +AZIT250T PO; +FURO-85 PO; -GFNSR600 PO; -LPR25 PO; -LSX20 PO; -LVQ500 PO; -MCRK20 PO; +METO25TA56 PO; +NICO14DI31 TD; -NICO14DI5 TD; +NVLNI SC; +POTA-639 PO; -PRED10TA PO; +PRED50TA PO; -PROAIR HFA INH; -TRAM-10 PO; +[UNRECOGNIZED DRUG - CODE] SQ
[2017-12-11 17:47] LABS: BASO % 0.1 %; BASO ABS # 0.03 K/uL (0-0.2); EOS % 0.3 %; EOS ABS # 0.06 K/uL (0-0.5); HEMATOCRIT 39.2 % (42-52); HEMOGLOBIN 12.5 g/dL (14.0-18.0); IG# 0.47 K/uL (0.00-0.02); LYMPH % 7.9 %; LYMPH ABS # 1.61 K/uL (1.2-3.4); MEAN CELL VOLUME 92.2 fL (80-100); MEAN CORPUSCULAR HEMOGLOBIN 29.4 pg (25-34); MEAN CORPUSCULAR HGB CONC 31.9 g/dl (32-36); MEAN PLATELET VOLUME 10.1 fL (7.4-10.4); MONO % 9.4 %; MONO ABS # 1.91 K/uL (0.11-0.59); NEUT ABS # 16.31 K/uL (1.4-6.5); PLATELET COUNT 378 K/uL (130-400); RED CELL DISTRIBUTION WIDTH CV 16.3 % (11.5-14.5); RED CELL DISTRIBUTION WIDTH SD 55.1 fL (36.4-46.3); WHITE BLOOD COUNT 20.39 K/uL (4.8-10.8)
[2017-12-11 18:03] LABS: ALBUMIN 2.9 gm/dl (3.4-5.0); ALT/SGPT 22 U/L (12-78); AST/SGOT 8 U/L (15-37); BLOOD UREA NITROGEN 13 mg/dl (7-18); CALCIUM 8.2 mg/dl (8.5-10.1); CARBON DIOXIDE 27 mmol/L (21-32); CREATININE 1.09 mg/dl (0.60-1.40); GLUCOSE 200 mg/dl (70-99); POTASSIUM 4.2 mmol/L (3.5-5.1); SODIUM 138 mmol/L (136-145)
[2017-12-11 18:13] LABS: ALKALINE PHOSPHATASE 73 U/L (45-117); TOTAL PROTEIN 6.1 gm/dl (6.4-8.2)
== END | disposition home or self-care (01) ==
LOC: C.LABMFLN 14:06
PROVIDERS: ATTEND Family Medicine
DX: M79.1 Myalgia (principal); R53.83 Other fatigue

== ENCOUNTER 2017-12-12 16:56 | Emergency (ER) | payer BC ==
[~2017-12-12] VITALS: Ht 177.8 cm; Wt 88.5 kg
[~2017-12-12 16:56] MED LIST changes: -AZIT250T PO; -PRED50TA PO
[2017-12-12 17:08] VITALS: TEMP 36.8; Ht 177.8 cm; Wt 88.5 kg
[2017-12-12] MEDS ORDERED: METHYLPREDNISOLONE 125 MG VIAL IV STA (17:24)
[2017-12-12] MEDS ORDERED: AZITHROMYCIN 250 MG TAB PO STA (17:24)
[2017-12-12] MEDS ORDERED: MAGNESIUM SULFATE 1GM / D5W 100 ML IV STA (17:24)
[2017-12-12] MEDS ORDERED: SODIUM CHLORIDE 0.9% 1000ML 1,000 ML IV STA (17:24)
[2017-12-12] MEDS ORDERED: ALBUT/IPRATROP 3MG/0.5MG NEB 3 ML VIAL INH ONE (17:30)
--- NOTE | 2017-12-12 17:32 | EMERGENCY ROOM VISIT NOTE ---
History Report prepared by Kelly: Fede Whittaker Under the Supervision of: Dr. Negro Iglesias M.D. First contact with patient: 17:13 Chief Complaint: SHORTNESS OF BREATH Stated Complaint: SHORTNESS OF BREATH History of Present Illness The patient is a 77 year old white male with a past medical history of COPD who presents to the ED with a cc of constant shortness of breath beginning this afternoon. Positive occasional unproductive cough. Negative swelling in his legs , chest pain, nausea, and vomiting. He was discharged on the 12th after having a COPD exacerbation. He is not on antibiotics since he finished them. This is similar to his COPD, and he states that he uses oxygen when he sleeps. Source of History: patient Onset: this afternoon Position: other (global) Quality: other (shortness of breath) Timing: constant Associated Symptoms: + cough, No chest pain, No nausea, No vomiting Review of Systems See HPI for pertinent positives and negatives. A total of ten systems were reviewed and were otherwise negative. Past Medical & Surgical Medical Problems: (1) Bladder cancer (2) COPD (chronic obstructive pulmonary disease) (3) COPD Exacerbation (4) COPD with exacerbation (5) GI bleed (6) Hyperglycemia Family History Brain Mass Kidney disease Lung Disease Stroke Social History Smoking Status: Current Every Day Smoker Drug Use: none Marital Status: Housing Status: lives alone Occupation Status: retired Current/Historical Medications Scheduled Albuterol Sulf (Proventil 0.083% 2.5MG/3ML), 2.5 MG INH QID Atorvastatin (Lipitor), 10 MG PO PM Budesonide/Formoterol Fumarate (Symbicort 160/4.5 Inhaler ), 2 PUFFS INH BID Clonazepam (Klonopin), 1 MG PO HS Finasteride (Proscar), 5 MG PO QAM Metformin HCl (Metformin HCl), 500 MG PO BID Metoprolol Tartrate (Lopressor) (Lopressor), 12.5 MG PO BID Nicotine (Nicoderm Cq 14MG Patch), 1 PATCH TD QAM Omeprazole (Prilosec), 40 MG PO QAM Ranitidine HCl (Ranitidine HCl), 150 MG PO DAILY Tamsulosin Hcl (Flomax), 0.4 MG PO AFTERNOON Tiotropium [place] (Spiriva Respimat), 2 PUFF INH DAILY Scheduled PRN Albuterol Sulfate (Proair Respiclick), 2 PUFFS INH Q4H PRN for COPD EXACERBATION Trazodone Hcl (Desyrel), 50-100 MG PO HS PRN for Sleep Allergies Coded Allergies: Pravastatin (Verified Adverse Reaction, Unknown, muscle aches, 12/12/17) Physical Exam Vital Signs Date Time Temp Pulse Resp B/P (MAP) Pulse Ox O2 Delivery O2 Flow Rate FiO2 12/12/17 20:39 94 Nasal Cannula 2.0 12/12/17 20:38 111 144/92 100 Nasal Cannula 2.0 12/12/17 19:30 88 18 96 2.0 12/12/17 18:58 107 22 144/70 94 Room Air 12/12/17 18:13 98 Nasal Cannula 3.0 12/12/17 17:39 108 12/12/17 17:35 95 Room Air 12/12/17 17:35 98 Nasal Cannula 12/12/17 17:08 36.8 110 26 137/65 93 Room Air Physical Exam GENERAL: Awake, alert, well-appearing, mild distress HENT: Normocephalic, atraumatic. Nasal cannula in place. EYES: Normal conjunctiva. Sclera non-icteric. PERRL. No anisocoria. NECK: Supple. No nuchal rigidity. FROM. RESPIRATORY: Inspiratory and expiratory wheezes. Prolonged expiratory phase. No rhonchi or crackles CARDIAC: RRR, no MRG ABDOMEN: Soft, NTND, BS+ MSK: No chest wall TTP, no LE edema NEURO: GCS 15, CN 2-12 intact, moves all 4s on command SKIN: No rash or jaundice noted. Medical Decision & Procedures Laboratory Results 12/12/17 17:30 Red Blood Count 4.25, Mean Corpuscular Volume 89.6, Mean Corpuscular Hemoglobin 29.6, Mean Corpuscular Hemoglobin Concent 33.1, Mean Platelet Volume 9.5, Neutrophils (%) (Auto) 90.2, Lymphocytes (%) (Auto) 3.4, Monocytes (%) (Auto) 4.5, Eosinophils (%) (Auto) 0.0, Basophils (%) (Auto) 0.1, Neutrophils # (Auto) 14.31, Lymphocytes # (Auto) 0.54, Monocytes # (Auto) 0.71, Eosinophils # (Auto) 0.00, Basophils # (Auto) 0.01 12/12/17 17:30 Test 12/12/17 17:24 12/12/17 17:30 White Blood Count 15.85 K/uL (4.8-10.8) Red Blood Count 4.25 M/uL (4.7-6.1) Hemoglobin 12.6 g/dL (14.0-18.0) Hematocrit 38.1 % (42-52) Mean Corpuscular Volume 89.6 fL (80-100) Mean Corpuscular Hemoglobin 29.6 pg (25-34) Mean Corpuscular Hemoglobin Concent 33.1 g/dl (32-36) Platelet Count 373 K/uL (130-400) Mean Platelet Volume 9.5 fL (7.4-10.4) Neutrophils (%) (Auto) 90.2 % Lymphocytes (%) (Auto) 3.4 % Monocytes (%) (Auto) 4.5 % Eosinophils (%) (Auto) 0.0 % Basophils (%) (Auto) 0.1 % Neutrophils # (Auto) 14.31 K/uL (1.4-6.5) Lymphocytes # (Auto) 0.54 K/uL (1.2-3.4) Monocytes # (Auto) 0.71 K/uL (0.11-0.59) Eosinophils # (Auto) 0.00 K/uL (0-0.5) Basophils # (Auto) 0.01 K/uL (0-0.2) RDW Standard Deviation 51.6 fL (36.4-46.3) RDW Coefficient of Variation 15.7 % (11.5-14.5) Immature Granulocyte % (Auto) 1.8 % Immature Granulocyte # (Auto) 0.28 K/uL (0.00-0.02) Prothrombin Time 10.1 SECONDS (9.0-12.0) Prothromb Time International Ratio 1.0 (0.9-1.1) Activated Partial Thromboplast Time 27.9 SECONDS (21.0-31.0) Partial Thromboplastin Ratio 1.1 Anion Gap 6.0 mmol/L (3-11) Est Creatinine Clear Calc Drug Dose 55.9 ml/min Estimated GFR () 73.3 Estimated GFR (Non- 63.2 BUN/Creatinine Ratio 15.9 (10-20) Calcium Level 8.8 mg/dl (8.5-10.1) Magnesium Level 2.0 mg/dl (1.8-2.4) Troponin I < 0.015 ng/ml (0-0.045) Pro-B-Type Natriuretic Peptide 576 pg/ml (0-900) Laboratory results reviewed by me Medications Administered Medications (Trade) Dose Ordered Sig/Khurram Route Start Time Stop Time Status Last Admin Dose Admin Albuterol/ Ipratropium (Duoneb) 12 ml ONE ONCE INH 12/12/17 17:30 12/12/17 17:31 DC 12/12/17 17:56 12 ML Azithromycin (Zithromax Tab) 500 mg NOW STAT PO 12/12/17 17:24 12/12/17 17:26 DC 12/12/17 17:56 500 MG Methylprednisolone Sodium Succinate (Solu-Medrol IV) 125 mg NOW STAT IV 12/12/17 17:24 12/12/17 17:26 DC 12/12/17 17:56 125 MG Sodium Chloride 1,000 ml @ 999 mls/hr Q1H1M STAT IV 12/12/17 17:24 12/12/17 18:24 DC 12/12/17 17:24 999 MLS/HR Magnesium Sulfate 100 ml @ 300 mls/hr NOW STAT IV 12/12/17 17:24 12/12/17 17:43 DC 12/12/17 17:56 300 MLS/HR ECG Per My Interpretation Indication: SOB/dyspnea Rate (beats per minute): 104 Rhythm: sinus tachycardia Findings: left axis deviation, other (normal intervals, no STS changes or TWI) ED Course 1712: The patient was evaluated in room B2. A complete history and physical exam was performed. 0: I reevaluated the patient, and he was having the same shortness of breath and still having some wheezing. 1941: The patient is going to be walked, and he is going to get a second nebulizer. Medical Decision Nursing notes reviewed. Ancillary studies and prior records reviewed. The patient is a 77 year old white male with a past medical history of COPD who presents to the ED with a cc of constant shortness of breath beginning this afternoon. Differential diagnosis: Etiologies such as infections, reactive airway disease, pneumonia, pneumothorax , COPD, CHF, cardiac ischemia, pulmonary embolism, musculoskeletal, gastrointestinal, as well as others were entertained. Patient was seen and evaluated the bedside. Patient does have a known history of COPD and the patient has been complaining of some shortness of breath worsening since this afternoon. Patient does smoke and the patient recently smoked today this morning. Patient denies any cough. Patient does wear 2 L of oxygen primarily at night but does use it when needed. Patient denies any fevers. The patient did take a dose of prednisone today. She does have diffuse inspiratory and expiratory wheezing. Patient has no lower extremity swelling. Patient did have blood work, EKG, troponin, chest x- ray completed. Patient's chest x-ray does not show any pneumonia. Patient does have a mild white blood cell count 15,000 with a left shift. This may be related to recent steroid use. Patient did take a dose today but had finishes outpatient treatment proximally 1 week prior. Patient also finished outpatient antibiotics on Sunday of last week. The patient upon reassessment was not feeling much improved. The patient did still have some wheezing. The patient had received his duo nebs, fluids, and magnesium. Patient was given an additional hour-long. Patient was feeling improved after his second hour-long. Patient did have some trace end expiratory wheezes but this had improved from prior. Again the patient was feeling much improved. The patient then was ambulated on his 2 L of home oxygen. Patient was feeling well. Patient still did have some mild tachycardia but this is likely related to the duo nebs. The patient did have resolution of tachycardia after his first neb and fluids. Given the patient was feeling improved and after his ambulatory trial his lowest oxygen saturation was 94%. Patient was deemed suitable for outpatient follow-up treatment at this time. Patient was told to quit smoking and the patient was told return if he had any worsening symptoms. Patient was given a course of steroids and azithromycin as outpatient was told to continue his nebs at home. Patient was given strict follow-up, discharge, and return precautions. All questions were answered. Patient was deemed suitable for outpatient follow-up at this time. Patient agreed with the plan of care and was safely discharged home. Impression Primary Impression: COPD exacerbation Additional Impressions: SOB (shortness of breath) Encounter for smoking cessation counseling Scribe Attestation The scribe's documentation has been prepared under my direction and personally reviewed by me in its entirety. I confirm that the note above accurately reflects all work, treatment, procedures, and medical decision making performed by me. Departure Information Dispostion Home / Self-Care Prescriptions Prednisone (PREDNISONE) 50 Mg Tab 50 MG PO DAILY for 4 Days, #4 TAB Prov: Negro Iglesias M.D. 12/12/17 Azithromycin (Zithromax) 250 Mg Tab 250 MG PO DAILY for 4 Days, #4 TAB Prov: Negro Iglesias M.D. 12/12/17 Referrals Harrison Vicente M.D. (PCP) Patient Instructions COPD Dc, ED Smoking Cessation, [facility] Additional Instructions Please return to the emergency department if you have worsening or recurrent symptoms not amenable to at-home treatment. Please call for a follow-up appointment with her primary care physician. Please take your medications as prescribed. If you have other concerns and/or complaints please feel free to also call your primary care physician's office or return the ED for further evaluation, management, and treatment. You may take 800 mg Ibuprofen every 6 hours as needed for pain/fever with food unless told by your physician not to take NSAIDs. You may take tylenol 1000 mg every 6 hours as needed for pain/fever unless told by your physician to not take it or have liver problems. You may take motrin and tylenol separately or at the same time. Please use your inhalers/nebulizers 2 puffs every 4 hours 1 day, 2 puffs every 6 hours second day, 1 puff every 4 hours the third day, and 1 puff every 6 hours the fourth day. Please take your steroids preferably in the morning and with food as they may cause some upset stomach and cause you to be very awake and alert. Take your medications as prescribed. If taking an antibiotic consider taking a probiotic and/or eating yogurt, but at the least, please take with food as it can cause upset stomach. Please consider smoking cessation. You have been examined and treated today on an emergency basis only. This is not a substitute for, or an effort to provide, complete comprehensive medical care. It is impossible to recognize and treat all injuries or illnesses in a single emergency department visit. It is therefore important that you follow up closely with [facility], your PCP, and/or your specialist(s). Call as soon as possible for an appointment. Thank you for your time and consideration. I look forward to speaking with you again soon. Please don't hesitate to call us if you have any questions. Problem Qualifiers
[2017-12-12 17:35] VITALS: O2SAT 98
[2017-12-12 17:47] LABS: BASO % 0.1 %; BASO ABS # 0.01 K/uL (0-0.2); HEMATOCRIT 38.1 % (42-52); HEMOGLOBIN 12.6 g/dL (14.0-18.0); IG# 0.28 K/uL (0.00-0.02); LYMPH % 3.4 %; LYMPH ABS # 0.54 K/uL (1.2-3.4); MEAN CELL VOLUME 89.6 fL (80-100); MEAN CORPUSCULAR HEMOGLOBIN 29.6 pg (25-34); MEAN CORPUSCULAR HGB CONC 33.1 g/dl (32-36); MEAN PLATELET VOLUME 9.5 fL (7.4-10.4); MONO % 4.5 %; MONO ABS # 0.71 K/uL (0.11-0.59); NEUT % 90.2 %; NEUT ABS # 14.31 K/uL (1.4-6.5); PLATELET COUNT 373 K/uL (130-400); RED CELL DISTRIBUTION WIDTH CV 15.7 % (11.5-14.5); RED CELL DISTRIBUTION WIDTH SD 51.6 fL (36.4-46.3); WHITE BLOOD COUNT 15.85 K/uL (4.8-10.8)
--- NOTE | 2017-12-12 17:58 | DIAGNOSTIC IMAGING REPORT ---
CHEST ONE VIEW PORTABLE CLINICAL HISTORY: Respiratory distress. Shortness of breath COMPARISON STUDY: 11/26/2017 FINDINGS: The cardiac and mediastinal contours are normal. There is no evidence of focal pulmonary consolidation. There is no evidence of failure. No pleural effusions are visualized.[ There is minor left basilar atelectatic change. Underlying pulmonary emphysema is suspected. IMPRESSION: No active disease in the chest. Electronically signed by: Zaid Edge M.D. 12/12/2017 5:57 PM Dictated Date/Time: 12/12/2017 5:56 PM
[2017-12-12 18:01] LABS: PTT PATIENT 27.9 SECONDS (21.0-31.0)
[2017-12-12 18:08] LABS: BLOOD UREA NITROGEN 18 mg/dl (7-18); CALCIUM 8.8 mg/dl (8.5-10.1); CARBON DIOXIDE 26 mmol/L (21-32); CREATININE 1.13 mg/dl (0.60-1.40); GLUCOSE 244 mg/dl (70-99); POTASSIUM 4.3 mmol/L (3.5-5.1); SODIUM 134 mmol/L (136-145)
[2017-12-12] MEDS ORDERED: ALBUT/IPRATROP 3MG/0.5MG NEB 3 ML VIAL INH STA (18:55)
[2017-12-12 19:30] VITALS: PULSE 88; O2SAT 96
[2017-12-12] MEDS ORDERED: AZIT250T PO (20:42)
[2017-12-12] MEDS ORDERED: PRED50TA PO (20:42)
[2017-12-12 21:05] VITALS: BP 132/76; PULSE 110; O2SAT 93
== END 2017-12-12 21:06 | disposition home or self-care (01) ==
LOC: C.EDB 16:58
DX: J44.1 Chronic obstructive pulmonary disease with (acute) exacerbation (principal); R00.0 Tachycardia, unspecified; R73.9 Hyperglycemia, unspecified; F17.200 Nicotine dependence, unspecified, uncomplicated; Z79.84 Long term (current) use of oral hypoglycemic drugs; Z99.81 Dependence on supplemental oxygen; Z79.899 Other long term (current) drug therapy; Z83.6 Family history of other diseases of the respiratory system

== ENCOUNTER → 2018-01-04 | Outpatient (CLI) | payer BC ==
[~2018-01-04] MED LIST changes: -AZIT-57 PO; -IPRASOL4 INH; -METO25TA56 PO; -NVLNI SC; +OXGN; -POTA-639 PO; -TAMS0.4C38 PO; -[UNRECOGNIZED DRUG - CODE] SQ
== END | disposition home or self-care (01) ==
LOC: C.LABMFLN 11:03
PROVIDERS: ATTEND Urology
DX: C67.9 Malignant neoplasm of bladder, unspecified (principal)

== ENCOUNTER → 2018-01-09 | Outpatient (CLI) | payer BC ==
[2018-01-09 13:23] LABS: CREATININE 0.74 mg/dl (0.60-1.40)
== END | disposition home or self-care (01) ==
LOC: C.LABMFLN 08:21
PROVIDERS: ATTEND Family Medicine
DX: E11.9 Type 2 diabetes mellitus without complications (principal); C67.9 Malignant neoplasm of bladder, unspecified

== ENCOUNTER → 2018-03-11 | Outpatient (CLI) | payer BC ==
[~2018-03-11] MED LIST changes: -CLON1TAB3 PO; +CLON1TAB5 PO; -TRAZ-119 PO; +TRAZ1TAB96 PO
[2018-03-11 12:51] LABS: BLOOD UREA NITROGEN 15 mg/dl (7-18); CREATININE 0.93 mg/dl (0.60-1.40)
== END | disposition home or self-care (01) ==
LOC: C.LAB 10:41
PROVIDERS: ATTEND Urology
DX: C67.9 Malignant neoplasm of bladder, unspecified (principal)

== ENCOUNTER → 2018-03-13 | Outpatient (CLI) | payer BC ==
--- NOTE | 2018-03-13 09:16 | DIAGNOSTIC IMAGING REPORT ---
CT ABD/PELVIS IV CONTRAST ONLY CLINICAL HISTORY: C67.9 Bladder [id number] Hematuria, microscopic COMPARISON STUDY: June 2015 TECHNIQUE: The patient was injected with 50 cc of Optiray 320. Following a 5 minute delay, the patient was scanned in a dynamic helical fashion during the additional administration of 43 cc of Optiray 320.. A dose lowering technique was utilized adhering to the principles of ALARA. CT DOSE: 759.56 mGycm FINDINGS: Lower chest: There is a calcified right middle lobe granuloma. There is mild lower lobe bronchial wall thickening. There is a 32 mm pulmonary cyst within the lingula. Liver: There is mild hepatic steatosis. There is a stable 9 mm hypodensity within left hepatic lobe consistent with a cyst. Gallbladder: Cholelithiasis Spleen: Normal in size and attenuation. Pancreas: Unremarkable. Adrenal glands: Unremarkable. Kidneys: No solid renal masses are visualized. There is a left renal parapelvic cyst. There is an 8mm left renal cortical cyst. No collecting system filling defects are visualized. No ureteral lesions are visualized. Bowel: There are no transition zones indicate bowel obstruction. There is a left inguinal hernia containing fat as well as a knuckle of colon at the descending sigmoid junction. There is no acute diverticulitis. The appendix appears normal. Peritoneum: There is no intraperitoneal free air or abdominal ascites. Vasculature: The abdominal aorta is normal in course and caliber. Adenopathy: None. Pelvic viscera: There is a small gastrotomy within the bladder, likely iatrogenic. There is minor anterior bladder wall thickening. Skeletal structures: No destructive osseous lesions are seen. IMPRESSION: 1. No solid renal masses identified. No collecting system or ureteral lesions visualized 2. Mild anterior bladder wall thickening 3. Left inguinal hernia containing fat as well as a small knuckle of colon 4. No evidence of pathologic adenopathy 5. No acute inflammatory changes Electronically signed by: Zaid Edge M.D. 03/13/2018 9:15 AM Dictated Date/Time: 03/13/2018 9:07 AM
== END | disposition home or self-care (01) ==
LOC: C.CTS 08:37
PROVIDERS: ATTEND Urology
DX: C67.9 Malignant neoplasm of bladder, unspecified (principal); R31.29 Other microscopic hematuria; K40.90 Unilateral inguinal hernia, without obstruction or gangrene, not specified as recurrent

== ENCOUNTER 2020-02-17 14:51 | Inpatient (IN) ==
[2020-02-17] MEDS ORDERED: SODIUM CHLORIDE 0.9% 1000ML 500 ML IV ONE (15:08)
[2020-02-17] MEDS ORDERED: dilTIAZem HCl 5 MG/ML 5 ML VIAL IV ONE (15:09)
[2020-02-17] MEDS ORDERED: STAT IV Infusion **Titration per Protocol STA (15:10)
[2020-02-17] MEDS ORDERED: SODIUM CHLORIDE 0.9% 500 ML IV SCH (15:15)
[2020-02-17] MEDS ORDERED: dilTIAZem HCL 125 MG in DEXTROSE 5% 100 ML IV SCH (15:15)
[2020-02-17] MEDS ORDERED: OPTIRAY 320 125ml IV PRN (15:24)
[2020-02-17 15:29] LABS: Basophils # (auto) 0.05 K/uL (0-0.2); Basophils % (auto) 0.2 %; Eosinophils # (auto) 0.02 K/uL (0-0.5); Eosinophils % (auto) 0.1 %; Hematocrit (blood only) 29.5 % (42-52); Hemoglobin 8.8 g/dL (14.0-18.0); Immature Granulocytes # (auto) 0.11 K/uL (0.00-0.02); Immature Granulocytes % (auto) 0.5 %; Lymphocytes % (auto) 7.5 %; Mean Corpuscular Hemoglobin 22.5 pg (25-34); Mean Corpuscular Hgb Conc 29.8 g/dL (32-36); Mean Corpuscular Volume 75.4 fL (80-100); Mean Platelet Volume 9.6 fL (7.4-10.4); Monocytes # (auto) 2.75 K/uL (0.11-0.59); Monocytes % (auto) 12.9 %; Neutrophils # (auto) 16.81 K/uL (1.4-6.5); Neutrophils % (auto) 78.8 %; Nucleated RBC # (auto) 0.07 K/uL (0-0); Nucleated RBC % (auto) 0.3 %; Platelet Count 651 K/uL (130-400); RDW Coefficient of Variation 18.1 % (11.5-14.5); RDW Standard Deviation 48.7 fL (36.4-46.3); Red Blood Count 3.91 M/uL (4.7-6.1); White Blood Count 21.34 K/uL (4.8-10.8)
[2020-02-17 15:30] LABS: iSTAT Creatinine 1.1 mg/dl (0.6-1.3); iSTAT Hemoglobin 10.9 g/dl (14.0-18.0); iSTAT Ionized Calcium 1.07 mmol/l (1.12-1.32); iSTAT Potassium 5.2 mmol/L (3.3-5.0)
--- NOTE | 2020-02-17 15:42 | Emergency Department Note ---
History of Present Illness General Chief complaint: Cardiac Assessment Stated complaint: CHF, REF'D BY POLLARD Time Seen by Provider: 02/17/20 15:03 History of Present Illness Provider complaint: Chest pain difficulty breathing urinating blood Onset (ago): day(s) 4 Location: chest and genitals Radiation: non-radiation Severity: moderate Pain Consistency: + constant Quality: + aching and + dull Associated symptoms: + malaise, + shortness of breath and + weakness 79-year-old male presents emergency department for chest pain and shortness of breath for last 4 days. He reports he has been coming increasingly short of breath and is also noticed some swelling of his feet. He states that 2 days ago he began urinating blood. Chest pain is located in the center of his chest. No radiation. Pain is dull and pressure. States he went to his PCPs office today who referred him to the emergency department. Home Medications Home Medications Medication Instructions Recorded Confirmed Type albuterol sulfate 90 mcg/actuation 2 puffs INHALATION Q6H PRN #18 gm 03/06/19 02/17/20 Rx aerosol inhaler blood sugar diagnostic #50 ea 03/28/19 02/17/20 Rx blood-glucose meter #1 ea 03/28/19 02/17/20 Rx lancets 33 gauge #100 ea 03/28/19 02/17/20 Rx albuterol sulfate 2.5 mg INHALATION QID PRN #180 ml 05/21/19 02/17/20 Rx atorvastatin 10 mg tablet 10 mg PO DAILY #90 tab 05/21/19 02/17/20 Rx metformin 500 mg tablet 500 mg PO BID #180 tab 05/21/19 02/17/20 Rx famotidine 20 mg tablet 20 mg PO BID #60 tab 11/24/19 02/17/20 Rx fluticasone fur. 100 mcg-umeclid 1 puffs INHALATION DAILY ea 02/17/20 02/17/20 History 62.5 mcg-vilant 25 mcg inhalat.powder sertraline 25 mg PO HS 02/17/20 02/17/20 History Allergies Allergy/AdvReac Type Severity Reaction Status Date / Time levofloxacin Allergy Unknown PT NOT Verified 02/17/20 15:55 AWARE-ON MEDICAL CHART pravastatin AdvReac Intermediate muscle Verified 02/17/20 15:55 aches Past Med/Surg History Medical History Benign essential hypertension Bladder cancer 1 YR AGO AND REASON FOR UPCOMING PROCEDURE Chronic myeloproliferative disease Chronic obstructive pulmonary disease USING ALBUTEROL RESCUE 1-2X PER DAY Claudication Dyslipidemia Hx of gastroesophageal reflux (GERD) Leukocytosis (Acute) AVG WBC COUNT ~20 since 2015 On supplemental oxygen therapy 5 LPM HS [place] (obstructive sleep apnea) couldn't tolerate CPAP or BiPAP Personal history of DVT (deep vein thrombosis) LEFT LEG, SINGLE EPISODE 2-3 YRS AGO Type 2 diabetes mellitus Type 2 diabetes mellitus Surgical History History of bladder surgery TURBT, 01/07/18 @ [facility], LMA 5.0, 'good seal.' Hx of colonoscopy Family History Father Lung disease Brother Brain cancer Daughter Kidney stones Mother Stroke Social History Preferred Language: Welsh Communication Ability: Effective Visual Impairment: No Limitations Citizenship Instructor Required: No Beliefs That Will Affect Care: None Current Living Situation: Alone Feels Safe at Home: Yes Smoking Status: Current every day smoker Tobacco Type: cigarettes ; Cigarettes Per Day: 6-8 CIGS / DAY x 62 years ; Hx Alcohol Use: No Hx Substance Use: No Seatbelt Use: always Review of Systems A total of 10 systems reviewed and were otherwise negative Physical Exam Vital Signs Vital Signs - 24 hr 02/17/20 14:54 02/17/20 15:08 02/17/20 15:14 Temperature 36.8 C Temperature Source Oral Pulse Rate 144 H 133 H 147 H Pulse Rate from SpO2 Sensor Respiratory Rate 22 24 Blood Pressure 108/70 106/75 112/73 Blood Pressure Mean 82 87 83 Pulse Oximetry 90 Oxygen Delivery Method Room Air Sepsis Recent Fever Within 48 Hours No Sepsis New/Unexplained Change in Mental Status No Sepsis Action Taken by Nursing No Action Required 02/17/20 15:15 02/17/20 15:18 02/17/20 15:22 Temperature Temperature Source Pulse Rate 146 H 117 H Pulse Rate from SpO2 Sensor Respiratory Rate 24 Blood Pressure 112/84 104/71 Blood Pressure Mean 98 89 Pulse Oximetry 92 92 Oxygen Delivery Method Room Air Room Air Sepsis Recent Fever Within 48 Hours Sepsis New/Unexplained Change in Mental Status Sepsis Action Taken by Nursing 02/17/20 15:41 02/17/20 15:50 02/17/20 16:01 Temperature Temperature Source Pulse Rate 128 H 139 H 124 H Pulse Rate from SpO2 Sensor 126 H Respiratory Rate 24 Blood Pressure 106/72 102/64 Blood Pressure Mean 81 76 Pulse Oximetry 92 Oxygen Delivery Method Sepsis Recent Fever Within 48 Hours Sepsis New/Unexplained Change in Mental Status Sepsis Action Taken by Nursing 02/17/20 16:04 02/17/20 16:26 02/17/20 16:30 Temperature Temperature Source Pulse Rate 125 H 149 H 138 H Pulse Rate from SpO2 Sensor 129 H Respiratory Rate 23 Blood Pressure 124/79 124/87 104/80 Blood Pressure Mean 99 98 84 Pulse Oximetry 93 Oxygen Delivery Method Sepsis Recent Fever Within 48 Hours Sepsis New/Unexplained Change in Mental Status Sepsis Action Taken by Nursing 02/17/20 16:40 Temperature Temperature Source Pulse Rate 135 H Pulse Rate from SpO2 Sensor Respiratory Rate 26 H Blood Pressure 126/79 Blood Pressure Mean 94 Pulse Oximetry Oxygen Delivery Method Sepsis Recent Fever Within 48 Hours Sepsis New/Unexplained Change in Mental Status Sepsis Action Taken by Nursing Physical Exam GENERAL: He is oriented to person, place, and time. He appears well-developed and well-nourished. He does not appear distressed. HENT: Exam performed. - Head: Normocephalic and atraumatic. - Right Ear: External ear normal. No mastoid tenderness. - Left Ear: External ear normal. No mastoid tenderness. - Mouth/Throat: The oropharynx is clear and moist. No trismus in the jaw. No dental abscesses or uvula swelling. No oropharyngeal exudate or tonsillar abscesses. EYES: Conjunctivae and EOM are normal. Pupils are equal, round, and reactive to light. Right eye exhibits no discharge. Left eye exhibits no discharge. No scleral icterus. NECK: Normal range of motion. Neck supple. No JVD present. No spinous process tenderness present. No carotid bruit present. No rigidity. No tracheal deviation and normal range of motion present. No Brudzinski's sign and no Kernig's sign noted. CV: Tachycardic rate, irregular rhythm, normal heart sounds and intact distal pulses. 4+ pitting edema of the bilateral lower extremity. Palpable radial pulses bue. PULM/CHEST: Rhonchi bilaterally with rales at the bases and expiratory wheezes at the bases. - Chest Wall: He exhibits no tenderness. ABD: The abdomen is soft. Bowel sounds are normal. He has no distension. No mass is present. There is no tenderness. There is no rebound, no guarding, no Anglin's sign and no tenderness at McBurney's point. Rovsig negative. MUSC/SKEL: Normal range of motion. There is 4+ pitting edema of the bilateral lower extremities, tenderness or deformity. LYMPH: No cervical adenopathy. NEURO: He is alert and oriented to person, place, and time. He has normal strength. No cranial nerve deficit or sensory deficit. Coordination and gait normal. GCS eye subscore is 4. GCS verbal subscore is 5. GCS motor subscore is 6. Cerebellar tests wnl. SKIN: Skin is warm and dry. He is not diaphoretic. PSYCH: He has a normal mood and affect. Behavior is normal. Judgment and thought content normal. Course Course 1500: The patient was evaluated in room A3. A complete history and physical exam was performed. Patient placed on desk monitor and continuous pulse ox. Patient was found to be in a tachycardic and irregular rhythm on the desk monitor showing atrial fibrillation with a rate ranging from 130-170. His blood pressure was stable. IV access was obtained and the patient was given 10 mg bolus of Cardizem IV push. The patient's heart rate improved. Patient was given a small normal saline bolus as well and was started on Cardizem drip. Given the patient's chest pain, new onset atrial fibrillation, as well as hematuria, there was concern that the patient might have a aortic dissection. I-STAT showed a normal creatinine and the patient was taken for CT to rule out dissection. 1615: Vital signs stable on Cardizem drip. Labs show leukocytosis of 21.34, patient always has a leukocytosis likely due to his myeloproliferative disorder. Potassium of 5.2. Calcium gluconate ordered for the patient. CT does not show any dissection. Does show that the patient is fluid overloaded. [facility] the patient under Dr. Kunz. Given the patient's reported hematuria, no heparin started for the patient at this time, Tonia is in agreement with this and states she will discuss with Dr. Kunz about heparin. Administered Medications Sodium Chloride (Nss) 500 mls @ 125 mls/hr IV .Q4H TIFFANIE Stop: 03/18/20 15:14 Last Admin: 02/17/20 16:37 Dose: 125 mls/hr Documented by: [id number] Diltiazem HCl 125 mg/ Dextrose 125 mls @ 5 mls/hr IV .Q24H TIFFANIE; Protocol Stop: 03/18/20 15:14 Last Titration: 02/17/20 16:40 Dose: 7.5 mg/hr, 7.5 mls/hr Documented by: [id number] Cosigned by: [id number] Admin: 02/17/20 15:41 Dose: 5 mg/hr, 5 mls/hr Documented by: [id number] Cosigned by: [id number] Ioversol (Optiray 320 125ml) 116 ml IV ONCE PRN PRN Reason: Interaction Checking Stop: 02/21/20 15:23 Last Admin: 02/17/20 15:24 Dose: 116 ml Documented by: [id number] Discontinued Medications Calcium Gluconate (Calcium Gluconate 10%) Confirm Administered Dose 1,000 mg IV .STK-MED ONE Stop: 02/17/20 16:31 Last Admin: 02/17/20 16:32 Dose: Not Given Documented by: [id number] Diltiazem HCl (Cardizem) Confirm Administered Dose 25 mg IV .STK-MED ONE Stop: 02/17/20 15:10 Last Increment: 02/17/20 15:15 Dose: 10 mg Documented by: [id number] Cosigned by: [id number] Furosemide (Lasix) 40 mg IV NOW STA Stop: 02/17/20 16:21 Last Admin: 02/17/20 16:28 Dose: 40 mg Documented by: [id number] Sodium Chloride (Nss 1000ml) 500 mls @ 999 mls/hr IV .Q31M ONE Stop: 02/17/20 15:38 Last Admin: 02/17/20 15:23 Dose: 999 mls/hr Documented by: [id number] Calcium Gluconate 1,000 mg/ (Sodium Chloride) 60 mls @ 240 mls/hr IV NOW STA Stop: 02/17/20 16:12 Last Admin: 02/17/20 16:37 Dose: 240 mls/hr Documented by: [id number] Miscellaneous () 1 ea N/A NOW STA Stop: 02/17/20 15:11 Last Admin: 02/17/20 15:41 Dose: 1 ea Documented by: [id number] Critical Care Time Critical Care Time: Yes Total Critical Care Time: 47 I have personally spent greater than 47 minutes of critical care time in the direct management of this patient. This includes bedside care, interpretation of diagnostic studies, and testing, discussion with consultants, patient, and family members, and other required patient management activities. This 47 minutes is in excess of all separately billable procedures. Medical Decision Making Laboratory Data Result diagrams: 02/17/20 15:15 02/17/20 15:15 Lab Results 02/17/20 02/17/20 02/17/20 Range/Units 15:15 15:15 15:15 WBC 21.34 H (4.8-10.8) K/uL RBC 3.91 L (4.7-6.1) M/uL Hgb 8.8 L (14.0-18.0) g/dL POC Hgb (14.0-18.0) g/dl Hct 29.5 L (42-52) % POC Hct (42-52) % MCV 75.4 L (80-100) fL MCH 22.5 L (25-34) pg MCHC 29.8 L (32-36) g/dL RDW Std Deviation 48.7 H (36.4-46.3) fL RDW Coeff of Raine 18.1 H (11.5-14.5) % Plt Count 651 H (130-400) K/uL MPV 9.6 (7.4-10.4) fL Immature Gran % (Auto) 0.5 % Neut % (Auto) 78.8 % Lymph % (Auto) 7.5 % [place] % (Auto) 12.9 % Eos % (Auto) 0.1 % Baso % (Auto) 0.2 % Neut # (Auto) 16.81 H (1.4-6.5) K/uL Lymph # (Auto) 1.60 (1.2-3.4) K/uL [place] # (Auto) 2.75 H (0.11-0.59) K/uL Eos # (Auto) 0.02 (0-0.5) K/uL Baso # (Auto) 0.05 (0-0.2) K/uL Immature Gran # (Auto) 0.11 H (0.00-0.02) K/uL Absolute Nucleated RBC 0.07 H (0-0) K/uL Nucleated RBC % (auto) 0.3 % PT 19.3 H (9.0-12.0) Seconds INR 1.9 H (0.9-1.1) APTT 28.0 (21.0-31.0) Seconds PTT Ratio 1.0 POC Sodium (135-144) mmol/L Sodium 132 L (136-145) mmol/L POC Potassium (3.3-5.0) mmol/L Potassium 5.2 H (3.5-5.1) mmol/L POC Chloride (101-112) mmol/L Chloride 96 L (98-107) mmol/L Carbon Dioxide 27 (21-32) mmol/L POC Total CO2 (24-31) mmol/L Anion Gap 9.0 (3-11) POC Anion Gap (16-25) mmol/L POC BUN (7-18) mg/dl BUN 33 H (7-18) mg/dl Creatinine 1.17 (0.6-1.4) mg/dl POC Creatinine (0.6-1.3) mg/dl Est Cr Clr Drug Dosing 51.7 ml/min Est GFR ( Amer) 69.3 Est GFR (Non-Af Amer) 59.8 BUN/Creatinine Ratio 28.4 H (10-20) Glucose 93 (70-99) mg/dl POC Glucose (other) (70-99) mg/dl Calcium 8.2 L (8.5-10.1) mg/dl POC Ioniz Calcium Kendal (1.12-1.32) mmol/l Troponin I 0.017 (0-0.045) ng/ml Lipase 29 L (73-393) U/L //20 Range/Units 15:18 WBC (4.8-10.8) K/uL RBC (4.7-6.1) M/uL Hgb (14.0-18.0) g/dL POC Hgb 10.9 L (14.0-18.0) g/dl Hct (42-52) % POC Hct 32 L (42-52) % MCV (80-100) fL MCH (25-34) pg MCHC (32-36) g/dL RDW Std Deviation (36.4-46.3) fL RDW Coeff of Raine (11.5-14.5) % Plt Count (130-400) K/uL MPV (7.4-10.4) fL Immature Gran % (Auto) % Neut % (Auto) % Lymph % (Auto) % [place] % (Auto) % Eos % (Auto) % Baso % (Auto) % Neut # (Auto) (1.4-6.5) K/uL Lymph # (Auto) (1.2-3.4) K/uL [place] # (Auto) (0.11-0.59) K/uL Eos # (Auto) (0-0.5) K/uL Baso # (Auto) (0-0.2) K/uL Immature Gran # (Auto) (0.00-0.02) K/uL Absolute Nucleated RBC (0-0) K/uL Nucleated RBC % (auto) % PT (9.0-12.0) Seconds INR (0.9-1.1) APTT (21.0-31.0) Seconds PTT Ratio POC Sodium 131 L (135-144) mmol/L Sodium (136-145) mmol/L POC Potassium 5.2 H (3.3-5.0) mmol/L Potassium (3.5-5.1) mmol/L POC Chloride 92 L (101-112) mmol/L Chloride (98-107) mmol/L Carbon Dioxide (21-32) mmol/L POC Total CO2 27 (24-31) mmol/L Anion Gap (3-11) POC Anion Gap 18.0 (16-25) mmol/L POC BUN 33 H (7-18) mg/dl BUN (7-18) mg/dl Creatinine (0.6-1.4) mg/dl POC Creatinine 1.1 (0.6-1.3) mg/dl Est Cr Clr Drug Dosing ml/min Est GFR ( Amer) Est GFR (Non-Af Amer) BUN/Creatinine Ratio (10-20) Glucose (70-99) mg/dl POC Glucose (other) 95 (70-99) mg/dl Calcium (8.5-10.1) mg/dl POC Ioniz Calcium Kend[place] 1.07 L (1.12-1.32) mmol/l Troponin I (0-0.045) ng/ml Lipase (73-393) U/L Imaging Data Radiologist's Impression: CT angio abdomen pelvis w con HISTORY: Weakness. Shortness of breath. Gross hematuria. TECHNIQUE: Multiaxial CT images of the abdomen and pelvis performed following the use of intravenous contrast to evaluate the aorta. Maximal intensity projection images were also obtained. COMPARISON STUDY: Abdomen and pelvis CT 03/13/2018. FINDINGS: Please refer to the same day chest CT for further evaluation of the lung bases. No pneumoperitoneum. No pneumatosis. Small right pleural effusion. A few subcentimeter hypodense lesions within the left hepatic lobe remain stable. These are likely benign. The spleen, adrenal glands, and pancreas are unremarkable. Motion artifact results in suboptimal evaluation. No hydronephrosis. Stable 1.5 cm left parapelvic cyst. The gallbladder is not well visualized but appears unremarkable. Mild presacral edema. Mild body wall edema. No suspicious lytic or blastic osseous lesions. No retroperitoneal lymphadenopathy. Normal appendix. Suboptimal evaluation for bowel pathology due to the motion artifact. However, there is no definite bowel wall thickening or obstruction. The prostate gland is normal in size. Moderate bladder wall thickening with adjacent fat stranding. There is also a 1.4 cm nodule within the posterior bladder best in image 341. This likely represents a urothelial malignancy. There is a left inguinal hernia containing a short segment of the proximal sigmoid colon. There are few prominent bilateral external iliac lymph nodes. Normal caliber abdominal aorta with no evidence for dissection. There is moderate calcified plaque within the aorta and iliac vessels. Focal high-grade stenosis at the origins of the bilateral internal iliac arteries. 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 Focal stenosis at the origin of the inferior mesenteric artery. The superior mesenteric, celiac, and renal arteries are patent. IMPRESSION: 1. No evidence for dissection or aneurysm within the abdominal aorta. 2. Focal high-grade stenosis at the origin of the bilateral internal iliac arteries and inferior mesenteric artery. 3. 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 4. A 1.4 cm mass within the posterior bladder. This likely represents a urothelial malignancy. Urology consultation recommended. 5. Moderate bladder wall thickening. This could represent a cystitis. Recommend correlation with urinalysis. 6. Left inguinal hernia containing a short segment of the proximal sigmoid colon. However, no evidence for bowel obstruction. 7. Small right pleural effusion. 8. Additional findings as described above. ACT 112: Negative or not required by law. Electronically signed by: Michael Allen M.D. 02/17/2020 4:12 PM Dictated: 02/17/20 1602 Transcribed: 02/17/20 1602 XR chest 1V portable CLINICAL HISTORY: Chest Pain dyspnea COMPARISON STUDY: 03/09/2019 FINDINGS: Mild stable cardiomegaly. Potential early parenchymal infiltrate right base. Lungs otherwise appear clear. No evidence for pneumothorax. Left hemidiaphragm is smooth. Very slight blunting right lateral costophrenic angle. IMPRESSION: Minimal interstitial infiltrative process right base. Mild stable cardiomegaly. ACT 112: Negative or not required by law. The above report was generated using voice recognition software. It may contain grammatical, syntax or spelling errors. Electronically signed by: Sam Sexton M.D. 02/17/2020 3:48 PM Dictated: 02/17/20 1547 Transcribed: 02/17/[address] ANGIOGRAPHY OF THE CHEST DISSECTION PROTOCOL CLINICAL HISTORY: Weakness. Shortness of breath. COMPARISON STUDY: Chest CT October 04, 2017. Chest radiograph March 09, 2019. TECHNIQUE: Before and following the IV administration of 116 mL of Optiray-320, helical axial images of the chest were obtained. Maximal intensity projections and sagittal and coronal reformats were viewed on an independent 3D workstation. IV contrast was administered without complication. Automated exposure control was utilized for the study. A dose lowering technique was utilized adhering to the principles of ALARA. CT DOSE: 1358.79 mGycm FINDINGS: The caliber of the thoracic aorta is normal. There is no thoracic aortic dissection or intramural hematoma. The CTA of the abdomen and pelvis will be reported separately. There is moderate plaque of the thoracic aorta. Heart is moderately enlarged. There is no pericardial effusion. No pulmonary emboli are identified. There is no pneumothorax. A small right pleural effusion is noted. There is no pneumothorax. Severe emphysema is noted. Lungs are suboptimally assessed given respiratory motion. There is no consolidation. There is a calcified granuloma within the right middle lobe. Mild interlobular septal thickening is noted. IMPRESSION: 1. No thoracic aortic dissection. No pulmonary emboli identified. 2. Severe emphysema. 3. Small right pleural effusion. 4. Interlobular septal thickening which suggests mild interstitial pulmonary edema. ACT 112: Negative or not required by law. Electronically signed by: Darius Eubanks M.D. 02/17/2020 4:17 PM Dictated: 02/17/20 154 Transcribed: 02/17/201544 ECG Data Additional Comments: EKG #1 at 1506: Atrial fibrillation with rate of 141. QRS 96. QTc 490. No ST elevation or ST depression. PVCs present. EKG #2 at 1517: Atrial fibrillation with rate 126. QRS 96. QTc 425. No ST elevation mild ST depression V4 through V6 EKG #3 at 1518: Atrial fibrillation with a rate of 121. QRS and QTc intervals within normal limits. No ST elevation ST depressions V4 and V5 MDM Narrative 1500: The patient was evaluated in room A3. A complete history and physical exam was performed. Patient placed on desk monitor and continuous pulse ox. Patient was found to be in a tachycardic and irregular rhythm on the desk monitor showing atrial fibrillation with a rate ranging from 130-170. His blood pressure was stable. IV access was obtained and the patient was given 10 mg bolus of Cardizem IV push. The patient's heart rate improved. Patient was given a small normal saline bolus as well and was started on Cardizem drip. Given the patient's chest pain, new onset atrial fibrillation, as well as hematuria, there was concern that the patient might have a aortic dissection. I-STAT showed a normal creatinine and the patient was taken for CT to rule out dissection. 1615: Vital signs stable on Cardizem drip. Labs show leukocytosis of 21.34, patient always has a leukocytosis likely due to his myeloproliferative disorder. Potassium of 5.2. Calcium gluconate ordered for the patient. CT does not show any dissection. Does show that the patient is fluid overloaded. [facility] accepted the patient under Dr. Kunz. Given the patient's reported hematuria, no heparin started for the patient at this time, Tonia is in agreement with this and states she will discuss with Dr. Kunz about heparin. Impression & Plan Atrial fibrillation with RVR, CHF exacerbation Discharge Plan Visit Data Chief Complaint: Cardiac Assessment Stated Complaint: CHF, REF'D BY LATRICE ED Provider: Saroj Blandon Discharge Problem: Atrial fibrillation with RVR, CHF exacerbation Patient Disposition: Admitted As Inpatient Forms Stand Alone [facility]: [facility] Prescriptions Prescriptions: No Action albuterol sulfate 90 mcg/actuation HFA aerosol inhaler 2 puffs INHALATION Q6H PRN (Reason: Shortness Of Breath) Qty: 18 RF: 3 (DME) [employer] NetworkTouch Ultra Blue Test Strip strip See Dose Instructions .ROUTE .MEDSUPPLY Qty: 50 RF: 5 (DME) blood-glucose meter [[employer]uch Ultra2 Meter] kit See Dose Instructions .ROUTE .MEDSUPPLY Qty: 1 RF: 0 (DME) lancets [[place] Delica Lancets] 33 gauge misc See Dose Instructions .ROUTE .MEDSUPPLY Qty: 100 RF: 3 albuterol sulfate 2.5 mg /3 mL (0.083 %) solution for nebulization 2.5 mg INHALATION QID PRN (Reason: Shortness Of Breath) Qty: 180 RF: 3 atorvastatin 10 mg tablet 10 mg PO DAILY Qty: 90 RF: 3 metformin 500 mg tablet 500 mg PO BID Qty: 180 RF: 3 famotidine 20 mg tablet 20 mg PO BID Qty: 60 RF: 5 [id number] 100-62.5-25 mcg blister with device 1 puffs inhalation DAILY RF: 0 sertraline 25 mg Tablet 25 mg PO HS RF: 0 Referrals Referrals: Harrison Pollard MD [Primary Care Provider] -
[2020-02-17 15:45] LABS: BUN Creatinine Ratio 28.4 (10-20); Calcium 8.2 mg/dl (8.5-10.1); Creatinine Clr Calc Pharmacy 51.7 ml/min; Est GFR (African American) 69.3; Est GFR (Non-African American) 59.8; Potassium 5.2 mmol/L (3.5-5.1)
--- NOTE | 2020-02-17 15:49 | XRay Report ---
XR chest 1V portable CLINICAL HISTORY: Chest Pain dyspnea COMPARISON STUDY: 03/09/2019 FINDINGS: Mild stable cardiomegaly. Potential early parenchymal infiltrate right base. Lungs otherwise appear clear. No evidence for pneumothorax. Left hemidiaphragm is smooth. Very slight blunting right lateral costophrenic angle. IMPRESSION: Minimal interstitial infiltrative process right base. Mild stable cardiomegaly. ACT 112: Negative or not required by law. The above report was generated using voice recognition software. It may contain grammatical, syntax or spelling errors. Electronically signed by: Sam Sexton M.D. 02/17/2020 3:48 PM
[2020-02-17 15:50] LABS: INR 1.9 (0.9-1.1); Prothrombin Time 19.3 Seconds (9.0-12.0); Troponin I 0.017 ng/ml (0-0.045)
[2020-02-17] MEDS ORDERED: CALCIUM GLUCONATE 10% 1,000 MG in SODIUM CHLORIDE 0.9% 50 ML IV STA (15:58)
--- NOTE | 2020-02-17 16:13 | CT Scan Report ---
CT angio abdomen pelvis w con HISTORY: Weakness. Shortness of breath. Gross hematuria. TECHNIQUE: Multiaxial CT images of the abdomen and pelvis performed following the use of intravenous contrast to evaluate the aorta. Maximal intensity projection images were also obtained. COMPARISON STUDY: Abdomen and pelvis CT 03/13/2018. FINDINGS: Please refer to the same day chest CT for further evaluation of the lung bases. No pneumope ritoneum. No pneumatosis. Small right pleural effusion. A few subcentimeter hypodense lesions within the left hepatic lobe remain stable. These are likely benign. The spleen, adrenal glands, and pancrea s are unremarkable. Motion artifact results in suboptimal evaluation. No hydronephrosis. Stable 1.5 c m left parapelvic cyst. The gallbladder is not well visualized but appears unremarkable. Mild presacr al edema. Mild body wall edema. No suspicious lytic or blastic osseous lesions. No retroperitoneal ly mphadenopathy. Normal appendix. Suboptimal evaluation for bowel pathology due to the motion artifact. However, there is no definite bowel wall thickening or obstruction. The prostate gland is normal in size. Moderate bladder wall thickening with adjacent fat stranding. There is also a 1.4 cm nodule wit hin the posterior bladder best in image 341. This likely represents a urothelial malignancy. There is a left inguinal hernia containing a short segment of the proximal sigmoid colon. There are few promi nent bilateral external iliac lymph nodes. Normal caliber abdominal aorta with no evidence for dissection. There is moderate calcified plaque wi thin the aorta and iliac vessels. Focal high-grade stenosis at the origins of the bilateral internal iliac arteries. There is associated 1.3 cm fusiform aneurysm at the proximal right internal iliac art shirin. Focal stenosis at the origin of the inferior mesenteric artery. The superior mesenteric, celiac, and renal arteries are patent. IMPRESSION: 1. No evidence for dissection or aneurysm within the abdominal aorta. 2. Focal high-grade stenosis at the origin of the bilateral internal iliac arteries and inferior mese nteric artery. 3. 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 4. A 1.4 cm mass within the posterior bladder. This likely represents a urothelial malignancy. Urolog y consultation recommended. 5. Moderate bladder wall thickening. This could represent a cystitis. Recommend correlation with urin alysis. 6. Left inguinal hernia containing a short segment of the proximal sigmoid colon. However, no evidenc e for bowel obstruction. 7. Small right pleural effusion. 8. Additional findings as described above. ACT 112: Negative or not required by law. Electronically signed by: Michael Allen M.D. 02/17/2020 4:12 PM
--- NOTE | 2020-02-17 16:18 | CT Scan Report ---
CT ANGIOGRAPHY OF THE CHEST DISSECTION PROTOCOL CLINICAL HISTORY: Weakness. Shortness of breath. COMPARISON STUDY: Chest CT October 04, 2017. Chest radiograph March 09, 2019. TECHNIQUE: Before and following the IV administration of 116 mL of Optiray-320, helical axial images of the chest were obtained. Maximal intensity projections and sagittal and coronal reformats were vi ewed on an independent 3D workstation. IV contrast was administered without complication. Automated exposure control was utilized for the study. A dose lowering technique was utilized adhering to the principles of ALARA. CT DOSE: 1358.79 mGycm FINDINGS: The caliber of the thoracic aorta is normal. There is no thoracic aortic dissection or int ramural hematoma. The CTA of the abdomen and pelvis will be reported separately. There is moderate pl aque of the thoracic aorta. Heart is moderately enlarged. There is no pericardial effusion. No pulmon donavon emboli are identified. There is no pneumothorax. A small right pleural effusion is noted. There i s no pneumothorax. Severe emphysema is noted. Lungs are suboptimally assessed given respiratory motio n. There is no consolidation. There is a calcified granuloma within the right middle lobe. Mild inter lobular septal thickening is noted. IMPRESSION: 1. No thoracic aortic dissection. No pulmonary emboli identified. 2. Severe emphysema. 3. Small right pleural effusion. 4. Interlobular septal thickening which suggests mild interstitial pulmonary edema. ACT 112: Negative or not required by law. Electronically signed by: Darius Eubanks M.D. 02/17/2020 4:17 PM
[2020-02-17] MEDS ORDERED: FUROSEMIDE 40 MG/4 ML VIAL IV STA (16:20)
[2020-02-17] MEDS ORDERED: CALCIUM GLUCONATE 10% 10 ML VIAL IV ONE (16:30)
--- NOTE | 2020-02-17 16:42 | Electrocardiogram Report ---
Test Reason : Blood Pressure : / mmHG Vent. Rate : 141 BPM Atrial Rate : 129 BPM P-R Int : 000 ms QRS Dur : 096 ms QT Int : 320 ms P-R-T Axes : 000 -67 078 degrees QTc Int : 490 ms Atrial fibrillation with rapid ventricular response with premature ventricular or aberrantly conducte d complexes Left anterior fascicular block Poor R wave progression, consider anterior NV vs. lead placement vs. LVH Abnormal ECG When compared with ECG of 09-MAR-2019 15:44, Atrial fibrillation has replaced Sinus rhythm HR has increased by 19 bpm Confirmed by Steve Roque ([id number]) on 02/17/2020 4:41:54 PM Referred By: Confirmed By:Steve Roque
--- NOTE | 2020-02-17 16:48 | History & Physical Report ---
Date of Service February 17, 2020 Assessment & Plan (1) Respiratory distress: (2) COPD with exacerbation: -Severe emphysema as seen on imaging as above -order Solu-Medrol 60 mg IV x1 now, DuoNeb, stop fluids that were ordered in the ER - pt reports taking prednisone but was checked with [facility] and he has not had a Rx since december 2018. -CXR does not appear to be significantly volume overloaded -? Core pulmonale with significant pitting edema, worsening breathing x last week, likely precipitated bout of afib -Chronic tobacco user, smokes upwards of 1 pack/day x 60 years -Per daughter, uses CPAP throughout the day on and off, nebulizers, O2 5 L at night -Does not follow pulmonology as outpt - consider consult, unknown if formal PFTs as outpt (3) Atrial fibrillation with RVR: - Possible that this could be MAT with hx of COPD? - Will control rate with cardizem gtt for now, start digoxin now for rate control, HR in 140s with minimal movement in bed. - Consult cardiology - Patient is not anticoagulated due to gross hematuria, hemoglobin is decreased at 8.8 compared to 14 in August - INR elevated at 1.9 however he is not on blood thinning medication, recheck inr now and LFTs - EKG reviewed as above (4) Benign essential hypertension: - takes no antihypertensives as outpt - rate controlling medications as above (5) Type 2 diabetes mellitus: -ISS with Accu-Cheks AC at bedtime -Holding metformin -Last A1c = 6.5 in August 2019, recheck (6) Dyslipidemia: -Follow lipid panel per PCP -Continue atorvastatin 10 mg daily (7) Chronic myeloproliferative disease: -Chronic elevation of WBC with neutrophils, does not follow with oncologist as an outpatient (8) Bladder cancer: (9) Hematuria: - hx of such in 2018 with high-grade urothelial carcinoma, surgically resected by Dr. Morillo - Has not followed with urology since that time, consider consult once he's more stable, with new onset hematuria x2 days - Monitor for clearance, Bladder scan prn - Urine cytology (10) DVT prophylaxis: - teds, scds CODE: DNR Dispo: From home, likely to remain in the hospital x 1-2 days (11) Memory impairment: - Pt daughter reports this has been ongoing for a few years. He has not been paying bills, forgetful, and unable to manage his medication, he had nurses do an in-home visit some time ago, but they thought that there wasn't a significant memory impairment. He also has gotten lost on the way to an eye appointment 1 year ago where he never showed up to the appointment. Daughter reports this waxes and wanes with the day. It is possible that breathing has been worse x 1 week. History of Present Illness Primary Care Provider: Harrison Vicente MD This is a 79-year-old male with PMHx of COPD, chronic tobacco use 1 ppd since age 17, home cpap at home and uses it on and off during the day, HTN, HLD, history of DVT, DM type II, chronic myeloproliferative disease, chronic leukocytosis, bladder cancer, GERD, who presents with acute worsening shortness of breath and tachycardia from his PCPs office. Patient was found to have heart rate in the 140s at the office and was found to be in A. fib with RVR. He was started on Cardizem drip. The patient tells me that he started having worsening breathing for the past week, and that it is its worse today than it has been. He went to his PCPs office because of his breathing. In the past week, he has been using nebulizers because of his work of breathing 4 times per day. At baseline wears 5L O2 HS, but does not wear any during the day. He reports new-onset of swelling in his legs bilaterally which is worsened over the last 2 days, but they have not been like this previously. He does not take any water pill or any high blood pressure medications. He also reports 2 days ago he developed blood in his urine which is grossly dark red with some small clots. Over 2 yrs ago pt followed with urology for history of bladder cancer involving treatment with TURP and resection of high-grade urothelial carcinoma; had never followed up with them after the procedure was complete. He lives at home by himself, his 4 years ago. He manages his medications with the help of his daughter who lives locally. Allergies Allergy/AdvReac Type Severity Reaction Status Date / Time levofloxacin Allergy Unknown PT NOT Verified 02/17/20 15:55 AWARE-ON MEDICAL CHART pravastatin AdvReac Intermediate muscle Verified 02/17/20 15:55 aches Home Medications Home Medications Medication Instructions Recorded Confirmed Type albuterol sulfate 90 mcg/actuation 2 puffs INHALATION Q6H PRN #18 gm 03/06/19 02/17/20 Rx aerosol inhaler blood sugar diagnostic #50 ea 03/28/19 02/17/20 Rx blood-glucose meter #1 ea 03/28/19 02/17/20 Rx lancets 33 gauge #100 ea 03/28/19 02/17/20 Rx albuterol sulfate 2.5 mg INHALATION QID PRN #180 ml 05/21/19 02/17/20 Rx atorvastatin 10 mg tablet 10 mg PO DAILY #90 tab 05/21/19 02/17/20 Rx metformin 500 mg tablet 500 mg PO BID #180 tab 05/21/19 02/17/20 Rx famotidine 20 mg tablet 20 mg PO BID #60 tab 11/24/19 02/17/20 Rx fluticasone fur. 100 mcg-umeclid 1 puffs INHALATION DAILY ea 02/17/20 02/17/20 History 62.5 mcg-vilant 25 mcg inhalat.powder omeprazole 40 mg PO QAM 02/17/20 02/17/20 History sertraline 25 mg PO HS 02/17/20 02/17/20 History Past Med/Surg History Medical History Benign essential hypertension Bladder cancer 1 YR AGO AND REASON FOR UPCOMING PROCEDURE Chronic myeloproliferative disease Chronic obstructive pulmonary disease USING ALBUTEROL RESCUE 1-2X PER DAY Claudication Dyslipidemia Hx of gastroesophageal reflux (GERD) Leukocytosis (Acute) AVG WBC COUNT ~20 since 2014 On supplemental oxygen therapy 5 LPM HS [place] (obstructive sleep apnea) couldn't tolerate CPAP or BiPAP Personal history of DVT (deep vein thrombosis) LEFT LEG, SINGLE EPISODE 2-3 YRS AGO Type 2 diabetes mellitus Type 2 diabetes mellitus Surgical History History of bladder surgery TURBT, 01/07/[address] [facility], LMA 5.0, 'good seal.' Hx of colonoscopy Family History Father Lung disease Brother Brain cancer Daughter Kidney stones Mother Stroke Social History Preferred Language: Gu[place]ian Communication Ability: Effective Visual Impairment: No Limitations Dairy Bar Manager Required: No Beliefs That Will Affect Care: None Current Living Situation: Alone Feels Safe at Home: Yes Smoking Status: Current every day smoker Tobacco Type: cigarettes ; Cigarettes Per Day: 6-8 CIGS / DAY x 62 years ; Hx Alcohol Use: No Hx Substance Use: No Seatbelt Use: always Review of Systems Review of Systems: Constitutional: No fever, sweats or chills Eyes: No diplopia, no worsening or blurred vision ENT: normal hearing, no trouble swallowing Respiratory: + Cough, no sputum, dyspnea at rest and on exertion Cardiovascular: No chest pain, tightness or palpitations, cannot feel rapid rate Abdomen: No pain, nausea, vomiting, diarrhea or constipation Musculoskeletal: No joint pain, calf pain, + lower leg swelling x2 days Neurologic: No weakness, numbness/tingling, or balance problems Psychiatric: No anxiety or depression Skin: No rash or itch Physical Exam Physical Exam: General: awake, alert, mild distress Head: Normocephalic, atraumatic ENT: PERRL, EOMI, no pharyngeal exudate, mucous membranes moist Chest: + using accessory muscles to breathe, on room air, coarse cough, nonproductive, catching his breath with long sentences, diminished bilaterally, inspiratory/expiratory wheeze in the left lower lobe, + faint rales Cardiac: + Tachycardia with heart rate in the 120s, no murmur, no JVD, normal peripheral pulses, good capillary refill Abdominal: NABS x 4 quadrants, soft, + mildly distended, nontender to palpation, no rebound, guarding or tenderness Extremities: Normal inspection, 3+ peripheral edema BLE, no erythema, calfs nontender to palpation Psych: Normal mood and affect Neuro: AAO x 3, no gross motor deficits, speech is clear, no peripheral sensory deficits Results & Data Results & Data ([facility]) Vital Signs (Past 12 Hours) Vital Signs Temp Pulse Resp BP Pulse Ox 02/17/20 15:22 92 02/17/20 15:18 117 H 104/71 92 02/17/20 15:15 146 H 24 112/84 02/17/20 15:14 147 H 112/73 02/17/20 15:08 133 H 24 106/75 02/17/20 14:54 36.8 C 144 H 22 108/[address] ANGIOGRAPHY OF THE CHEST DISSECTION PROTOCOL CLINICAL HISTORY: Weakness. Shortness of breath. COMPARISON STUDY: Chest CT October 04, 2017. Chest radiograph March 09, 2019. TECHNIQUE: Before and following the IV administration of 116 mL of Optiray-320, helical axial images of the chest were obtained. Maximal intensity projections and sagittal and coronal reformats were viewed on an independent 3D workstation. IV contrast was administered without complication. Automated exposure control was utilized for the study. A dose lowering technique was utilized adhering to the principles of ALARA. CT DOSE: 1358.79 mGycm FINDINGS: The caliber of the thoracic aorta is normal. There is no thoracic aortic dissection or intramural hematoma. The CTA of the abdomen and pelvis will be reported separately. There is moderate plaque of the thoracic aorta. Heart is moderately enlarged. There is no pericardial effusion. No pulmonary emboli are identified. There is no pneumothorax. A small right pleural effusion is noted. There is no pneumothorax. Severe emphysema is noted. Lungs are suboptimally assessed given respiratory motion. There is no consolidation. There is a calcified granuloma within the right middle lobe. Mild interlobular septal thickening is noted. IMPRESSION: 1. No thoracic aortic dissection. No pulmonary emboli identified. 2. Severe emphysema. 3. Small right pleural effusion. 4. Interlobular septal thickening which suggests mild interstitial pulmonary edema. XR chest 1V portable CLINICAL HISTORY: Chest Pain dyspnea COMPARISON STUDY: 03/09/2019 FINDINGS: Mild stable cardiomegaly. Potential early parenchymal infiltrate right base. Lungs otherwise appear clear. No evidence for pneumothorax. Left hemidiaphragm is smooth. Very slight blunting right lateral costophrenic angle. IMPRESSION: Minimal interstitial infiltrative process right base. Mild stable cardiomegaly. ACT 112: Negative or not required by law. The above report was generated using voice recognition software. It may contain grammatical, syntax or spelling errors. Electronically signed by: Sam Sexton M.D. 02/17/2020 3:48 PM Dictated: 02/17/20 1547 Transcribed: 02/17/[address] angio abdomen pelvis w con HISTORY: Weakness. Shortness of breath. Gross hematuria. TECHNIQUE: Multiaxial CT images of the abdomen and pelvis performed following the use of intravenous contrast to evaluate the aorta. Maximal intensity projection images were also obtained. COMPARISON STUDY: Abdomen and pelvis CT 03/13/2018. FINDINGS: Please refer to the same day chest CT for further evaluation of the lung bases. No pneumoperitoneum. No pneumatosis. Small right pleural effusion. A few subcentimeter hypodense lesions within the left hepatic lobe remain stable. These are likely benign. The spleen, adrenal glands, and pancreas are unremarkable. Motion artifact results in suboptimal evaluation. No hydronephrosis. Stable 1.5 cm left parapelvic cyst. The gallbladder is not well visualized but appears unremarkable. Mild presacral edema. Mild body wall edema. No suspicious lytic or blastic osseous lesions. No retroperitoneal lymphadenopathy. Normal appendix. Suboptimal evaluation for bowel pathology due to the motion artifact. However, there is no definite bowel wall thickening or obstruction. The prostate gland is normal in size. Moderate bladder wall thickening with adjacent fat stranding. There is also a 1.4 cm nodule within the posterior bladder best in image 341. This likely represents a urothelial malignancy. There is a left inguinal hernia containing a short segment of the proximal sigmoid colon. There are few prominent bilateral external iliac lymph nodes. Normal caliber abdominal aorta with no evidence for dissection. There is moderate calcified plaque within the aorta and iliac vessels. Focal high-grade stenosis at the origins of the bilateral internal iliac arteries. 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 Focal stenosis at the origin of the inferior mesenteric artery. The superior mesenteric, celiac, and renal arteries are patent. IMPRESSION: 1. No evidence for dissection or aneurysm within the abdominal aorta. 2. Focal high-grade stenosis at the origin of the bilateral internal iliac elio lizbeth and inferior mesenteric artery. 3. 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 4. A 1.4 cm mass within the posterior bladder. This likely represents a urothelial malignancy. Urology consultation recommended. 5. Moderate bladder wall thickening. This could represent a cystitis. Recommend correlation with urinalysis. 6. Left inguinal hernia containing a short segment of the proximal sigmoid colon. However, no evidence for bowel obstruction. 7. Small right pleural effusion. 8. Additional findings as described above. ACT 112: Negative or not required by law. Electronically signed by: Michael Allen M.D. 02/17/2020 4:12 PM Dictated: 02/17/20 1602 Transcribed: 02/17/20 1602 ECG Additional Comments: 17-FEB-2020 15:06:37 [facility]-EDSTAT ROUTINE RETRIEVAL Atrial fibrillation with rapid ventricular response with premature ventricular or aberrantly conducted complexes Left axis deviation Possible Anterior infarct , age undetermined Abnormal ECG When compared with ECG of 09-MAR-2019 15:44, Atrial fibrillation has replaced Sinus rhythm 25mm/s 10mm/mV 150Hz 9.0.9 12SL 241 VILMA: 13 Unconfirmed Vent. rate 141 BPM CO interval * ms QRS duration 96 ms QT/QTc 320/490 ms P-R-T axes * -67 78 Code Status & VTE Plan Code Status DNR-discussed with the patient at bedside Supervising Physician Co-Signing Physician Notes Patient was seen and examined independently I discussed the case with Tonia Suarez PAC I reviewed pertinent past medical social family history and also the plan of care and agree with the plan of care. Pt is significantly ill with acute respiratory distress. The pts family states that he typically wears intermittent bipap at home, still smokes and wears 5 liters of oxygen at night, he now is more short of breath than usual, has afib with RVR and peripheral edema probably from cor pulmonale, he is auto anticoagulated for unknown reasons and confirms he is a DNR. He has purse lipped breathing, using accessory muscles of respiration, he is moving small volumes or air on lung exam with exp wheezes and has a tachycardic irreg irreg hear tones he has 2-3+ edema to LE and hematuria Patient patient will be treated for acute on chronic respiratory failure with hypoxia aggressively with steroids and nebulizers. He will have his atrial fibrillation rate attempted to be controlled with Cardizem digoxin. He will not be anticoagulated at this point time until we can determine the cause of his elevated INR. We will have a cardiology consultation undertaken. With regard to his hematuria this likely may be a result of previous history of bladder cancer and likely be evaluated as an outpatient unless gross hematuria becomes more of an issue. It is noted he is anemic on presentation which could be from acute blood loss anemia. Any exceptions will be noted below PG Care Time/CCT Total # of Minutes Spent Total Time Spent with Patient: Total time spent is greater than 50% in coordination of care (as documented) at patient's floor/unit and/or counseling patient: Coding Level of Care Code 18597 Initial Inpt Care Lvl 3 Diagnoses Respiratory distress R06.03 COPD with exacerbation J44.1 Atrial fibrillation with RVR I48.91 Benign essential hypertension I10 Type 2 diabetes mellitus E11.9 Dyslipidemia E78.5 Chronic myeloproliferative disease D47.1 Bladder cancer C67.9 Hematuria R31.9 DVT prophylaxis Z29.9 Memory impairment R41.3
[2020-02-17] MEDS ORDERED: methylPREDNISolone 125 MG/2 ML VIAL IV STA (17:12)
[2020-02-17] MEDS ORDERED: ALBUTEROL 0.083% NEBU SOLN 3 ML VIAL NEB STA (17:12)
[2020-02-17] MEDS ORDERED: DIGOXIN 0.25 MG TAB PO STA (17:39)
[2020-02-17] MEDS ORDERED: DIGOXIN 0.25 MG/5 ML UDP PO SCH ×2 (17:40→23:00)
[2020-02-17 17:50] LABS: Base Excess ABG -1.3 mEq/L (-9-1.8); HCO3 ABG 24 mmol/L (19-24); Oxygen Saturation ABG 92.8 % (90-95); PCO2 ABG 44 mmHg (35-46); PO2 ABG 70 mmHg (80-95); pH ABG 7.36 (7.35-7.45)
[2020-02-17 17:58] LABS: Appearance Urine Clear (Clear); Bacteria Urine Automated Negative (Negative); Bilirubin Urine Negative (Negative); Blood Urine 3+ (Negative); Color Urine Orange; Glucose Urine UA Negative (Negative); Ketones Urine Negative (Negative); Leukocyte Esterase Urine Negative (Negative); Nitrite Urine Negative (Negative); Protein Urine Trace (Negative); RBC Urine Automated >30 /hpf (0-4); Urobilinogen Urine Negative (Negative)
[2020-02-17 17:59] LABS: Allen Test POS (Pos)
[2020-02-17 18:25] LABS: Sperm Urine Present (None Prsent)
[2020-02-17] MEDS ORDERED: DEXTROSE 50% 50 ML SYRINGE IV PRN (19:14)
[2020-02-17] MEDS ORDERED: ALBUTEROL HFA 8 GM INHALER INH PRN (19:14)
[2020-02-17] MEDS ORDERED: ACETAMINOPHEN 325 MG TAB PO PRN (19:14)
[2020-02-17] MEDS ORDERED: CARBOHYDRATES FOR HYPOGLYCEMIA PO PRN (19:14)
[2020-02-17] MEDS ORDERED: ALBUTEROL 0.083% NEBU SOLN 3 ML VIAL INH PRN (19:14)
[2020-02-17] MEDS ORDERED: GLUCOSE 10 TABS/TUBE PO PRN (19:14)
[2020-02-17] MEDS ORDERED: GLUCAGON FOR INJ 1 MG VIAL SQ PRN (19:14)
[2020-02-17] MEDS ORDERED: ONDANSETRON INJ 2 MG/ML 2 ML VIAL IV PRN (19:14)
[2020-02-17] MEDS ORDERED: GLUCOSE 40% GEL 15 GM TUBE PO PRN (19:14)
[2020-02-17 19:57] LABS: INR 2.2 (0.9-1.1); Prothrombin Time 21.9 Seconds (9.0-12.0)
[2020-02-17 20:10] LABS: Alanine Aminotransferase 649 U/L (12-78); Alkaline Phosphatase 123 U/L (45-117); Aspartate Aminotransferase 890 U/L (15-37); Bilirubin,Total 1.9 mg/dl (0.2-1); Total Protein 6.7 gm/dl (6.4-8.2)
[2020-02-17] MEDS: INSULIN ASPART 100 UNITS/ML 3 ML PEN SC SCH (20:46)
[2020-02-17] MEDS: FAMOTIDINE 20 MG TAB PO SCH (20:47)
[2020-02-17] MEDS: SERTRALINE HCL 50 MG TABLET PO SCH (20:48)
[2020-02-17 22:16] LABS: Troponin I < 0.015 ng/ml (0-0.045)
[2020-02-17] MEDS ORDERED: DIGOXIN 0.25 MG TAB PO SCH (23:00)
[2020-02-18 06:21] LABS: Hematocrit (blood only) 27.8 % (42-52); Hemoglobin 8.7 g/dL (14.0-18.0); Mean Corpuscular Hgb Conc 31.3 g/dL (32-36); Mean Corpuscular Volume 73.5 fL (80-100); Mean Platelet Volume 9.3 fL (7.4-10.4); Nucleated RBC # (auto) 0.06 K/uL (0-0); Nucleated RBC % (auto) 0.7 %; Platelet Count 517 K/uL (130-400); RDW Coefficient of Variation 18.1 % (11.5-14.5); RDW Standard Deviation 47.4 fL (36.4-46.3); Red Blood Count 3.78 M/uL (4.7-6.1)
[2020-02-18 06:52] LABS: Alanine Aminotransferase 731 U/L (12-78); Albumin Level 2.6 gm/dl (3.4-5.0); Aspartate Aminotransferase 841 U/L (15-37); BUN Creatinine Ratio 33.6 (10-20); Blood Urea Nitrogen 33 mg/dl (7-18); Calcium 7.6 mg/dl (8.5-10.1); Carbon Dioxide 30 mmol/L (21-32); Chloride 97 mmol/L (98-107); Creatinine Clr Calc Pharmacy 59.6 ml/min; Est GFR (African American) 86.9; Glucose 121 mg/dl (70-99); Potassium 4.4 mmol/L (3.5-5.1); Sodium 135 mmol/L (136-145)
[2020-02-18 07:09] LABS: Albumin Globulin Ratio 0.8 (0.9-2); Alkaline Phosphatase 101 U/L (45-117); Bilirubin,Total 1.4 mg/dl (0.2-1); Globulin 3.3 gm/dl (2.5-4.0); Total Protein 5.9 gm/dl (6.4-8.2); Troponin I < 0.015 ng/ml (0-0.045)
[2020-02-18] MEDS: FLUTICASONE FUROATE 100MCG 14 PUFFS/INHALER INH SCH (08:11)
[2020-02-18] MEDS: ATORVASTATIN 10 MG TAB PO SCH (08:12)
[2020-02-18] MEDS: FAMOTIDINE 20 MG TAB PO SCH ×2 (08:12→21:12)
[2020-02-18] MEDS: UMECLIDINIUM/VILANTEROL 62.5/25MCG 7 PUFFS/INHALER INH SCH (08:12)
[2020-02-18] MEDS: INSULIN ASPART 100 UNITS/ML 3 ML PEN SC SCH ×4 (08:13→21:11)
--- NOTE | 2020-02-18 09:17 | XCELERA ---
[id number]
--- NOTE | 2020-02-18 09:27 | Hospitalist Progress Note ---
Date of Service February 18, 2020 Assessment & Plan (1) Respiratory distress: (2) COPD with exacerbation: -Severe emphysema as seen on imaging as above -order Solu-Medrol 60 mg IV x1 now, DuoNeb, stop fluids that were ordered in the ER - pt reports taking prednisone but was checked with [employer] and he has not had a Rx since december 2018. -CXR does not appear to be significantly volume overloaded -Patient does not appear to be in cor pulmonale -Chronic tobacco user, smokes upwards of 1 pack/day x 60 years -Per daughter, uses CPAP throughout the day on and off, nebulizers, O2 5 L at night -Does not follow pulmonology as outpt - consider consult Patient appears to be end stage in regards to his COPD.Patient also continues to smoke. Had discussion with daughter. (3) Atrial fibrillation with RVR: - Possible that this could be MAT with hx of COPD? - Will control rate with cardizem gtt for now, start digoxin now for rate control, HR in 140s with minimal movement in bed. - Consult cardiology - Patient is not anticoagulated due to gross hematuria, hemoglobin is decreased at 8.8 compared to 14 in August - INR elevated at 1.9 however he is not on blood thinning medication, recheck inr now and LFTs - EKG reviewed as above (4) Benign essential hypertension: - takes no antihypertensives as outpt - rate controlling medications as above (5) Type 2 diabetes mellitus: -ISS with Accu-Cheks AC at bedtime -Holding metformin -Last A1c = 6.5 in August 2019, recheck (6) Dyslipidemia: -Follow lipid panel per PCP -Continue atorvastatin 10 mg daily (7) Chronic myeloproliferative disease: -Chronic elevation of WBC with neutrophils, does not follow with oncologist as an outpatient (8) Bladder cancer: (9) Hematuria: - hx of such in 2018 with high-grade urothelial carcinoma, surgically resected by Dr. Morillo - Has not followed with urology since that time, consider consult once he's more stable, with new onset hematuria x2 days - Monitor for clearance, Bladder scan prn - Urine cytology (10) DVT prophylaxis: - teds, scds CODE: DNR Dispo: From home, likely to remain in the hospital x 1-2 days (11) Memory impairment: - Pt daughter reports this has been ongoing for a few years. He has not been paying bills, forgetful, and unable to manage his medication, he had nurses do an in-home visit some time ago, but they thought that there wasn't a significant memory impairment. He also has gotten lost on the way to an eye appointment 1 year ago where he never showed up to the appointment. Daughter reports this waxes and wanes with the day. It is possible that breathing has been worse x 1 week. Admission and Anticipated Discharge Date Admission Date: February 17, 2020 Subjective Patient is a poor historian. He just states that he had a rough day yesterday but does not explain in detail. He states he has been coughing and hacking for years. Review of Systems Review of Systems: All systems reviewed & are unremarkable except as noted in HPI & below Physical Exam Physical Exam: General: awake, alert, mild distress Head: Normocephalic, atraumatic ENT: PERRL, EOMI, no pharyngeal exudate, mucous membranes moist Chest: + using accessory muscles to breathe, on room air, coarse cough, nonproductive, catching his breath with long sentences, diminished bilaterally, inspiratory/expiratory wheeze in the left lower lobe, + faint rales Cardiac: + Tachycardia, no murmur, no JVD, normal peripheral pulses, good capillary refill Abdominal: NABS x 4 quadrants, soft, + mildly distended, nontender to palpation, no rebound, guarding or tenderness Extremities: Normal inspection, 3+ peripheral edema BLE, no erythema, calfs nontender to palpation Psych: Normal mood and affect Neuro: AAO x 3, no gross motor deficits, speech is clear, no peripheral sensory deficits Results & Data Results & Data ([facility]) Vital Signs (Past 12 Hours) Vital Signs Temp Pulse Pulse Resp BP BP Pulse Ox 02/18/20 08:00 36.7 C 80 29 H 126/68 99 02/18/20 03:05 36.8 C 78 22 115/65 96 02/18/20 02:48 82 24 95 02/18/20 00:00 85 02/17/20 23:50 76 26 H 02/17/20 23:42 36.8 C 81 22 119/65 93 02/17/20 22:31 85 PG Care Time/CCT Total # of Minutes Spent Total Time Spent with Patient: Total time spent is greater than 50% in coordination of care (as documented) at patient's floor/unit and/or counseling patient: Coding Level of Care Code 40471 Subseq Hosp Care Lvl 3 Diagnoses Respiratory distress R06.03 COPD with exacerbation J44.1 Atrial fibrillation with RVR I48.91 Benign essential hypertension I10 Type 2 diabetes mellitus E11.9 Dyslipidemia E78.5 Chronic myeloproliferative disease D47.1 Bladder cancer C67.9 Hematuria R31.9 DVT prophylaxis Z29.9 Memory impairment R41.3 Time Spent (min) 35 Comment had extensive discussion with daughter.
--- NOTE | 2020-02-18 10:03 | Palliative Care Consultation ---
Date of Consultation February 18, 2020 Assessment & Plan (1) Goals of care, counseling/discussion: This is a 79 year old male who presented to the [facility] from his PCP's office with increased SOB and tachycardia. Upon arrival, he was found to be in rapid-afib in the 140's. He was started on a Diltiazem gtt. Additional PMH includes: COPD for which he wears CPAP during the day and 5LNC at nighttime, HTN, HLD, DVT, DM type II, chronic myeloproliferative disease, chronic leukocytosis, bladder cancer, and others. He has had a TURP for intervention of his urothelial cancer; however, per review of his chart and discussion with the IDT he has poor compliance with medical appointments and follow up. He does not have a Ticket Marker involved in his care and does not follow up with Urology. He does have a daughter, Betsy Sandhu, who lives local to him. Palliative Care was consulted to discuss goals of care. -I met with the patient in room 108. The patient was sitting in his bedside chair, in no apparent distress. -The patient was AAOx3 when I spoke with him. He denies difficulty breathing and is currently on RA. -He was able to walk through his typical daily routine with me: He wakes, wears a CPAP most nights, gets dressed independently, his granddaughter Roxann stops over to clean and make sure there is food for him. He does use a cane to assist with ambulating. He has a shower chair and bathes independently. 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 Motor movement UE 5/5, LE 5/5. -We talked about goals of care and he confirmed he would not want resuscitated if his heart stops. Pt is a DNR. -We did talk about him receiving some in home services, like Home Health. He was willing to have that when we talked about the goal if it would be to have an extra set of eyes on his medications, etc that may help keep him out of the hospital. He was receptive to trying this and said "If I don't like them, I will tell them not to come back" -I did ask him who he would like to have as his medical decision maker should he not be able to make decisions. He appointed his daughter Betsy Sandhu ([phone]). He did say this was not legally appointed. I offered [facility] to visit with him; however, he declined at this time. -I discussed this with Doretha Dietz RN in case managment who will follow up regarding agencies. -In discussion with the hospitalist, his current medical condition is very different from their intial encounter. This may be a small window of clarity and stabilitiy. Palliative will reassess the patient's stability and readdress. -Reached out to patients daughter Betsy and left a VM. -A POLST would be helpful prior to discharge. -Palliative will follow. -PPS: 50% (2) Chronic myeloproliferative disease: (3) COPD (chronic obstructive pulmonary disease): (4) Bladder cancer: (5) COPD exacerbation: (6) Hypoxia: (7) Weakness: History of Present Illness Reason for Consultation: Goals of Care Requesting Physician: Jumana Solis PA-C Attending Physician: Dmitri Arriaza History of Present Illness This is a 79 year old male who presented to the [facility] from his PCP's office with increased SOB and tachycardia. Upon arrival, he was found to be in rapid-afib in the 140's. He was started on a Diltiazem gtt. Additional PMH includes: COPD for which he wears CPAP during the day and 5LNC at nighttime, HTN, HLD, DVT, DM type II, chronic myeloproliferative disease, chronic leukocytosis, bladder cancer, and others. He has had a TURP for intervention of his urothelial cancer; however, per review of his chart and discussion with the IDT he has poor compliance with medical appointments and follow up. He does not have a Ticket Marker involved in his care and does not follow up with Urology. He does have a daughter, Betsy Sandhu, who lives local to him. Palliative Care was consulted to discuss goals of care. Please see A/P for further details. Thank you kindly for involving the Palliative Care team with this patient. We will follow. Allergies Allergy/AdvReac Type Severity Reaction Status Date / Time levofloxacin Allergy Unknown PT NOT Verified 02/17/20 15:55 AWARE-ON MEDICAL CHART pravastatin AdvReac Intermediate muscle Verified 02/17/20 15:55 aches Home Medications Home Medications Medication Instructions Recorded Confirmed Type albuterol sulfate 90 mcg/actuation 2 puffs INHALATION Q6H PRN #18 gm 03/06/19 02/17/20 Rx aerosol inhaler blood sugar diagnostic #50 ea 03/28/19 02/17/20 Rx blood-glucose meter #1 ea 03/28/19 02/17/20 Rx lancets 33 gauge #100 ea 03/28/19 02/17/20 Rx albuterol sulfate 2.5 mg INHALATION QID PRN #180 ml 05/21/19 02/17/20 Rx atorvastatin 10 mg tablet 10 mg PO DAILY #90 tab 05/21/19 02/17/20 Rx metformin 500 mg tablet 500 mg PO BID #180 tab 05/21/19 02/17/20 Rx famotidine 20 mg tablet 20 mg PO BID #60 tab 11/24/19 02/17/20 Rx fluticasone fur. 100 mcg-umeclid 1 puffs INHALATION DAILY ea 02/17/20 02/17/20 History 62.5 mcg-vilant 25 mcg inhalat.powder omeprazole 40 mg PO QAM 02/17/20 02/17/20 History sertraline 25 mg PO HS 02/17/20 02/17/20 History Patient History Medical History Benign essential hypertension Benign prostatic hyperplasia with urinary obstruction (Inactive) Bladder cancer 1 YR AGO AND REASON FOR UPCOMING PROCEDURE Chronic myeloproliferative disease Chronic obstructive pulmonary disease USING ALBUTEROL RESCUE 1-2X PER DAY Claudication COPD exacerbation (Inactive) Dyslipidemia GI bleed (Resolved 2014) Goals of care, counseling/discussion Hx of gastroesophageal reflux (GERD) Insomnia (Inactive) Leukocytosis (Inactive) AVG WBC COUNT ~20 since 2015 Microalbuminuria (Inactive) On supplemental oxygen therapy 5 LPM HS [place] (obstructive sleep apnea) couldn't tolerate CPAP or BiPAP Personal history of DVT (deep vein thrombosis) LEFT LEG, SINGLE EPISODE 2-3 YRS AGO Type 2 diabetes mellitus Surgical History History of bladder surgery TURBT, 01/07/18 @ [facility], LMA 5.0, 'good seal.' Hx of colonoscopy Family History Brain cancer Brother Kidney stones Daughter Lung disease Father Stroke Mother Social History Preferred Language: Serbian Communication Ability: Effective Visual Impairment: No Limitations Nerve Specialist Required: No Beliefs That Will Affect Care: None Current Living Situation: Alone Feels Safe at Home: Yes Safety Concerns: Feels Safe At This Time Smoking Status: Current every day smoker Tobacco Type: cigarettes ; Cigarettes Per Day: 8 ; Do You Dip or Chew Tobacco: No ; Second Hand Exposure: No ; Hx Alcohol Use: No Hx Substance Use: No Seatbelt Use: always Physical Exam Constitutional: + frail appearing, cooperative and comfortable Respiratory: normal respiratory effort; does not use accessory muscles Auscultation: + diminished lung sounds Cardiovascular: Rate/Rhythm: regular rate and + irregularly irregular Heart Sounds: normal S1 and normal S2; no murmur Extremities: normal capillary refill and + edema (bilateral LE +3) Gastrointestinal (Abdomen): normal bowel sounds, soft, nontender, no hepatosplenomegaly Skin: no rashes, warm and dry + turgor decreased Psychiatric: A+Ox3, euthymic affect (patient does have some medical detail poor recall) Results & Data Vital Signs (Past 12 Hours) Vital Signs Temp Pulse Pulse Resp BP BP Pulse Ox 02/18/20 08:00 36.7 C 80 29 H 126/68 99 02/18/20 03:05 36.8 C 78 22 115/65 96 02/18/20 02:48 82 24 95 02/18/20 00:00 85 02/17/20 23:50 76 26 H 02/17/20 23:42 36.8 C 81 22 119/65 93 02/17/20 22:31 85 PG Care Time/CCT Total # of Minutes Spent Total Time Spent with Patient: Total time spent is greater than 50% in coordination of care (as documented) at patient's floor/unit and/or counseling patient: 100 Coding Level of Care Code 18307 Inpt Consult Level 4 Diagnoses Goals of care, counseling/discussion Z71.89 Chronic myeloproliferative disease D47.1 COPD (chronic obstructive pulmonary disease) J44.9 Bladder cancer C67.9 COPD exacerbation J44.1 Hypoxia R09.02 Weakness R53.1 Time Spent Midlevel Total time spent 100 minutes with > 50% of that time spent assessing the patient, discussing goals of care with the patient and IDT
--- NOTE | 2020-02-18 12:09 | Cardiology Consultation ---
Date of Consultation February 18, 2020 Assessment & Plan (1) Paroxysmal atrial fibrillation with rapid ventricular response: Would favor rhythm management over rate control given new onset atrial fibrillation, presence of new congestive heart failure, and relative contraindication to anticoagulation (prior GI bleed, history of bladder carcinoma with recent hematuria). Given his age and multiple comorbidities, amiodarone would be a reasonable choice since he likely does not have much potential need for long-term antiarrhythmic therapy. Will initiate loading dose of amiodarone as inpatient and gradually taper upon discharge and as outpatient. (2) Acute CHF (congestive heart failure): New onset, relatively mild congestive heart failure in part precipitated by his new atrial fibrillation with rapid ventricular response. However, current echo shows decline in systolic function and significant mitral valvular disease as well. He responded to a single diuretic dose, currently appears euvolemic. Would favor discharge on sliding scale diuretic regimen based on daily weights. (3) COPD (chronic obstructive pulmonary disease): Severe underlying COPD with chronic oxygen dependence. Given his comorb idity, he is unlikely to tolerate either recurrent atrial fibrillation or even mild volume overload. (4) Bladder carcinoma: Diagnosed with bladder cancer several years ago, but has not had routine urology follow-up. Based on admission H&P, he had recent hematuria with blood clots, thus would not be a good candidate for anticoagulation currently. This will be less of an issue if he can be maintained in sinus rhythm on amiodarone. History of Present Illness Reason for Consultation: Atrial fibrillation/rapid ventricular response. Requesting Physician: Dmitri Arriaza Attending Physician: Dmitri Arriaza History of Present Illness 79-year-old man with complex past medical history and multiple comorbidities including oxygen dependent severe COPD, diabetes mellitus, chronic myeloproliferative disease, and bladder carcinoma, but no known cardiac history who presented to Dr. Vicente's office with progressive dyspnea on exertion and was found to be in atrial fibrillation with rapid ventricular response (140 bpm). He was admitted yesterday and did well after dose of furosemide and after his rate was controlled with IV diltiazem. He reverted to sinus rhythm for several hours but then developed recurrent atrial fibrillation later this morning. He denies any current symptoms, noting no chest discomfort, dyspnea at rest, or even subjective palpitations. He had noted increasing leg edema over the past week or so. No orthopnea, PND, lightheadedness, presyncope, or syncope. At the time of my evaluation, he was sitting comfortably and had no specific complaint. Allergies Allergy/AdvReac Type Severity Reaction Status Date / Time levofloxacin Allergy Unknown PT NOT Verified 02/17/20 15:55 AWARE-ON MEDICAL CHART pravastatin AdvReac Intermediate muscle Verified 02/17/20 15:55 aches Home Medications Home Medications Medication Instructions Recorded Confirmed Type albuterol sulfate 90 mcg/actuation 2 puffs INHALATION Q6H PRN #18 gm 03/06/19 02/17/20 Rx aerosol inhaler blood sugar diagnostic #50 ea 03/28/19 02/17/20 Rx blood-glucose meter #1 ea 03/28/19 02/17/20 Rx lancets 33 gauge #100 ea 03/28/19 02/17/20 Rx albuterol sulfate 2.5 mg INHALATION QID PRN #180 ml 05/21/19 02/17/20 Rx atorvastatin 10 mg tablet 10 mg PO DAILY #90 tab 05/21/19 02/17/20 Rx metformin 500 mg tablet 500 mg PO BID #180 tab 05/21/19 02/17/20 Rx famotidine 20 mg tablet 20 mg PO BID #60 tab 11/24/19 02/17/20 Rx fluticasone fur. 100 mcg-umeclid 1 puffs INHALATION DAILY ea 02/17/20 02/17/20 History 62.5 mcg-vilant 25 mcg inhalat.powder omeprazole 40 mg PO QAM 02/17/20 02/17/20 History sertraline 25 mg PO HS 02/17/20 02/17/20 History Patient History Medical History Benign essential hypertension Benign prostatic hyperplasia with urinary obstruction (Inactive) Bladder cancer 1 YR AGO AND REASON FOR UPCOMING PROCEDURE Chronic myeloproliferative disease Chronic obstructive pulmonary disease USING ALBUTEROL RESCUE 1-2X PER DAY Claudication COPD exacerbation (Inactive) Dyslipidemia GI bleed (Resolved 2014) Goals of care, counseling/discussion Hx of gastroesophageal reflux (GERD) Insomnia (Inactive) Leukocytosis (Inactive) AVG WBC COUNT ~20 since 2015 Microalbuminuria (Inactive) On supplemental oxygen therapy 5 LPM HS [place] (obstructive sleep apnea) couldn't tolerate CPAP or BiPAP Personal history of DVT (deep vein thrombosis) LEFT LEG, SINGLE EPISODE 2-3 YRS AGO Type 2 diabetes mellitus Surgical History History of bladder surgery TURBT, 01/07/18 @ [facility], LMA 5.0, 'good seal.' Hx of colonoscopy Family History Brain cancer Brother Kidney stones Daughter Lung disease Father Stroke Mother Social History Preferred Language: Mongolian Communication Ability: Effective Visual Impairment: No Limitations Boring Machine Operator Required: No Beliefs That Will Affect Care: None Current Living Situation: Alone Feels Safe at Home: Yes Safety Concerns: Feels Safe At This Time Smoking Status: Current every day smoker Tobacco Type: cigarettes ; Cigarettes Per Day: 8 ; Do You Dip or Chew Tobacco: No ; Second Hand Exposure: No ; Hx Alcohol Use: No Hx Substance Use: No Seatbelt Use: always Review of Systems Constitutional: + fatigue; no fever, no chills, no weight loss and no weight gain Eyes: no problem reported Ear, Nose, Mouth, Throat: no problem reported Respiratory: + dyspnea; no cough Cardiovascular: as per Subjective / HPI Gastrointestinal: no abdominal pain and no change in stools Genitourinary: + hematuria Musculoskeletal: no myalgia Integumentary: no rash and no new lesions Neurologic: no falls and no syncope Psychiatric: no problem reported Physical Exam Physical Exam: Normal habitus chronically ill pale appearing elderly white male in no acute distress. Afebrile. Normotensive. Heart rate varied between 80 and 120 bpm (alternately in sinus than atrial fibrillation), respiratory rate in the mid 20s. Skin: Ecchymoses noted dorsum of right hand, no generalized lesions. HEENT: unremarkable. Neck: Jugular venous pulse with increased respiratory variation but average meniscus at the clavicle, no carotid bruits. Lungs: Moderately decreased breath sounds with occasional expiratory wheezing. No intercostal retraction, nasal flaring, or abdominal paradox. Cardiac: Irregular/tachycardic rhythm with 2/6 apical holosystolic murmur without obvious radiation, no diastolic murmur or gallop. Abdomen benign. Extremities: 2+ pretibial edema, lower extremity pulses difficult to palpate due to edema, capillary refill fair (2 to 3 seconds), extremities warm. Neurologic: Normal general conversation and affect, nonfocal. Results & Data ([facility]) Diagnostic Findings ECG on admission showed atrial fibrillation with rapid ventricular sponsor (141 bpm), left anterior fascicular block, poor R wave progression, no ST deviation. Compared with ECG from 2019 atrial fibrillation was noted, otherwise no significant change. Echocardiogram from today showed mildly dilated left ventricle with moderately reduced systolic function (EF equal 40 to 45%), moderate global hypokinesis with moderate to severe septal hypokinesis, moderate to severe mitral regurgitation with moderately dilated left atrium, mild tricuspid regurgitation with moderate pulmonary hypertension. Compared with 2018 study, systolic function has declined, wall motion is now abnormal, severity of mitral regurgitation is increased, moderate pulmonary hypertension now present. Chest x-ray on admission showed minimal interstitial infiltrative process right base, mild stable cardiomegaly. Chest CT on admission showed no pulmonary emboli, severe emphysema was present, small right pleural effusion, interlobular septal thickening suggesting mild interstitial pulmonary edema. PG Care Time/CCT Total # of Minutes Spent Total Time Spent with Patient: Total time spent is greater than 50% in coordination of care (as documented) at patient's floor/unit and/or counseling patient: Coding Level of Care Code 96775 Initial Inpt Care Lvl 3 Diagnoses Paroxysmal atrial fibrillation with rapid ventricular response I48.0 Acute CHF (congestive heart failure) I50.9 COPD (chronic obstructive pulmonary disease) J44.9 Bladder carcinoma C67.9
[2020-02-18] MEDS ORDERED: AMIODARONE 200 MG TAB PO STA (12:28)
[2020-02-18] MEDS: AMIODARONE 200 MG TAB PO SCH (18:14)
[2020-02-18] MEDS: SERTRALINE HCL 50 MG TABLET PO SCH (21:12)
[2020-02-19 04:47] LABS: Hematocrit (blood only) 30.3 % (42-52); Hemoglobin 9.3 g/dL (14.0-18.0); Mean Corpuscular Hemoglobin 23.1 pg (25-34); Mean Corpuscular Hgb Conc 30.7 g/dL (32-36); Mean Corpuscular Volume 75.2 fL (80-100); Mean Platelet Volume 9.4 fL (7.4-10.4); Nucleated RBC # (auto) 0.19 K/uL (0-0); Platelet Count 528 K/uL (130-400); RDW Coefficient of Variation 18.1 % (11.5-14.5); RDW Standard Deviation 48.6 fL (36.4-46.3); Red Blood Count 4.03 M/uL (4.7-6.1); White Blood Count 18.95 K/uL (4.8-10.8)
[2020-02-19 05:07] LABS: Albumin Level 2.7 gm/dl (3.4-5.0); BUN Creatinine Ratio 41.6 (10-20); Calcium 7.6 mg/dl (8.5-10.1); Creatinine Clr Calc Pharmacy 57.8 ml/min; Est GFR (African American) 83.8; Est GFR (Non-African American) 72.3; Potassium 4.3 mmol/L (3.5-5.1)
[2020-02-19 05:13] LABS: Albumin Globulin Ratio 0.8 (0.9-2); Bilirubin,Total 0.7 mg/dl (0.2-1); Globulin 3.4 gm/dl (2.5-4.0); Total Protein 6.1 gm/dl (6.4-8.2)
[2020-02-19] MEDS: AMIODARONE 200 MG TAB PO SCH ×3 (07:54→17:24)
[2020-02-19] MEDS: FLUTICASONE FUROATE 100MCG 14 PUFFS/INHALER INH SCH (07:54)
[2020-02-19] MEDS: UMECLIDINIUM/VILANTEROL 62.5/25MCG 7 PUFFS/INHALER INH SCH (07:55)
[2020-02-19] MEDS: ATORVASTATIN 10 MG TAB PO SCH (07:55)
[2020-02-19] MEDS: FAMOTIDINE 20 MG TAB PO SCH ×2 (07:55→21:07)
[2020-02-19] MEDS: INSULIN ASPART 100 UNITS/ML 3 ML PEN SC SCH ×4 (07:56→21:34)
--- NOTE | 2020-02-19 10:20 | Urology Consultation ---
Date of Consultation February 19, 2020 Assessment & Plan (1) Bladder carcinoma: History of bladder cancer He likely has a small tumor based on his recent CT He has an extensive smoking history He has not been a great health overall with chronic pulmonary and cardiac issues as well as diabetes and a myeloproliferative disorder He does need outpatient follow-up, however the urgency is maybe not absolutely pressing We will coordinate an outpatient appointment after he stabilizes and is discharged History of Present Illness Attending Physician: Dmitri Arriaza History of Present Illness 79-year-old male admitted for cardiopulmonary issues, however in the midst of his admission it was determined that he previously had a history of TCC treated by Dr. Mike but has not followed up in several years CT during this hospitalization reveals a suspected small tumor within the bladder Patient reports that he did experience intermittent hematuria over the past several months but is currently not seeing any blood in his urine He denies any voiding dysfunction Allergies Allergy/AdvReac Type Severity Reaction Status Date / Time levofloxacin Allergy Unknown PT NOT Verified 02/17/20 15:55 AWARE-ON MEDICAL CHART pravastatin AdvReac Intermediate muscle Verified 02/17/20 15:55 aches Home Medications Home Medications Medication Instructions Recorded Confirmed Type albuterol sulfate 90 mcg/actuation 2 puffs INHALATION Q6H PRN #18 gm 03/06/19 02/17/20 Rx aerosol inhaler blood sugar diagnostic #50 ea 03/28/19 02/17/20 Rx blood-glucose meter #1 ea 03/28/19 02/17/20 Rx lancets 33 gauge #100 ea 03/28/19 02/17/20 Rx albuterol sulfate 2.5 mg INHALATION QID PRN #180 ml 05/21/19 02/17/20 Rx atorvastatin 10 mg tablet 10 mg PO DAILY #90 tab 05/21/19 02/17/20 Rx metformin 500 mg tablet 500 mg PO BID #180 tab 05/21/19 02/17/20 Rx famotidine 20 mg tablet 20 mg PO BID #60 tab 11/24/19 02/17/20 Rx fluticasone fur. 100 mcg-umeclid 1 puffs INHALATION DAILY ea 02/17/20 02/17/20 History 62.5 mcg-vilant 25 mcg inhalat.powder omeprazole 40 mg PO QAM 02/17/20 02/17/20 History sertraline 25 mg PO HS 02/17/20 02/17/20 History Patient History Medical History Benign essential hypertension Benign prostatic hyperplasia with urinary obstruction (Inactive) Bladder cancer 1 YR AGO AND REASON FOR UPCOMING PROCEDURE Chronic myeloproliferative disease Chronic obstructive pulmonary disease USING ALBUTEROL RESCUE 1-2X PER DAY Claudication COPD exacerbation (Inactive) Dyslipidemia GI bleed (Resolved 2015) Goals of care, counseling/discussion Hx of gastroesophageal reflux (GERD) Insomnia (Inactive) Leukocytosis (Inactive) AVG WBC COUNT ~20 since 2015 Microalbuminuria (Inactive) On supplemental oxygen therapy 5 LPM HS [place] (obstructive sleep apnea) couldn't tolerate CPAP or BiPAP Personal history of DVT (deep vein thrombosis) LEFT LEG, SINGLE EPISODE 2-3 YRS AGO Type 2 diabetes mellitus Surgical History History of bladder surgery TURBT, 01/07/18 @ [facility], LMA 5.0, 'good seal.' Hx of colonoscopy Family History Father Lung disease Brother Brain cancer Daughter Kidney stones Mother Stroke Social History Preferred Language: Ukrainian Communication Ability: Effective Visual Impairment: No 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 Beliefs That Will Affect Care: None Current Living Situation: Alone Feels Safe at Home: Yes Safety Concerns: Feels Safe At This Time Smoking Status: Current every day smoker Tobacco Type: cigarettes ; Cigarettes Per Day: 8 ; Do You Dip or Chew Tobacco: No ; Second Hand Exposure: No ; Hx Alcohol Use: No Hx Substance Use: No Seatbelt Use: always Review of Systems Constitutional: no fever and no chills Eyes: no dry eyes Ear, Nose, Mouth, Throat: no hearing loss Respiratory: + dyspnea and + dyspnea on exertion Cardiovascular: + palpitations; no chest pain Gastrointestinal: no abdominal pain Genitourinary: + hematuria Musculoskeletal: no back pain Integumentary: no rash Neurologic: + unsteadiness Psychiatric: no behavioral changes Endocrine: no fatigue Physical Exam Constitutional: well developed and well nourished Neck: neck nontender Respiratory: normal respiratory effort; no respiratory distress and does not use accessory muscles Seems to be breathing comfortably at the time of examination Cardiovascular: Rate/Rhythm: + tachycardic Vessels: radial pulses present Extremities: no edema Gastrointestinal (Abdomen): Inspection/Auscultation: abdomen normal to inspection Percussion/Palpation: abdomen soft; abdomen nontender and no guarding Musculoskeletal: Head/Neck/Chest: normocephalic and head atraumatic Extremities: extremities normal to inspection Skin: no rashes and no lesions Trauma: no evidence of skin trauma Neurologic: awake; not obtunded Speech / Cognition: normal speech Motor/Sensory: no tremor Psychiatric: Orientation: alert and oriented x 3 Genitourinary: no CVA tenderness Lymphatic: no lymphadenopathy Results & Data Vital Signs (Past 12 Hours) Vital Signs Temp Pulse Resp BP Pulse Ox 02/19/20 08:00 36.7 C 108 H 22 116/86 95 02/19/20 04:01 36.7 C 103 H 22 146/90 H 94 02/18/20 23:50 36.6 C 84 14 111/92 100 PG Care Time/CCT Total # of Minutes Spent Total Time Spent with Patient: Total time spent is greater than 50% in coordination of care (as documented) at patient's floor/unit and/or counseling patient: Coding Level of Care Code 47717 Inpt Consult Level 4 Diagnoses Bladder carcinoma C67.9
--- NOTE | 2020-02-19 12:25 | Cardiology Progress Note ---
Date of Service February 19, 2020 Assessment & Plan (1) Paroxysmal atrial fibrillation with rapid ventricular response: Although minimally symptomatic, his heart rate is still suboptimally controlled and for reasons noted previously rhythm management (maintaining sinus rhythm) would be preferable to rate control. Since he has not shown bradycardia or hypotension, will increase his amiodarone in hospital dosing. (2) Acute CHF (congestive heart failure): He does appear more volume overloaded today, will administer another dose of IV diuretic (he responded to furosemide 40 mg IV on admission). When discharged, he should be on a sliding scale diuretic based on weight. (3) COPD, severe: Oxygen dependent. Will be important to control his volume status, since even mild volume overload could have a disproportionate deleterious effect given his poor pulmonary reserve. (4) Bladder carcinoma: Contraindication to anticoagulation. Admission and Anticipated Discharge Date Admission Date: February 17, 2020 Subjective Patient remained in sinus rhythm through most of the night, but reverted to atrial fibrillation with rapid ventricular response early this morning. Despite suboptimally controlled heart rate, he denies any subjective palpitations, dyspnea, or chest pain. Nurses did note that he required more oxygen today and seems a bit more dyspneic with minor exertion. At the time of my evaluation, he was eating lunch and had no complaints. Physical Exam Physical Exam: Normal habitus chronically ill appearing elderly white male in no distress. Afebrile. Normotensive. Heart rate varied between 80 and 110 bpm (alternately in sinus than atrial fibrillation), respiratory rate in the 20s. Skin: Ecchymoses noted dorsum of right hand, no generalized lesions. HEENT: unremarkable. Neck: Jugular venous pulse with increased respiratory variation and average meniscus long term to the angle of the jaw (increased from yesterday), no carotid bruits. Lungs: Moderately decreased breath sounds with rare expiratory wheezing. No intercostal retraction, nasal flaring, or abdominal paradox. Cardiac: Irregular/tachycardic rhythm with 2/6 apical holosystolic murmur without obvious radiation, no diastolic murmur or gallop. Abdomen benign. Extremities: 1+ pretibial edema, lower extremity pulses difficult to palpate due to edema, extremities warm. Neurologic: Normal general conversation and affect, nonfocal. Results & Data ([facility]) Vital Signs (Past 12 Hours) Vital Signs Temp Pulse Resp BP Pulse Ox 02/19/20 08:00 98.1 F 108 H 22 116/86 95 02/19/20 04:01 98.1 F 103 H 22 146/90 H 94 Laboratory Results Creatinine 1.0. Diagnostic Findings Monitor showed sinus rhythm alternating with atrial fibrillation. No ECG today. PG Care Time/CCT Total # of Minutes Spent Total Time Spent with Patient: Total time spent is greater than 50% in coordination of care (as documented) at patient's floor/unit and/or counseling patient: Coding Level of Care Code 16478 Subseq Hosp Care Lvl 3 Diagnoses Paroxysmal atrial fibrillation with rapid ventricular response I48.0 Acute CHF (congestive heart failure) I50.9 COPD, severe J44.9 Bladder carcinoma C67.9
[2020-02-19] MEDS ORDERED: FUROSEMIDE 40 MG in SYRINGE 0 ML IV ONE (12:35)
--- NOTE | 2020-02-19 15:31 | Palliative Care Progress Note ---
Date of Service February 19, 2020 Assessment & Plan (1) Goals of care, counseling/discussion: Patient is a 79 year old male who presented to the [facility] from his PCP's office with increased SOB and tachycardia. Upon arrival, he was found to be in rapid-afib in the 140's. He was started on a Diltiazem gtt. Additional PMH includes: O2 dependent COPD for which he wears CPAP nightly and PRN HTN, HLD, DVT, DM type II, chronic myeloproliferative disease -has not followed up with oncology, bladder cancer-has not followed up with urology, and tobacco dependence. He does have a daughter, Betsy Sandhu, who lives locally and is involved in his care. Palliative Care was consulted to discuss goals of care. -I met with the patient in room 108. The patient was sitting on the side of the bed, in no acute distress. -The patient was AAOx3 , He denies difficulty breathing and is currently on O2 at 2 L. -CODE STATUS discussed yesterday-patient wishes to be a DNR. -I did talk about him receiving home health services-to help with his medications and help him stay out of the hospital. -He appointed his daughter Betsy Sandhu ([phone]) as his medical decision- maker. -Spoke with his daughter, Betsy at length-she is aware of his multiple medical problems as well as his arrhythmia and not being able to take blood thinners, as well as his long history of medical noncompliance. -Palliative will follow. -PPS: 50% (2) Chronic myeloproliferative disease: (3) COPD (chronic obstructive pulmonary disease): (4) Bladder cancer: (5) COPD exacerbation: (6) Hypoxia: (7) Weakness: Subjective Patient awake and alert, sitting at side of bed, no acute distress. Patient currently in A. fib, heart rate in the low 100s-patient denies palpitations, not aware of tachycardia. Patient medically noncompliant with his medical care, does have some memory deficits which may contribute. Patient reports he does not like to take medications. Discussed with patient at length the importance of taking his cardiac medications, with his abnormal heart rhythm and inability to take blood thinners he would be at high risk for stroke. Spoke with patient's daughter, Betsy, . She does report patient is stubborn and noncompliant with medical recommendations. Daughter aware of the difficult situation patient is in regarding his multiple medical problems as well as his irregular heart rate and intermittent ability to take blood thinners. Review of Systems Review of Systems: Patient denies fever, chills, chest pain, increased shortness of breath or abdominal pain. Positive for lower extremity edema Physical Exam Physical Exam: PE: Patient awake and alert, no acute distress, sitting at side of bed. HEENT: EOMI, hearing within normal limits Respirations: Unlabored, diffuse wheezes bilaterally CV: Tachycardic, irregular, 3+ lower extremity edema Abdomen: Soft, nontender Neuro: Alert and oriented x4 Results & Data Vital Signs (Past 12 Hours) Vital Signs Temp Pulse Resp BP Pulse Ox 02/19/20 08:00 98.1 F 108 H 22 116/86 95 02/19/20 04:01 98.1 F 103 H 22 146/90 H 94 Patient had an echo performed on 02/17-compared to prior echo in August 2017-he has decreased systolic function with an EF of 40 to 45%, abnormal wall motion as well as moderate to severe MR PG Care Time/CCT Total # of Minutes Spent Total Time Spent with Patient: Total time spent 35 minutes with greater than 50% of the time spent at bedside discussing patient's current medical issues, as well as encouraging medical compliance. Spoke with patient's daughter by phone, collaborated with attending physician and case management Coding Level of Care Code 74327 Subseq Hosp Care Lvl 3 Diagnoses Goals of care, counseling/discussion Z71.89 Chronic myeloproliferative disease D47.1 COPD (chronic obstructive pulmonary disease) J44.9 Bladder cancer C67.9 COPD exacerbation J44.1 Hypoxia R09.02 Weakness R53.1 Time Spent (min) 35
[2020-02-19] MEDS: SERTRALINE HCL 50 MG TABLET PO SCH (21:06)
--- NOTE | 2020-02-19 22:12 | Hospitalist Progress Note ---
Date of Service February 19, 2020 Assessment & Plan (1) Paroxysmal atrial fibrillation with rapid ventricular response: HR is better controlled. Started on amiodarone. Holding anticoagulation due to bleeding. Patient does have risk for stroke, but due to h/o GI bleed, brain bleed, and now hematuria, he has multiple contraindications to (2) Acute CHF (congestive heart failure): Acute systloic congestive heart failure. Patient is volume overloaded, requires diuretics. (3) COPD, severe: Acute and chronic hypoxic respiratory failure Likely due to history of smoking. Patient came in with pursed lip breathing and accessory muscle use with O2 sat of 90% on RA and tachypnea with rate of 24-29. This has improved. will require PFT to formally diagnose. may benefit from outpatient pulmonary followup. (4) Benign essential hypertension: - takes no antihypertensives as outpt - rate controlling medications as above; (5) Type 2 diabetes mellitus: -ISS with Accu-Cheks AC at bedtime -Holding metformin -Last A1c = 6.5 in August 2019, recheck (6) Dyslipidemia: -Follow lipid panel per PCP -Continue atorvastatin 10 mg daily (7) Chronic myeloproliferative disease: -Chronic elevation of WBC with neutrophils, does not follow with oncologist as an outpatient (8) Bladder cancer: Appreciate input from Urology. History of bladder cancer He likely has a small tumor based on his recent CT He has an extensive smoking history He has not been a great health overall with chronic pulmonary and cardiac issues as well as diabetes and a myeloproliferative disorder He does need outpatient follow-up, however the urgency is maybe not absolutely pressing We will coordinate an outpatient appointment after he stabilizes and is discharged (9) Hematuria: - hx of such in 2018 with high-grade urothelial carcinoma, surgically resected by Dr. Morillo - Has not followed with urology since that time, consider consult once he's more stable, with new onset hematuria x2 days - Monitor for clearance, Bladder scan prn - Urine cytology (10) DVT prophylaxis: - teds, scds CODE: DNR Dispo: From home, likely to remain in the hospital x 1-2 days (11) Memory impairment: - Pt daughter reports this has been ongoing for a few years. He has not been paying bills, forgetful, and unable to manage his medication, he had nurses do an in-home visit some time ago, but they thought that there wasn't a significant memory impairment. He also has gotten lost on the way to an eye appointment 1 year ago where he never showed up to the appointment. Daughter reports this waxes and wanes with the day. It is possible that breathing has been worse x 1 week. Admission and Anticipated Discharge Date Admission Date: February 17, 2020 Subjective 79 yo male reports no new symptoms. Review of Systems Review of Systems: All systems reviewed & are unremarkable except as noted in HPI & below Physical Exam Physical Exam: General: awake, alert, mild distress Head: Normocephalic, atraumatic ENT: PERRL, EOMI, no pharyngeal exudate, mucous membranes moist Chest: + using accessory muscles to breathe, on room air, coarse cough, nonproductive, catching his breath with long sentences, diminished bilaterally, inspiratory/expiratory wheeze in the left lower lobe, + faint rales Cardiac: + Tachycardia, no murmur, no JVD, normal peripheral pulses, good capillary refill Abdominal: NABS x 4 quadrants, soft, + mildly distended, nontender to palpation, no rebound, guarding or tenderness Extremities: Normal inspection, 3+ peripheral edema BLE, no erythema, calfs nontender to palpation Psych: Normal mood and affect Neuro: AAO x 3, no gross motor deficits, speech is clear, no peripheral sensory deficits Results & Data Results & Data ([facility]) Vital Signs (Past 12 Hours) Vital Signs Temp Pulse Resp BP Pulse Ox 02/19/20 19:02 36.6 C 82 20 125/68 99 02/19/20 16:00 36.5 C 104 H 24 111/80 96 PG Care Time/CCT Total # of Minutes Spent Total Time Spent with Patient: Total time spent is greater than 50% in coordination of care (as documented) at patient's floor/unit and/or counseling patient: Coding Level of Care Code 69442 Subseq Hosp Care Lvl 3 Diagnoses Paroxysmal atrial fibrillation with rapid ventricular response I48.0 Acute CHF (congestive heart failure) I50.9 COPD, severe J44.9 Benign essential hypertension I10 Type 2 diabetes mellitus E11.9 Dyslipidemia E78.5 Chronic myeloproliferative disease D47.1 Bladder cancer C67.9 Hematuria R31.9 DVT prophylaxis Z29.9 Memory impairment R41.3 Time Spent (min) 35
[2020-02-20] MEDS: AMIODARONE 200 MG TAB PO SCH ×3 (00:30→11:41)
[2020-02-20 05:08] LABS: Hematocrit (blood only) 30.4 % (42-52); Hemoglobin 9.3 g/dL (14.0-18.0); Mean Corpuscular Hemoglobin 22.8 pg (25-34); Mean Corpuscular Hgb Conc 30.6 g/dL (32-36); Mean Corpuscular Volume 74.5 fL (80-100); Mean Platelet Volume 9.5 fL (7.4-10.4); Nucleated RBC % (auto) 0.7 %; Platelet Count 443 K/uL (130-400); RDW Coefficient of Variation 18.1 % (11.5-14.5); RDW Standard Deviation 48.7 fL (36.4-46.3); Red Blood Count 4.08 M/uL (4.7-6.1); White Blood Count 15.32 K/uL (4.8-10.8)
[2020-02-20 05:21] LABS: Albumin Level 2.6 gm/dl (3.4-5.0); BUN Creatinine Ratio 37.4 (10-20); Calcium 7.1 mg/dl (8.5-10.1); Creatinine Clr Calc Pharmacy 67.5 ml/min; Est GFR (African American) 91.5; Est GFR (Non-African American) 78.9; Potassium 3.7 mmol/L (3.5-5.1)
[2020-02-20 05:23] LABS: Albumin Globulin Ratio 0.8 (0.9-2); Bilirubin,Total 0.7 mg/dl (0.2-1); Globulin 3.1 gm/dl (2.5-4.0); Total Protein 5.7 gm/dl (6.4-8.2)
[2020-02-20] MEDS: FLUTICASONE FUROATE 100MCG 14 PUFFS/INHALER INH SCH (08:16)
[2020-02-20] MEDS: FAMOTIDINE 20 MG TAB PO SCH (08:16)
[2020-02-20] MEDS: ATORVASTATIN 10 MG TAB PO SCH (08:16)
[2020-02-20] MEDS: INSULIN ASPART 100 UNITS/ML 3 ML PEN SC SCH ×2 (08:16→11:41)
[2020-02-20] MEDS: UMECLIDINIUM/VILANTEROL 62.5/25MCG 7 PUFFS/INHALER INH SCH (08:16)
--- NOTE | 2020-02-20 09:17 | Cardiology Progress Note ---
Date of Service February 20, 2020 Assessment & Plan (1) Paroxysmal atrial fibrillation with rapid ventricular response: Currently sinus rhythm, would discharge on amiodarone 200 mg twice daily, further downward titration as an outpatient in 2 to 4 weeks. 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 (2) Acute CHF (congestive heart failure): Would discharge on furosemide sliding scale diuretic regimen based on weight. He still appears mildly hypervolemic, would recommend obtaining weight on his home scale and having him take furosemide 40 mg if his weight is at the current level or higher, he could skip the diuretic if his weight is lower than his current weight. Since he was hyperkalemic on admission, would not add potassium supplement at this time. However, will need to check electrolytes and renal function when he is seen in cardiology follow-up in 2 to 4 weeks. (3) COPD, severe: Oxygen dependent. Will be important to control his volume status, since even mild volume overload could have a disproportionate deleterious effect given his poor pulmonary reserve. (4) Bladder carcinoma: Contraindication to anticoagulation. Admission and Anticipated Discharge Date Admission Date: February 17, 2020 Subjective Patient reverted to sinus rhythm around midnight last night and remains in sinus rhythm. He denied any cardiopulmonary or other complaints and was anxious to return ho me. Denies chest pain, dyspnea, subjective palpitations, or lightheadedness. At the time of my evaluation, he was eating breakfast and had no complaints. Physical Exam Physical Exam: Normal habitus chronically ill appearing elderly white male in no distress. Afebrile. Normotensive. Heart rate currently in the 80s, respiratory rate in the 20s. Skin: no generalized lesions. HEENT: unremarkable. Neck: Jugular venous pulse with increased respiratory variation and average meniscus 1[address] the angle of the jaw (dencreased from yesterday), no carotid bruits. Lungs: Moderately decreased breath sounds with rare expiratory wheezing. No intercostal retraction, nasal flaring, or abdominal paradox. Cardiac: Regular rhythm with 2/6 apical holosystolic murmur without obvious radiation, no diastolic murmur or gallop. Abdomen benign. Extremities: 1-2+ pretibial edema, lower extremity pulses difficult to palpate due to edema, extremities warm. Neurologic: Normal general conversation and affect, nonfocal. Results & Data ([facility]) Vital Signs (Past 12 Hours) Vital Signs Temp Pulse Resp BP Pulse Ox 02/20/20 08:07 97.7 F 82 22 121/65 89 L 02/20/20 03:44 97.9 F 87 21 134/73 94 02/20/20 00:00 96 H 02/19/20 23:41 97.7 F 101 H 20 103/45 L 95 Diagnostic Findings Monitor currently shows sinus rhythm at 80 bpm. PG Care Time/CCT Total # of Minutes Spent Total Time Spent with Patient: Total time spent is greater than 50% in coordination of care (as documented) at patient's floor/unit and/or counseling patient: Coding Level of Care Code 89750 Subseq Hosp Care Lvl 3 Diagnoses Paroxysmal atrial fibrillation with rapid ventricular response I48.0 Acute CHF (congestive heart failure) I50.9 COPD, severe J44.9 Bladder carcinoma C67.9
--- NOTE | 2020-02-26 22:00 | Discharge Summary ---
Date of Service February 20, 2020 Admission HPI Per Admitting Provider This is a 79-year-old male with PMHx of COPD, chronic tobacco use 1 ppd since age 17, home cpap at home and uses it on and off during the day, HTN, HLD, history of DVT, DM type II, chronic myeloproliferative disease, chronic leukocytosis, bladder cancer, GERD, who presents with acute worsening shortness of breath and tachycardia from his PCPs office. Patient was found to have heart rate in the 140s at the office and was found to be in A. fib with RVR. He was started on Cardizem drip. The patient tells me that he started having worsening breathing for the past week, and that it is its worse today than it has been. He went to his PCPs office because of his breathing. In the past week, he has been using nebulizers because of his work of breathing 4 times per day. At baseline wears 5L O2 HS, but does not wear any during the day. He reports new-onset of swelling in his legs bilaterally which is worsened over the last 2 days, but they have not been like this previously. He does not take any water pill or any high blood pressure medications. He also reports 2 days ago he developed blood in his urine which is grossly dark red with some small clots. Over 2 yrs ago pt followed with urology for history of bladder cancer involving treatment with TURP and resection of high-grade urothelial carcinoma; had never followed up with them after the procedure was complete. He lives at home by himself, his w dannie 4 years ago. He manages his medications with the help of his daughter who lives locally. Principal Diagnosis paroxysmal atrial fibrillation with RVR. Discharge Exam General: awake, alert, mild distress Head: Normocephalic, atraumatic ENT: PERRL, EOMI, no pharyngeal exudate, mucous membranes moist Chest: no longer wheezing, no longer using accessory muscles to breath Cardiac: RRR, no murmur, no JVD, normal peripheral pulses, good capillary refill Abdominal: NABS x 4 quadrants, soft, + mildly distended, nontender to palpation, no rebound, guarding or tenderness Extremities: Normal inspection, 3+ peripheral edema BLE, no erythema, calfs nontender to palpation Psych: Normal mood and affect Neuro: AAO x 3, no gross motor deficits, speech is clear, no peripheral sensory deficits Discharge Data Allergies Allergy/AdvReac Type Severity Reaction Status Date / Time levofloxacin Allergy Unknown PT NOT Verified 02/17/20 15:55 AWARE-ON MEDICAL CHART pravastatin AdvReac Intermediate muscle Verified 02/17/20 15:55 aches Consultations 02/17/20 16:23 ED Decision to Admit Stat 02/17/20 17:40 Consult Cardiology Routine 02/17/20 19:14 Consult Case Management - Discharge Planning Routine Consult Palliative Care Routine 02/18/20 09:11 Consult Urology Routine Ordered Studies 02/17/20 15:06 CT angio chest dissec wo/w con Stat 02/17/20 15:10 CT angio abdomen pelvis w con Stat Hospital Course (1) Paroxysmal atrial fibrillation with rapid ventricular response: HR is better controlled. Started on amiodarone. Holding anticoagulation due to bleeding. Patient does have risk for stroke, but due to h/o GI bleed, brain bleed, and now hematuria, he has multiple contraindications to anticoagulation. will hold for now. will defer to PCP and cardio at outpatient followup to determine if and when anticoagulation may be resumed. (2) Acute CHF (congestive heart failure): Acute systloic congestive heart failure. Patient was volume overloaded, required diuretics. Now euvolemic. (3) COPD, severe: Acute and chronic hypoxic respiratory failure Likely due to history of smoking. Patient came in with pursed lip breathing and accessory muscle use with O2 sat of 90% on RA and tachypnea with rate of 24-29. This has improved. will require PFT to formally diagnose. may benefit from outpatient pulmonary followup. (4) Benign essential hypertension: - takes no antihypertensives as outpt - rate controlling medications as above; (5) Type 2 diabetes mellitus: -ISS with Accu-Cheks AC at bedtime -Holding metformin -Last A1c = 6.5 in August 2019, recheck (6) Dyslipidemia: -Follow lipid panel per PCP -Continue atorvastatin 10 mg daily (7) Chronic myeloproliferative disease: -Chronic elevation of WBC with neutrophils, does not follow with oncologist as an outpatient (8) Bladder cancer: Appreciate input from Urology. History of bladder cancer He likely has a small tumor based on his recent CT He has an extensive smoking history He has not been a great health overall with chronic pulmonary and cardiac issues as well as diabetes and a myeloproliferative disorder He does need outpatient follow-up, however the urgency is maybe not absolutely pressing We will coordinate an outpatient appointment after he stabilizes and is discharged (9) Hematuria: - hx of such in 2018 with high-grade urothelial carcinoma, surgically resected by Dr. Morillo - Has not followed with urology since that time, consider consult once he's more stable, with new onset hematuria x2 days - Monitor for clearance, Bladder scan prn - Urine cytology (10) DVT prophylaxis: - teds, scds CODE: DNR (11) Memory impairment: - Pt daughter reports this has been ongoing for a few years. He has not been paying bills, forgetful, and unable to manage his medication, he had nurses do an in-home visit some time ago, but they thought that there wasn't a significant memory impairment. He also has gotten lost on the way to an eye appointment 1 year ago where he never showed up to the appointment. Daughter reports this waxes and wanes with the day. It is possible that breathing has been worse x [address] no longer drive. Total Time Total Time Spent Total Time Spent (In Minutes): 32 Total Time Includes: Examination of the Patient, Discharge Planning and Medication Reconciliation Discharge Plan Discharge Items Patient Disposition: Home - Home Health Services Reason For Visit: CHF,AFIB WITH RVR,HEMATURIA Discharge Diagnosis: AFIB with RVR, hematuria, CHF Activity: Resume your previous activity Non-emergency contact: Primary Care Provider Call non-emergency contact if: you have any medication questions Follow-up/Referrals: Harrison Vicente MD [Primary Care Provider] - Diet: Heart Healthy and Low Sodium (2gm) Addtl Attending Provider Instructions: Paroxysmal atrial fibrillation with rapid ventricular response: Your heart rhythm improved and you will be discharged on amiodarone 200 mg twice daily, further downward titration as an outpatient in 2 to 4 weeks. You will need to follow-up in the [place] office with first available director of bands in the next 2 to 4 weeks. In regards to congestive heart failure Will discharge on furosemide sliding scale diuretic regimen based on weight. Will recommend obtaining weight on his home scale and having him take furosemide 40 mg if his weight is at the current level or higher, he could skip the diuretic if his weight is lower than his current weight. will need blood work to check electrolytes and renal function when he is seen in cardiology follow-up in 2 to 4 weeks. You will need to followup with Urology in regards of the bladder tumor. Pending Studies at Discharge: No Stand-Alone Forms: [facility], Smoking Cessation Medications and DC Order Prescriptions: New amiodarone 200 mg Tablet 200 mg PO BID Qty: 60 RF: 0 Anoro Ellipta 62.5-25 mcg/actuation Blister With Device 1 puff inhalation DAILY Qty: 1 RF: 0 furosemide 40 mg tablet 40 mg PO DAILY PRN (Reason: weight gain) Qty: 30 RF: 0 Continued (DME) OneTouch Ultra Blue Test Strip strip See Dose Instructions .ROUTE .MEDSUPPLY Qty: 50 RF: 5 (DME) blood-glucose meter [RenovagenTouch Ultra2 Meter] kit See Dose Instructions .ROUTE .MEDSUPPLY Qty: 1 RF: 0 (DME) lancets [RenovagenTouch Delica Lancets] 33 gauge misc See Dose Instructions .ROUTE .MEDSUPPLY Qty: 100 RF: 3 albuterol sulfate 2.5 mg /3 mL (0.083 %) solution for nebulization 2.5 mg INHALATION QID PRN (Reason: Shortness Of Breath) Qty: 180 RF: 3 atorvastatin 10 mg tablet 10 mg PO DAILY Qty: 90 RF: 3 metformin 500 mg tablet 500 mg PO BID Qty: 180 RF: 3 famotidine 20 mg tablet 20 mg PO BID Qty: 60 RF: 5 sertraline 25 mg Tablet 25 mg PO HS RF: 0 omeprazole 40 mg Capsule,Delayed Release(Dr/Ec) 40 mg PO QAM RF: 0 No Action albuterol sulfate 90 mcg/actuation HFA aerosol inhaler 2 puffs INHALATION Q6H PRN (Reason: Shortness Of Breath) Qty: 18 RF: 3 vjuaamziado-vpouffaiy-xwybaufi 100-62.5-25 mcg blister with device 1 puffs inhalation DAILY Qty: 90 RF: 3 Discharge Orders: Discharge Order (Routine); Ordered 02/20/20 Ordered By: Dmitri Arriaza Admission Data Admit Date/Time: 02/17/20 16:55 Attending Provider: Dmitri Arriaza Admit Provider: Gray Contreras Primary Care Provider: Harrison Vicente Other Providers: Steve Roque ; Manny Singh ; Chika Stacy Other Interventions: Discharge Summary Assessment (RN) Last Done: 02/20/20 14:42 DC Date/Time DO NOT enter until pt leaves facility: 02/20/20 15:47 Coding Level of Care Code D/C Day Management >30 mins Diagnoses Paroxysmal atrial fibrillation with rapid ventricular response I48.0 Acute CHF (congestive heart failure) I50.9 COPD, severe J44.9 Benign essential hypertension I10 Type 2 diabetes mellitus E11.9 Dyslipidemia E78.5 Chronic myeloproliferative disease D47.1 Bladder cancer C67.9 Hematuria R31.9 DVT prophylaxis Z29.9 Memory impairment R41.3
== END 2020-02-20 15:47 | disposition home health service (06) | DRG 291 ==
LOC: ED 14:51 → 1E 16:55 → SUATTDRO 16:55 → 1E 18:46